=== PATIENT | female | born 1970 | race Caucasian/White ===

== ENCOUNTER 2023-04-04 17:57 | Emergency (ER) | payer OTHER, SELFPAY ==
[2023-04-04 18:54] VITALS: BMI 27.5
--- NOTE | 2023-04-04 21:57 | ED.GENMED ---
History of Present Illness
General
Chief Complaint: Head Injury
Source: patient and family
Exam Limitations: none
Time Seen by Provider: 04/04/23 18:54
Nursing documentation reviewed up to this point in time: agreed with
Travel History
Have you had any contact with someone who has COVID-19?: No
Do you have any symptoms of coronavirus? Fever > 100 degrees, chills, cough, shortness of breath, sore throat, loss of taste or smell, muscle aches, or headache?: No
History of Present Illness
History of Present Illness:
52-year-old female with past with history of asthma, lupus anxiety depression OCD presenting to the emergency department today with concerns of the latch of her car door hit her on the top of the head. Did not lose consciousness but has felt
lightheaded and nauseous since. Has had ongoing discomfort.
Past History
Past History
ED Past Medical History: Asthma, Psychiatric (Anxiety) and Other (Adrenal insufficiency, migraine )
ED Past Surgical History: , Gynecological and Tonsilectomy
Social History
Tobacco: Non-smoker
Alcohol: None
Drug: None
Personal:
Living: with family
Employment: Employed
Family History
Family History: Other
Review of Systems
Review of Systems
Allergies reviewed?: Yes
All Other Systems: ROS reviewed and negative except as documented in HPI and ROS
Phy Exam
Physical Exam
Physical Exam:
GENERAL: Alert , in no apparent distress
EYE: pupils equal and reactive
NECK: Supple, no significant adenopathy.
ENT: o/p clr, mmm.
CARDIAC: Regular rate and rhythm .
LUNGS: Clear breath sounds bilaterally, no acute respiratory distress, no wheezes/rales/rhonchi
ABDOMEN: Soft, without focal tenderness, no r/g, no cvat
NEUROLOGICAL: Alert and oriented, no focal neuro deficits 5 out of 5 upper and lower extremity strength with mild pain bilaterally normal finger-nose intervention no pronator drift
SKIN: Warm and dry, skin intact.
MUSCULOSKELETAL: No edema, well perfused.
PSYCH: Normal and appropriate interaction.
Course
Orders/Labs/Results
Orders:
Orders
04/04/23 18:55
CT Head W/o Iv Contrast Urgent
Comment:
Reason For Exam: hit head severe pain
Vital Signs
Initial and Last Documented VS:
Initial Vital Signs
Pulse Resp Pulse Ox
82 17 97
04/04/23 18:05 04/04/23 18:05 04/04/23 18:05
Last Documented Vital Signs
Pulse Resp Pulse Ox
82 17 97
04/04/23 18:05 04/04/23 18:05 04/04/23 18:05
MDM/Problems Addressed
MDM/Problems Addressed:
52-year-old female presenting to the emergency department after head trauma prior to arrival. No loss of consciousness does have ongoing headache and nausea as well as lightheadedness. CT scan obtained without emergent findings. Normal neurologic
evaluation. Symptoms consistent with concussion. Plan for symptomatic treatment. Return precautions given.
*Critical Care Note
Total Time (30-74mins, 75-104mins- exclusive of procedures): Not Applicable
ED Attending Note
-
Portions of this chart may have been created with voice recognition software.� Occasional wrong word or��sound alike� substitutions may have occurred due to the inherent limitations of voice recognition software.
Discharge Plan
Departure
Patient Disposition: Home (Routine Discharge)
Date of Disposition: 04/04/23
Time of Disposition: 21:57
Patient with high blood pressure during this ER visit?: No
Condition: Good
Covid-19: Not Applicable
Discharge Problem:
Concussion
Instructions: Concussion, Adult (DC)
Prescriptions:
No Action
diphenhydramine HCl [Banophen] 50 MG capsule
50 mg PO HS
gabapentin 400 MG capsule
900 mg PO TID
benzonatate 100 MG capsule
200 mg PO Q8HPRN PRN (Reason: cough)
montelukast 10 MG tablet
10 mg PO QPM
hydrocortisone 10 MG tablet
10 mg PO DAILY@1300
hydrocortisone 10 MG tablet
30 mg PO DAILY
cranberry 500 MG capsule
500 mg PO DAILY
Bifidobacterium infantis [Align] 4 MG capsule
4 mg PO DAILY
multivitamin with folic acid [Tab-A-Jack] 1 TABLET tablet
1 tab PO QPM
methocarbamol [Robaxin] 500 MG tablet
1,500 mg PO TID
riboflavin (vitamin B2) [Vitamin B-2] 100 MG tablet
400 mg PO DAILY
calcium carbonate [Antacid (calcium carbonate)] 1 TABLET tablet,chewable
2 tab PO Q4HPRN PRN (Reason: heartburn)
hydroxychloroquine 200 MG tablet
200 mg PO DAILY
fluticasone propion-salmeterol [Advair HFA] 1 PUFF HFA aerosol inhaler
2 puff inhalation R BID
Ergocalciferol (Vitamin D2) [Vitamin D2] 1,250 MCG Capsule
1.25 mg PO WEEKLY
albuterol sulfate 1 PUFF HFA aerosol inhaler
2 puff inhalation R Q4HPRN PRN (Reason: sob/wheezing)
gabapentin 300 MG capsule
900 mg PO TID 0RF
albuterol sulfate 1 PUFF HFA aerosol inhaler
2 puff inhalation R Q4HPRN PRN (Reason: sob) 0RF
Lactobac 2-Bifido 1-S. therm [High Potency Probiotic] 1 CAP capsule
1 cap PO DAILY 0RF
acetaminophen [Tylenol Extra Strength] 500 MG tablet
1,000 mg PO Q8HPRN PRN (Reason: tension headache) Qty: 0 0RF
lorazepam 2 MG tablet
2 mg PO Q6HPRN PRN (Reason: Anxiety) Qty: 0 0RF
ondansetron 4 MG tablet,disintegrating
4 mg PO Q6HPRN PRN (Reason: nausea) Qty: 0 0RF
ondansetron 4 mg tablet,disintegrating
4 mg PO TIDPRN PRN (Reason: nausea/vomiting) Qty: 20 0RF
amoxicillin 500 mg tablet
500 mg PO TID Qty: 20 0RF
Referrals:
Nadira Moreland MD [Family Provider] -
Vicki Rocha, [Active] - Follow up in 10 days
Activity Restrictions/Additional Instructions:
You came the emergency department today after a head injury. You had a normal CT scan. You likely have a concussion and you do have symptoms consistent with a concussion. The treatment does require initial rest with slow incremental increases of
physical activity. Please follow closely with your primary care doctor or neurology if symptoms are persisting. Return to the emergency department for any worsening, new or concerning symptoms.
Interventions
Interventions:
*Risk Screen - Suicide Last Done: 04/04/23 18:54
*General Assessment Last Done: 04/04/23 18:55
*Neglect/Abuse Screening Last Done: 04/04/23 18:54
ED- Fall Risk Assessment Last Done: 04/04/23 18:57
*ED COVID-19 Vaccine History Last Done: 04/04/23 18:54
*Nursing Disposition Last Done: 04/04/23 22:12
ED- Neurological Assessment Last Done: 04/04/23 18:57
ED-Skin Assessment Last Done: 04/04/23 18:57
Discharge Date and Time
Discharge Date/Time: 04/04/23 22:13
== END 2023-04-04 22:13 | disposition home or self-care (01) ==
LOC: EMR 17:57
PROVIDERS: EMERGENCY PHYSICIAN Emergency Medicine; FAMILY PHYSICIAN Family Medicine
DX: S06.0XAA Concussion with loss of consciousness status unknown, initial encounter (principal); W22.8XXA Striking against or struck by other objects, initial encounter; J45.909 Unspecified asthma, uncomplicated; M32.9 Systemic lupus erythematosus, unspecified; F41.9 Anxiety disorder, unspecified; F42.9 Obsessive-compulsive disorder, unspecified; E27.40 Unspecified adrenocortical insufficiency
CPT/HCPCS: 99284; 70450

== ENCOUNTER 2023-05-15 17:33 | Inpatient (IN) | payer OTHER, SELFPAY ==
[2023-05-15] VITALS (12 sets, daily range): BP systolic 127–169; BP diastolic 53–98; BMI 29.4; BMI 28.4
[2023-05-15] MEDS: TYLENOL 650 MG PO ×2 (14:29→20:23)
[2023-05-15 14:38] LABS: % Basophils 0.3 % (0-2); % Eosinophils 0.9 % (0-6); % Immature Granulocytes 1.5 % (0-0.5); % Lymphocytes 18.9 % (20.5-51.1); % Neutrophils 69.4 % (42.2-75.2); Absolute Eosinophils 0.1 10^3/uL (0-0.7); Absolute Immature Granulocytes 0.2 10^3/uL (0-0.05); Absolute Lymphocytes 2.4 10^3/uL (1.2-3.4); Absolute Monocytes 1.1 10^3/uL (0.1-0.6); Absolute Neutrophils 8.6 10^3/uL (1.4-6.5); Hemoglobin 9.4 g/dL (12.0-16.0); Mean Corp Hgb Conc. 31.3 g/dL (33.0-37.0); Mean Corpuscular Volume 82.9 fL (81.0-99.0); Mean Platelet Volume 8.7 fL (7.4-10.4); Nucleated Red Blood Cells % 0.2 %; Platelet Count 486 10^3/uL (130-400); Red Blood Cell Count 3.62 10^6/uL (4.20-5.40); Red Cell Dist. Width 15.6 % (11.5-14.5); White Blood Cell Count 12.5 10^3/uL (4.8-10.8)
[2023-05-15 14:54] LABS: Lactic Acid 1.3 mmol/L (0.7-2.0)
[2023-05-15 15:12] LABS: Blood Urea Nitrogen 20 mg/dl (7-17); Calcium 8.9 mg/dl (8.4-10.2); Carbon Dioxide 30 mmol/L (22-30); Chloride 98 mmol/L (98-107); Estimated Creatinine Clearance 87 ml/min; Glucose 100 mg/dl (70-99); Sodium 133 mmol/L (135-145); eGFR > 60.00
--- NOTE | 2023-05-15 15:32 | ED.GENMED ---
History of Present Illness
General
Chief Complaint: Fever
Source: patient
Exam Limitations: none
Time Seen by Provider: 05/15/23 14:42
Nursing documentation reviewed up to this point in time: agreed with
Travel History
Have you had any contact with someone who has COVID-19?: Unable to Answer
Do you have any symptoms of coronavirus? Fever > 100 degrees, chills, cough, shortness of breath, sore throat, loss of taste or smell, muscle aches, or headache?: Yes
Symptoms:: fever
History of Present Illness
History of Present Illness:
Patient presents to ED secondary to 1 week history of fever, sore throat, intermittent cough, along with nausea/vomiting/diarrhea, and decreased appetite. Upon arrival, patient found to be febrile with elevated heart rate. Patient reports
generalized fatigue and not feeling well. Denies headache. Denies chest pain. Denies shortness of breath. Denies abdominal pain. Denies back pain. Denies rash. Patient states that she tested positive for COVID-19 2 days ago. In addition,
multiple family members also has tested positive for COVID-19.
Past History
Past History
ED Past Medical History: Asthma, Psychiatric (Anxiety) and Other (Adrenal insufficiency, migraine )
ED Past Surgical History: , Gynecological and Tonsilectomy
Social History
Tobacco: Non-smoker
Alcohol: None
Drug: None
Personal:
Living: with family
Employment: Employed
Family History
Family History: Other
Review of Systems
Review of Systems
Allergies reviewed?: Yes
All Other Systems: ROS reviewed and negative except as documented in HPI and ROS
Constitutional: Reports fever
EENT: Reports sore throat
Respiratory: Reports cough; Denies trouble breathing
Cardiac: Reports no symptoms; Denies chest pain
ABD/GI: Reports nausea, vomiting and diarrhea; Denies abdominal pain
: Reports no symptoms
Musculoskeletal: Reports no symptoms
Skin: Reports no symptoms; Denies rash
Neurological: Reports weakness
Phy Exam
Physical Exam
Physical Exam:
Physical Exam
General: moderate distress, acutely ill. febrile. tachycardic.
Head: nc/at. eomi
Neck: supple. no meningeal signs.
Heart: tachycardic, no murmur. equal radial pulses.
Lungs: mild respiratory distress. diminished breath sounds bilaterally
Abdomen: normal bowel sounds. not tender.
Neuro: alert and oriented. no focal neurological deficits
Skin: no rash
Psychiatric: well kept. interactive and cooperative
Extremities: no edema. no calf tenderness.
Course
Orders/Labs/Results
Orders:
Orders
05/15/23 Breakfast
Regular
At Your Request: Full Participation
05/15/23 14:21
Acetaminophen [Tylenol] 650 mg .ROUTE .STK-MED ONE
05/15/23 14:28
Acetaminophen [Tylenol] 650 mg PO NOW STA
05/15/23 14:31
Basic Metabolic Panel Urgent
Complete Blood Count/With Diff Urgent
Lactate Level [Lactic Acid] Urgent
Blood Culture Q30M
CHELY Source: Blood/Venous
Specimen Description:
Date Specimen was Collected: 05/15/23
Time Specimen was Collected: 14:27
05/15/23 14:38
Blood Culture Q30M
CHELY Source: Blood/Venous
Specimen Description:
Date Specimen was Collected: 05/15/23
Time Specimen was Collected: 14:27
05/15/23 14:41
CR Chest Portable - 1 View Urgent
Comment:
Reason For Exam: fever/cough/sob, recent covid
Reason Study Needs to be Portable: Patient Unstable
05/15/23 14:43
Influenza A+B Rapid Molecular Urgent
CHELY Source: Nasal Swab
Specimen Description:
05/15/23 15:15
Electrocardiogram (*1) Urgent
Reason for Study: QTc Monitoring
EKG- Treatment ONCE
Ondansetron Injectable [Zofran] 4 mg IV NOW STA
05/15/23 15:26
Comprehensive Metabolic Panel Urgent
Procalcitonin Urgent
PCT Algorithmm Indication: Respiratory
05/15/23 15:32
0.9% Sodium Chloride 1000 ml [Nss] 1,000 ml IV BOLUS
05/15/23 15:44
0.9% Sodium Chloride 1000 ml [Nss] 1,000 ml IV BOLUS
05/15/23 16:13
COVID-19 Antigen Stat
Source: Nasal Swab
05/15/23 16:18
Acetaminophen [Tylenol] 1,000 mg PO NOW STA
05/15/23 16:31
Flores Catheter [Catheter- Indwelling] As Directed
Reason for insertion: Acute Retention
Discontinue Date/Time: 05/18/23 0600
05/15/23 17:05
Admit/Transfer Patient As Directed
Co-Sign Provider:
Level of Care: Inpatient admission
Assign to:: ICU
Physician / Group: Laura
Diagnosis: Sepsis, Hypoxia and COVID
Reason for Hospitalization: remdesivir, vancomycin, cefepime, oxygen, stress dose steroids
Expected length of stay greater than two midnights?: Yes
ELOS- Estimated Length of Stay in days: 3
I certify the patient meets the requirements for IP care: Yes
05/15/23 17:10
Code Status As Directed
Resuscitation Status: Full Code
05/15/23 18:00
Cefepime HCl [Maxipime] 2,000 mg IV Q8H
05/15/23 18:13
0.9% Sodium Chloride 1000 ml [Nss] 1,000 ml IV 75 mls/hr
Acetaminophen [Tylenol] 650 mg PO Q4HPRN PRN
Albuterol [ProAIR HFA INHALER] 2 puff INH R Q4HPRN PRN
Enoxaparin Sodium [Lovenox] 40 mg SC QPM
Lorazepam [Ativan] 2 mg PO QID
Remdesivir [Veklury] 200 mg 0.9% Sodium Chloride 250 ml [Nss] 210 ml IV ONCE
Patient has been symptomatic for </= 10 days?: Yes
Patient's SpO2 </= 94% on room air OR requiring oxygen?: Yes
05/15/23 18:13
INFECTIOUS DISEASE CONSULT Routine
Consulting Provider: Venu Pham
Was physician already notified: Yes
Activity As Directed
Activity Level: Bedrest
I&O [Intake/ Output] As Directed
Frequency: q12h
Vital Signs As Directed
Frequency: Per unit guidelines
Weight As Directed
Frequency: Daily
DX Deep Vein Thrombosis Video Routine
05/15/23 20:00
Ascorbic Acid [Vitamin C] 500 mg PO BID
Duloxetine Delayed Release [Cymbalta Delayed Release] 60 mg PO BID
Fluticasone/Salmeterol 115/21 [Advair Hfa 115/21 Mcg Inhaler] 2 puff INH R BID
Guaifenesin [Mucinex] 600 mg PO Q12
Montelukast Sodium [Singulair] 10 mg PO DAILY@1999
Quetiapine Fumarate [Seroquel] 200 mg PO DAILY@1999
05/15/23 20:12
0.9% Sodium Chloride [Nss] 30 ml IV ONCE
05/15/23 22:00
Gabapentin [Neurontin] 900 mg PO TID
05/16/23 00:00
Hydrocortisone Sod Succinate [Solu-Cortef] 60 mg IV Q8
methocarbamol 0 mg PO Q8
05/16/23 03:21
Basic Metabolic Panel IN AM
Complete Blood Count/No Diff IN AM
Magnesium IN AM
05/16/23 06:00
ECG [Electrocardiogram (*1)] IN AM
Reason for Study: QTc Monitoring
05/16/23 20:00
Cholecalciferol (Vitamin D3) [VITAMIN D3 (cholecalciferol)] 175 mcg PO DAILY@1999
Abnormal Lab Results
05/15/23 05/15/23 05/15/23
14:31 15:26 16:13
WBC 12.5 H 10^3/uL
(4.8-10.8)
RBC 3.62 L 10^6/uL
(4.20-5.40)
Hgb 9.4 L g/dL
(12.0-16.0)
Hct 30.0 L %
(37.0-47.0)
MCH 26.0 L pg
(27.0-31.0)
MCHC 31.3 L g/dL
(33.0-37.0)
RDW 15.6 H %
(11.5-14.5)
Plt Count 486 H 10^3/uL
(130-400)
Abs Immat Gran (auto) 0.2 H 10^3/uL
(0-0.05)
Absolute Neuts (auto) 8.6 H 10^3/uL
(1.4-6.5)
Absolute Monos (auto) 1.1 H 10^3/uL
(0.1-0.6)
Immature Gran % 1.5 H %
(0-0.5)
Lymphocytes % 18.9 L %
(20.5-51.1)
Sodium 133 L mmol/L 133 L mmol/L
(135-145) (135-145)
BUN 20 H mg/dl 19 H mg/dl
(7-17) (7-17)
Glucose 100 H mg/dl
(70-99)
Calcium 8.2 L mg/dl
(8.4-10.2)
AST 44 H U/L
(14-36)
ALT 58 H U/L
(0-35)
Total Protein 5.7 L g/dl
(6.3-8.2)
Procalcitonin 0.34 H ng/ml
(0.0-0.25)
SARS-CoV-2 Antigen Positive A
(Negative)
05/15/23 14:31
05/15/23 15:26
Vital Signs
Initial and Last Documented VS:
Initial Vital Signs
Temp Pulse Resp BP Pulse Ox
103.5 F H 152 16 159/72 88
05/15/23 14:22 05/15/23 14:22 05/15/23 14:22 05/15/23 14:22 05/15/23 14:22
Last Documented Vital Signs
Temp Pulse Resp BP Pulse Ox
99.0 F 115 20 127/80 92
05/16/23 07:53 05/16/23 11:30 05/16/23 11:30 05/16/23 11:00 05/16/23 11:30
MDM/Problems Addressed
MDM/Problems Addressed:
History and exam concerning for sepsis, with significant dehydration from ongoing COVID-19 infection. Potential left lower lobe pneumonia noted on x-ray. Procalcitonin pending.
Blood culture pending. Patient will be admitted for continual IV hydration and further evaluation.
*EKG
Interpreted by ED Provider?: Yes
Heart Rate: 148
Rate: tachycardiac
Rhythm: sinus
[place]: normal axis
Interval: normal interval
*Critical Care Note
Total Time (30-74mins, 75-104mins- exclusive of procedures): 30 min
ED Attending Note
-
Portions of this chart may have been created with voice recognition software.� Occasional wrong word or��sound alike� substitutions may have occurred due to the inherent limitations of voice recognition software.
Discharge Plan
Departure
Patient Disposition: Admit
Date of Disposition: 05/15/23
Time of Disposition: 15:42
Admit to: Telemetry
Presentation/result/management discussed w/ accepting MD/DO: Hospitalist
Covid-19: Confirmed COVID-19
Discharge Problem:
COVID-19, Dehydration
Interventions
Interventions:
*Risk Screen - Suicide Last Done: 05/15/23 14:24
*General Assessment Last Done: 05/15/23 14:24
*Neglect/Abuse Screening Last Done: 05/15/23 14:24
ED- Fall Risk Assessment Last Done: 05/15/23 18:14
*ED COVID-19 Vaccine History Last Done: 05/15/23 14:24
*Nursing Disposition Last Done: 05/15/23 18:14
ED- Neurological Assessment Last Done: 05/15/23 14:25
ED-Skin Assessment Last Done: 05/15/23 14:25
Discharge Date and Time
Discharge Date/Time: 05/15/23 18:15
[2023-05-15] MEDS: ZOFRAN 4 MG IV ×2 (15:33→19:51)
[2023-05-15] MEDS: NSS 1000 IV ×4 (15:34→22:57)
--- NOTE | 2023-05-15 15:45 | PHANOTE ---
med rec note- tried to talk to patient but was informed that patient medication list went home with the daughter, tried to speak to patient but she did not nswer any my question, called daughter and she asked if i could call her back in about 10
minutes she was driving at the time of call
[2023-05-15 15:56] LABS: ALT (SGPT) 58 U/L (0-35); AST (SGOT) 44 U/L (14-36); Albumin 3.6 g/dl (3.5-5.0); Alkaline Phosphatase 93 U/L (38-126); Blood Urea Nitrogen 19 mg/dl (7-17); Calcium 8.2 mg/dl (8.4-10.2); Carbon Dioxide 28 mmol/L (22-30); Chloride 102 mmol/L (98-107); Estimated Creatinine Clearance 87 ml/min; Glucose 87 mg/dl (70-99); Potassium 3.6 mmol/L (3.5-5.1); Sodium 133 mmol/L (135-145); Total Bilirubin 0.3 mg/dl (0.2-1.3); Total Protein 5.7 g/dl (6.3-8.2); eGFR > 60.00
[2023-05-15 16:07] LABS: Procalcitonin 0.34 ng/ml (0.0-0.25)
--- NOTE | 2023-05-15 16:30 | EDRN ---
Admitting MD at bedside, pt c/o needing to urinate but unable to, MD requested Flores cath, placed with 800cc of clear yellow urine drained. Pt pending ICU admission.
[2023-05-15 16:36] LABS: COVID-19 Antigen Positive (Negative)
--- NOTE | 2023-05-15 16:40 | W.PN.UPDATE ---
Update Note
Progress Note Update
I saw and examined the patient.
The LACE MENDER or PA's note was reviewed and I agree with the note.
Comment: 53 years old female presented with shortness of breath and fever. She was diagnosed with COVID infection on May 11. Patient was taking extra doses of hydrocortisone. She is on chronic hydrocortisone for adrenal insufficiency.
Physical Exam
General: In respiratory distress and uncomfortable from urine retention
HEENT:�Anicteric and Moist mucous membranes
Respiratory: Bilateral rhonchi
Cardiac:�S1/S2, tachycardic
GI:�Soft and Non Tender
Musculoskeletal:�No Clubbing, No Cyanosis and Edema, Right Lower Extremity
Skin:�Warm, Dry and Other (Moderate erythema LLE extending from ankle to just below the Musculoskeletal: Erythema extends outside previously drawn eng)
Neuro:�Awake, Alert, Oriented and Non-focal/grossly intact, followed commands.
Psych: Anxious
Assessment and plan
#Acute hypoxic respiratory failure with oxygen 88 to 87% room air with tachypnea, using accessory muscle, tachycardia
Patient reports history of asthma
Admit the patient to the hospital. Start the patient on oxygen supplementation. Treat fever, relieve urinary retention.
Treat acute respiratory illness with IV antibiotic, IV steroid
IV antibiotics treatment
Monitor oxygen saturation
Elevated procalcitonin and leukocytosis, empiric antibiotic
Blood cultures
Appreciate pulmonary input
# Acute COVID infection date of testing + May 11
Start the patient on respiratory isolation in immunocompromise patient
Cannot rule out secondary bacterial infection
IV Remdisivir
IV steroid
IV broad-spectrum antibiotics
Monitor response
Do blood culture.
Appreciate ID input
# Acute urinary retention,
History of retention in the past, will place Flores catheter
# Hyponatremia, monitor BMP
# History of adrenal insufficiency. Due to acute illness, we will do loading dose and monitor
#Major depressive disorder. No changes intended
#History of rheumatoid arthritis/SLE, will verify medical history.
Total time spent to see the patient, examine the patient on the floor, review data and lab results, discuss treatment plan with patient, nursing staff and ER doctor around 75 minutes
--- NOTE | 2023-05-15 16:40 | HPS.HSE ---
Addendum entered and electronically signed by Patricia Swanson PA-C 05/15/23 17:17:
Hold hydroxychloroquine due to interaction with Remdesivir.
Original Note:
Family Physician
-
Family Physician: Nadira Moreland
Chief Complaint
-
Fever, Cough and Shortness of Breath
History of Present Illness
Patient is a 53 y/o female past medical history of adrenal insufficiency, asthma, lupus, and rheumatoid arthritis who presents with fever, cough, and shortness of breath. She reports she tested positive for COVID on Thursday (5 days ago). She states
she increased her usual dose of steroids for her adrenal insufficiency. She reports persistent fevers, and cough. She describe cough as mostly dry but sometimes productive of thick yellow/green mucus. She reports pleuritic chest pain when she
cough hard to bring up mucus. She reports associated shortness of breath. She reports nausea and poor appetite, but denies vomiting or diarrhea.
Medical History
Past Medical History
Past Medical History: Reports Other
Additional Past Medical History:
Adrenal Insufficiency
Asthma
Lupus
Rheumatoid Arthritis
Fibromyalgia
Anxiety/Depression
Past Surgical History: Reports Other
Additional Past Surgical History:
Section
Tonsillectomy
Social History
Tobacco: Non-smoker
Alcohol: None
Family History
Family History: Not pertinent
Allergies / Home Medications
Allergies reflects when Allergies were last updated in [facility].
Home Medications with original date entered in [facility]
Allergy/Medication List:
Allergies
Allergy/AdvReac Type Severity Reaction Status Date / Time
red dye Allergy Mild Itching Verified 04/04/23 18:12
wheat Allergy Mild Vomiting Verified 04/04/23 18:12
ciprofloxacin [From Cipro] Allergy Unknown Rash Verified 04/04/23 18:12
haloperidol [From Haldol] Allergy Unknown Unknown Verified 04/04/23 18:12
prochlorperazine Allergy Unknown Unknown Verified 04/04/23 18:12
[From Compazine]
hydrocodone bitartrate Allergy Itching Verified 04/04/23 18:12
[From Lorcet 10/650]
metoclopramide [From Reglan] Allergy Swelling Verified 04/04/23 18:12
nitrofurantoin Allergy Vomitting Verified 04/04/23 18:12
[From Macrobid]
nitrofurantoin Allergy Vomitting Verified 04/04/23 18:12
macrocrystalline
[From Macrobid]
prednisone [Prednisone] Allergy Itching Verified 04/04/23 18:12
promethazine [From Phenergan] Allergy Unknown Verified 04/04/23 18:12
propoxyphene napsylate Allergy Itching Verified 04/04/23 18:12
[From Darvocet-N 100]
sulfamethoxazole Allergy Rash Verified 04/04/23 18:12
[From Bactrim]
sulfanilamide Allergy Rash Verified 04/04/23 18:12
trimethoprim [From Bactrim] Allergy Rash Verified 04/04/23 18:12
ssri Allergy Vomiting Uncoded 04/04/23 18:12
tri cyclic anti depressants Allergy Vomiting Uncoded 04/04/23 18:12
Home Medications
Bifidobacterium infantis 4 mg capsule (Align) 4 mg PO DAILY 09/28/17
benzonatate 100 mg capsule 200 mg PO Q8HPRN PRN cough 09/28/17
cranberry 500 mg capsule 930 mg PO DAILY Supplement 09/28/17
diphenhydramine HCl 50 mg capsule (Banophen) 50 mg PO HS sleep 09/28/17
hydrocortisone 10 mg tablet 10 mg PO DAILY@1300 09/28/17
hydrocortisone 10 mg tablet 30 mg PO DAILY 09/28/17
montelukast 10 mg tablet 10 mg PO QPM 09/28/17
multivitamin with folic acid 400 mcg tablet (Tab-A-Jack) 1 tab PO QPM 09/28/17
riboflavin (vitamin B2) 100 mg tablet (Vitamin B-2) 400 mg PO DAILY 11/30/17
albuterol sulfate 90 mcg/actuation aerosol inhaler 2 puff inhalation R Q4HPRN PRN sob/wheezing 04/24/21
calcium carbonate 200 mg calcium (500 mg) chewable tablet (Antacid (calcium carbonate)) 2 tab PO Q4HPRN PRN heartburn 04/24/21
fluticasone propionate 115 mcg-salmeterol 21 mcg/actuation HFA inhaler (Advair HFA) 2 puff inhalation R BID 04/24/21
hydroxychloroquine 200 mg tablet 400 mg PO NOON 04/24/21
acetaminophen 500 mg tablet (Tylenol Extra Strength) 1,000 mg PO Q8HPRN PRN tension headache ##0 04/26/21
gabapentin 300 mg capsule 900 mg PO TID 04/26/21
ondansetron 4 mg disintegrating tablet 4 mg PO TIDPRN PRN nausea/vomiting #20 tabs 04/05/22
ascorbic acid (vitamin C) 500 mg tablet (Vitamin C) 500 mg PO BID 05/15/23
calcium carbonate 500 mg calcium (1,250 mg) tablet 1,000 mg PO NOON 05/15/23
cholecalciferol (vitamin D3) 25 mcg (1,000 unit) tablet (Vitamin D3) 175 mcg PO QPM 05/15/23
duloxetine 60 mg capsule,delayed release (Cymbalta) 60 mg PO BID 05/15/23
ibuprofen 800 mg tablet 800 mg PO Q6HPRN PRN modeerate pain 05/15/23
loperamide 2 mg tablet 2 mg PO Q6H PRN diarrhea 05/15/23
lorazepam 2 mg tablet 2 mg PO QID 05/15/23
methocarbamol 500 mg tablet 1,500 mg PO Q8H 05/15/23
quetiapine 200 mg tablet (Seroquel) 200 mg PO HS 05/15/23
Review of Systems
-
A 12 point ROS was completed and negative except as noted: Yes
Constitutional: Reports Fever
Respiratory: Reports Cough and Trouble Breathing
Cardiac: Denies Chest Pain or Palpitations
Physical Exam
Vital Signs
Vital Signs
Temp Pulse Resp BP Pulse Ox
102.8 F H 149 27 138/69 94
05/15/23 15:49 05/15/23 16:15 05/15/23 16:15 05/15/23 16:00 05/15/23 16:15
Physical Exam
General: Well Developed, Well Nourished and Appears in Distress
HEENT: Oxygen (Nasal Cannula) and Other (Flushed)
Respiratory: Rales (Bilateral Bases) and Other (Appears short of breath with conversation)
Cardiac: S1/S2, Regular Rhythm and Tachycardia
GI: Soft and Non Tender
Genito-urinary: Other (Slightly distended bladder)
Musculoskeletal: No Clubbing, No Cyanosis and No Edema
Skin: Warm and Dry
Neuro: Awake, Alert, Oriented and Nonfocal/grossly intact
Psych: Calm
Laboratory Results
-
05/15/23 14:31
05/15/23 15:26
Laboratory Results
Lactic Acid 1.3 mmol/L (0.7-2.0) 05/15/23 14:31
Total Bilirubin 0.3 mg/dl (0.2-1.3) 05/15/23 15:26
AST 44 U/L (14-36) H 05/15/23 15:26
ALT 58 U/L (0-35) H 05/15/23 15:26
Alkaline Phosphatase 93 U/L (38-126) 05/15/23 15:26
Data Reviewed
-
Diagnostic Radiology: Report Reviewed by me
Lab Data: Labs Reviewed by me
Impression/Plan
-
Acute Hypoxic Respiratory Insufficiency and Sepsis to COVID-19
-Admit to ICU for close monitor as patient is high risk due to immunocompromised state on chronic steroids and underlying asthma
-Consult Pulmonary and Infectious Disease
-Start Remdesivir
-Start Vancomycin and Cefepime
-Continue supplemental oxygen
Chronic Adrenal Insufficiency
-Start stress dose steroids
Acute Urinary Retention
-Flores placed in ED
Asthma, no acute exacerbation
-Continue Advair and Singulair
-Continue albuterol prn
Lupus/Rheumatoid Arthritis/Fibromyalgia
-Continue Cymbalta, Gabapentin and Methocarbamol
-Continue Hydroxychloroquine
Anxiety/Depression/PTSD
-Patient reports history of panic attacks
-Monitor closely
-Continue Seroquel and Ativan
DVT proph: Lovenox
Code Status: Full Code
--- NOTE | 2023-05-15 18:10 | PTCARENOTE ---
adm to ICU [id number] via ed stretcher, settled in bed, complete bath, see admission assessment completed. skin pink, flushed, IV fluids infusing as ordered, noted some nausea, requested zofran order. cardona draining clear yellow. asked for water but
not thirsty/hungry. ordered dinner, unsure if she'll eat. phone, call avila, belongings near bed. maintained on bedrest. on 2l nc, IS at bedside, agreeable to use.
--- NOTE | 2023-05-15 18:48 | PHA.VAN.IN ---
Assessment
- Assessment
Renal Function: Appears similar to baseline
Maximum Temperature: 103.5 F oral 05/14 @ 1422
Concomitant Antimicrobials: cefepime, remdesivir
AUC Dosing Plan
- Dosing Variables
Dosing Weight (kg): 79.8
Dosing CrCl (ml/min): 87
Vd coefficient (L/kg): 0.7
- Empiric Dosing
Initial / Loading Dose: vanc 2000mg pending administration
Maintenance Regimen: vanc 1000mg Q12 starting 05/15 599
Estimated AUC (mcg*h/mL): 485
Estimated Peak (mcg*h/mL): 29.8
Estimated Trough (mcg/ml): 12.8
Estimated Half Life (H): 9
- Monitoring
No levels ordered at this time: consider levels in next few days
MRSA Screen: Ordered per protocol
Pharmacokinetics Vancomycin I
- -
Patient Age: 53
Patient Sex: Female
Vancomycin Day #: 1
Indication: Pulmonary/Respiratory
Requesting Provider: Patricia Swanson
Pertinent Antimicrobial Allergies:
ciprofloxacin - rash
trimethoprim/sulfamethoxazole - rash
nitrofurantoin - vomiting
Height / Weight:
Height 5 ft 6 in
Actual Weight 79.8 kg
Pertinent Past Medical History: lupus, rheumatoid arthritis, adrenal insufficiency on chronic steroids
- Vital Signs / Lab Results
Temp Pulse Resp BP Pulse Ox
102.8 F H 131 33 135/66 97
05/15/23 15:49 05/15/23 18:30 05/15/23 18:30 05/15/23 18:30 05/15/23 18:30
Lab Results - Hematology
05/15/23
14:31
WBC 12.5 H
Lab Results - Chemistry
05/15/23 05/15/23
14:31 15:26
BUN 20 H 19 H
Creatinine 0.8 0.8
Estimated Creat Clear 87 87
Albumin Cancelled 3.6
05/15/23
14:31
Lactic Acid 1.3
Microbiology Results
05/15/23 14:43 Influenza Types A & B ([facility]) - Final
Nasal Swab Negative for Influenza A & B, NAAT
Negative results must be combined with clinical observations
and patient history.
Nucleic Acid Amplification test (NAAT)performed on the
[employer] platform.
[2023-05-15] MEDS: VANCOCIN 540 MG IV (19:51)
[2023-05-15] MEDS: ADVAIR HFA 115/21 MCG INHALER 2 PUFF INH (19:55)
[2023-05-15] MEDS: CYMBALTA DELAYED RELEASE 60 MG PO (19:56)
[2023-05-15] MEDS: SINGULAIR 10 MG PO (19:56)
[2023-05-15] MEDS: LOVENOX 40 MG SC (19:56)
[2023-05-15] MEDS: SEROQUEL 200 MG PO (19:56)
[2023-05-15] MEDS: STERILE WATER FOR INJECTION 10 ML IV (19:56)
[2023-05-15] MEDS: ProAIR HFA INHALER 2 PUFF INH (19:56)
[2023-05-15] MEDS: MAXIPIME 2000 MG IV (19:56)
[2023-05-15] MEDS: MUCINEX 600 MG PO (19:56)
[2023-05-15] MEDS: VITAMIN C 500 MG PO (19:57)
[2023-05-15] MEDS: ATIVAN 2 MG PO ×2 (20:01→22:57)
--- NOTE | 2023-05-15 20:12 | W.PN.SEPSIS ---
Sepsis
Vital Signs
Temp Pulse Resp BP Pulse Ox
99.8 F 131 20 131/56 97
05/15/23 18:25 05/15/23 20:02 05/15/23 20:02 05/15/23 19:00 05/15/23 20:02
Physical Exam
Physical Exam:
A focused exam was performed after fluid resuscitation.
Capillary Refill
Bilateral Upper Extremity:
Jeromy Time: Less than 3 sec
Bilateral Lower Extremity:
Jeromy Time: Less than 3 sec
Pulse Evaluation
Bilateral Radial:
Pulse Evaluation: Present
Bilateral Dorsalis Pedis:
Pulse Evaluation: Present
[2023-05-15] MEDS: VEKLURY 250 MG IV (20:41)
[2023-05-15] MEDS: NSS 30 IV (20:41)
--- NOTE | 2023-05-15 21:30 | PTCARENOTE ---
Rec'd care of patient at 1930. Patient alert and oriented. Anxious. Denies pain. ST on tele monitor, rate in the 120-130's. Febrile. Oral temp of 101. 650mg PO Tylenol administered. Trace ankle edema. Palpable pulses. POX 96-97% on 2L nc. Dry cough
present. Non-productive. Crackles auscultated in left base. REYNA. Tachypneic. Appetite remains poor. Refused dinner. Zofran administered for nausea. PO intake encouraged. Indwelling cardona catheter in place. Draining yellow urine. IVFs infusing as
ordered through [facility]. Additional IV access placed in RAC. Call avila within reach. Safe environment maintained.
[2023-05-15] MEDS: NEURONTIN 900 MG PO (22:57)
--- NOTE | 2023-05-15 22:59 | PTCARENOTE ---
HR maintaining 120-130's. Afebrile. Resting comfortably. [employer] notified. 1L IVF bolus ordered.
[2023-05-15] MEDS: SOLU-CORTEF 60 MG IV (23:06)
[2023-05-16] VITALS (18 sets, daily range): BP systolic 127–163; BP diastolic 71–98; BMI 28.7
--- NOTE | 2023-05-16 | PTCARENOTE ---
0000- Minor changes in assessment. Fine scattered crackles auscultated in b/l bases. HR improving s/p IVF bolus. 110's, ST. No complaints.
[2023-05-16] MEDS: MAXIPIME 2000 MG IV ×3 (02:57→17:31)
[2023-05-16] MEDS: STERILE WATER FOR INJECTION 10 ML IV ×3 (02:57→17:30)
[2023-05-16 03:28] LABS: Hematocrit 23.8 % (37.0-47.0); Hemoglobin 7.7 g/dL (12.0-16.0); Mean Corp Hgb Conc. 32.4 g/dL (33.0-37.0); Mean Corpuscular Hgb 26.7 pg (27.0-31.0); Mean Corpuscular Volume 82.6 fL (81.0-99.0); Mean Platelet Volume 8.5 fL (7.4-10.4); Platelet Count 383 10^3/uL (130-400); Red Blood Cell Count 2.88 10^6/uL (4.20-5.40); Red Cell Dist. Width 15.5 % (11.5-14.5); White Blood Cell Count 12.6 10^3/uL (4.8-10.8)
--- NOTE | 2023-05-16 03:38 | PTCARENOTE ---
Systems reviewed. No changes. VSS. AM labs drawn.
[2023-05-16 03:39] LABS: INR 1.08; PT 13.8 Sec (11.4-14.6)
[2023-05-16 03:40] LABS: APTT 44.7 Sec (23.4-35.0)
[2023-05-16 03:43] LABS: Blood Urea Nitrogen 12 mg/dl (7-17); Calcium 7.4 mg/dl (8.4-10.2); Carbon Dioxide 26 mmol/L (22-30); Chloride 104 mmol/L (98-107); Estimated Creatinine Clearance 98 ml/min; Glucose 107 mg/dl (70-99); Magnesium 1.9 mg/dl (1.6-2.3); Potassium 3.8 mmol/L (3.5-5.1); Sodium 134 mmol/L (135-145); eGFR > 60.00
[2023-05-16] MEDS: VANCOCIN 200 IV (05:35)
--- NOTE | 2023-05-16 06:41 | W.PN.HOSP.TC ---
Addendum entered and electronically signed by Rashaad Sanchez MD 05/16/23 09:22:
Addendum
Anemia,
Anemia of chronic disease, hemoglobin today 7.7. She received IV fluid. Possible component of dilutional anemia
No rectal bleeding. No hematuria. Will monitor hemoglobin level
End
Original Note:
Today's Communication/Plan
-
.
Assessment / Plan
Assessment / Plan
Physical Exam
General: not in respiratory distress and more comfortable
HEENT:�Anicteric and Moist mucous membranes
Respiratory: Bilateral rhonchi
Cardiac:�S1/S2, tachycardic
GI:�Soft and Non Tender
: + Flores
Musculoskeletal:�No Clubbing, No Cyanosis and Edema, Right Lower Extremity
Skin:�Warm, Dry and Other (Moderate erythema LLE extending from ankle to just below the Musculoskeletal: Erythema extends outside previously drawn eng)
Neuro:�Awake, Alert, Oriented and Non-focal/grossly intact, followed commands.
Psych: Anxious
#Acute hypoxic respiratory failure with oxygen 88 to 87% room air with tachypnea, using accessory muscle, tachycardia
Patient reports history of asthma
She is not in distress, good clinical response
O2 down to 2 liters, no tachypnea, less tachycardia
Monitor oxygen saturation
Elevated procalcitonin and leukocytosis, empiric antibiotics given
f/w Blood cultures
Appreciate pulmonary input
# Acute COVID infection date of testing May 11
c/w respiratory isolation in immunocompromise patient
Cannot rule out secondary bacterial infection
IV Remdisivir day 2
IV steroid ( high dose due to underlying adrenal insufficiency)
IV broad-spectrum antibiotics
Monitor response
f/w blood culture.
Appreciate ID input
# Acute urinary retention,
History of retention in the past,
Voiding trial today
# Hyponatremia, monitor BMP
AM Na at 134
# History of adrenal insufficiency.� Due to acute illness, we will do loading dose and monitor
#Major depressive disorder.�
Anxiety/PTSD
-History of panic attacks
-Continue Seroquel and Ativan
No changes intended
#Lupus/Rheumatoid Arthritis/Fibromyalgia
-Continue Cymbalta, Gabapentin and Methocarbamol
-Continue Hydroxychloroquine if no interaction, will verify with pharmacist
Total time spent to see the patient, examine the patient on the floor, review data and lab results, discuss treatment plan with patient, nursing staff around 55 minutes
Anticipated Discharge: > 48 hours
Subjective/Interval History
-
Date of Service: May 16, 2023
No chest pain
No sob
No abd pain
Less sob, less cough
Night team, O2 at 2 liters, less tachycardia, slept well most of the night
Objective Data
-
Labs:
Laboratory Results
05/16/23
03:21
WBC 12.6 H
Hgb 7.7 L
Hct 23.8 L
Plt Count 383 D
PT 13.8
INR 1.08
APTT 44.7 H
Sodium 134 L
Potassium 3.8
Chloride 104
Carbon Dioxide 26
BUN 12
Creatinine 0.7
Glucose 107 H
Calcium 7.4 L
Vital Signs:
Vital Signs
Temp Pulse Resp BP Pulse Ox
98.4 F 109 23 146/76 96
05/16/23 03:03 05/16/23 06:00 05/16/23 06:00 05/16/23 06:00 05/16/23 06:00
I&O
05/14/23 05/15/23 05/16/23
06:59 06:59 06:59
Intake Total 2845 / 2845
Output Total 2650 / 2650
Balance 195 / 195
--- NOTE | 2023-05-16 07:17 | CON.INTV ---
Addendum entered and electronically signed by Preethi Farias DO 05/16/23 10:35:
stress dose steroids added
improving o2 requirements, vs are stable
can transition back to home PO dose
Original Note:
Consultation
Consultation Request
Date/Time Consultation Requested: 05/15/23
Date/Time Consultation Performed: 05/16/23
Medical History
-
History of Present Illness:
Patient is a 53 year old female past medical history of adrenal insufficiency, asthma, lupus, and rheumatoid arthritis who presents with fever, cough, and shortness of breath.� She reports she tested positive for COVID on Thursday (5 days ago).� She
states she increased her usual dose of steroids for her adrenal insufficiency.� She reports persistent fevers, and cough.
On arrival, O2 desire 87% placed on oxygen. Tmax 103.5F, HR 152, BP 159/72. She has been vaccinated with 1 booster but missed this season's booster. CXR not showing acute process. She has had COVID in past.
She is admitted to ICU for hypoxemia and tachycardia. Not on pressors.
Past Medical History
Past Medical History: Other (see list below)
Social History
Tobacco: Non-smoker
Alcohol: None
Drug: None
Allergies / Home Medications
Allergies
Allergy/AdvReac Type Severity Reaction Status Date / Time
ciprofloxacin [From Cipro] Allergy Rash Verified 05/15/23 17:05
haloperidol [From Haldol] Allergy Unknown Verified 05/15/23 17:05
hydrocodone bitartrate Allergy Itching Verified 04/04/23 18:12
[From Lorcet ]
metoclopramide [From Reglan] Allergy Swelling Verified 04/04/23 18:12
prednisone [Prednisone] Allergy Itching Verified 04/04/23 18:12
prochlorperazine Allergy Unknown Verified 05/15/23 17:05
[From Compazine]
propoxyphene napsylate Allergy Itching Verified 04/04/23 18:12
[From Darvocet-N 100]
red dye Allergy Itching Verified 05/15/23 17:05
sulfamethoxazole Allergy Rash Verified 04/04/23 18:12
[From Bactrim]
sulfanilamide Allergy Rash Verified 04/04/23 18:12
Tricyclic Antidepressants Allergy Vomiting Verified 05/15/23 17:05
and Tricy
trimethoprim [From Bactrim] Allergy Rash Verified 04/04/23 18:12
wheat Allergy Vomiting Verified 05/15/23 17:05
nitrofurantoin AdvReac Vomitting Verified 05/15/23 17:05
[From Macrobid]
promethazine [From Phenergan] AdvReac Dizziness Verified 05/15/23 17:05
ssri Allergy Vomiting Uncoded 04/04/23 18:12
Home Medications
Medication Instructions Recorded Confirmed Last Taken Type
Bifidobacterium infantis 4 mg 4 mg PO DAILY 09/28/17 05/15/23 11/30/17 History
capsule (Align)
benzonatate 100 mg capsule 200 mg PO Q8HPRN PRN cough 09/28/17 05/15/23 11/30/17 History
cranberry 500 mg capsule 930 mg PO DAILY Supplement 09/28/17 05/15/23 11/30/17 History
diphenhydramine HCl 50 mg capsule 50 mg PO HS sleep 09/28/17 05/15/23 11/29/17 History
(Banophen)
hydrocortisone 10 mg tablet 10 mg PO DAILY@1300 09/28/17 05/15/23 11/29/17 History
hydrocortisone 10 mg tablet 30 mg PO DAILY 09/28/17 05/15/23 11/30/17 History
montelukast 10 mg tablet 10 mg PO QPM 09/28/17 05/15/23 11/30/17 History
multivitamin with folic acid 400 1 tab PO QPM 09/28/17 05/15/23 11/29/17 History
mcg tablet (Tab-A-Jack)
riboflavin (vitamin B2) 100 mg 400 mg PO DAILY 11/30/17 05/15/23 11/30/17 History
tablet (Vitamin B-2)
albuterol sulfate 90 mcg/actuation 2 puff inhalation R Q4HPRN PRN 04/24/21 05/15/23 Unknown History
aerosol inhaler sob/wheezing
calcium carbonate 200 mg calcium 2 tab PO Q4HPRN PRN heartburn 04/24/21 05/15/23 Unknown History
(500 mg) chewable tablet (Antacid
(calcium carbonate))
fluticasone propionate 115 2 puff inhalation R BID 04/24/21 05/15/23 Unknown History
mcg-salmeterol 21 mcg/actuation
HFA inhaler (Advair HFA)
hydroxychloroquine 200 mg tablet 400 mg PO NOON 04/24/21 05/15/23 Unknown History
acetaminophen 500 mg tablet 1,000 mg PO Q8HPRN PRN tension 04/26/21 05/15/23 11/30/17 Rx
(Tylenol Extra Strength) headache ##0
gabapentin 300 mg capsule 900 mg PO TID 04/26/21 05/15/23 Unknown Rx
ondansetron 4 mg disintegrating 4 mg PO TIDPRN PRN nausea/vomiting 04/05/22 05/15/23 Unknown Rx
tablet #20 tabs
ascorbic acid (vitamin C) 500 mg 500 mg PO BID 05/15/23 05/15/23 Unknown History
tablet (Vitamin C)
calcium carbonate 500 mg calcium 1,000 mg PO NOON 05/15/23 05/15/23 Unknown History
(1,250 mg) tablet
cholecalciferol (vitamin D3) 25 175 mcg PO QPM 05/15/23 05/15/23 Unknown History
mcg (1,000 unit) tablet (Vitamin
D3)
duloxetine 60 mg capsule,delayed 60 mg PO BID 05/15/23 05/15/23 Unknown History
release (Cymbalta)
ibuprofen 800 mg tablet 800 mg PO Q6HPRN PRN modeerate pain 05/15/23 05/15/23 Unknown History
loperamide 2 mg tablet 2 mg PO Q6H PRN diarrhea 05/15/23 05/15/23 Unknown History
lorazepam 2 mg tablet 2 mg PO QID 05/15/23 05/15/23 Unknown History
methocarbamol 500 mg tablet 1,500 mg PO Q8H 05/15/23 05/15/23 Unknown History
quetiapine 200 mg tablet (Seroquel) 200 mg PO HS 05/15/23 05/15/23 Unknown History
Review of Systems
-
History Source: Patient
All other systems: Negative unless noted
Vitals / Labs / Diagnostic Testing
Vital Signs
Temp Pulse Resp BP Pulse Ox
98.4 F 109 23 146/76 96
05/16/23 03:03 05/16/23 06:00 05/16/23 06:00 05/16/23 06:00 05/16/23 06:00
Lab Data
05/16/23 03:21
05/16/23 03:21
Laboratory Results
05/16/23
03:21
PT 13.8
INR 1.08
APTT 44.7 H
Microbiology
05/15/23 14:43 Nasal Swab Influenza Types A & B ([facility]) - Final
Negative for Influenza A & B, NAAT
Negative results must be combined with clinical observations
and patient history.
Nucleic Acid Amplification test (NAAT)performed on the
[employer] platform.
Diagnostic Testing:
Physical Exam
-
HEENT: Normocephalic, Anicteric and Moist Mucous Membranes
Cardiovascular: S1/S2 and Regular Rhythm
Respiratory: Clear and Non-Labored Respirations
GI: Soft, Non Distended and Non Tender
Neurology: Awake, Alert, Oriented, AO x 3 and No Motor Deficits
Skin: Warm, Dry and Good Color
General: Comfortable and Other (NAD)
Assessment
-
Patient is a 53 year old female past medical history of adrenal insufficiency, asthma, lupus, and rheumatoid arthritis who presents with fever, cough, and shortness of breath.� She reports she tested positive for COVID on Thursday (5 days ago).� On
arrival, O2 desire 87% placed on oxygen. Tmax 103.5F, HR 152, BP 159/72. She has been vaccinated with 1 booster but missed this season's booster. CXR not showing acute process. She has had COVID in past. She is admitted to ICU for hypoxemia and
tachycardia.
Acute COVID illness
Acute hypoxic respiratory failure
Acute on chronic anemia
Fever
Sinus tachycardia
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
Prior suicide attempt for life insurance 05/01/23
Migraine history� �
History�of concussion� �
Asthma� �
arthritis� �
Anxiety� �
Adrenal insufficiency� �
thyroid disease� �
Fibromyalgia� �
H/o lupus� �
Surgical History , wisdom, T&A
Plan
MS appropriate, no encephalopathy noted
Minimize sedation/paralytics, pain medication PRN
RASS Goal: 0
Early mobilization to prevent polyneuropathy/deconditioning
Oxygen requirements: 2L NC
Continue supplemental O2 as needed, wean as tolerated
Can transition to NRB or HFNC if indicated
Encourage daily proning and OOB
SARS CoV2 PCR positive
Isolation per hospital protocol
Current treatments: RemD, IV steroids--unclear benefit to RemD use
Other treatment: no indication for IL therapy
Continue to monitor inflammatory markers as indicated
Follow fever curve
Continue supportive care
History of asthma, can resume home inhalers
Recent CT PE neg study, can check d-dimer for reassurance given COVID risk for VTE
No prior history of cardiac disease
No prior ECHO for review
Continue to monitor HR and rhythm on telemetry
Resume diet if able
Aspiration precautions
Follow LFTs while on therapy
GI ppx if indicated
Renal function at baseline, creat normal
Follow UO, daily weights
Avoid nephrotoxic agents
CBC stable
Can transfuse if Hb < 7, plts <10
Anticoagulation followed per COVID-19 protocols due to higher risk for thrombotic events
SCDs
Can transfer to floors and continue supportive care
Eventual home O2 eval prior to discharge
We will sign off upon transfer
Diagnostic Data
Chest X-Ray: 05/15/23- Minimal left basilar interstitial pneumonia
CT Scan: CHEST 07/26/22- 1. No CTA evidence for an acute pulmonary thromboembolism.
2. Enlarged multinodular thyroid gland.
Echo: n/a
PFT's:
Reports and relevant images were personally reviewed.
-----
Critical Care time 50 mins -- The patient is admitted for acute critical illness for the treatment of vital organ failure and/or prevention of further life-threatening conditions. Total care includes time spent in review of history, physical exam,
medications, hemodynamic/ventilator parameters, laboratory data, imaging and discussion with house staff, pharmacy, respiratory therapy, water taxi operator, and nursing.
--- NOTE | 2023-05-16 07:57 | CON.ID ---
Consultation
-
Date/Time Consultation Requested: 05/15/2023 1813
Date/Time Consultation Performed: 05/16/2023 07:30
Requesting Provider: Patricia Swanson
Performing Provider: Dr. Pham
Reason for Consultation: COVID-19, fever
Chief Complaint / Past History
History of Present Illness
Karuna Shetty is a 53-year-old female being evaluated at the request of Patricia Swanson regarding COVID-19 infection. History is obtained from chart review, along with patient interview.
The patient has a significant past medical history of rheumatoid arthritis, fibromyalgia, asthma, lupus and depression. She reports approximately 1 week of sore throat along with cough. She also admits to nausea, vomiting, diarrhea and decreased
appetite. She admits to significant fatigue, but denies any headache, chest pain or shortness of breath. She reports that others in the household have tested positive for COVID-19. Her mother tested positive early last week, and subsequently her
daughter tested positive. She was seen by her PCP approximate 2 days prior to admission and was tested and found also to be positive. Because of ongoing symptomatology she came to the emergency room for further care. Since admission she has had
urinary retention requiring placement of Flores catheter.
She reports that she has received her primary vaccinations for COVID and has been boosted, but following her booster she developed increasing shortness of breath.
Past History
Additional Past Medical History:
Rheumatoid arthritis
Fibromyalgia
Asthma
Lupus
Anxiety/depression
Adrenal insufficiency (unclear etiology)
Migraines
Additional Past Surgical History:
D&C
Tonsillectomy
Allergy History:
ciprofloxacin [From Cipro] Allergy (Verified 05/15/23 17:05)
Rash
haloperidol [From Haldol] Allergy (Verified 05/15/23 17:05)
Unknown
hydrocodone bitartrate [From Lorcet 10650] Allergy (Verified 04/04/23 18:12)
Itching
metoclopramide [From Reglan] Allergy (Verified 04/04/23 18:12)
Swelling
prednisone [Prednisone] Allergy (Verified 04/04/23 18:12)
Itching
prochlorperazine [From Compazine] Allergy (Verified 05/15/23 17:05)
Unknown
propoxyphene napsylate [From Darvocet-N 100] Allergy (Verified 04/04/23 18:12)
Itching
red dye Allergy (Verified 05/15/23 17:05)
Itching
sulfamethoxazole [From Bactrim] Allergy (Verified 04/04/23 18:12)
Rash
sulfanilamide Allergy (Verified 04/04/23 18:12)
Rash
Tricyclic Antidepressants and Tricy Allergy (Verified 05/15/23 17:05)
Vomiting
wheat Allergy (Verified 05/15/23 17:05)
Vomiting
nitrofurantoin [From Macrobid] Adverse Reaction (Verified 05/15/23 17:05)
Vomitting
promethazine [From Phenergan] Adverse Reaction (Verified 05/15/23 17:05)
Dizziness
ssri Allergy (Uncoded 04/04/23 18:12)
Vomiting
Medications Reviewed: Yes
Current Antibiotics:
Vanco
Cefepime
Social History
Tobacco: Non-Smoker
Alcohol: None
Drug: None
Personal:
Living: With Family
Employment: Disabled
Family History
Family History: Not Pertinent
Review of Systems
Vital Signs
Temp Pulse Resp BP Pulse Ox
99.0 F 109 23 146/76 96
05/16/23 07:53 05/16/23 06:00 05/16/23 06:00 05/16/23 06:00 05/16/23 06:00
Physical Exam
Physical Exam
Constitutional: No Acute Distress, Comfortable, Chronically Ill and Non-toxic
Head: Normocephalic
Eyes: Pupils Equal, Pupils Round, No Conjunctival Hemorrhage and Sclera Anicteric
Oral: No Thrush and No Ulcers
Cardiovascular: S1/S2; Negative S3/S4 or Murmur
Pulmonary: Non Labored; Negative Wheezes, Rales or Rhonchi
Gastrointestinal: Soft, Non Tender, Distended (Protuberant), No Rebound and No Guarding
Genito-Urinary: Negative Suprapubic Tenderness
Extremities: Negative Edema, Cyanosis, Erythema or Venous Insufficiency
Musculoskeletal: Negative Joint Swelling or Joint Effusion
Skin: Warm and Dry; Negative Rash or Jaundice
Wound: None
Neurological: Awake and Alert
Psychological: Calm
Lab / Diagnostic Study Results
05/16/23 03:21
05/16/23 03:21
Abs Immat Gran (auto) 0.2 10^3/uL (0-0.05) H 05/15/23 14:31
Absolute Neuts (auto) 8.6 10^3/uL (1.4-6.5) H 05/15/23 14:31
Absolute Lymphs (auto) 2.4 10^3/uL (1.2-3.4) 05/15/23 14:31
Absolute Monos (auto) 1.1 10^3/uL (0.1-0.6) H 05/15/23 14:31
Absolute Basos (auto) 0.0 10^3/uL (0-0.2) 05/15/23 14:31
Immature Gran % 1.5 % (0-0.5) H 05/15/23 14:31
Neutrophils % 69.4 % (42.2-75.2) 05/15/23 14:31
Lymphocytes % 18.9 % (20.5-51.1) L 05/15/23 14:
Monocytes % 9.0 % (1.7-9.3) 05/15/23 14:
Eosinophils % 0.9 % (0-6) 05/15/23 14:31
Basophils % 0.3 % (0-2) 05/15/23 14:31
PT 13.8 Sec (11.4-14.6) 05/16/23 03:21
INR 1.08 05/16/23 03:21
Lactic Acid 1.3 mmol/L (0.7-2.0) 05/15/23 14:31
Procalcitonin 0.34 ng/ml (0.0-0.25) H 05/15/23 15:26
Microbiology Results
Micro:
05/15/23 20:28 Nasal Screen MRSA (PCR) - Pending
Nose
05/15/23 14:43 Influenza Types A & B ([facility]) - Final
Nasal Swab Negative for Influenza A & B, NAAT
Negative results must be combined with clinical observations
and patient history.
Nucleic Acid Amplification test (NAAT)performed on the
[employer] platform.
05/15/23 14:38 Blood Culture - Pending
Blood/Venous
05/15/23 14:31 Blood Culture - Pending
Blood/Venous
05/15/23
16:13
SARS-CoV-2 Antigen Positive A
Imaging:
05/15/2023 CXR (portable): No acute mediastinal abnormalities. Minimal interstitial airspace disease in the left lung base. Please see full dictation for additional detail. Film personally viewed.
Assessment / Plan
Covid-19
- Pt vaccinated / boosted
- Minimal resp symptoms at present.
Fever
Leukocytosis
Mild transaminitis
Elevated procalcitonin
Multiple antibiotic allergies
Rheumatoid arthritis
Fibromyalgia
Asthma
Lupus
Anxiety/depression
Adrenal insufficiency (unclear etiology)
Migraines
Recommendations:
D/C further vanco
Given transaminitis, would avoid further remdesivir.
Begin molnupiravir 800 mg p.o. twice daily.
Continue cefepime for the present.
Monitor white count and temperature curve.
Trend LFTs.
Wean O2 (currently only on 2 L via NC)
Continue with supportive care.
Will continue to follow clinically.
Care Review
Plan reviewed with: Nurse and Physician (Hospitalist)
[2023-05-16] MEDS: MUCINEX 600 MG PO ×2 (08:24→21:05)
[2023-05-16] MEDS: NEURONTIN 900 MG PO ×3 (08:24→23:14)
[2023-05-16] MEDS: ATIVAN 2 MG PO ×4 (08:24→23:14)
[2023-05-16] MEDS: CYMBALTA DELAYED RELEASE 60 MG PO ×2 (08:25→21:04)
[2023-05-16] MEDS: SOLU-CORTEF 60 MG IV ×3 (08:25→23:15)
[2023-05-16] MEDS: VITAMIN C 500 MG PO ×2 (08:25→21:04)
[2023-05-16] MEDS: ProAIR HFA INHALER 2 PUFF INH ×2 (08:27→17:55)
[2023-05-16] MEDS: ADVAIR HFA 115/21 MCG INHALER 2 PUFF INH ×2 (08:27→17:55)
--- NOTE | 2023-05-16 08:45 | PTCARENOTE ---
Received pt sleeping.Awakens to voice.Oriented x 3.+SWIFT.Able to turn self in bed.Denies pain.ST with PVC's noted.IVF infusing.O2 2l NC.POX 97%Coarse breath sounds throughout.Occasional moist cough noted.Sometimes expectorating thick reyes
secretions.Slight REYNA noted.Appetite poor.po intake encouraged.Flores draining yellow urine.No BM noted.Skin intact.Plan of care discussed.
[2023-05-16] MEDS: NSS 1000 IV (10:06)
[2023-05-16] MEDS: MOLNUPIRAVIR (EUA) 800 MG PO ×2 (10:21→21:04)
--- NOTE | 2023-05-16 12:06 | PTCARENOTE ---
Pt assessed.No change in assessment noted.M/S order as per MD.
--- NOTE | 2023-05-16 15:55 | PTCARENOTE ---
Pt encouraged to get oob.Pt staes she will when transferred from ICU today.
--- NOTE | 2023-05-16 16:09 | PTCARENOTE ---
Report given to 2 Angelo RN.
[2023-05-16] MEDS: TYLENOL 650 MG PO (16:28)
[2023-05-16 16:49] LABS: D-Dimer 0.74 ug/mlFEU (0.00-0.50)
--- NOTE | 2023-05-16 16:59 | PTCARENOTE ---
Pt transported to 2128 via wheelchair.Pt assisted OOB to chair with minimal assist.Gait is steady.Pt c/o h/a.Medicated with Tylenol.
[2023-05-16] MEDS: LOVENOX 40 MG SC (17:30)
--- NOTE | 2023-05-16 17:40 | PTCARENOTE ---
recieved pt from ICU via wheelchair, with her belongins, able to walk to bed, oriented to her room, call avila within reach, 2 L of oxygen. Offers no complaints at this moment.
[2023-05-16] MEDS: SEROQUEL 200 MG PO (21:04)
[2023-05-16] MEDS: VITAMIN D3 (cholecalciferol) 175 MCG PO (21:04)
[2023-05-16] MEDS: SINGULAIR 10 MG PO (21:04)
[2023-05-16] MEDS: FLUSH (NSS) 1 FLUSH IV (23:15)
[2023-05-17 00:19] VITALS: BP 124/82
[2023-05-17] MEDS: MAXIPIME 2000 MG IV ×2 (01:16→10:57)
[2023-05-17] MEDS: FLUSH (NSS) 1 FLUSH IV (01:17)
[2023-05-17] MEDS: STERILE WATER FOR INJECTION 10 ML IV ×2 (01:17→10:57)
[2023-05-17 05:08] VITALS: BMI 28.6
[2023-05-17 07:10] VITALS: BP 159/92
[2023-05-17 07:59] LABS: ALT (SGPT) 42 U/L (0-35); AST (SGOT) 28 U/L (14-36); Albumin 3.3 g/dl (3.5-5.0); Alkaline Phosphatase 75 U/L (38-126); Total Bilirubin 0.2 mg/dl (0.2-1.3); Total Protein 5.6 g/dl (6.3-8.2)
[2023-05-17] MEDS: ADVAIR HFA 115/21 MCG INHALER INH (08:04)
[2023-05-17] MEDS: SOLU-CORTEF 60 MG IV ×2 (08:48→20:27)
[2023-05-17] MEDS: ATIVAN 2 MG PO ×4 (08:49→23:10)
[2023-05-17] MEDS: VITAMIN C 500 MG PO ×2 (08:49→20:26)
[2023-05-17] MEDS: MUCINEX 600 MG PO ×2 (08:49→20:26)
[2023-05-17] MEDS: MOLNUPIRAVIR (EUA) 800 MG PO ×2 (08:49→20:26)
[2023-05-17] MEDS: NEURONTIN 900 MG PO ×3 (08:49→23:10)
[2023-05-17] MEDS: CYMBALTA DELAYED RELEASE 60 MG PO ×2 (08:49→20:26)
[2023-05-17] MEDS: FLUSH (NSS) 2 FLUSH IV (10:57)
--- NOTE | 2023-05-17 11:05 | W.PN.HOSP.TC ---
Today's Communication/Plan
-
.
Assessment / Plan
Assessment / Plan
Physical Exam
General: not in respiratory distress and more comfortable
HEENT:�Anicteric and Moist mucous membranes
Respiratory: Much less bilateral rhonchi
Cardiac:�S1/S2, tachycardic
GI:�Soft and Non Tender
: + Flores
Musculoskeletal:�No Clubbing, No Cyanosis and Edema, Right Lower Extremity
Skin:�Warm, Dry and Other (Moderate erythema LLE extending from ankle to just below the Musculoskeletal: Erythema extends outside previously drawn eng)
Neuro:�Awake, Alert, Oriented and Non-focal/grossly intact, followed commands.
Psych: Anxious
#Acute hypoxic respiratory failure with oxygen 88 to 87% room air with tachypnea, using accessory muscle, tachycardia
Patient reports history of asthma
She is not in distress, good clinical response
Will wean off her O2 today and monitor
Elevated procalcitonin and leukocytosis, empiric antibiotics given
Negative Blood cultures
Negative influenza screen
Appreciate pulmonary & ID input
# Acute COVID infection date of testing + May 11
c/w respiratory isolation in immunocompromise patient
Cannot rule out secondary bacterial infection
Received Remdisivir on admission, changed to Paxlovid day 2
IV steroid ( given high dose due to underlying adrenal insufficiency)
IV broad-spectrum antibiotics
Good improvement
Negative blood culture.
Appreciate ID input
# Sinus tachycardia, improving. Reactive
# Mild elevation in liver enzymes secondary to viral infection. Liver function test is improving. No abdominal pain. Tolerating diet. No jaundice
# Acute urinary retention,
Remove Flores today
History of retention in the past,
Voiding trial today
# Hyponatremia, monitor BMP
AM Na at 134
# History of adrenal insufficiency.� Due to acute illness, she was given stress dose of hydrocortisone. Will place back on her usual cortisone dose
#Major depressive disorder.�
Anxiety/PTSD
-History of panic attacks
-Continue Seroquel and Ativan
No changes intended
#Lupus/Rheumatoid Arthritis/Fibromyalgia
-Continue Cymbalta, Gabapentin and Methocarbamol
-Continue Hydroxychloroquine if no interaction, will verify with pharmacist
Total time spent to see the patient, examine the patient on the floor, review data and lab results, discuss treatment plan with patient, nursing staff around 55 minutes
Anticipated Discharge: Within 24 hours
Subjective/Interval History
-
Date of Service: May 17, 2023
She is feeling better
No chest pain
Less cough
Less sob
Objective Data
-
Labs:
Laboratory Results
05/17/23
07:24
Total Bilirubin 0.2
AST 28
ALT 42 H
Alkaline Phosphatase 75
Vital Signs:
Vital Signs
Temp Pulse Resp BP Pulse Ox
97.7 F 101 18 159/92 94
05/17/23 07:10 05/17/23 07:10 05/17/23 07:10 05/17/23 07:10 05/17/23 09:00
I&O
05/16/23 05/17/23 05/18/23
05:59 06:59 06:59
Intake Total
Output Total
Balance
--- NOTE | 2023-05-17 11:29 | PTCARENOTE ---
pt weaned off of oxygen this morning, sitting at 95% RA for a few hours, this nurse went to spot check Oxygen around 11 AM and pt had a pox of 89% resting in bed with mild SOB, applied Oxygen at 1 L and pox went up to 93%, will continue to monitor
respiratory status. Flores removed this morning, pt able to urinate 100 ml within the first hour after removal. Will continue to monitor urine output.
--- NOTE | 2023-05-17 11:52 | W.PN.ID1 ---
Date of Service
Date of Service: May 17, 2023
Today's Communication
Continue molnupiravir. Discontinue further cefepime.
Trend O2 requirements; wean as possible.
Assessment / Plan
Covid-19
- Pt vaccinated / boosted
- Minimal resp symptoms at present.
Fever
- improved
Leukocytosis
Mild transaminitis
Elevated procalcitonin
Multiple antibiotic allergies
Rheumatoid arthritis
Fibromyalgia
Asthma
Lupus
Anxiety/depression
Adrenal insufficiency (unclear etiology)
Migraines
Recommendations:
Continue molnupiravir 800 mg p.o. twice daily.
D/C further cefepime
Monitor white count and temperature curve.
Trend LFTs.
Wean O2 (currently only on 2 L via NC)
Continue with supportive care.
Will continue to follow clinically.
����������������������������������������������������������
Subjective / Review of Systems
Patient seen and examined. Reports feeling slightly improved from yesterday. Still requiring a small amount of O2.
Review of Systems: No Fever, No Chills, Cough and No Sputum Production
Vital Signs / Physical Exam
Vital Signs
Vital Signs
Temp Pulse Resp BP Pulse Ox
97.7 F 101 18 159/92 94
05/17/23 07:10 05/17/23 07:10 05/17/23 07:10 05/17/23 07:10 05/17/23 09:00
Physical Exam
Constitutional: No Acute Distress, Comfortable and Non-toxic
Pulmonary: Non Labored; Negative Wheezes
Gastrointestinal: Non Distended
Neurological: Awake and Alert
Psychological: Calm
Objective Data
Lab Data
Lab Results
05/16/23 03:21
05/16/23 03:21
PT 13.8 Sec (11.4-14.6) 05/16/23 03:21
INR 1.08 05/16/23 03:21
APTT 44.7 Sec (23.4-35.0) H 05/16/23 03:21
Estimated Creat Clear 98 ml/min 05/16/23 03:21
Lactic Acid 1.3 mmol/L (0.7-2.0) 05/15/23 14:31
Total Bilirubin 0.2 mg/dl (0.2-1.3) 05/17/23 07:24
AST 28 U/L (14-36) 05/17/23 07:24
ALT 42 U/L (0-35) H 05/17/23 07:24
Alkaline Phosphatase 75 U/L (38-126) 05/17/23 07:24
Most recent labs reviewed.
Micro Results:
05/15/23 14:38 Blood Culture - Preliminary
Blood/Venous No Growth in 24 hours- Final report to follow
05/15/23 14:31 Blood Culture - Preliminary
Blood/Venous No Growth in 24 hours- Final report to follow
05/15/23 20:28 Nasal Screen MRSA (PCR) - Final
Nose MRSA not detected - performed by PCR methodology.
05/15/23 14:43 Influenza Types A & B ([facility]) - Final
Nasal Swab Negative for Influenza A & B, NAAT
Negative results must be combined with clinical observations
and patient history.
Nucleic Acid Amplification test (NAAT)performed on the
[employer] platform.
05/15/23
16:13
SARS-CoV-2 Antigen Positive A
Imaging:
05/15/2023 CXR (portable): No acute mediastinal abnormalities. Minimal interstitial airspace disease in the left lung base. Please see full dictation for additional detail. Film personally viewed.
--- NOTE | 2023-05-17 14:31 | CM ---
CM following re: discharge planning.
Reviewed pt's chart, met with pt.
Pt is a 53 year old female, admitted with primary dx of cute hypoxic respiratory failure with oxygen 88 to 87% room air with tachypnea, using accessory muscle, tachycardia, COVID+.
Pt reports she lives with mother and a daughter in [place], no steps. Pt reports she uses a walker and a cane outside of the house. No VN or SNF history.
PCP: Nadira Moreland
Pharmacy: [facility]
D/C plan: home with anticipated no needs. Family to transport at discharge.
CM will follow with discharge plan updates as hospitalization progresses
--- NOTE | 2023-05-17 14:41 | PTCARENOTE ---
pt able to void after cardona removed, 100 ml, bladder scanned pt after voiding and had 36 ml in her bladder.
[2023-05-17 15:15] VITALS: BP 153/88
[2023-05-17] MEDS: LOVENOX 40 MG SC (17:19)
[2023-05-17] MEDS: ADVAIR HFA 115/21 MCG INHALER 2 PUFF INH (20:16)
[2023-05-17] MEDS: ProAIR HFA INHALER 2 PUFF INH (20:22)
[2023-05-17] MEDS: VITAMIN D3 (cholecalciferol) 175 MCG PO (20:26)
[2023-05-17] MEDS: SINGULAIR 10 MG PO (20:27)
[2023-05-17] MEDS: SEROQUEL 200 MG PO (20:27)
[2023-05-17] MEDS: ROBITUSSIN 200 MG PO (23:10)
[2023-05-17 23:12] VITALS: BP 137/79
[2023-05-18 06:00] VITALS: BMI 27.6
[2023-05-18 07:08] VITALS: BP 166/90
[2023-05-18] MEDS: ADVAIR HFA 115/21 MCG INHALER 2 PUFF INH ×2 (07:39→19:54)
[2023-05-18] MEDS: ProAIR HFA INHALER 2 PUFF INH (07:45)
--- NOTE | 2023-05-18 08:10 | W.PN.HOSP.TC ---
Today's Communication/Plan
-
Continue current management. Pulse oximetry. Discharge planning
Assessment / Plan
Assessment / Plan
Physical exam:
General: Well Developed, Well Nourished and No Apparent Distress
HEENT: Normocephalic, Atraumatic and Moist Mucous Membranes
Respiratory: Clear to Auscultation; Negative Wheezes, Rales or Rhonchi
Cardiac: Regular Rhythm and S1/S2
GI: Soft, Nontender and Nondistended
Musculoskeletal: No Clubbing, No Cyanosis and No Edema
Neuro: Awake, Alert and Oriented
Psych: Calm
#Acute hypoxic respiratory failure:
-Continue oxygen supplementation and wean as able
-Pulmonary consult appreciated-they signed off upon transfer from ICU.
-Check pulse oximetry today to assess for home oxygen needs
-Possible discharge either later today or tomorrow--> will reassess later today.
# Acute COVID-19:
-Molnupiravir 800 mg twice a day
-Antibiotics discontinued
-ID on board
-Monitor WBC, temperature curve
Prior to today:
c/w respiratory isolation in immunocompromise patient
Cannot rule out secondary bacterial infection
Received Remdisivir on admission, changed to Paxlovid day 2
IV steroid ( given high dose due to underlying adrenal insufficiency)
IV broad-spectrum antibiotics
Good improvement
Negative blood culture.
Appreciate ID input
# Sinus tachycardia, improving. Reactive
# Mild elevation in liver enzymes secondary to viral infection. Liver function test is improving. No abdominal pain. Tolerating diet. No jaundice.
-Recheck LFTs today-->coming down nicely to almost normal
# Acute urinary retention,
Removed Flores yesterday
History of retention in the past,
Voiding trial-->successful
# Hyponatremia
-Recheck sodium today-->138
# History of adrenal insufficiency.� Due to acute illness, she was given stress dose of hydrocortisone.
-Currently on hydrocortisone 30 mg in the morning and 10 mg in the afternoon
#Major depressive disorder.�
Anxiety/PTSD
-History of panic attacks
-Continue Seroquel and Ativan
No changes intended
#Lupus/Rheumatoid Arthritis/Fibromyalgia
-Continue Cymbalta, Gabapentin and Methocarbamol
-Resume Hydroxychloroquine
Anticipated Discharge: Today
Subjective/Interval History
-
Date of Service: May 18, 2023
Patient feels better overall. Having some dry cough. Still on oxygen but just 1 L. Afebrile
Objective Data
-
Vital Signs:
Vital Signs
Temp Pulse Resp BP Pulse Ox
98.4 F 94 18 137/79 95
05/17/23 23:12 05/18/23 07:47 05/18/23 07:47 05/17/23 23:12 05/18/23 07:47
I&O
05/17/23 05/18/23 05/19/23
06:59 06:59 06:59
Intake Total 1959 / 1959
Output Total 550 / 550
Balance 1410 / 1410
Review of Systems
-
All other systems: Reviewed and negative
[2023-05-18] MEDS: NEURONTIN 900 MG PO ×3 (09:08→22:54)
[2023-05-18] MEDS: CYMBALTA DELAYED RELEASE 60 MG PO ×2 (09:09→20:50)
[2023-05-18] MEDS: ATIVAN 2 MG PO ×4 (09:09→22:54)
[2023-05-18] MEDS: VITAMIN C 500 MG PO ×2 (09:09→20:50)
[2023-05-18] MEDS: MUCINEX 600 MG PO ×2 (09:09→20:50)
[2023-05-18] MEDS: CORTEF 30 MG PO (09:09)
[2023-05-18] MEDS: MOLNUPIRAVIR (EUA) 800 MG PO ×2 (09:15→20:56)
[2023-05-18 09:34] LABS: % Basophils 0.3 % (0-2); % Eosinophils 0.3 % (0-6); % Monocytes 7.5 % (1.7-9.3); % Neutrophils 66.9 % (42.2-75.2); Absolute Immature Granulocytes 0.1 10^3/uL (0-0.05); Absolute Lymphocytes 2.6 10^3/uL (1.2-3.4); Absolute Monocytes 0.8 10^3/uL (0.1-0.6); Absolute Neutrophils 7.3 10^3/uL (1.4-6.5); Hematocrit 25.5 % (37.0-47.0); Mean Corp Hgb Conc. 31.4 g/dL (33.0-37.0); Mean Corpuscular Hgb 25.7 pg (27.0-31.0); Mean Platelet Volume 9.1 fL (7.4-10.4); Nucleated Red Blood Cells % 0 %; Platelet Count 440 10^3/uL (130-400); Red Blood Cell Count 3.11 10^6/uL (4.20-5.40); Red Cell Dist. Width 15.3 % (11.5-14.5); White Blood Cell Count 10.9 10^3/uL (4.8-10.8)
[2023-05-18 10:02] LABS: ALT (SGPT) 36 U/L (0-35); AST (SGOT) 30 U/L (14-36); Albumin 3.6 g/dl (3.5-5.0); Alkaline Phosphatase 76 U/L (38-126); Blood Urea Nitrogen 20 mg/dl (7-17); Calcium 9.2 mg/dl (8.4-10.2); Carbon Dioxide 29 mmol/L (22-30); Chloride 101 mmol/L (98-107); Estimated Creatinine Clearance 113 ml/min; Glucose 98 mg/dl (70-99); Potassium 3.5 mmol/L (3.5-5.1); Sodium 138 mmol/L (135-145); Total Bilirubin 0.3 mg/dl (0.2-1.3); Total Protein 5.9 g/dl (6.3-8.2); eGFR > 60.00
[2023-05-18] MEDS: CORTEF 10 MG PO (12:52)
[2023-05-18] MEDS: PLAQUENIL 400 MG PO (13:28)
[2023-05-18] MEDS: TESSALON PERLES 100 MG PO ×2 (13:28→21:17)
[2023-05-18 15:06] VITALS: BP 144/88
[2023-05-18] MEDS: IMODIUM 2 MG PO (16:22)
--- NOTE | 2023-05-18 16:27 | CM ---
COVID +. Discharge plan of care: Anticipate no needs. Will await PT evaluation and continue to follow.
--- NOTE | 2023-05-18 16:30 | W.PN.ID1 ---
Date of Service
Date of Service: May 18, 2023
Today's Communication
Continue molnupivir.
Assessment / Plan
Covid-19
- Pt vaccinated / boosted
- Minimal resp symptoms at present.
Fever
- improved
Leukocytosis
Mild transaminitis
Elevated procalcitonin
Multiple antibiotic allergies
Rheumatoid arthritis
Fibromyalgia
Asthma
Lupus
Anxiety/depression
Adrenal insufficiency (unclear etiology)
Migraines
Recommendations:
Continue molnupiravir 800 mg p.o. twice daily to complete a 5 day course.
Monitor white count and temperature curve.
Trend LFTs.
O2 has been weaned to off.
Continue with supportive care.
Will continue to follow clinically.
����������������������������������������������������������
Chief Complaint
-: Other (Covid-19)
Subjective / Review of Systems
Seen / examined. Still with cough. No SOB.
Vital Signs / Physical Exam
Vital Signs
Vital Signs
Temp Pulse Resp BP Pulse Ox
98.0 F 119 22 166/90 92
05/18/23 07:08 05/18/23 12:20 05/18/23 12:20 05/18/23 07:08 05/18/23 12:20
Physical Exam
Constitutional: No Acute Distress, Comfortable and Non-toxic
Eyes: Sclera Anicteric
Pulmonary: Non Labored; Negative Wheezes
Gastrointestinal: Non Distended
Extremities: Negative Cyanosis
Skin: Negative Rash or Jaundice
Neurological: Awake, Alert and Oriented
Psychological: Calm
Objective Data
Lab Data
Lab Results
05/18/23 09:22
05/18/23 09:22
PT 13.8 Sec (11.4-14.6) 05/16/23 03:21
INR 1.08 05/16/23 03:21
APTT 44.7 Sec (23.4-35.0) H 05/16/23 03:21
Estimated Creat Clear 113 ml/min 05/18/23 09:22
Lactic Acid 1.3 mmol/L (0.7-2.0) 05/15/23 14:31
Total Bilirubin 0.3 mg/dl (0.2-1.3) 05/18/23 09:22
AST 30 U/L (14-36) 05/18/23 09:22
ALT 36 U/L (0-35) H 05/18/23 09:22
Alkaline Phosphatase 76 U/L (38-126) 05/18/23 09:22
Most recent labs reviewed.
Micro Results:
05/15/23 14:38 Blood Culture - Preliminary
Blood/Venous No Growth in 72 hours- Final report to follow
05/15/23 14:31 Blood Culture - Preliminary
Blood/Venous No Growth in 72 hours- Final report to follow
05/15/23 20:28 Nasal Screen MRSA (PCR) - Final
Nose MRSA not detected - performed by PCR methodology.
05/15/23 14:43 Influenza Types A & B ([facility]) - Final
Nasal Swab Negative for Influenza A & B, NAAT
Negative results must be combined with clinical observations
and patient history.
Nucleic Acid Amplification test (NAAT)performed on the
[employer] platform.
05/15/23
16:13
SARS-CoV-2 Antigen Positive A
Imaging:
05/15/2023 CXR (portable): No acute mediastinal abnormalities. Minimal interstitial airspace disease in the left lung base. Please see full dictation for additional detail. Film personally viewed.
--- NOTE | 2023-05-18 16:35 | PN.CDI ---
CDI
- -
CDI:
Physician Documentation Request
Admit Date: 05/15/23 17:33
Dear Doctor Lora ,
Please review the following and provide your response in the progress notes.
Clinical Indicators:
Pt admitted with sepsis 2/2 COVID-19/Acute Hypoxic Respiratory Failure /Immunocompromised
Documented per ED, ' Potential left lower lobe pneumonia noted on x-ray. Procalcitonin pending.'
CXR on admit,' Minimal left basilar interstitial pneumonia..'
Procal 0.34 , was given IV Vancomycin/Maxipime( ordered for pulmonary respiratory) from 05/14 - 05/16 per MAY
Please update the Status of the Possible Pneumonia documented in The ED:
Pneumonia -Resolved
Pneumonia ruled out
Pneumonia Still being monitored/treated
Other
Use of terms such as suspected, likely, concern for, or probable (associated with a specific diagnosis that is being evaluated, monitored, or treated as if it exists) are acceptable and can be coded in the inpatient setting, when documented at the
time of discharge.
Thank you,
Nicole Mendes RN
CDI Specialist
[facility]
Please use your independent medical judgment in providing your response.
[2023-05-18] MEDS: LOVENOX 40 MG SC (17:45)
[2023-05-18] MEDS: SINGULAIR 10 MG PO (20:50)
[2023-05-18] MEDS: SEROQUEL 200 MG PO (20:50)
[2023-05-18] MEDS: VITAMIN D3 (cholecalciferol) 175 MCG PO (20:51)
[2023-05-18 23:15] VITALS: BP 111/65
[2023-05-19 05:54] VITALS: BMI 27.3
[2023-05-19 06:26] LABS: Blood Urea Nitrogen 16 mg/dl (7-17); Calcium 8.9 mg/dl (8.4-10.2); Carbon Dioxide 31 mmol/L (22-30); Chloride 103 mmol/L (98-107); Estimated Creatinine Clearance 100 ml/min; Glucose 83 mg/dl (70-99); Potassium 3.9 mmol/L (3.5-5.1); Sodium 138 mmol/L (135-145); eGFR > 60.00
[2023-05-19 07:06] VITALS: BP 159/95
--- NOTE | 2023-05-19 07:36 | W.PN.HOSP.TC ---
Addendum entered and electronically signed by Karsten Paulino MD 05/19/23 12:23:
Pneumonia ruled out
Original Note:
Today's Communication/Plan
-
Discharge planning today.
Assessment / Plan
Assessment / Plan
Physical exam:
General: Well Developed, Well Nourished and No Apparent Distress
HEENT: Normocephalic, Atraumatic and Moist Mucous Membranes
Respiratory: Clear to Auscultation; Negative Wheezes, Rales or Rhonchi
Cardiac: Regular Rhythm and S1/S2
GI: Soft, Nontender and Nondistended
Musculoskeletal: No Clubbing, No Cyanosis and No Edema
Neuro: Awake, Alert and Oriented
Psych: Calm
#Acute hypoxic respiratory failure:
-Continue oxygen supplementation and wean as able
-Pulmonary consult appreciated-they signed off upon transfer from ICU.
-Check pulse oximetry today to assess for home oxygen needs
-Possible discharge either later today or tomorrow--> will reassess later today.
# Acute COVID-19:
-Molnupiravir 800 mg twice a day
-Antibiotics discontinued
-ID on board
-Monitor WBC, temperature curve
Prior to today:
c/w respiratory isolation in immunocompromise patient
Cannot rule out secondary bacterial infection
Received Remdisivir on admission, changed to Paxlovid day 2
IV steroid ( given high dose due to underlying adrenal insufficiency)
IV broad-spectrum antibiotics
Good improvement
Negative blood culture.
Appreciate ID input
# Sinus tachycardia, improving. Reactive
# Mild elevation in liver enzymes secondary to viral infection. Liver function test is improving. No abdominal pain. Tolerating diet. No jaundice.
-Recheck LFTs today-->coming down nicely to almost normal
# Acute urinary retention,
Removed Flores yesterday
History of retention in the past,
Voiding trial-->successful
# Hyponatremia
-Recheck sodium today-->138
# History of adrenal insufficiency.� Due to acute illness, she was given stress dose of hydrocortisone.
-Currently on hydrocortisone 30 mg in the morning and 10 mg in the afternoon
#Major depressive disorder.�
Anxiety/PTSD
-History of panic attacks
-Continue Seroquel and Ativan
No changes intended
#Lupus/Rheumatoid Arthritis/Fibromyalgia
-Continue Cymbalta, Gabapentin and Methocarbamol
-Resume Hydroxychloroquine
Anticipated Discharge: Today
Subjective/Interval History
-
Date of Service: May 19, 2023
Patient doing well today. Less cough. Afebrile. Off oxygen
Objective Data
-
Labs:
Laboratory Results
05/19/23
05:10
Sodium 138
Potassium 3.9
Chloride 103
Carbon Dioxide 31 H
BUN 16
Creatinine 0.6
Glucose 83
Calcium 8.9
Vital Signs:
Vital Signs
Temp Pulse Resp BP Pulse Ox
98.5 F 110 16 111/65 93
05/18/23 23:15 05/18/23 23:15 05/18/23 23:15 05/18/23 23:15 05/19/23 02:15
I&O
05/18/23 05/19/23 05/20/23
06:59 06:59 06:59
Intake Total 1960 / 1959 1140 / 1140
Output Total 550 / 550 950 / 950
Balance 1410 / 1410 190 / 190
[2023-05-19] MEDS: ADVAIR HFA 115/21 MCG INHALER 2 PUFF INH (07:39)
[2023-05-19] MEDS: ProAIR HFA INHALER 2 PUFF INH (07:43)
[2023-05-19] MEDS: CYMBALTA DELAYED RELEASE 60 MG PO (08:43)
[2023-05-19] MEDS: TESSALON PERLES 100 MG PO (08:43)
[2023-05-19] MEDS: ATIVAN 2 MG PO (08:43)
[2023-05-19] MEDS: MOLNUPIRAVIR (EUA) 800 MG PO (08:43)
[2023-05-19] MEDS: MUCINEX 600 MG PO (08:43)
[2023-05-19] MEDS: VITAMIN C 500 MG PO (08:43)
[2023-05-19] MEDS: NEURONTIN 900 MG PO (08:43)
[2023-05-19] MEDS: CORTEF 30 MG PO (08:44)
--- NOTE | 2023-05-19 09:45 | W.DCSUMMARY ---
Discharge Summary
Discharge Data
Date of Admission: 05/15/23
Date of Discharge: 05/19/23
-
Pending Results: No
Hospital Course
Patient 53 years old with history of rheumatoid arthritis, asthma, lupus, presented to the hospital with cough shortness of breath sore throat and found to have COVID-19. Patient was noted to be hypoxic and febrile. Due to hypoxemia and
tachycardia she was initially admitted to ICU but transferred to floor upon improvement. She was empirically treated with IV antibiotic possible pneumonia but subsequently discontinued. In terms of her antiviral for COVID-19 she has been treated
with molnupiravir after consultation with ID. Initially started on remdesivir but subsequently discontinued. She was also given stress doses of IV steroids and then switched to her home doses of oral steroids. Patient has been able to come off
oxygen and she has been hemodynamically stable and afebrile. She will be discharged in relatively stable condition today.
Discharge duration: 35 minutes
Discharge Plan
-
Patient Disposition: Home (Routine Discharge)
Discharge Diagnosis/Procedures: Coronavirus-19 infection. Transaminitis. History of rheumatoid arthritis. History of lupus. History of adrenal insufficiency.
Diet: Low Cholesterol
Activity: As tolerated
Driving Restrictions: As prior to admission
Blood Work: Please PCP to order CBC, BMP within 1 week
Referrals:
Nadira Moreland MD [Family Provider] - in less than 1 week
Prescriptions:
New
Lagevrio (EUA) 200 mg Capsule
800 mg PO Q12 2 Days Qty: 16 0RF
benzonatate 100 mg Capsule
100 mg PO TIDPRN PRN (Reason: cough) 5 Days Qty: 14 0RF
guaifenesin 600 mg Tablet Extended Release 12hr
600 mg PO Q12 2 Days Qty: 4 0RF
Continued
diphenhydramine HCl [Banophen] 50 MG capsule
50 mg PO HS
benzonatate 100 MG capsule
200 mg PO Q8HPRN PRN (Reason: cough)
montelukast 10 MG tablet
10 mg PO QPM
hydrocortisone 10 MG tablet
10 mg PO DAILY@1300
hydrocortisone 10 MG tablet
30 mg PO DAILY
cranberry 500 MG capsule
930 mg PO DAILY
Align 4 MG capsule
4 mg PO DAILY
multivitamin with folic acid [Tab-A-Jack] 1 TABLET tablet
1 tab PO QPM
riboflavin (vitamin B2) [Vitamin B-2] 100 MG tablet
400 mg PO DAILY
calcium carbonate [Antacid (calcium carbonate)] 1 TABLET tablet,chewable
2 tab PO Q4HPRN PRN (Reason: heartburn)
hydroxychloroquine 200 MG tablet
400 mg PO NOON
fluticasone propion-salmeterol [Advair HFA] 1 PUFF HFA aerosol inhaler
2 puff inhalation R BID
albuterol sulfate 1 PUFF HFA aerosol inhaler
2 puff inhalation R Q4HPRN PRN (Reason: sob/wheezing)
gabapentin 300 MG capsule
900 mg PO TID 0RF
acetaminophen [Tylenol Extra Strength] 500 MG tablet
1,000 mg PO Q8HPRN PRN (Reason: tension headache) Qty: 0 0RF
ondansetron 4 mg tablet,disintegrating
4 mg PO TIDPRN PRN (Reason: nausea/vomiting) Qty: 20 0RF
calcium carbonate 500 mg calcium (1,250 mg) Tablet
1,000 mg PO NOON
lorazepam 2 MG tablet
2 mg PO QID
methocarbamol 500 mg Tablet
1,500 mg PO Q8H
ibuprofen 800 mg Tablet
800 mg PO Q6HPRN PRN (Reason: modeerate pain)
quetiapine [Seroquel] 200 mg Tablet
200 mg PO HS
loperamide 2 mg Tablet
2 mg PO Q6H PRN (Reason: diarrhea)
ascorbic acid (vitamin C) [Vitamin C] 500 mg Tablet
500 mg PO BID
duloxetine [Cymbalta] 60 mg Capsule,Delayed Release(Dr/Ec)
60 mg PO BID
cholecalciferol (vitamin D3) [Vitamin D3] 25 mcg (1,000 unit) Tablet
175 mcg PO QPM
Discharge Orders:
Discharge Patient (As Directed); Ordered 05/19/23
Ordered By: Karsten Paulino
Discharge Date and Time
Discharge Date/Time: 05/19/23 11:05
--- NOTE | 2023-05-19 11:23 | CM ---
Patient has been medically cleared for discharge to home with no additional skilled services. Patient's daughter transported home.
== END 2023-05-19 11:05 | disposition home or self-care (01) | DRG 871 ==
LOC: 2 NORTH 17:33
PROVIDERS: Nurse Practitioner Family; Physician Assistant Medical; ADMITTING PHYSICIAN Internal Medicine; ATTENDING PHYSICIAN Hospitalist; CONSULT PHYSICIAN Internal Medicine Infectious Disease; EMERGENCY PHYSICIAN Emergency Medicine; FAMILY PHYSICIAN Family Medicine; OTHER PHYSICIAN Internal Medicine
PROC: XW033E5 Introduction of Remdesivir Anti-infective into Peripheral Vein, Percutaneous Approach, New Technology Group 5 (ICD-10-PCS; 2023-05-15)
DX: A41.89 Other specified sepsis (principal); J96.01 Acute respiratory failure with hypoxia; U07.1 COVID-19; E27.40 Unspecified adrenocortical insufficiency; E87.1 Hypo-osmolality and hyponatremia; D84.821 Immunodeficiency due to drugs; G43.909 Migraine, unspecified, not intractable, without status migrainosus; J45.909 Unspecified asthma, uncomplicated; E86.0 Dehydration; R33.9 Retention of urine, unspecified; F32.9 Major depressive disorder, single episode, unspecified; M06.9 Rheumatoid arthritis, unspecified; M32.9 Systemic lupus erythematosus, unspecified; M79.7 Fibromyalgia; F43.10 Post-traumatic stress disorder, unspecified; F41.0 Panic disorder [episodic paroxysmal anxiety]; D64.9 Anemia, unspecified; M19.90 Unspecified osteoarthritis, unspecified site; R74.01 Elevation of levels of liver transaminase levels; Z79.52 Long term (current) use of systemic steroids; Z88.1 Allergy status to other antibiotic agents; Z88.3 Allergy status to other anti-infective agents; Z91.02 Food additives allergy status; Z88.2 Allergy status to sulfonamides; Z88.8 Allergy status to other drugs, medicaments and biological substances; Z91.018 Allergy to other foods; Z79.51 Long term (current) use of inhaled steroids; Z91.51 Personal history of suicidal behavior
CPT/HCPCS: 51702; 71045; 80048; 80053; 80076; 83605; 83735; 84145; 85025; 85027; 85379; 85610; 85730; 87040; 87502; 87641; 87811; 93005; 94640; 96361; 96374; 99291; J0248

== ENCOUNTER → 2023-05-27 09:01 | Outpatient (REF) | payer OTHER, SELFPAY ==
[2023-05-27 10:42] LABS: ALT (SGPT) 18 U/L (0-35); AST (SGOT) 18 U/L (14-36); Albumin 4.3 g/dl (3.5-5.0); Alkaline Phosphatase 67 U/L (38-126); Blood Urea Nitrogen 19 mg/dl (7-17); Calcium 9.6 mg/dl (8.4-10.2); Carbon Dioxide 23 mmol/L (22-30); Chloride 102 mmol/L (98-107); Glucose 85 mg/dl (70-99); Potassium 4.6 mmol/L (3.5-5.1); Sodium 135 mmol/L (135-145); Total Bilirubin 0.4 mg/dl (0.2-1.3); Total Protein 6.8 g/dl (6.3-8.2); eGFR > 60.00
[2023-05-27 10:44] LABS: % Basophils 0.9 % (0-2); % Eosinophils 4.2 % (0-6); % Immature Granulocytes 3.7 % (0-0.5); % Lymphocytes 34.9 % (20.5-51.1); % Monocytes 7.9 % (1.7-9.3); % Neutrophils 48.4 % (42.2-75.2); Absolute Basophils 0.1 10^3/uL (0-0.2); Absolute Eosinophils 0.5 10^3/uL (0-0.7); Absolute Immature Granulocytes 0.5 10^3/uL (0-0.05); Absolute Lymphocytes 4.2 10^3/uL (1.2-3.4); Absolute Neutrophils 5.9 10^3/uL (1.4-6.5); Hematocrit 30.1 % (37.0-47.0); Hemoglobin 9.3 g/dL (12.0-16.0); Mean Corp Hgb Conc. 30.9 g/dL (33.0-37.0); Mean Corpuscular Hgb 25.8 pg (27.0-31.0); Mean Corpuscular Volume 83.6 fL (81.0-99.0); Mean Platelet Volume 9.3 fL (7.4-10.4); Nucleated Red Blood Cells % 0 %; Platelet Count 651 10^3/uL (130-400); Red Cell Dist. Width 15.7 % (11.5-14.5); White Blood Cell Count 12.1 10^3/uL (4.8-10.8)
== END ==
LOC: REG 09:01
PROVIDERS: ATTENDING PHYSICIAN Internal Medicine Critical Care Medicine; FAMILY PHYSICIAN Nurse Practitioner Family
DX: R91.8 Other nonspecific abnormal finding of lung field (principal); Z09 Encounter for follow-up examination after completed treatment for conditions other than malignant neoplasm; U07.1 COVID-19; M06.09 Rheumatoid arthritis without rheumatoid factor, multiple sites; D80.3 Selective deficiency of immunoglobulin G [IgG] subclasses; K21.9 Gastro-esophageal reflux disease without esophagitis; F33.2 Major depressive disorder, recurrent severe without psychotic features; M79.7 Fibromyalgia; J45.20 Mild intermittent asthma, uncomplicated
CPT/HCPCS: 36415; 71046; 80053; 85025

== ENCOUNTER 2023-06-19 18:35 | Inpatient (IN) | payer OTHER, SELFPAY ==
[2023-06-19] VITALS (8 sets, daily range): BP systolic 135–159; BP diastolic 71–94; BMI 29.9; BMI 29.2
--- NOTE | 2023-06-19 12:41 | ED.GENMED ---
History of Present Illness
<Katerin Contreras PA-C - Last Filed: 06/19/23 18:16>
General
Chief Complaint: Breathing Problem
Source: patient and records
Exam Limitations: none
Time Seen by Provider: 06/19/23 12:37
Nursing documentation reviewed up to this point in time: agreed with
Travel History
Have you had any contact with someone who has COVID-19?: No
Do you have any symptoms of coronavirus? Fever > 100 degrees, chills, cough, shortness of breath, sore throat, loss of taste or smell, muscle aches, or headache?: Yes
Symptoms:: SOB
History of Present Illness
History of Present Illness:
53-year-old female with a past medical history of lupus, adrenal insufficiency, RA, asthma presenting emergency department today with worsening shortness of breath and a cough for the past 5 days. Patient states that she was hospitalized a month
ago for COVID-pneumonia. At this time, she is in ICU. Patient states that after discharge, she did feel like her symptoms improved. However this past week she started to become symptomatic again, and she states that this feels exactly like when
she had COVID-pneumonia. Patient does have a history of asthma but states that this feels much different than her usual exacerbations. Patient also has some chest discomfort she notices when she coughs. Patient denies any fevers or chills at
home, any abdominal pain, nausea, vomiting. Patient takes steroids daily for adrenal insufficiency. Patient denies any syncopal episodes. Patient was at home with daughter and her daughter noticed that she is in significant respiratory distress
and called 911.
Past History
<Katerin Contreras PA-C - Last Filed: 06/19/23 18:16>
Past History
ED Past Medical History: Asthma, Psychiatric (Anxiety) and Other (Adrenal insufficiency, migraine )
ED Past Surgical History: , Gynecological and Tonsilectomy
Social History
Tobacco: Non-smoker
Alcohol: None
Drug: None
Personal:
Living: with family
Employment: Employed
Family History
Family History: Other
Review of Systems
<Katerin Contreras PA-C - Last Filed: 06/19/23 18:16>
Review of Systems
All Other Systems: ROS reviewed and negative except as documented in HPI and ROS
Phy Exam
<Katerin Contreras PA-C - Last Filed: 06/19/23 18:16>
Physical Exam
Physical Exam:
Vitals: Patient tachycardic, tachypneic, and hypoxic upon presentation to the emergency department
General: Patient is chronically ill-appearing
Skin: Pallor noted
Cardiac: Patient is tachycardic, however no murmurs appreciated on exam
Peripheral vascular: 2+ dorsalis pedis's bilaterally, mild lower extremity swelling bilaterally, no erythema, negative Homans
Pulmonary: Patient has increased history rate, conversational dyspnea, diffuse crackles heard in all lung bases
Abdomen: No abdominal tenderness palpation.
Neuro: CN II-XII intact, no focal neurologic deficits.
Scores
<Katerin Contreras PA-C - Last Filed: 06/19/23 18:16>
Heart Failure Risk
Heart Failure Risk Score: Not Applicable
Course
<Katerin Contreras PA-C - Last Filed: 06/19/23 18:16>
Orders/Labs/Results
Orders:
Orders
06/19/23 12:02
ECG [Electrocardiogram (*1)] Urgent
Reason for Study: Shortness of Breath
EKG- Treatment ONCE
06/19/23 12:10
CXR2 [CR Chest - 2 Views ] Urgent
Comment:
Reason For Exam: SOB
06/19/23 12:22
COVID-19 Antigen Urgent
Source: Nasal Swab
Influenza A+B Rapid Molecular Urgent
CHELY Source: Nasal Swab
Specimen Description:
06/19/23 12:34
CMP [Comprehensive Metabolic Panel] Urgent
Complete Blood Count/With Diff Urgent
06/19/23 13:37
CT Chest Pe Study Urgent
Comment:
Reason For Exam: shortness of breath
06/19/23 14:53
Lorazepam [Ativan] 0.5 mg IV NOW STA
06/19/23 17:00
Ipratropium/Albuterol Sulfate [Duoneb] 3 ml INH R NOW ONE
Ipratropium/Albuterol Sulfate [Duoneb] 3 ml INH R NOW STA
06/19/23 17:11
CefTRIAXone [Rocephin] 2,000 mg IV NOW STA
06/19/23 17:25
Sterile Water [Sterile Water For Injection] 20 ml .ROUTE .STK-MED
06/19/23 17:29
Vancomycin [Vancocin] 2,000 mg 0.9% Sodium Chloride 500 ml [Nss] 500 ml IV NOW
06/19/23 18:00
VANCOMYCIN Pharmacy to Dose [VANCOCIN Pharmacy to Dose] 1 each Pharmacy To Prepare [Call Pharmacy To Prepare] 0 ml IV PER PROTOCOL
06/19/23 18:05
Admit/Transfer Patient As Directed
Co-Sign Provider:
Level of Care: Inpatient admission
Assign to:: Medical/Surgical
Physician / Group: bubba little
Diagnosis: post-covid syndrome
Reason for Hospitalization: SOB
Expected length of stay greater than two midnights?: Yes
ELOS- Estimated Length of Stay in days: 3
I certify the patient meets the requirements for IP care: Yes
06/19/23 18:10
Code Status As Directed
Resuscitation Status: Full Code
06/19/23 18:37
Procalcitonin Stat
PCT Algorithmm Indication: Respiratory
Abnormal Lab Results
06/19/23
12:34
WBC 13.2 H 10^3/uL
(4.8-10.8)
RBC 3.11 L 10^6/uL
(4.20-5.40)
Hgb 7.7 L g/dL
(12.0-16.0)
Hct 25.1 L %
(37.0-47.0)
MCV 80.7 L fL
(81.0-99.0)
MCH 24.8 L pg
(27.0-31.0)
MCHC 30.7 L g/dL
(33.0-37.0)
RDW 15.8 H %
(11.5-14.5)
Plt Count 429 H 10^3/uL
(130-400)
Abs Immat Gran (auto) 0.3 H 10^3/uL
(0-0.05)
Absolute Neuts (auto) 10.8 H 10^3/uL
(1.4-6.5)
Absolute Lymphs (auto) 0.9 L 10^3/uL
(1.2-3.4)
Absolute Monos (auto) 0.9 H 10^3/uL
(0.1-0.6)
Immature Gran % 2.3 H %
(0-0.5)
Neutrophils % 81.8 H %
(42.2-75.2)
Lymphocytes % 7.1 L %
(20.5-51.1)
Sodium 133 L mmol/L
(135-145)
Glucose 109 H mg/dl
(70-99)
AST 51 H U/L
(14-36)
ALT 82 H U/L
(0-35)
Total Protein 6.1 L g/dl
(6.3-8.2)
06/19/23 12:34
06/19/23 12:34
Vital Signs
Initial and Last Documented VS:
Initial Vital Signs
Temp Pulse Resp Pulse Ox
98.3 F 133 20 88
06/19/23 11:56 06/19/23 11:56 06/19/23 11:56 06/19/23 11:56
Last Documented Vital Signs
Temp Pulse Resp BP Pulse Ox
98.4 F 116 23 148/71 96
06/19/23 16:00 06/19/23 19:00 06/19/23 13:00 06/19/23 19:00 06/19/23 19:00
<Sascha Christina, DO - Last Filed: 06/19/23 19:30>
Orders/Labs/Results
Orders:
Orders
06/19/23 12:02
ECG [Electrocardiogram (*1)] Urgent
Reason for Study: Shortness of Breath
EKG- Treatment ONCE
06/19/23 12:10
CXR2 [CR Chest - 2 Views ] Urgent
Comment:
Reason For Exam: SOB
06/19/23 12:22
COVID-19 Antigen Urgent
Source: Nasal Swab
Influenza A+B Rapid Molecular Urgent
CHELY Source: Nasal Swab
Specimen Description:
06/19/23 12:34
CMP [Comprehensive Metabolic Panel] Urgent
Complete Blood Count/With Diff Urgent
06/19/23 13:37
CT Chest Pe Study Urgent
Comment:
Reason For Exam: shortness of breath
06/19/23 14:53
Lorazepam [Ativan] 0.5 mg IV NOW STA
06/19/23 17:00
Ipratropium/Albuterol Sulfate [Duoneb] 3 ml INH R NOW ONE
Ipratropium/Albuterol Sulfate [Duoneb] 3 ml INH R NOW STA
06/19/23 17:11
CefTRIAXone [Rocephin] 2,000 mg IV NOW STA
06/19/23 17:25
Sterile Water [Sterile Water For Injection] 20 ml .ROUTE .ST-MED
06/19/23 17:29
Vancomycin [Vancocin] 2,000 mg 0.9% Sodium Chloride 500 ml [Nss] 500 ml IV NOW
06/19/23 18:00
VANCOMYCIN Pharmacy to Dose [VANCOCIN Pharmacy to Dose] 1 each Pharmacy To Prepare [Call Pharmacy To Prepare] 0 ml IV PER PROTOCOL
06/19/23 18:05
Admit/Transfer Patient As Directed
Co-Sign Provider:
Level of Care: Inpatient admission
Assign to:: Medical/Surgical
Physician / Group: bubba little
Diagnosis: post-covid syndrome
Reason for Hospitalization: SOB
Expected length of stay greater than two midnights?: Yes
ELOS- Estimated Length of Stay in days: 3
I certify the patient meets the requirements for IP care: Yes
06/19/23 18:10
Code Status As Directed
Resuscitation Status: Full Code
06/19/23 18:37
Procalcitonin Stat
PCT Algorithmm Indication: Respiratory
Abnormal Lab Results
06/19/23
12:34
WBC 13.2 H 10^3/uL
(4.8-10.8)
RBC 3.11 L 10^6/uL
(4.20-5.40)
Hgb 7.7 L g/dL
(12.0-16.0)
Hct 25.1 L %
(37.0-47.0)
MCV 80.7 L fL
(81.0-99.0)
MCH 24.8 L pg
(27.0-31.0)
MCHC 30.7 L g/dL
(33.0-37.0)
RDW 15.8 H %
(11.5-14.5)
Plt Count 429 H 10^3/uL
(130-400)
Abs Immat Gran (auto) 0.3 H 10^3/uL
(0-0.05)
Absolute Neuts (auto) 10.8 H 10^3/uL
(1.4-6.5)
Absolute Lymphs (auto) 0.9 L 10^3/uL
(1.2-3.4)
Absolute Monos (auto) 0.9 H 10^3/uL
(0.1-0.6)
Immature Gran % 2.3 H %
(0-0.5)
Neutrophils % 81.8 H %
(42.2-75.2)
Lymphocytes % 7.1 L %
(20.5-51.1)
Sodium 133 L mmol/L
(135-145)
Glucose 109 H mg/dl
(70-99)
AST 51 H U/L
(14-36)
ALT 82 H U/L
(0-35)
Total Protein 6.1 L g/dl
(6.3-8.2)
06/19/23 12:34
06/19/23 12:34
Vital Signs
Initial and Last Documented VS:
Initial Vital Signs
Temp Pulse Resp Pulse Ox
98.3 F 133 20 88
06/19/23 11:56 06/19/23 11:56 06/19/23 11:56 06/19/23 11:56
Last Documented Vital Signs
Temp Pulse Resp BP Pulse Ox
98.4 F 116 23 148/71 96
06/19/23 16:00 06/19/23 19:00 06/19/23 13:00 06/19/23 19:00 06/19/23 19:00
Madilt;Katerin Contreras PA-C - Last Filed: 06/19/23 18:16>
MDM/Problems Addressed
Differential Diagnosis Includes:
Differentials include asthma exacerbation, hospital-acquired pneumonia, pulmonary embolism, adrenal insufficiency, symptomatic anemia
MDM/Problems Addressed:
Shortness of breath
cough
Anemia
Chronic conditions affecting care: HTN, Asthma and Other (Adrenal insufficiency, lupus)
Acute Exacerbation and/or Progression of Chronic Illness: HTN, Asthma and Other (Adrenal insufficiency, lupus)
<Katerin Contreras PA-C - Last Filed: 06/19/23 18:16>
*Critical Care Note
Total Time (30-74mins, 75-104mins- exclusive of procedures): Not Applicable
<Katerin Contreras PA-C - Last Filed: 06/19/23 18:16>
Patient Management
Escalation/DeEscalation of care consider admission/obs:
53-year-old female with a past medical history of lupus, adrenal insufficiency, RA, asthma presenting emergency department today with worsening shortness of breath and a cough for the past 5 days. Patient was recently discharged from the hospital
in May for COVID pneumonia. She was in the ICU at the time due to significant hypoxia. Today, patient appears chronically ill, she is hypoxic to 88% on room air, has conversational dyspnea, and crackles heard on exam. She is tachycardic as
well, but afebrile. Mild lower extremity swelling. History concerning for possible PE, CT PE study negative for PE however did demonstrate mild bibasilar atelectasis versus scarring which has progressed. This is concerning for pneumonia
considering her symptoms and her recent hospital stay. Patient symptoms likely compounded by anemia and concurrent asthma. Will admit to hospital for further workup and care, will start IV anx covering for hospital acquired pneumonia. Patient in
agreement with plan.
ED Attending Note
<LIBRADO Rogers Last Filed: 06/19/23 18:16>
-
Portions of this chart may have been created with voice recognition software.� Occasional wrong word or��sound alike� substitutions may have occurred due to the inherent limitations of voice recognition software.
<Sascha Christina DO - Last Filed: 06/19/23 19:30>
ED Attending Note
Patient seen and examined by attending physician: Yes
I performed the substantive portion of visit, reviewed & personally made and approve the management plan that is documented in note by myself or YARELY.: Yes
ED Attending Note:
53-year-old female with extensive history and recently hospitalized who presents with productive cough and shortness of breath. States she has just been feeling ill. Patient was recently here with COVID. She is on steroids at home. Exam:
Scattered rhonchi. Mildly tachypneic. Hypoxic. Heart regular but tachycardic. Assessment plan: Question whether findings on CT are pneumonia versus atelectasis. Given hypoxia, admit.
Discharge Plan
Departure
Patient Disposition: Admit
Date of Disposition: 06/19/23
Time of Disposition: 17:27
Admit to: Med/Surg
Presentation/result/management discussed w/ accepting MD/DO: Hospitalist
Patient with high blood pressure during this ER visit?: Yes
Condition: Fair
Discharge Problem:
Pneumonia, Pericardial effusion, Reactive airway disease
Interventions
Interventions:
*Risk Screen - Suicide Last Done: 06/19/23 12:05
*General Assessment Last Done: 06/19/23 12:05
*Neglect/Abuse Screening Last Done: 06/19/23 12:05
ED- Fall Risk Assessment Last Done: 06/19/23 12:07
*ED COVID-19 Vaccine History Last Done: 06/19/23 12:06
ED- Cardiac Assessment Last Done: 06/19/23 12:07
ED- Pulmonary Assessment Last Done: 06/19/23 12:07
[2023-06-19 12:44] LABS: % Basophils 0.6 % (0-2); % Eosinophils 1.3 % (0-6); % Immature Granulocytes 2.3 % (0-0.5); % Lymphocytes 7.1 % (20.5-51.1); % Monocytes 6.9 % (1.7-9.3); % Neutrophils 81.8 % (42.2-75.2); Absolute Basophils 0.1 10^3/uL (0-0.2); Absolute Eosinophils 0.2 10^3/uL (0-0.7); Absolute Immature Granulocytes 0.3 10^3/uL (0-0.05); Absolute Lymphocytes 0.9 10^3/uL (1.2-3.4); Absolute Monocytes 0.9 10^3/uL (0.1-0.6); Absolute Neutrophils 10.8 10^3/uL (1.4-6.5); Hematocrit 25.1 % (37.0-47.0); Hemoglobin 7.7 g/dL (12.0-16.0); Mean Corp Hgb Conc. 30.7 g/dL (33.0-37.0); Mean Corpuscular Hgb 24.8 pg (27.0-31.0); Mean Corpuscular Volume 80.7 fL (81.0-99.0); Mean Platelet Volume 8.6 fL (7.4-10.4); Nucleated Red Blood Cells % 0 %; Platelet Count 429 10^3/uL (130-400); Red Blood Cell Count 3.11 10^6/uL (4.20-5.40); Red Cell Dist. Width 15.8 % (11.5-14.5); White Blood Cell Count 13.2 10^3/uL (4.8-10.8)
[2023-06-19 12:57] LABS: ALT (SGPT) 82 U/L (0-35); AST (SGOT) 51 U/L (14-36); Alkaline Phosphatase 70 U/L (38-126); Blood Urea Nitrogen 17 mg/dl (7-17); Calcium 9.1 mg/dl (8.4-10.2); Carbon Dioxide 27 mmol/L (22-30); Chloride 106 mmol/L (98-107); Estimated Creatinine Clearance 100 ml/min; Glucose 109 mg/dl (70-99); Potassium 4.5 mmol/L (3.5-5.1); Sodium 133 mmol/L (135-145); Total Bilirubin 0.2 mg/dl (0.2-1.3); Total Protein 6.1 g/dl (6.3-8.2); eGFR > 60.00
[2023-06-19 13:00] LABS: COVID-19 Antigen Negative (Negative)
[2023-06-19] MEDS: ATIVAN 0.5 MG IV (15:08)
[2023-06-19] MEDS: DUONEB 3 ML INH ×2 (17:29→17:30)
[2023-06-19] MEDS: ROCEPHIN 2000 MG IV (17:30)
[2023-06-19] MEDS: VANCOCIN 540 MG IV (17:55)
--- NOTE | 2023-06-19 17:57 | HPS.HSE ---
Family Physician
-
Family Physician: Nadira Moreland
Chief Complaint
-
SOB
History of Present Illness
53-year-old female with a past medical history of of adrenal sufficiency on chronic hydrocortisone, lupus, rheumatoid arthritis, asthma, and obesity presents with a 4-day history of shortness of breath and worsening cough. Patient was recently
admitted in the ICU for COVID-pneumonia, and discharged on 05/19/2023. She states she was feeling better, her breathing had improved. However 4 days ago, she became more short of breath, and her cough became productive. She denies fever, denies
chills. No chest pain. No nausea, no vomiting. No abdominal pain. No dysuria, no black or bloody stools. She does have intermittent lightheadedness and dizziness with her coughing spells.
Medical History
Past Medical History
Past Medical History: Reports Other
Additional Past Medical History:
Recent COVID in May 2023
Hyponatremia
Obesity
Adrenal Insufficiency
Asthma
Lupus
Rheumatoid Arthritis
Fibromyalgia
Anxiety/Depression
Past Surgical History: Reports Other
Additional Past Surgical History:
Section
Tonsillectomy
Social History
Tobacco: Non-smoker
Alcohol: None
Drug: None
Living: With Family
Family History
Family History: Not pertinent
Allergies / Home Medications
Allergies reflects when Allergies were last updated in [email or web address].
Home Medications with original date entered in [email or web address]
Allergy/Medication List:
Home Medications Table - record
�Medication �Instructions �Recorded �Confirmed
Bifidobacterium infantis 4 mg 4 mg PO DAILY 09/28/17 06/19/23
capsule (Align)
benzonatate 100 mg capsule 200 mg PO Q8HPRN PRN cough 09/28/17 06/19/23
cranberry 500 mg capsule 930 mg PO DAILY Supplement 09/28/17 06/19/23
diphenhydramine HCl 50 mg capsule 50 mg PO HS sleep 09/28/17 06/19/23
(Banophen)
hydrocortisone 10 mg tablet 10 mg PO DAILY@1300 09/28/17 06/19/23
hydrocortisone 10 mg tablet 30 mg PO DAILY 09/28/17 06/19/23
montelukast 10 mg tablet 10 mg PO QPM 09/28/17 06/19/23
multivitamin with folic acid 400 1 tab PO QPM 09/28/17 06/19/23
mcg tablet (Tab-A-Jack)
riboflavin (vitamin B2) 100 mg 400 mg PO DAILY 11/30/17 06/19/23
tablet (Vitamin B-2)
albuterol sulfate 90 mcg/actuation 2 puff inhalation R Q4HPRN PRN 04/24/21 06/19/23
aerosol inhaler sob/wheezing
calcium carbonate (Antacid 2 tab PO Q4HPRN PRN heartburn 04/24/21 06/19/23
(calcium carbonate))
fluticasone propionate 115 2 puff inhalation R BID 04/24/21 06/19/23
mcg-salmeterol 21 mcg/actuation
HFA inhaler (Advair HFA)
hydroxychloroquine 200 mg tablet 400 mg PO NOON 04/24/21 06/19/23
acetaminophen 500 mg tablet 1,000 mg (2 x 500 mg) PO Q8HPRN 04/26/21 06/19/23
(Tylenol Extra Strength) PRN tension headache ##0
gabapentin 300 mg capsule 900 mg (3 x 300 mg) PO TID 04/26/21 06/19/23
ondansetron 4 mg disintegrating 4 mg PO TIDPRN PRN nausea/vomiting 04/05/22 06/19/23
tablet #20 tabs
ascorbic acid (vitamin C) 500 mg 500 mg PO BID 05/15/23 06/19/23
tablet (Vitamin C)
calcium carbonate 1,000 mg PO NOON 05/15/23 06/19/23
cholecalciferol (vitamin D3) 25 175 mcg PO QPM 05/15/23 06/19/23
mcg (1,000 unit) tablet (Vitamin
D3)
duloxetine 60 mg capsule,delayed 60 mg PO BID 05/15/23 06/19/23
release (Cymbalta)
ibuprofen 800 mg tablet 800 mg PO TID 05/15/23 06/19/23
loperamide 2 mg tablet 2 mg PO Q6H PRN diarrhea 05/15/23 06/19/23
lorazepam 2 mg tablet 2 mg PO QID 05/15/23 06/19/23
methocarbamol 500 mg tablet 1,500 mg PO Q8H 05/15/23 06/19/23
quetiapine 200 mg tablet (Seroquel) 200 mg PO HS 05/15/23 06/19/23
guaifenesin 600 mg tablet, 600 mg PO Q12 2 days #4 tabs 05/19/23 06/19/23
extended release 12 hr
Review of Systems
-
A 12 point ROS was completed and negative except as noted: Yes
Physical Exam
Vital Signs
Vital Signs
Temp Pulse Resp BP Pulse Ox
98.3 F 100 23 144/76 97
06/19/23 11:56 06/19/23 16:15 06/19/23 13:00 06/19/23 15:11 06/19/23 16:15
Physical Exam
General: No Apparent Distress and Other (Obese, appears to not feel well)
HEENT: NormoCephalic, Anicteric and Moist mucous membranes
Respiratory: Crackles (Left basilar crackles)
Cardiac: Tachycardia
GI: Soft, Non Tender, Non Distended and Normal Bowel Sounds
Musculoskeletal: No Clubbing, No Cyanosis and No Edema
Skin: Warm and Dry
Neuro: Awake, Alert and Oriented
Psych: Calm
Laboratory Results
-
06/19/23 12:34
06/19/23 12:34
Laboratory Results
Total Bilirubin 0.2 mg/dl (0.2-1.3) 06/19/23 12:34
AST 51 U/L (14-36) H 06/19/23 12:34
ALT 82 U/L (0-35) H 06/19/23 12:34
Alkaline Phosphatase 70 U/L (38-126) 06/19/23 12:34
Impression/Plan
-
53-year-old female with a past medical history of of adrenal sufficiency on chronic hydrocortisone, lupus, rheumatoid arthritis, asthma, and obesity presents with a 4-day history of shortness of breath and worsening cough. Patient was recently
admitted in the ICU for COVID-pneumonia, and discharged on 05/19/2023. She states she was feeling better, her breathing had improved. However 4 days ago, she became more short of breath, and her cough became productive. She denies fever, denies
chills. No chest pain. No nausea, no vomiting. No abdominal pain. No dysuria, no black or bloody stools. She does have intermittent lightheadedness and dizziness with her coughing spells.
#Shortness of breath
#Cough
Suspect secondary to long COVID syndrome
Chest CT negative for pneumonia, shows scarring, and atelectasis
Consult pulmonology, check procalcitonin, monitor off antibiotics
Treat with Mucinex, cough medicine, Acapella valve, bronchodilators
#Acute hypoxic respiratory insufficiency
Patient satting 87% on room air
Due to atelectasis, start incentive spirometry
#History of asthma
She is not wheezing on exam
Continue bronchodilators
#History of adrenal insufficiency
Continue home hydrocortisone 30 mg in the morning and 10 mg in the afternoon
#Lupus/Rheumatoid Arthritis/Fibromyalgia
Continue Cymbalta, Gabapentin, Methocarbamol, Hydroxychloroquine
#Anxiety/depression
Continue sertraline
Continue lorazepam 2 mg 4 times daily
#Obesity due to excess calories
Affects all aspects of care
DVT prophylaxis�subcu Lovenox
Full code
[2023-06-19] MEDS: ADVAIR HFA 115/21 MCG INHALER 2 PUFF INH (20:18)
[2023-06-19] MEDS: NEURONTIN 900 MG PO (21:31)
[2023-06-19] MEDS: HYCODAN SYRUP 5 ML PO (21:31)
[2023-06-19] MEDS: MUCINEX 600 MG PO (21:31)
[2023-06-19] MEDS: BENADRYL 50 MG PO (21:31)
[2023-06-19] MEDS: MOTRIN 800 MG PO (21:31)
[2023-06-19] MEDS: VITAMIN C 500 MG PO (21:32)
[2023-06-19] MEDS: SEROQUEL 200 MG PO (21:32)
[2023-06-19] MEDS: CYMBALTA DELAYED RELEASE 60 MG PO (21:32)
[2023-06-19] MEDS: ATIVAN 2 MG PO (22:24)
[2023-06-20 06:59] LABS: % Eosinophils 4.5 % (0-6); % Immature Granulocytes 2.1 % (0-0.5); % Lymphocytes 28.3 % (20.5-51.1); % Monocytes 11.2 % (1.7-9.3); % Neutrophils 52.9 % (42.2-75.2); Absolute Basophils 0.1 10^3/uL (0-0.2); Absolute Eosinophils 0.5 10^3/uL (0-0.7); Absolute Immature Granulocytes 0.2 10^3/uL (0-0.05); Absolute Lymphocytes 2.8 10^3/uL (1.2-3.4); Absolute Monocytes 1.1 10^3/uL (0.1-0.6); Absolute Neutrophils 5.3 10^3/uL (1.4-6.5); Hematocrit 26.5 % (37.0-47.0); Hemoglobin 8.1 g/dL (12.0-16.0); Mean Corp Hgb Conc. 30.6 g/dL (33.0-37.0); Mean Corpuscular Hgb 24.3 pg (27.0-31.0); Mean Corpuscular Volume 79.3 fL (81.0-99.0); Mean Platelet Volume 8.7 fL (7.4-10.4); Nucleated Red Blood Cells % 0 %; Platelet Count 441 10^3/uL (130-400); Red Blood Cell Count 3.34 10^6/uL (4.20-5.40); Red Cell Dist. Width 15.8 % (11.5-14.5)
[2023-06-20 07:20] LABS: ALT (SGPT) 68 U/L (0-35); AST (SGOT) 36 U/L (14-36); Albumin 3.8 g/dl (3.5-5.0); Alkaline Phosphatase 72 U/L (38-126); Blood Urea Nitrogen 19 mg/dl (7-17); Calcium 9.2 mg/dl (8.4-10.2); Carbon Dioxide 30 mmol/L (22-30); Chloride 103 mmol/L (98-107); Estimated Creatinine Clearance 99 ml/min; Glucose 80 mg/dl (70-99); Magnesium 2.2 mg/dl (1.6-2.3); Potassium 4.4 mmol/L (3.5-5.1); Sodium 136 mmol/L (135-145); Total Bilirubin 0.2 mg/dl (0.2-1.3); eGFR > 60.00
[2023-06-20] MEDS: ADVAIR HFA 115/21 MCG INHALER 2 PUFF INH (07:55)
--- NOTE | 2023-06-20 08:02 | W.PN.HOSP.TC ---
Today's Communication/Plan
-
Discharge today
Assessment / Plan
Assessment / Plan
53-year-old female with a past medical history of of adrenal sufficiency on chronic hydrocortisone, lupus, rheumatoid arthritis, asthma, and obesity presents with a 4-day history of shortness of breath and worsening cough. Patient was recently
admitted in the ICU for COVID-pneumonia, and discharged on 05/19/2023. She states she was feeling better, her breathing had improved. However 4 days ago, she became more short of breath, and her cough became productive. She denies fever, denies
chills. No chest pain. No nausea, no vomiting. No abdominal pain. No dysuria, no black or bloody stools. She does have intermittent lightheadedness and dizziness with her coughing spells
53-year-old female with a past medical history of of adrenal sufficiency on chronic hydrocortisone, lupus, rheumatoid arthritis, asthma, and obesity presents with a 4-day history of shortness of breath and worsening cough. Patient was recently
admitted in the ICU for COVID-pneumonia, and discharged on 05/19/2023. She states she was feeling better, her breathing had improved. However 4 days ago, she became more short of breath, and her cough became productive. She denies fever, denies
chills. No chest pain. No nausea, no vomiting. No abdominal pain. No dysuria, no black or bloody stools. She does have intermittent lightheadedness and dizziness with her coughing spells.
#Shortness of breath
#Cough
#Post COVID syndrome
Chest CT negative for pneumonia, shows scarring, and atelectasis
Status post antibiotics in the ER, procalcitonin negative, monitor off antibiotic
Seen by pulmonology, medically stable for discharge on mucinex, cough medicine, Acapella valve, bronchodilators
Follow-up with pulmonology in the office
#Acute hypoxic respiratory insufficiency
Patient satting 87% on room air
Due to atelectasis, resolved with incentive spirometry
#History of asthma
She is not wheezing on exam
Continue bronchodilators
#History of adrenal insufficiency
Continue home hydrocortisone 30 mg in the morning and 10 mg in the afternoon
#Lupus/Rheumatoid Arthritis/Fibromyalgia
Continue Cymbalta, Gabapentin, Methocarbamol, Hydroxychloroquine
#Anxiety/depression
Continue sertraline
Continue lorazepam 2 mg 4 times daily
#Obesity due to excess calories
Affects all aspects of care
DVT prophylaxis�subcu Lovenox
Full code
Physical Exam
General: No Apparent Distress and Other (Obese, appears to not feel well)
HEENT: NormoCephalic, Anicteric and Moist mucous membranes
Respiratory: Crackles (Left basilar crackles)
Cardiac: Tachycardia
GI: Soft, Non Tender, Non Distended and Normal Bowel Sounds
Musculoskeletal: No Clubbing, No Cyanosis and No Edema
Skin: Warm and Dry
Neuro: Awake, Alert and Oriented
Psych: Calm
Anticipated Discharge: Today
Subjective/Interval History
-
Date of Service: June 20, 2023
Patient reports feeling much better. Breathing improved. She is off oxygen. Continues to have intermittent coughing. No fever, no vomiting.
Objective Data
-
Labs:
Laboratory Results
06/20/23
06:22
WBC 10.0
Hgb 8.1 L
Hct 26.5 L
Plt Count 441 H
Sodium 136
Potassium 4.4
Chloride 103
Carbon Dioxide 30
BUN 19 H
Creatinine 0.7
Glucose 80
Calcium 9.2
Total Bilirubin 0.2
AST 36
ALT 68 H
Alkaline Phosphatase 72
Vital Signs:
Vital Signs
Temp Pulse Resp BP Pulse Ox
98.4 F 102 16 154/94 95
06/19/23 23:20 06/20/23 07:58 06/20/23 07:58 06/19/23 23:20 06/20/23 07:58
I&O
06/19/23 06/20/23 06/21/23
06:59 06:59 06:59
Intake Total 480 / 480
Balance 480 / 480
[2023-06-20 08:35] VITALS: BP 141/85
[2023-06-20] MEDS: CORTEF 30 MG PO (08:47)
[2023-06-20] MEDS: MOTRIN 800 MG PO (08:47)
[2023-06-20] MEDS: NEURONTIN 900 MG PO (08:47)
[2023-06-20] MEDS: ATIVAN 2 MG PO (08:47)
[2023-06-20] MEDS: MUCINEX 600 MG PO (08:48)
[2023-06-20] MEDS: VITAMIN C 500 MG PO (08:48)
[2023-06-20] MEDS: VISBIOME 1 CAP PO (08:48)
[2023-06-20] MEDS: CYMBALTA DELAYED RELEASE 60 MG PO (08:48)
--- NOTE | 2023-06-20 09:32 | CON.PUL ---
Consultation
Consultation Request
Date/Time Consultation Requested: 06/20/23
Date/Time Consultation Performed: 06/20/23
Reason for Consultation: Pulmonary
Medical History
-
History of Present Illness:
History obtained from the patient, chart and reviewing outpatient records. Patient is a 53-year-old female with longstanding history of asthma, lupus/RA followed by rheumatology, recurrent bronchitis, shortness of breath, adrenal insufficiency who
had Covid 1 month ago. Usually when she gets sick she doubles her adrenal insufficiency steroid therapy. She was hospitalized briefly at that time in ICU for hypoxia and tachycardia. Since then, she felt improved, discharged 05/19/2023.
Unfortunately now developed increased productive cough, chest congestion and brought her self back to the hospital.
Workup negative, CT imaging unremarkable. We are asked to comment on her pulmonary process
Presently she is feeling improved. She feels her cough is improved. She feels nebulizer does help.
.
PMH: Hx of Covid, asthma, lupus/RA, adrenal insufficiency, morbid obesity, fibromyalgia, anxiety/depression. History of , tonsillectomy
Past Medical History
Past Medical History: None (See above)
Past Surgical History: None (See above)
Social History
Tobacco: Non-smoker
Alcohol: None
Drug: None
Personal:
Living: With Family
Employment: Not Employed
Family History
Family History: Reviewed & Not Pertinent
Allergies / Home Medications
Allergies
Allergy/AdvReac Type Severity Reaction Status Date / Time
ciprofloxacin [From Cipro] Allergy Rash Verified 05/15/23 17:05
haloperidol [From Haldol] Allergy Unknown Verified 05/15/23 17:05
hydrocodone bitartrate Allergy Itching Verified 04/04/23 18:12
[From Lorcet 10]
metoclopramide [From Reglan] Allergy Swelling Verified 04/04/23 18:12
prednisone [Prednisone] Allergy Itching Verified 04/04/23 18:12
prochlorperazine Allergy Unknown Verified 05/15/23 17:05
[From Compazine]
propoxyphene napsylate Allergy Itching Verified 04/04/23 18:12
[From Darvocet-N 100]
red dye Allergy Itching Verified 05/15/23 17:05
Serotonin 5HT-3 Antagonists Allergy Vomiting Verified 06/19/23 20:22
sulfamethoxazole Allergy Rash Verified 04/04/23 18:12
[From Bactrim]
sulfanilamide Allergy Rash Verified 04/04/23 18:12
Tricyclic Antidepressants Allergy Vomiting Verified 05/15/23 17:05
and Tricy
trimethoprim [From Bactrim] Allergy Rash Verified 04/04/23 18:12
wheat Allergy Vomiting Verified 05/15/23 17:05
nitrofurantoin AdvReac Vomitting Verified 05/15/23 17:05
[From Macrobid]
promethazine [From Phenergan] AdvReac Dizziness Verified 05/15/23 17:05
Home Medications
�Medication �Instructions �Recorded �Confirmed �Last Taken �Type
Bifidobacterium infantis 4 mg 4 mg PO DAILY Probiotic supplement 09/28/17 06/19/23 06/19/23 History
capsule (Align)
benzonatate 100 mg capsule 200 mg PO Q8HPRN PRN cough 09/28/17 06/19/23 11/30/17 History
cranberry 500 mg capsule 930 mg PO DAILY Supplement 09/28/17 06/19/23 06/19/23 History
diphenhydramine HCl 50 mg capsule 50 mg PO HS sleep 09/28/17 06/19/23 06/18/23 History
(Banophen)
hydrocortisone 10 mg tablet 10 mg PO DAILY@1300 adrenal 09/28/17 06/19/23 06/18/23 History
insufficiency
hydrocortisone 10 mg tablet 30 mg PO DAILY adrenal 09/28/17 06/19/23 06/19/23 History
insufficiency 60 mg
montelukast 10 mg tablet 10 mg PO QPM Allergy 09/28/17 06/19/23 06/18/23 History
multivitamin with folic acid 400 1 tab PO QPM Supplement 09/28/17 06/19/23 06/18/23 History
mcg tablet (Tab-A-Jack)
riboflavin (vitamin B2) 100 mg 400 mg PO DAILY Supplement 11/30/17 06/19/23 06/19/23 History
tablet (Vitamin B-2)
albuterol sulfate 90 mcg/actuation 2 puff inhalation R Q4HPRN PRN 04/24/21 06/19/23 Unknown History
aerosol inhaler sob/wheezing
calcium carbonate (Antacid 2 tab PO Q4HPRN PRN heartburn 04/24/21 06/19/23 Unknown History
(calcium carbonate))
fluticasone propionate 115 2 puff inhalation R BID Asthma 04/24/21 06/19/23 06/19/23 History
mcg-salmeterol 21 mcg/actuation
HFA inhaler (Advair HFA)
hydroxychloroquine 200 mg tablet 400 mg PO NOON Lupus/rheumatoid 04/24/21 06/19/23 06/18/23 History
arthritis
acetaminophen 500 mg tablet 1,000 mg (2 x 500 mg) PO Q8HPRN 04/26/21 06/19/23 11/30/17 Rx
(Tylenol Extra Strength) PRN tension headache ##0
gabapentin 300 mg capsule 900 mg (3 x 300 mg) PO TID 04/26/21 06/19/23 06/19/23 Rx
ondansetron 4 mg disintegrating 4 mg PO TIDPRN PRN nausea/vomiting 04/05/22 06/19/23 Unknown Rx
tablet #20 tabs
ascorbic acid (vitamin C) 500 mg 500 mg PO BID Supplement 05/15/23 06/19/23 06/19/23 History
tablet (Vitamin C)
calcium carbonate 1,000 mg PO NOON Supplement 05/15/23 06/19/23 06/18/23 History
cholecalciferol (vitamin D3) 25 175 mcg PO QPM Supplement 05/15/23 06/19/23 06/18/23 History
mcg (1,000 unit) tablet (Vitamin
D3)
duloxetine 60 mg capsule,delayed 60 mg PO BID Fibromyalgia 05/15/23 06/19/23 06/19/23 History
release (Cymbalta)
ibuprofen 800 mg tablet 800 mg PO TID Pain 05/15/23 06/19/23 06/19/23 History
loperamide 2 mg tablet 2 mg PO Q6H PRN diarrhea 05/15/23 06/19/23 Unknown History
lorazepam 2 mg tablet 2 mg PO QID diarrhea 05/15/23 06/19/23 06/19/23 History
methocarbamol 500 mg tablet 1,500 mg PO Q8H 05/15/23 06/19/23 06/19/23 History
Lupus/RA/Fibromyalgia
quetiapine 200 mg tablet (Seroquel) 200 mg PO HS Mental Health/Anxiety 05/15/23 06/19/23 06/18/23 History
guaifenesin 600 mg tablet, 600 mg PO Q12 2 days #4 tabs 05/19/23 06/19/23 06/19/23 Rx
extended release 12 hr
Review of Systems
-
All other systems: Negative unless noted
Vitals / Labs / Diagnostic Testing
Vital Signs
Temp Pulse Resp BP Pulse Ox
97.9 F 107 18 141/85 95
06/20/23 08:35 06/20/23 08:35 06/20/23 08:35 06/20/23 08:35 06/20/23 08:35
Lab Data
06/20/23 06:22
06/20/23 06:22
Microbiology
06/19/23 12:22 Nasal Swab Influenza Types A & B ([facility]) - Final
Negative for Influenza A & B, NAAT
Negative results must be combined with clinical observations
and patient history.
Nucleic Acid Amplification test (NAAT)performed on the
[employer] platform.
Diagnostic Testing:
Physical Exam
-
HEENT: Normocephalic, Anicteric and Other (Narrow posterior pharynx)
Cardiovascular: S1/S2, Regular Rhythm, Murmur (n), Rub (n), Peripheral Edema (n) and Calf Tenderness (n)
Respiratory: Wheeze (n), Rales (Mild bibasilar), Rhonchi (n) and Non-Labored Respirations
GI: Soft, Non Distended and Non Tender
Neurology: Awake, Alert, Oriented and No Motor Deficits
Skin: Good Color and Other (No rash, no clubbing)
General: Comfortable (Conversant)
Assessment
-
Patient is a 53 year old female past medical history of adrenal insufficiency, asthma, lupus, and rheumatoid arthritis who presents with fever, cough, and shortness of breath, recent history of Covid May 2023, admitted to ICU, discharged
05/19/2023. Now returns with increased chest congestion, cough. CT chest unremarkable. We are asked to comment on pulmonary process
Acute bronchitis/chest congestion
HX COVID illness, May 2023
Acute hypoxic respiratory failure
ICU stay
Conditions present STEAM PAN SPONGER
Prior suicide attempt for life insurance 05/01/23
Migraine history� �
History�of concussion� �
Asthma� �
arthritis� �
Anxiety� �
Adrenal insufficiency� �
thyroid disease� �
Fibromyalgia� �
H/o lupus� �
Surgical History , wisdom, T&A
Plan
At this time, patient appears to be at her baseline from a pulmonary standpoint
Mild crackles on exam noted
CT chest 06/19/2023 with no acute findings, no acute PE, no parenchymal process. There is mild bibasilar atelectasis
There may be some mild patchy mosaic pattern per my review
History of RA/lupus noted
Moving forward
I suspect she is close to her baseline. This is likely post-COVID symptoms
Continue with outpatient regimen
Patient does have a nebulizer, recommended increase use of DuoNebs during acute flareups
No indication for oxygen at this time
Strong suspicion for sleep disordered breathing. Unfortunate insurance does not cover this. Continue with head of bed elevated
Continue GERD therapy
Okay for disposition. Patient will follow-up in our office in the next few weeks
Reviewed with patient, primary service
Disposition efforts
--- NOTE | 2023-06-20 10:36 | W.DCSUMMARY ---
Discharge Summary
Discharge Data
Date of Admission: 06/19/23
Date of Discharge: 06/20/23
-
Pending Results: No
Hospital Course
Discharge diagnosis:
Shortness of breath
Cough
Post COVID syndrome
Acute hypoxic respiratory insufficiency secondary to atelectasis
History of asthma
History of adrenal sufficiency
Lupus/rheumatoid arthritis/fibromyalgia
Anxiety/depression
Consults: Pulmonology
Chest CT:
No acute disease of the chest.
No evidence of pulmonary embolus.
Mild bibasilar atelectasis versus scarring. Progressed
Tiny pericardial effusion. Stable
Hypodense left thyroid lesion. Stable. Probable adjacent benign thyroid nodules considering the stability. However, these would better be evaluated by a dedicated thyroid ultrasound if not previously performed
Hospital course:
53-year-old female with a past medical history of of adrenal sufficiency on chronic hydrocortisone, lupus, rheumatoid arthritis, asthma, and obesity presented with a 4-day history of shortness of breath and worsening cough. Patient was recently
admitted in the ICU for COVID-pneumonia, and discharged on 05/19/2023. She states she was feeling better, her breathing had improved. However 4 days ago, she became more short of breath, and her cough became productive. She denies fever, denies
chills. No chest pain. No nausea, no vomiting. No abdominal pain. No dysuria, no black or bloody stools. She does have intermittent lightheadedness and dizziness with her coughing spells.
Patient received IV antibiotics in the ER for possible pneumonia. Chest CT ruled out pneumonia. Procalcitonin was negative. She was monitored off of antibiotics.
Patient was hypoxic secondary to atelectasis. Her hypoxia resolved with incentive spirometry.
Both pulmonology and I agree that patient has post-COVID symptoms. Reassurance was provided.
By the following day, she felt remarkably better. She is medically stable and cleared by pulmonology for discharge. She can continue her usual home medications. She knows to double her hydrocortisone dose for adrenal sufficiency if she is sick.
She can take [id number] cough and cold medications as needed for symptoms. She can follow-up with her primary care doctor 1 week, pulmonology in the office in 2-3 weeks.
Disposition: Home self-care
Discharge planning: Required 36
Discharge Plan
-
Patient Disposition: Home (Routine Discharge)
Discharge Diagnosis/Procedures: Hypoxia, atelectasis, post-COVID syndrome
Condition: Fair
Diet: Regular
Activity: As tolerated
Driving Restrictions: As prior to admission
Activity Restrictions/Additional Instructions:
Please rest, drink plenty of fluids.
Continue using the incentive spirometry to help expand your lungs.
You can take [id number] Zarbee's cough medicine as needed for your cough.
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
Referrals:
Biju Bagley MD [Active] - in two to three weeks (Appt with [facility])
Nadira Moreland MD [Family Provider] - in one week
Prescriptions:
Continued
diphenhydramine HCl [Banophen] 50 MG capsule
50 mg PO HS
benzonatate 100 MG capsule
200 mg PO Q8HPRN PRN (Reason: cough)
montelukast 10 MG tablet
10 mg PO QPM
hydrocortisone 10 MG tablet
10 mg PO DAILY@1300
Patient Comments:
06/19/2023: Pt states she takes the double the dose when she is sick
hydrocortisone 10 MG tablet
30 mg PO DAILY
Patient Comments:
06/19/2023: Pt states she takes the double the dose when she is sick
cranberry 500 MG capsule
930 mg PO DAILY
Align 4 MG capsule
4 mg PO DAILY
multivitamin with folic acid [Tab-A-Jack] 1 TABLET tablet
1 tab PO QPM
riboflavin (vitamin B2) [Vitamin B-2] 100 MG tablet
400 mg PO DAILY
calcium carbonate [Antacid (calcium carbonate)] 1 TABLET tablet,chewable
2 tab PO Q4HPRN PRN (Reason: heartburn)
hydroxychloroquine 200 MG tablet
400 mg PO NOON
fluticasone propion-salmeterol [Advair HFA] 1 PUFF HFA aerosol inhaler
2 puff inhalation R BID
albuterol sulfate 1 PUFF HFA aerosol inhaler
2 puff inhalation R Q4HPRN PRN (Reason: sob/wheezing)
gabapentin 300 MG capsule
900 mg PO TID 0RF
acetaminophen [Tylenol Extra Strength] 500 MG tablet
1,000 mg PO Q8HPRN PRN (Reason: tension headache) Qty: 0 0RF
ondansetron 4 mg tablet,disintegrating
4 mg PO TIDPRN PRN (Reason: nausea/vomiting) Qty: 20 0RF
calcium carbonate 500 mg calcium (1,250 mg) Tablet
1,000 mg PO NOON
lorazepam 2 MG tablet
2 mg PO QID
Patient Comments:
06/19/2023: last filled 06/10/23, 120 tabs for 30 days from [facility]
methocarbamol 500 mg Tablet
1,500 mg PO Q8H
ibuprofen 800 mg Tablet
800 mg PO TID
quetiapine [Seroquel] 200 mg Tablet
200 mg PO HS
loperamide 2 mg Tablet
2 mg PO Q6H PRN (Reason: diarrhea)
ascorbic acid (vitamin C) [Vitamin C] 500 mg Tablet
500 mg PO BID
duloxetine [Cymbalta] 60 mg Capsule,Delayed Release(Dr/Ec)
60 mg PO BID
cholecalciferol (vitamin D3) [Vitamin D3] 25 mcg (1,000 unit) Tablet
175 mcg PO QPM
guaifenesin 600 mg Tablet Extended Release 12hr
600 mg PO Q12 2 Days Qty: 4 0RF
Discharge Orders:
Discharge Patient (As Directed); Ordered 06/20/23
Ordered By: Chris Sharp
Discharge Date and Time
Discharge Date/Time: 06/20/23 12:00
Print Language: WOLOF
--- NOTE | 2023-06-20 11:50 | CM ---
manager employee benefits reviewed patient's chart and met with patient and patient lives with her mother and daughter in a one story home, with no steps to enter, patient is independent with adl's patient has a walker and cane in home, patient has a
prescription plan and uses [facility].
PCP: Dr. Moreland
Plan; Home when stable, no needs.
== END 2023-06-20 12:00 | disposition home or self-care (01) | DRG 951 ==
LOC: 4 WEST ACU 18:35
PROVIDERS: Emergency Medicine; ADMITTING PHYSICIAN Family Medicine; CONSULT PHYSICIAN Internal Medicine Critical Care Medicine; EMERGENCY PHYSICIAN Emergency Medicine; FAMILY PHYSICIAN Family Medicine
DX: U09.9 Post COVID-19 condition, unspecified (principal); J98.11 Atelectasis; E27.40 Unspecified adrenocortical insufficiency; R09.02 Hypoxemia; M06.9 Rheumatoid arthritis, unspecified; J45.909 Unspecified asthma, uncomplicated; F41.9 Anxiety disorder, unspecified; G43.909 Migraine, unspecified, not intractable, without status migrainosus; M32.9 Systemic lupus erythematosus, unspecified; E66.09 Other obesity due to excess calories; M79.7 Fibromyalgia; M19.90 Unspecified osteoarthritis, unspecified site; K21.9 Gastro-esophageal reflux disease without esophagitis; R06.89 Other abnormalities of breathing; R09.89 Other specified symptoms and signs involving the circulatory and respiratory systems; E04.2 Nontoxic multinodular goiter; F32.A Depression, unspecified; Z11.52 Encounter for screening for COVID-19; Z68.29 Body mass index [BMI] 29.0-29.9, adult; Z88.1 Allergy status to other antibiotic agents; Z91.02 Food additives allergy status; Z88.5 Allergy status to narcotic agent; Z88.2 Allergy status to sulfonamides; Z88.8 Allergy status to other drugs, medicaments and biological substances; Z91.018 Allergy to other foods; Z91.51 Personal history of suicidal behavior; Z87.820 Personal history of traumatic brain injury
CPT/HCPCS: 71046; 71275; 80053; 83735; 84145; 85025; 87502; 87811; 93005; 94640; 96374; 96375; 99285; Q9967

== ENCOUNTER 2023-06-25 22:15 | Emergency (ER) | payer OTHER, SELFPAY ==
[2023-06-25 22:20] VITALS: BP 144/90
--- NOTE | 2023-06-26 00:05 | ED.GENMED ---
History of Present Illness
General
Chief Complaint: Musculo-Skeletal Complaint
Source: patient
Exam Limitations: none
Time Seen by Provider: 06/25/23 23:52
Travel History
Have you had any contact with someone who has COVID-19?: No
Do you have any symptoms of coronavirus? Fever > 100 degrees, chills, cough, shortness of breath, sore throat, loss of taste or smell, muscle aches, or headache?: Yes
Symptoms:: cough
History of Present Illness
History of Present Illness:
This is a 53 year old female that comes in with c/o right sided rib pain. States that she was here last week and told that she has post COVId. States that this can hang on for a couple weeks or longer. States that she has had a cough and on Thursday
or Thursday she started with pain on the right rib area with coughing. States that she was afraid that she broke a rib. States that she has a little nausea earlier but this is gone. Denies any fever, chills, chest pain, abd pain, vomiting, diarrhea,
headache, dizziness, urinary burning.
Past History
Past History
ED Past Medical History: Asthma, Psychiatric (Anxiety, OCD, PTSD, Panic disorder, ) and Other (Adrenal insufficiency, migraine , Back and neck pains, Celiac disease, Cystitis, Lupus, )
ED Past Surgical History: , Gynecological (D&C with ablation, ) and Tonsilectomy
Social History
Tobacco: Non-smoker
Alcohol: None
Drug: None
Personal:
Living: with family
Employment: Employed
Family History
Family History: Other
Review of Systems
Review of Systems
All Other Systems: ROS reviewed and negative except as documented in HPI and ROS
Constitutional: Reports no symptoms; Denies fever or chills
EENT: Reports no symptoms
Respiratory: Reports cough and trouble breathing
Cardiac: Denies chest pain
ABD/GI: Reports nausea; Denies abdominal pain or diarrhea
: Reports no symptoms; Denies dysuria, frequency or urgency
Musculoskeletal: Reports other (Right sided posterior rib pain)
Skin: Reports no symptoms
Neurological: Reports no symptoms; Denies dizzy or headache
Psychiatric: Reports no symptoms
Phy Exam
General Physical Exam
General Presentation: well appearing and no apparent distress
General age: appears stated age
General Skin: warm and dry
General Habitus: normal
General Mental: alert
General Hydration: appears well hydrated
ENT Exam
ENT Exam: TM's normal, pharynx normal and neck supple
Eye Exam
Eye Exam: EOMI
Cardiovascular Exam
Cardiovascular Exam: regular rate/rhythm
Pulmonary Exam
Pulmonary Exam: no respiratory distress, no rales, chest non tender, no rhonchi, no wheezing and other (DRY COUGH NOTED, VERY FINE CRAKLES THROUGHT PATIENT IS AFRAID TO TAKE A DEEP BREATH)
Gastrointestinal Exam
Gastrointestinal Exam: normal bowel sounds, non tender, soft, no organomegaly, no pulsatile mass and non distended
Musculoskeletal Exam
Musculoskeletal Exam: full ROM and no edema
Skin Exam
Skin Exam: normal color, warm/dry, no rash and no petechia
Psychiatric Exam
Psychiatric Exam: normal mood/affect
Course
Orders/Labs/Results
Orders:
Orders
06/26/23 00:04
Ribs, Right 3 View W/PA Chest [CR Ribs-right 3 Vw W/pa Chest*] Urgent
Comment:
Reason For Exam: PAIN POSTERIOR RIBS FROM COUGHING
Vital Signs
Initial and Last Documented VS:
Initial Vital Signs
Temp Pulse Resp BP Pulse Ox
98.1 F 115 18 144/90 94
06/25/23 22:20 06/25/23 22:20 06/25/23 22:20 06/25/23 22:20 06/25/23 22:20
Last Documented Vital Signs
Temp Pulse Resp BP Pulse Ox
98.1 F 101 18 146/94 96
06/25/23 22:20 06/26/23 00:38 06/25/23 22:20 06/26/23 00:38 06/26/23 00:38
MDM/Problems Addressed
Differential Diagnosis Includes:
rib fracture, Musculoskeletal pain
MDM/Problems Addressed:
This is a 53 year old female that comes in with c/o right sided rib pain due to coughing. States that she is afraid that she cracked a rib due to all her coughing.
Will get X-ray.
Back to see patient. Explained that there looks to be a 5th rib fracture. Patient can use Tylenol 1000mg every 6 hours and alternate with ibuprofen 600mg every 6 hours with food. Patient is also given an Incentive Spherometer to help her take deep
breaths. Patient to follow up with the Family doctor. Return with any concerns.
Chronic conditions affecting care:
NA
Acute Exacerbation and/or Progression of Chronic Illness:
NA
*Pulse Oximetry
Patient hypoxic: no
*EKG
Interpreted by ED Provider?: NA
Rate: EKG- N/A
*Crop Quantitative Geneticist Interpretation
Rate: Crop Quantitative Geneticist- N/A
*Critical Care Note
Total Time (30-74mins, 75-104mins- exclusive of procedures): Not Applicable
ED Attending Note
-
Portions of this chart may have been created with voice recognition software.� Occasional wrong word or��sound alike� substitutions may have occurred due to the inherent limitations of voice recognition software.
Discharge Plan
Departure
Patient Disposition: Home (Routine Discharge)
Date of Disposition: 06/26/23
Time of Disposition: 00:53
Patient with high blood pressure during this ER visit?: Yes
Condition: Good
Covid-19: Not Applicable
Discharge Problem:
Right rib fracture
Instructions: Rib Fracture (DC), BLOOD PRESSURE
Prescriptions:
No Action
diphenhydramine HCl [Banophen] 50 MG capsule
50 mg PO HS
benzonatate 100 MG capsule
200 mg PO Q8HPRN PRN (Reason: cough)
montelukast 10 MG tablet
10 mg PO QPM
hydrocortisone 10 MG tablet
10 mg PO DAILY@1300
Patient Comments:
06/19/2023: Pt states she takes the double the dose when she is sick
hydrocortisone 10 MG tablet
30 mg PO DAILY
Patient Comments:
06/19/2023: Pt states she takes the double the dose when she is sick
cranberry 500 MG capsule
930 mg PO DAILY
Align 4 MG capsule
4 mg PO DAILY
multivitamin with folic acid [Tab-A-Jack] 1 TABLET tablet
1 tab PO QPM
riboflavin (vitamin B2) [Vitamin B-2] 100 MG tablet
400 mg PO DAILY
calcium carbonate [Antacid (calcium carbonate)] 1 TABLET tablet,chewable
2 tab PO Q4HPRN PRN (Reason: heartburn)
hydroxychloroquine 200 MG tablet
400 mg PO NOON
fluticasone propion-salmeterol [Advair HFA] 1 PUFF HFA aerosol inhaler
2 puff inhalation R BID
albuterol sulfate 1 PUFF HFA aerosol inhaler
2 puff inhalation R Q4HPRN PRN (Reason: sob/wheezing)
gabapentin 300 MG capsule
900 mg PO TID 0RF
acetaminophen [Tylenol Extra Strength] 500 MG tablet
1,000 mg PO Q8HPRN PRN (Reason: tension headache) Qty: 0 0RF
ondansetron 4 mg tablet,disintegrating
4 mg PO TIDPRN PRN (Reason: nausea/vomiting) Qty: 20 0RF
calcium carbonate 500 mg calcium (1,250 mg) Tablet
1,000 mg PO NOON
lorazepam 2 MG tablet
2 mg PO QID
Patient Comments:
06/19/2023: last filled 06/10/23, 120 tabs for 30 days from [facility]
methocarbamol 500 mg Tablet
1,500 mg PO Q8H
ibuprofen 800 mg Tablet
800 mg PO TID
quetiapine [Seroquel] 200 mg Tablet
200 mg PO HS
loperamide 2 mg Tablet
2 mg PO Q6H PRN (Reason: diarrhea)
ascorbic acid (vitamin C) [Vitamin C] 500 mg Tablet
500 mg PO BID
duloxetine [Cymbalta] 60 mg Capsule,Delayed Release(Dr/Ec)
60 mg PO BID
cholecalciferol (vitamin D3) [Vitamin D3] 25 mcg (1,000 unit) Tablet
175 mcg PO QPM
guaifenesin 600 mg Tablet Extended Release 12hr
600 mg PO Q12 2 Days Qty: 4 0RF
Referrals:
Nadira Moreland MD [Family Provider] - Call in 1-3 days for appt
Activity Restrictions/Additional Instructions:
As discussed, you have a 5th rib rib fracture on the right. Please use the Incentive Spherometer to help open up the lower lung feels. You should use this every hour for at least 4-5 breaths. Please use Tylenol 1000mg every 6 hour for pain and
alternate this will Ibuprofen 600mg every 6 hours with food. So every 3 hours you are taking something for pain. You may also use heat or ice to the area to help control pain. Follow up with the family doctor for recheck. IF YOU HAVE INCREASED
SHORTNESS OF BREATH, OR YOU HAVE ANY OTHER CONCERNS PLEASE RETURN TO THE EMERGENCY ROOM.
Interventions
Interventions:
*Risk Screen - Suicide Last Done: 06/25/23 22:20
*General Assessment Last Done: 06/25/23 22:20
*Neglect/Abuse Screening Last Done: 06/25/23 22:20
*ED COVID-19 Vaccine History Last Done: 06/25/23 22:20
ED-Musculoskeletal Assessment Last Done: 06/25/23 23:43
Discharge Date and Time
Print Language: TURKMEN
[2023-06-26 00:38] VITALS: BP 146/94
[2023-06-26 01:01] VITALS: BP 146/94
== END 2023-06-26 01:30 | disposition home or self-care (01) ==
LOC: EMR 22:15
PROVIDERS: EMERGENCY PHYSICIAN Student in an Organized Health Care Education/Training Program; FAMILY PHYSICIAN Family Medicine
DX: S22.41XA Multiple fractures of ribs, right side, initial encounter for closed fracture (principal); X58.XXXA Exposure to other specified factors, initial encounter; R03.0 Elevated blood-pressure reading, without diagnosis of hypertension
CPT/HCPCS: 99283; 71101

== ENCOUNTER → 2023-07-02 09:06 | Outpatient (REF) | payer OTHER, MEDICARE, SELFPAY ==
[2023-07-02 10:39] LABS: % Basophils 1.3 % (0-2); % Eosinophils 5.8 % (0-6); % Lymphocytes 46.7 % (20.5-51.1); % Monocytes 9.6 % (1.7-9.3); % Neutrophils 35.6 % (42.2-75.2); Absolute Basophils 0.1 10^3/uL (0-0.2); Absolute Eosinophils 0.5 10^3/uL (0-0.7); Absolute Immature Granulocytes 0.1 10^3/uL (0-0.05); Absolute Lymphocytes 3.9 10^3/uL (1.2-3.4); Absolute Monocytes 0.8 10^3/uL (0.1-0.6); Hematocrit 29.9 % (37.0-47.0); Hemoglobin 8.9 g/dL (12.0-16.0); Mean Corp Hgb Conc. 29.8 g/dL (33.0-37.0); Mean Corpuscular Hgb 23.9 pg (27.0-31.0); Mean Corpuscular Volume 80.4 fL (81.0-99.0); Mean Platelet Volume 8.8 fL (7.4-10.4); Nucleated Red Blood Cells % 0 %; Platelet Count 562 10^3/uL (130-400); Red Blood Cell Count 3.72 10^6/uL (4.20-5.40); Red Cell Dist. Width 16.2 % (11.5-14.5); White Blood Cell Count 8.3 10^3/uL (4.8-10.8)
[2023-07-02 11:06] LABS: ALT (SGPT) 18 U/L (0-35); AST (SGOT) 21 U/L (14-36); Albumin 4.7 g/dl (3.5-5.0); Alkaline Phosphatase 58 U/L (38-126); Blood Urea Nitrogen 21 mg/dl (7-17); Calcium 9.6 mg/dl (8.4-10.2); Carbon Dioxide 29 mmol/L (22-30); Chloride 104 mmol/L (98-107); Glucose 85 mg/dl (70-99); Iron 72 ug/dl (37-170); Potassium 4.3 mmol/L (3.5-5.1); Sodium 137 mmol/L (135-145); Total Bilirubin 0.2 mg/dl (0.2-1.3); eGFR > 60.00
[2023-07-02 11:15] LABS: Percent Saturation 18 % (20-50); Total Iron Binding Capacity 397 ug/dl (265-497)
[2023-07-02 15:50] LABS: Ferritin 55.9 ng/ml (11.1-264.0)
== END ==
LOC: REG 09:06
PROVIDERS: ATTENDING PHYSICIAN Nurse Practitioner Family
DX: R05.3 Chronic cough (principal); S22.31XA Fracture of one rib, right side, initial encounter for closed fracture; D64.9 Anemia, unspecified
CPT/HCPCS: 36415; 80053; 82728; 83540; 83550; 85025

== ENCOUNTER → 2023-08-18 08:50 | Outpatient (REF) | payer OTHER, SELFPAY ==
[2023-08-18 09:22] LABS: % Eosinophils 4.2 % (0-6); % Immature Granulocytes 1.3 % (0-0.5); % Monocytes 9.5 % (1.7-9.3); Absolute Basophils 0.1 10^3/uL (0-0.2); Absolute Eosinophils 0.4 10^3/uL (0-0.7); Absolute Immature Granulocytes 0.1 10^3/uL (0-0.05); Absolute Lymphocytes 3.9 10^3/uL (1.2-3.4); Absolute Neutrophils 4.7 10^3/uL (1.4-6.5); Hematocrit 30.8 % (37.0-47.0); Hemoglobin 9.3 g/dL (12.0-16.0); Mean Corp Hgb Conc. 30.2 g/dL (33.0-37.0); Mean Corpuscular Hgb 25.1 pg (27.0-31.0); Mean Platelet Volume 8.3 fL (7.4-10.4); Nucleated Red Blood Cells % 0 %; Platelet Count 479 10^3/uL (130-400); Red Blood Cell Count 3.71 10^6/uL (4.20-5.40); Red Cell Dist. Width 19.5 % (11.5-14.5); White Blood Cell Count 10.2 10^3/uL (4.8-10.8)
== END ==
LOC: REG 08:50
PROVIDERS: ATTENDING PHYSICIAN Internal Medicine Gastroenterology; FAMILY PHYSICIAN Nurse Practitioner Family
DX: D50.9 Iron deficiency anemia, unspecified (principal)
CPT/HCPCS: 36415; 85025

== ENCOUNTER → 2023-08-24 06:31 | Day surgery (SDC) | payer OTHER, SELFPAY | LOC: GI 06:31 | PROVIDERS: ATTENDING PHYSICIAN Internal Medicine Gastroenterology | DX: Z12.11 Encounter for screening for malignant neoplasm of colon (principal); R19.5 Other fecal abnormalities; D50.0 Iron deficiency anemia secondary to blood loss (chronic); K64.0 First degree hemorrhoids | CPT/HCPCS: G0121 ==

== ENCOUNTER → 2023-08-26 14:04 | Outpatient (REF) | payer OTHER, SELFPAY ==
[2023-08-26 14:57] LABS: ALT (SGPT) 26 U/L (0-35); AST (SGOT) 51 U/L (14-36); Albumin 4.6 g/dl (3.5-5.0); Alkaline Phosphatase 55 U/L (38-126); Blood Urea Nitrogen 15 mg/dl (7-17); Carbon Dioxide 29 mmol/L (22-30); Chloride 103 mmol/L (98-107); Glucose 106 mg/dl (70-99); Potassium 3.9 mmol/L (3.5-5.1); Sodium 141 mmol/L (135-145); Total Bilirubin 0.4 mg/dl (0.2-1.3); Total Protein 6.9 g/dl (6.3-8.2); eGFR > 60.00
== END ==
LOC: REG 14:04
PROVIDERS: ATTENDING PHYSICIAN Internal Medicine Endocrinology, Diabetes & Metabolism; FAMILY PHYSICIAN Family Medicine
DX: E27.40 Unspecified adrenocortical insufficiency (principal)
CPT/HCPCS: 36415; 80053; 84244

== ENCOUNTER → 2023-09-14 09:31 | Outpatient (REF) | payer OTHER, SELFPAY ==
[2023-09-14 10:17] LABS: % Basophils 1.1 % (0-2); % Eosinophils 4.6 % (0-6); % Immature Granulocytes 0.9 % (0-0.5); % Lymphocytes 33.9 % (20.5-51.1); % Monocytes 8.7 % (1.7-9.3); % Neutrophils 50.8 % (42.2-75.2); Absolute Basophils 0.1 10^3/uL (0-0.2); Absolute Eosinophils 0.5 10^3/uL (0-0.7); Absolute Immature Granulocytes 0.1 10^3/uL (0-0.05); Absolute Lymphocytes 3.3 10^3/uL (1.2-3.4); Absolute Monocytes 0.9 10^3/uL (0.1-0.6); Hematocrit 32.8 % (37.0-47.0); Hemoglobin 10.1 g/dL (12.0-16.0); Mean Corp Hgb Conc. 30.8 g/dL (33.0-37.0); Mean Corpuscular Hgb 26.6 pg (27.0-31.0); Mean Corpuscular Volume 86.5 fL (81.0-99.0); Mean Platelet Volume 8.7 fL (7.4-10.4); Nucleated Red Blood Cells % 0 %; Platelet Count 392 10^3/uL (130-400); Red Blood Cell Count 3.79 10^6/uL (4.20-5.40); Red Cell Dist. Width 20.6 % (11.5-14.5); White Blood Cell Count 9.8 10^3/uL (4.8-10.8)
[2023-09-14 11:01] LABS: ALT (SGPT) 15 U/L (0-35); AST (SGOT) 19 U/L (14-36); Albumin 4.4 g/dl (3.5-5.0); Alkaline Phosphatase 52 U/L (38-126); Blood Urea Nitrogen 20 mg/dl (7-17); Calcium 9.6 mg/dl (8.4-10.2); Carbon Dioxide 27 mmol/L (22-30); Chloride 103 mmol/L (98-107); Glucose 80 mg/dl (70-99); Potassium 4.5 mmol/L (3.5-5.1); Sodium 137 mmol/L (135-145); Total Bilirubin 0.4 mg/dl (0.2-1.3); Total Protein 6.3 g/dl (6.3-8.2); eGFR > 60.00
== END ==
LOC: REG 09:31
PROVIDERS: ATTENDING PHYSICIAN Internal Medicine Rheumatology; FAMILY PHYSICIAN Family Medicine
DX: M79.7 Fibromyalgia (principal); Z51.81 Encounter for therapeutic drug level monitoring
CPT/HCPCS: 36415; 80053; 85025

== ENCOUNTER 2023-09-27 16:09 | Emergency (ER) | payer OTHER, SELFPAY ==
[2023-09-27] VITALS (8 sets, daily range): BP systolic 140–159; BP diastolic 79–93; PULSE 99–106; BMI 30.3
[2023-09-27 16:35] LABS: % Basophils 0.5 % (0-2); % Eosinophils 0.3 % (0-6); % Immature Granulocytes 1.1 % (0-0.5); % Lymphocytes 5.4 % (20.5-51.1); % Monocytes 2.3 % (1.7-9.3); % Neutrophils 90.4 % (42.2-75.2); Absolute Basophils 0.1 10^3/uL (0-0.2); Absolute Immature Granulocytes 0.2 10^3/uL (0-0.05); Absolute Lymphocytes 0.8 10^3/uL (1.2-3.4); Absolute Monocytes 0.3 10^3/uL (0.1-0.6); Absolute Neutrophils 12.9 10^3/uL (1.4-6.5); Hematocrit 33.9 % (37.0-47.0); Mean Corp Hgb Conc. 32.4 g/dL (33.0-37.0); Mean Corpuscular Hgb 27.8 pg (27.0-31.0); Mean Corpuscular Volume 85.8 fL (81.0-99.0); Mean Platelet Volume 8.9 fL (7.4-10.4); Nucleated Red Blood Cells % 0 %; Platelet Count 420 10^3/uL (130-400); Red Blood Cell Count 3.95 10^6/uL (4.20-5.40); White Blood Cell Count 14.2 10^3/uL (4.8-10.8)
[2023-09-27 16:47] LABS: ALT (SGPT) 18 U/L (0-35); AST (SGOT) 23 U/L (14-36); Albumin 4.6 g/dl (3.5-5.0); Alkaline Phosphatase 61 U/L (38-126); Blood Urea Nitrogen 25 mg/dl (7-17); Calcium 9.4 mg/dl (8.4-10.2); Carbon Dioxide 23 mmol/L (22-30); Chloride 105 mmol/L (98-107); Glucose 143 mg/dl (70-99); Potassium 4.4 mmol/L (3.5-5.1); Sodium 138 mmol/L (135-145); Total Bilirubin 0.4 mg/dl (0.2-1.3); Total Protein 6.6 g/dl (6.3-8.2); eGFR > 60.00
[2023-09-27] MEDS: NSS 1000 IV (18:09)
[2023-09-27] MEDS: DUONEB 3 ML INH (18:10)
[2023-09-27] MEDS: TORADOL 30 MG IV (18:11)
[2023-09-27 18:24] LABS: Urine Albumin Negative (Neg - Trace); Urine Bilirubin Negative (Negative); Urine Character Clear (Clear); Urine Color Yellow; Urine Glucose Negative (Negative); Urine Ketone Negative (Negative); Urine Leukocyte Negative (Negative); Urine Nitrite Negative (Negative); Urine Occult Blood Negative (Negative); Urine Urobilinogen Negative (Neg - 1+)
[2023-09-27] MEDS: ATIVAN 0.5 MG PO (20:36)
--- NOTE | 2023-09-27 21:10 | ED.GENMED ---
History of Present Illness
General
Chief Complaint: Weakness
Source: patient
Exam Limitations: none
Time Seen by Provider: 09/27/23 17:50
Nursing documentation reviewed up to this point in time: agreed with
History of Present Illness
History of Present Illness:
Patient to ED with complaint of head pain dizziness, fatigue and weakness. Symptms started last PM. Denies fever/chillls. Brought to ED by family for eval.
Past History
Past History
ED Past Medical History: Asthma, Psychiatric (Anxiety, OCD, PTSD, Panic disorder, ) and Other (Adrenal insufficiency, migraine , Back and neck pains, Celiac disease, Cystitis, Lupus, )
ED Past Surgical History: , Gynecological (D&C with ablation, ) and Tonsilectomy
Social History
Tobacco: Non-smoker
Alcohol: None
Drug: None
Personal:
Living: with family
Employment: Employed
Family History
Family History: Other
Review of Systems
Review of Systems
Allergies reviewed?: Yes
All Other Systems: ROS reviewed and negative except as documented in HPI and ROS
Constitutional: Reports fatigue
EENT: Reports no symptoms
Respiratory: Reports no symptoms
Cardiac: Reports no symptoms
ABD/GI: Reports no symptoms
: Reports no symptoms
Musculoskeletal: Reports no symptoms
Skin: Reports no symptoms
Neurological: Reports dizzy, headache and weakness
Psychiatric: Reports no symptoms
Phy Exam
General Physical Exam
General Presentation: well appearing and mild distress
General age: appears stated age
General Skin: warm and dry
General Habitus: normal
Cardiovascular Exam
Cardiovascular Exam: regular rate/rhythm and no edema
Pulmonary Exam
Pulmonary Exam: lungs clear and no respiratory distress
Gastrointestinal Exam
Gastrointestinal Exam: normal bowel sounds and non tender
Neurological Exam
Neurological Exam: alert, oriented x3, CN II-XII intact, no motor deficits, no sensory deficits, speech normal and normal gait
Musculoskeletal Exam
Musculoskeletal Exam: full ROM and neuro vasc intact
Skin Exam
Skin Exam: normal color, warm/dry and no rash
Psychiatric Exam
Psychiatric Exam: normal mood/affect
Course
Orders/Labs/Results
Orders:
Orders
09/27/23 16:17
Electrocardiogram (*1) Urgent
Reason for Study: Tachycardia
EKG- Treatment ONCE
09/27/23 16:28
CBC/With Diff [Complete Blood Count/With Diff] Urgent
Comprehensive Metabolic Panel Urgent
09/27/23 18:03
0.9% Sodium Chloride 1000 ml [Nss] 1,000 ml IV BOLUS
Ipratropium/Albuterol Sulfate [Duoneb] 3 ml INH R NOW STA
Ketorolac [Toradol] 30 mg IV NOW STA
CR Chest - 2 Views Urgent
Comment:
Reason For Exam: SOB
09/27/23 18:18
Urinalysis Reflex To Culture Urgent
Date Specimen was Collected: 09/27/23
Time Specimen was Collected: 18:05
09/27/23 19:31
CT Head W/o Iv Contrast Urgent
Comment:
Reason For Exam: pain, dizziness
Orthostatic VS- Treatment ONCE
09/27/23 20:32
Lorazepam [Ativan] 0.5 mg PO NOW STA
Abnormal Lab Results
09/27/23
16:28
WBC 14.2 H 10^3/uL
(4.8-10.8)
RBC 3.95 L 10^6/uL
(4.20-5.40)
Hgb 11.0 L g/dL
(12.0-16.0)
Hct 33.9 L %
(37.0-47.0)
MCHC 32.4 L g/dL
(33.0-37.0)
RDW 20.0 H %
(11.5-14.5)
Plt Count 420 H 10^3/uL
(130-400)
Abs Immat Gran (auto) 0.2 H 10^3/uL
(0-0.05)
Absolute Neuts (auto) 12.9 H 10^3/uL
(1.4-6.5)
Absolute Lymphs (auto) 0.8 L 10^3/uL
(1.2-3.4)
Immature Gran % 1.1 H %
(0-0.5)
Neutrophils % 90.4 H %
(42.2-75.2)
Lymphocytes % 5.4 L %
(20.5-51.1)
BUN 25 H mg/dl
(7-17)
Glucose 143 H mg/dl
(70-99)
09/27/23 16:28
09/27/23 16:28
Vital Signs
Initial and Last Documented VS:
Initial Vital Signs
Temp Pulse Resp BP Pulse Ox
98.3 F 124 18 159/91 94
09/27/23 16:12 09/27/23 16:12 09/27/23 16:12 09/27/23 16:12 09/27/23 16:12
Last Documented Vital Signs
Temp Pulse Resp BP Pulse Ox
98.3 F 110 14 141/93 92
09/27/23 16:12 09/27/23 18:45 09/27/23 18:45 09/27/23 20:00 09/27/23 21:00
*Radiology
Radiology exam reviewed: radiology read reviewed
*Pulse Oximetry
Patient hypoxic: no
*Critical Care Note
Total Time (30-74mins, 75-104mins- exclusive of procedures): Not Applicable
Update Note
Update Note:
Lab, imaging reviewed. No concerning findings on exam. No findings to explain her symtpoms. Improved iwth IVF. WIll discharge home, recommend close follow up with PCP. Given instructions on s/s to return to ED and she is agreeable to pln.
ED Attending Note
-
Portions of this chart may have been created with voice recognition software.� Occasional wrong word or��sound alike� substitutions may have occurred due to the inherent limitations of voice recognition software.
Discharge Plan
Departure
Patient Disposition: Home (Routine Discharge)
Date of Disposition: 09/27/23
Time of Disposition: 21:10
Patient with high blood pressure during this ER visit?: No
Condition: Good
Covid-19: Not Applicable
Discharge Problem:
Weakness
Instructions: Generalized Weakness (DC)
Prescriptions:
No Action
diphenhydramine HCl [Banophen] 50 MG capsule
50 mg PO HS
benzonatate 100 MG capsule
200 mg PO Q8HPRN PRN (Reason: cough)
montelukast 10 MG tablet
10 mg PO QPM
hydrocortisone 10 MG tablet
10 mg PO DAILY@1300
Patient Comments:
06/19/2023: Pt states she takes the double the dose when she is sick
hydrocortisone 10 MG tablet
30 mg PO DAILY
Patient Comments:
06/19/2023: Pt states she takes the double the dose when she is sick
cranberry 500 MG capsule
930 mg PO DAILY
Align 4 MG capsule
4 mg PO DAILY
multivitamin with folic acid [Tab-A-Jack] 1 TABLET tablet
1 tab PO QPM
riboflavin (vitamin B2) [Vitamin B-2] 100 MG tablet
400 mg PO DAILY
calcium carbonate [Antacid (calcium carbonate)] 1 TABLET tablet,chewable
2 tab PO Q4HPRN PRN (Reason: heartburn)
hydroxychloroquine 200 MG tablet
400 mg PO NOON
fluticasone propion-salmeterol [Advair HFA] 1 PUFF HFA aerosol inhaler
2 puff inhalation R BID
albuterol sulfate 1 PUFF HFA aerosol inhaler
2 puff inhalation R Q4HPRN PRN (Reason: sob/wheezing)
gabapentin 300 MG capsule
900 mg PO TID 0RF
acetaminophen [Tylenol Extra Strength] 500 MG tablet
1,000 mg PO Q8HPRN PRN (Reason: tension headache) Qty: 0 0RF
ondansetron 4 mg tablet,disintegrating
4 mg PO TIDPRN PRN (Reason: nausea/vomiting) Qty: 20 0RF
calcium carbonate 500 mg calcium (1,250 mg) Tablet
1,000 mg PO NOON
lorazepam 2 MG tablet
2 mg PO QID
Patient Comments:
06/19/2023: last filled 06/10/23, 120 tabs for 30 days from [facility]
methocarbamol 500 mg Tablet
1,500 mg PO Q8H
ibuprofen 800 mg Tablet
800 mg PO TID
quetiapine [Seroquel] 200 mg Tablet
200 mg PO HS
loperamide 2 mg Tablet
2 mg PO Q6H PRN (Reason: diarrhea)
ascorbic acid (vitamin C) [Vitamin C] 500 mg Tablet
500 mg PO BID
duloxetine [Cymbalta] 60 mg Capsule,Delayed Release(Dr/Ec)
60 mg PO BID
cholecalciferol (vitamin D3) [Vitamin D3] 25 mcg (1,000 unit) Tablet
175 mcg PO QPM
guaifenesin 600 mg Tablet Extended Release 12hr
600 mg PO Q12 2 Days Qty: 4 0RF
Referrals:
Nadira Moreland MD [Family Provider] - Tomorrow
Interventions
Interventions:
*Risk Screen - Suicide Last Done: 09/27/23 16:12
*General Assessment Last Done: 09/27/23 16:12
*Neglect/Abuse Screening Last Done: 09/27/23 16:12
ED- Fall Risk Assessment Last Done: 09/27/23 17:32
*ED COVID-19 Vaccine History Last Done: 09/27/23 17:32
*Nursing Disposition Last Done: 09/27/23 21:20
ED- Cardiac Assessment Last Done: 09/27/23 17:32
ED- Neurological Assessment Last Done: 09/27/23 17:32
ED- Pulmonary Assessment Last Done: 09/27/23 17:32
Discharge Date and Time
Discharge Date/Time: 09/27/23 21:25
Print Language: PASHTO
== END 2023-09-27 21:25 | disposition home or self-care (01) ==
LOC: EMR 16:09
PROVIDERS: Nurse Practitioner; EMERGENCY PHYSICIAN Emergency Medicine; FAMILY PHYSICIAN Family Medicine
DX: R53.1 Weakness (principal); R51.9 Headache, unspecified; R42 Dizziness and giddiness; R53.83 Other fatigue; J45.909 Unspecified asthma, uncomplicated; F41.9 Anxiety disorder, unspecified; F42.9 Obsessive-compulsive disorder, unspecified
CPT/HCPCS: 99284; 94640; 96374; 96361; 70450; 71046; 80053; 81003; 85025; 93005

== ENCOUNTER → 2023-10-23 06:23 | Day surgery (SDC) | payer OTHER, SELFPAY | LOC: GI 06:23 | PROVIDERS: ATTENDING PHYSICIAN Internal Medicine Gastroenterology | DX: K21.00 Gastro-esophageal reflux disease with esophagitis, without bleeding (principal); K44.9 Diaphragmatic hernia without obstruction or gangrene; K31.89 Other diseases of stomach and duodenum; D50.0 Iron deficiency anemia secondary to blood loss (chronic); K22.10 Ulcer of esophagus without bleeding; K29.50 Unspecified chronic gastritis without bleeding | CPT/HCPCS: 43239; 88305; 88312; 88342 ==

== ENCOUNTER → 2023-12-25 09:45 | Outpatient (REF) | payer OTHER, SELFPAY ==
[2023-12-25 10:48] LABS: % Basophils 0.9 % (0-2); % Eosinophils 3.5 % (0-6); % Immature Granulocytes 0.9 % (0-0.5); % Lymphocytes 34.3 % (20.5-51.1); % Monocytes 9.4 % (1.7-9.3); Absolute Basophils 0.1 10^3/uL (0-0.2); Absolute Eosinophils 0.3 10^3/uL (0-0.7); Absolute Immature Granulocytes 0.1 10^3/uL (0-0.05); Absolute Lymphocytes 3.3 10^3/uL (1.2-3.4); Absolute Monocytes 0.9 10^3/uL (0.1-0.6); Absolute Neutrophils 4.9 10^3/uL (1.4-6.5); Hemoglobin 12.5 g/dL (12.0-16.0); Mean Corp Hgb Conc. 32.9 g/dL (33.0-37.0); Mean Corpuscular Hgb 33.2 pg (27.0-31.0); Mean Corpuscular Volume 101.1 fL (81.0-99.0); Mean Platelet Volume 9.1 fL (7.4-10.4); Nucleated Red Blood Cells % 0 %; Platelet Count 359 10^3/uL (130-400); Red Blood Cell Count 3.76 10^6/uL (4.20-5.40); Red Cell Dist. Width 16.2 % (11.5-14.5); White Blood Cell Count 9.7 10^3/uL (4.8-10.8)
[2023-12-25 11:19] LABS: ALT (SGPT) 23 U/L (0-35); AST (SGOT) 22 U/L (14-36); Albumin 4.5 g/dl (3.5-5.0); Alkaline Phosphatase 50 U/L (38-126); Blood Urea Nitrogen 21 mg/dl (7-17); Calcium 9.8 mg/dl (8.4-10.2); Carbon Dioxide 30 mmol/L (22-30); Chloride 100 mmol/L (98-107); Glucose 82 mg/dl (70-99); Iron 76 ug/dl (37-170); Potassium 3.9 mmol/L (3.5-5.1); Sodium 141 mmol/L (135-145); Total Bilirubin 0.4 mg/dl (0.2-1.3); Total Protein 6.6 g/dl (6.3-8.2); eGFR > 60.00
[2023-12-25 11:29] LABS: Percent Saturation 28 % (20-50); Total Iron Binding Capacity 267 ug/dl (265-497)
[2023-12-25 11:50] LABS: CEA 2.39 ng/ml; TSH 1.03 uIU/ml (0.47-4.68)
[2023-12-25 13:35] LABS: CA 125 11.1 U/mL (0-35)
[2023-12-25 13:48] LABS: Ferritin 25.5 ng/ml (11.1-264.0)
[2023-12-25 14:20] LABS: Folate 3.9 ng/ml (2.76-20); Vitamin B12 529 pg/ml (239-931)
== END ==
LOC: REG 09:45
PROVIDERS: ATTENDING PHYSICIAN Nurse Practitioner Family
DX: E27.1 Primary adrenocortical insufficiency (principal); Z09 Encounter for follow-up examination after completed treatment for conditions other than malignant neoplasm; D64.9 Anemia, unspecified
CPT/HCPCS: 36415; 80053; 82378; 82607; 82728; 82746; 83540; 83550; 84244; 84443; 85025; 86304

== ENCOUNTER → 2024-03-22 14:38 | Outpatient (REF) | payer OTHER, SELFPAY | LOC: HWRAD 14:38 | PROVIDERS: ATTENDING PHYSICIAN Internal Medicine Critical Care Medicine; FAMILY PHYSICIAN Nurse Practitioner Family | DX: R91.8 Other nonspecific abnormal finding of lung field (principal) | CPT/HCPCS: 71250 ==

== ENCOUNTER 2024-04-28 06:04 | Inpatient (IN) | payer OTHER, SELFPAY ==
[2024-04-27 23:27] VITALS: BP 137/80
[2024-04-28] VITALS (14 sets, daily range): BP systolic 141–175; BP diastolic 72–100; BMI 31.2; BMI 30.5
[2024-04-28 00:15] LABS: % Basophils 0.5 % (0-2); % Eosinophils 2.9 % (0-6); % Immature Granulocytes 1.3 % (0-0.5); % Lymphocytes 23.6 % (20.5-51.1); % Monocytes 7.5 % (1.7-9.3); % Neutrophils 64.2 % (42.2-75.2); Absolute Basophils 0.1 10^3/uL (0-0.2); Absolute Eosinophils 0.6 10^3/uL (0-0.7); Absolute Immature Granulocytes 0.3 10^3/uL (0-0.05); Absolute Lymphocytes 4.5 10^3/uL (1.2-3.4); Absolute Monocytes 1.4 10^3/uL (0.1-0.6); Absolute Neutrophils 12.1 10^3/uL (1.4-6.5); Hematocrit 41.4 % (37.0-47.0); Mean Corp Hgb Conc. 33.8 g/dL (33.0-37.0); Mean Corpuscular Hgb 34.7 pg (27.0-31.0); Mean Corpuscular Volume 102.5 fL (81.0-99.0); Mean Platelet Volume 8.9 fL (7.4-10.4); Nucleated Red Blood Cells % 0 %; Platelet Count 374 10^3/uL (130-400); Red Blood Cell Count 4.04 10^6/uL (4.20-5.40); White Blood Cell Count 18.9 10^3/uL (4.8-10.8)
[2024-04-28 00:31] LABS: Blood Urea Nitrogen 18 mg/dl (7-17); Calcium 10.5 mg/dl (8.4-10.2); Carbon Dioxide 26 mmol/L (22-30); Chloride 101 mmol/L (98-107); Glucose 94 mg/dl (70-99); Lipase 145 U/L (23-300); Sodium 136 mmol/L (135-145); eGFR > 60.00
[2024-04-28 00:39] LABS: Troponin I < 0.012 ng/ml
--- NOTE | 2024-04-28 01:29 | ED.GENMED ---
History of Present Illness
General
Chief Complaint: Abdominal Pain
Source: patient, family (Daughter and mother accompanying) and previous hospital records
Exam Limitations: none
Time Seen by Provider: 04/28/24 01:09
Nursing documentation reviewed up to this point in time: agreed with
History of Present Illness
History of Present Illness:
This is a 53-year-old woman who has history of adrenal insufficiency, migraine headaches, chronic neck and back pain, anxiety, lupus, fibromyalgia, interstitial cystitis. She presents with somewhat abrupt onset of moderate to severe generalized
upper abdominal pain that began around 5 PM accompanied with nausea, dry heaves. Upper abdominal pain radiates to her back as well as to her lower substernal chest region.
She notes 1 questionable similar episode of pain a number of years ago. No close contacts with similar symptoms. She denies fever. Denies diarrhea or constipation, no dysuria and urgency nor hematuria, denies flank pain. No cough no shortness of
breath.
She is chronically maintained on lorazepam 2 mg 4 times daily. She states most recently her dose was decreased to 3 times daily.
Upon review of PDMP however patient has been receiving 120 tablets of lorazepam 2 mg monthly with last prescription for 120 tablets filled March 20. Next prescription refill was due at the earliest April 18. However a prescription for
lorazepam 2 mg tablets, #42�a 2-week supply was written for April 15, filled April 17.
She denies running out of this prescription that was just filled on the .
She has a follow-up appointment with her primary care physician scheduled for tomorrow to discuss her medications.
Past History
Past History
ED Past Medical History: Asthma, Fibromyalgia, Psychiatric (Anxiety, OCD, PTSD, Panic disorder) and Other (Adrenal insufficiency, migraine , Back and neck pains, Celiac disease, Cystitis, Lupus)
ED Past Surgical History: , Gynecological (D&C with ablation, ) and Tonsilectomy
Social History
Tobacco: Non-smoker
Alcohol: None
Drug: None
Personal:
Living: with family
Employment: Disabled
Family History
Family History: Other (Noncontributory)
Phy Exam
Physical Exam
Physical Exam:
GENERAL: 53-year-old woman appears somewhat older than stated age, lying on her left side in the position, holding emesis basin at the ready. Moderately anxious. Daughter and mother are accompanying.
EYE: anicteric
NECK: Supple, nontender, no meningismus, no significant adenopathy.
ENT: oral mucosa is minimally dry. No rhinorrhea.
CARDIAC: Regular rate and rhythm. no murmur.
LUNGS: Clear breath sounds bilaterally, no acute respiratory distress, no wheezes/rales/rhonchi
ABDOMEN: Soft, nondistended, moderate generalized upper abdominal tenderness more so right upper quadrant than left upper quadrant, no palpable masses, no r/g, no cvat. Mildly hyperactive bowel sounds.
NEUROLOGICAL: Alert and oriented x3, no focal neuro deficits.
SKIN: Warm and dry, mildly pale in color, skin intact. No rash.
MUSCULOSKELETAL: No C/C/E. peripheral pulses are full and equal b/l. No palpable tenderness.
PSYCH: Moderately anxious. Cooperative.
Course
Orders/Labs/Results
Orders:
Orders
04/27/24 23:35
Electrocardiogram (*1) Urgent
Reason for Study: Chest Pain
Other Reason for Exam: abd chest and back pain
04/27/24 23:36
EKG- Treatment ONCE
04/27/24 23:53
Complete Blood Count/With Diff Urgent
Lipase Urgent
Troponin I Urgent
04/28/24 00:07
Basic Metabolic Panel Urgent
04/28/24 01:02
Urinalysis Reflex To Culture Urgent
Date Specimen was Collected: 04/28/24
Time Specimen was Collected: 01:01
Urine Microscopic Reflex Cult Urgent
04/28/24 01:25
Electrocardiogram (*1) Urgent
Reason for Study: Chest Pain
EKG- Treatment ONCE
0.9% Sodium Chloride 1000 ml [Nss] 1,000 ml IV BOLUS
HYDROmorphone [Dilaudid] 0.5 mg IV NOW STA
Hydrocortisone Sod Succinate [Solu-Cortef] 100 mg IV NOW STA
Lorazepam [Ativan] 0.5 mg IV NOW STA
Ondansetron Injectable [Zofran] 4 mg IV NOW STA
Pantoprazole [Protonix IV] 40 mg IV NOW STA
04/28/24 01:28
US Abdomen Complete/Upper Urgent
Comment:
Reason For Exam: acute generalized upper abd pain w N/V
04/28/24 03:12
Comprehensive Metabolic Panel Urgent
Comment: REDRAW
04/28/24 05:00
Piperacillin/Tazo 4.5 Gram [Zosyn] 4.5 gram in 100 ml IV NOW
Abnormal Lab Results
04/28/24 04/28/24 04/28/24
00:07 01:02 03:12
WBC 18.9 H 10^3/uL
(4.8-10.8)
RBC 4.04 L 10^6/uL
(4.20-5.40)
MCV 102.5 H fL
(81.0-99.0)
MCH 34.7 H pg
(27.0-31.0)
Abs Immat Gran (auto) 0.3 H 10^3/uL
(0-0.05)
Absolute Neuts (auto) 12.1 H 10^3/uL
(1.4-6.5)
Absolute Lymphs (auto) 4.5 H 10^3/uL
(1.2-3.4)
Absolute Monos (auto) 1.4 H 10^3/uL
(0.1-0.6)
Immature Gran % 1.3 H %
(0-0.5)
Carbon Dioxide 32 H mmol/L
(22-30)
BUN 18 H mg/dl 20 H mg/dl
(7-17) (7-17)
Calcium 10.5 H mg/dl 10.6 H mg/dl
(8.4-10.2) (8.4-10.2)
Total Bilirubin 2.0 H mg/dl
(0.2-1.3)
AST 387 H U/L
(14-36)
ALT 176 H U/L
(0-35)
Urine RBC 16-20 A /HPF
(0-2)
Urine Bacteria (Reflex) Few A
(Negative)
Urine Albumin (Reflex) 1+ A
(Neg - Trace)
04/28/24 00:07
04/28/24 03:12
Vital Signs
Initial and Last Documented VS:
Initial Vital Signs
Temp Pulse Resp BP Pulse Ox
98.0 F 107 42 137/80 98
04/27/24 23:27 04/27/24 23:27 04/27/24 23:27 04/27/24 23:27 04/27/24 23:27
Last Documented Vital Signs
Temp Pulse Resp BP Pulse Ox
98.0 F 107 42 160/85 89
04/27/24 23:27 04/27/24 23:27 04/27/24 23:27 04/28/24 04:00 04/28/24 04:15
MDM/Problems Addressed
Differential Diagnosis Includes:
Concern for acute biliary colic/cholecystitis, pancreatitis, gastroenteritis, small bowel obstruction, colitis. ACS, dissection are other considerations.
Patient is moderately anxious and this may be related to pain, other consideration is an element of benzodiazepine withdrawal.
History of adrenal insufficiency, concern for potential Adrenal crisis. Will give an IV dose of Solu-Cortef.
Will check labs.
Will medicate for pain, nausea and give a small IV dose of lorazepam as well as Solu-Cortef as above. Initiate IV fluids.
Will plan for abdominal ultrasound. Consider CT abdomen pelvis.
Chronic conditions affecting care: Asthma, Previous abdomnial surgery (Prior ), Immunosuppressed and Psychiatric illness
*Radiology
Radiology exam reviewed: radiology read reviewed
*Pulse Oximetry
Patient hypoxic: no
*EKG
Interpreted by ED Provider?: Yes
Interpretation: abnormal (EKG shows no acute ST-T wave abnormalities but appears to have limb lead reversal. Will repeat EKG.)
Rate: normal
Rhythm: sinus
[place]: normal axis
Interval: normal interval
QRS Pattern: normal QRS and poor R-wave progression
Ischemia: no ischemia
*Test Rider Interpretation
Rate: normal
Interpretation: normal
Rhythm: sinus
*Critical Care Note
Total Time (30-74mins, 75-104mins- exclusive of procedures): Not Applicable
Update Note
Update Note:
Patient is much more comfortable after IV pain medication, IV fluids.
She does continue with mild to moderate right upper quadrant tenderness to palpation.
Ultrasound shows gallstones without clear secondary findings to suggest cholecystitis.
White blood cell count elevated 18.9, elevated LFTs as well as elevated T. bili of 2.0.
Troponin is normal. Repeat EKG is unremarkable, normal axis, normal intervals.
With continued right upper quadrant pain, elevated white blood cell count and elevated LFTs, significant concern for cholecystitis.
Due to complex past medical history will admit to hospitalist service with consult to general surgery.
Will initiate IV Zosyn, continue IV fluids and pain medication as needed.
ED Attending Note
-
Portions of this chart may have been created with voice recognition software.� Occasional wrong word or��sound alike� substitutions may have occurred due to the inherent limitations of voice recognition software.
Discharge Plan
Departure
Patient Disposition: Admit
Date of Disposition: 04/28/24
Time of Disposition: 05:04
Admit to: Med/Surg
Admit to doctor: Jeff
Presentation/result/management discussed w/ accepting MD/DO: Hospitalist
Condition: Fair
Discharge Problem:
Acute calculous cholecystitis
Prescriptions:
No Action
diphenhydramine HCl [Banophen] 50 MG capsule
50 mg PO HS
benzonatate 100 MG capsule
200 mg PO Q8HPRN PRN (Reason: cough)
montelukast 10 MG tablet
10 mg PO QPM
hydrocortisone 10 MG tablet
10 mg PO DAILY@1300
Patient Comments:
06/19/2023: Pt states she takes the double the dose when she is sick
hydrocortisone 10 MG tablet
30 mg PO DAILY
Patient Comments:
06/19/2023: Pt states she takes the double the dose when she is sick
cranberry 500 MG capsule
930 mg PO DAILY
Align (B.infantis) 4 MG capsule
4 mg PO DAILY
multivitamin with folic acid [Tab-A-Jack] 1 TABLET tablet
1 tab PO QPM
riboflavin (vitamin B2) [Vitamin B-2] 100 MG tablet
400 mg PO DAILY
calcium carbonate [Antacid (calcium carbonate)] 1 TABLET tablet,chewable
2 tab PO Q4HPRN PRN (Reason: heartburn)
hydroxychloroquine 200 MG tablet
400 mg PO NOON
fluticasone propion-salmeterol [Advair HFA] 1 PUFF HFA aerosol inhaler
2 puff inhalation R BID
albuterol sulfate 1 PUFF HFA aerosol inhaler
2 puff inhalation R Q4HPRN PRN (Reason: sob/wheezing)
gabapentin 300 MG capsule
900 mg PO TID 0RF
acetaminophen [Tylenol Extra Strength] 500 MG tablet
1,000 mg PO Q8HPRN PRN (Reason: tension headache) Qty: 0 0RF
ondansetron 4 mg tablet,disintegrating
4 mg PO TIDPRN PRN (Reason: nausea/vomiting) Qty: 20 0RF
calcium carbonate 500 mg calcium (1,250 mg) Tablet
1,000 mg PO NOON
lorazepam 2 MG tablet
2 mg PO QID
Patient Comments:
06/19/2023: last filled 06/10/23, 120 tabs for 30 days from [place]
methocarbamol 500 mg Tablet
1,500 mg PO Q8H
ibuprofen 800 mg Tablet
800 mg PO TID
quetiapine [Seroquel] 200 mg Tablet
200 mg PO HS
loperamide 2 mg Tablet
2 mg PO Q6H PRN (Reason: diarrhea)
ascorbic acid (vitamin C) [Vitamin C] 500 mg Tablet
500 mg PO BID
duloxetine [Cymbalta] 60 mg Capsule,Delayed Release(Dr/Ec)
60 mg PO BID
cholecalciferol (vitamin D3) [Vitamin D3] 25 mcg (1,000 unit) Tablet
175 mcg PO QPM
guaifenesin 600 mg Tablet Extended Release 12hr
600 mg PO Q12 2 Days Qty: 4 0RF
Referrals:
Oksana Lazo CRNP [Family Provider] -
Interventions
Interventions:
*Risk Screen - Suicide Last Done: 04/27/24 23:27
*General Assessment Last Done: 04/28/24 00:52
*Neglect/Abuse Screening Last Done: 04/28/24 00:52
ED- Fall Risk Assessment Last Done: 04/28/24 00:52
*ED COVID-19 Vaccine History Last Done: 04/28/24 00:52
AV-Jvucbr-Yntutmwoym Assessment Last Done: 04/28/24 00:52
Discharge Date and Time
Print Language: ESTONIAN
[2024-04-28] MEDS: ATIVAN 0.5 MG IV ×3 (01:51→20:20)
[2024-04-28] MEDS: NSS 1000 IV (01:51)
[2024-04-28] MEDS: DILAUDID 0.5 MG IV ×2 (01:53→05:56)
[2024-04-28] MEDS: ZOFRAN 4 MG IV ×3 (01:54→20:21)
[2024-04-28 01:56] LABS: Urine Albumin 1+ (Neg - Trace); Urine Bilirubin Negative (Negative); Urine Character Clear (Clear); Urine Color Yellow; Urine Glucose Negative (Negative); Urine Ketone Negative (Negative); Urine Leukocyte Negative (Negative); Urine Nitrite Negative (Negative); Urine Occult Blood Negative (Negative); Urine Specific Gravity 1.015 (<1.030); Urine Urobilinogen Negative (Neg - 1+)
[2024-04-28] MEDS: SOLU-CORTEF 100 MG IV (01:56)
[2024-04-28] MEDS: PROTONIX IV 40 MG IV (01:58)
[2024-04-28 02:17] LABS: Urine Bacteria Few (Negative); Urine Hyaline Cast 0-2 /LPF (0-2); Urine Red Blood Cell 16-20 /HPF (0-2); Urine White Cell 0-2 /HPF (0-5)
[2024-04-28 03:47] LABS: ALT (SGPT) 176 U/L (0-35); AST (SGOT) 387 U/L (14-36); Albumin 4.8 g/dl (3.5-5.0); Alkaline Phosphatase 100 U/L (38-126); Blood Urea Nitrogen 20 mg/dl (7-17); Calcium 10.6 mg/dl (8.4-10.2); Carbon Dioxide 32 mmol/L (22-30); Chloride 98 mmol/L (98-107); Estimated Creatinine Clearance 80 ml/min; Glucose 98 mg/dl (70-99); Sodium 139 mmol/L (135-145); Total Protein 6.8 g/dl (6.3-8.2); eGFR > 60.00
[2024-04-28] MEDS: ZOSYN 100 IV (05:10)
--- NOTE | 2024-04-28 05:24 | HPS.HSE ---
Family Physician
-
Family Physician: DAVID Bhardwaj
Chief Complaint
-
Abdominal pain
History of Present Illness
Patient is a 53-year-old was past medical history significant for adrenal insufficiency, lupus, celiac disease, asthma, chronic pain, fibromyalgia, anxiety presenting to the emergency department with acute onset of severe generalized upper abdominal
pain.
Patient reports sitting down watching TV and being adjusted of health when she suddenly developed abdominal pain that she states is generally in the upper epigastric and bilateral upper quadrant region. Mostly located to the right upper quadrant.
There was associated nausea and dry heaves but no vomiting. She denies any diarrhea. She reports that the pain radiates to her upper back. She reports with possible similar episode several years ago. She denies having any diarrhea. She has no
constipation. She has not had any fevers or chills. She denies any urinary symptoms. There is been no cough or shortness of breath.
In the emergency department she was afebrile, blood pressure of 160/80 with a pulse of 107. ECG was normal sinus, rate was 95, troponin was negative. UA was negative. She had a white count of 19,000 with normal hemoglobin and platelets.
Electrolytes BUN/creatinine with mostly unremarkable. She had elevation in total bilirubin to 2.0, AST 387 and ALT to 170. Alk phos was normal. Lipase was normal.
Right upper quadrant ultrasound showed cholelithiasis without clear secondary findings to suggest cholecystitis, no bile duct dilation, visualized pancreas appeared normal, liver appears normal. No sonographic Blackburn sign though medicated.
Medical History
Past Medical History
Past Medical History: Reports Other
Additional Past Medical History:
Recent COVID in May 2023
Hyponatremia
Obesity
Adrenal Insufficiency
Asthma
Lupus
Rheumatoid Arthritis
Fibromyalgia
Anxiety/Depression
Past Surgical History: Reports Other
Additional Past Surgical History:
Section
Tonsillectomy
Social History
Tobacco: Non-smoker
Alcohol: None
Drug: None
Personal:
Living: With Family
Employment: Disabled
Family History
Family History: Not pertinent
Allergies / Home Medications
Allergies reflects when Allergies were last updated in [facility].
Home Medications with original date entered in [facility]
Allergy/Medication List:
Allergies
Allergy/AdvReac Type Severity Reaction Status Date / Time
ciprofloxacin [From Cipro] Allergy Rash Verified 04/27/24 23:26
haloperidol [From Haldol] Allergy Unknown Verified 04/27/24 23:26
hydrocodone bitartrate Allergy Itching Verified 04/27/24 23:26
[From Lorcet 10]
metoclopramide [From Reglan] Allergy Swelling Verified 04/27/24 23:26
prednisone [Prednisone] Allergy Itching Verified 04/27/24 23:26
prochlorperazine Allergy Unknown Verified 04/27/24 23:26
[From Compazine]
propoxyphene napsylate Allergy Itching Verified 04/27/24 23:26
[From Darvocet-N 100]
red dye Allergy Itching Verified 04/27/24 23:26
Serotonin 5HT-3 Antagonists Allergy Vomiting Verified 04/27/24 23:26
sulfamethoxazole Allergy Rash Verified 04/27/24 23:26
[From Bactrim]
sulfanilamide Allergy Rash Verified 04/27/24 23:26
Tricyclic Antidepressants Allergy Vomiting Verified 04/27/24 23:26
and Tricy
trimethoprim [From Bactrim] Allergy Rash Verified 04/27/24 23:26
wheat Allergy Vomiting Verified 04/27/24 23:26
nitrofurantoin AdvReac Vomitting Verified 04/27/24 23:26
[From Macrobid]
promethazine [From Phenergan] AdvReac Dizziness Verified 04/27/24 23:26
Home Medications
Bifidobacterium infantis 4 mg capsule (Align (B.infantis)) 4 mg PO DAILY Probiotic supplement 09/28/17
benzonatate 100 mg capsule 200 mg PO Q8HPRN PRN cough 09/28/17
cranberry 500 mg capsule 930 mg PO DAILY Supplement 09/28/17
diphenhydramine HCl 50 mg capsule (Banophen) 50 mg PO HS sleep 09/28/17
hydrocortisone 10 mg tablet 10 mg PO DAILY@1300 adrenal insufficiency 09/28/17
hydrocortisone 10 mg tablet 30 mg PO DAILY adrenal insufficiency 09/28/17
montelukast 10 mg tablet 10 mg PO QPM Allergy 09/28/17
multivitamin with folic acid 400 mcg tablet (Tab-A-Jack) 1 tab PO QPM Supplement 09/28/17
riboflavin (vitamin B2) 100 mg tablet (Vitamin B-2) 400 mg PO DAILY Supplement 11/30/17
albuterol sulfate 90 mcg/actuation aerosol inhaler 2 puff inhalation R Q4HPRN PRN sob/wheezing 04/24/21
calcium carbonate (Antacid (calcium carbonate)) 2 tab PO Q4HPRN PRN heartburn 04/24/21
fluticasone propionate 115 mcg-salmeterol 21 mcg/actuation HFA inhaler (Advair HFA) 2 puff inhalation R BID Asthma 04/24/21
hydroxychloroquine 200 mg tablet 400 mg PO NOON Lupus/rheumatoid arthritis 04/24/21
acetaminophen 500 mg tablet (Tylenol Extra Strength) 1,000 mg (2 x 500 mg) PO Q8HPRN PRN tension headache ##0 04/26/21
gabapentin 300 mg capsule 900 mg (3 x 300 mg) PO TID 04/26/21
ondansetron 4 mg disintegrating tablet 4 mg PO TIDPRN PRN nausea/vomiting #20 tabs 04/05/22
ascorbic acid (vitamin C) 500 mg tablet (Vitamin C) 500 mg PO BID Supplement 05/15/23
calcium carbonate 1,000 mg PO NOON Supplement 05/15/23
cholecalciferol (vitamin D3) 25 mcg (1,000 unit) tablet (Vitamin D3) 175 mcg PO QPM Supplement 05/15/23
duloxetine 60 mg capsule,delayed release (Cymbalta) 60 mg PO BID Fibromyalgia 05/15/23
ibuprofen 800 mg tablet 800 mg PO TID Pain 05/15/23
loperamide 2 mg tablet 2 mg PO Q6H PRN diarrhea 05/15/23
lorazepam 2 mg tablet 2 mg PO QID diarrhea 05/15/23
methocarbamol 500 mg tablet 1,500 mg PO Q8H Lupus/RA/Fibromyalgia 05/15/23
quetiapine 200 mg tablet (Seroquel) 200 mg PO HS Mental Health/Anxiety 05/15/23
guaifenesin 600 mg tablet, extended release 12 hr 600 mg PO Q12 2 days #4 tabs 05/19/23
Review of Systems
-
Constitutional: Reports No Symptoms
EENT: Reports No Symptoms
Respiratory: Reports No Symptoms
Cardiac: Reports No Symptoms
Abdomen/GI: Reports Abdominal Pain and Nausea
: Reports No Symptoms
Musculoskeletal: Reports No Symptoms
Skin: Reports No Symptoms
Neurological: Reports No Symptoms
Endocrine: Reports No Symptoms
Hematologic/Lymphatic: Reports No Symptoms
Psych: Reports No Symptoms
Physical Exam
Vital Signs
Vital Signs
Temp Pulse Resp BP Pulse Ox
98.0 F 107 42 160/85 89
04/27/24 23:27 04/27/24 23:27 04/27/24 23:27 04/28/24 04:00 04/28/24 04:15
Physical Exam
General: Well Developed, Well Nourished and Pain
HEENT: NormoCephalic, Anicteric, Moist mucous membranes and Atraumatic
Respiratory: Clear
Cardiac: S1/S2 and Regular Rhythm
Breast: Deferred by me
GI: Soft, Non Distended, Normal Bowel Sounds and Tender (mostly in RUQ. No guarding. No rebound)
Rectal: Deferred by Provider
Genito-urinary: Deferred by me
Musculoskeletal: No Clubbing, No Cyanosis and No Edema
Skin: Warm
Neuro: AO x 3 and No Motor Deficits
Hematologic/Lymphatic: No Lymphadenopathy
Psych: Calm
Laboratory Results
-
04/28/24 00:07
04/28/24 03:12
Laboratory Results
Total Bilirubin 2.0 mg/dl (0.2-1.3) H 04/28/24 03:12
AST 387 U/L (14-36) H 04/28/24 03:12
ALT 176 U/L (0-35) H 04/28/24 03:12
Alkaline Phosphatase 100 U/L (38-126) 04/28/24 03:12
Troponin I < 0.012 ng/ml 04/28/24 00:07
Lipase 145 U/L (23-300) 04/28/24 00:07
Data Reviewed
-
Ultrasound: Image Personally Visualized and interpreted
Lab Data: Labs Reviewed by me
Old Records: Reviewed
Impression/Plan
-
IMPRESSION:
53-year-old with history of lupus, renal insufficiency, asthma presenting to the emergency department with abdominal/right upper quadrant pain that started around 5 PM, had elevations in total bilirubin to 2.0 mild elevations in AST 3 7 and ALT 170
with normal alk phos. Lipase was negative. She does have a leukocytosis to 18,000. Ultrasound shows cholelithiasis without clear evidence of cholecystitis and no sonographic Blackburn sign (status post medication). Lipase appeared normal on
ultrasound. She has been afebrile. The picture is consistent with biliary colic but cannot rule out choledocholithiasis given elevations in liver enzymes.
PLAN:
Biliary colic vs acute cholecystitis
- admit to med/surg
- npo for now
- pain control and iv fluids
- antiemetics
- trend lfts for now
- if LFTs rising, will get mrcp in am
- given leukocytosis, continue zosyn
- stress dose steroids
- GI consult
- Surgery consult
Adrenal insufficiency - on hydrocortison 30am 10 noon. HD stable. Normal Na and K.
- hydrocortisone 50 q 6
- IV fluids
Asthma - No acute exacerbation
- tiotropirum, advair
- duonebs prn
- montelukast
Lupus
- will continue her plaquenil for now
DVT PPX - lovenox sq
Code status - Full Code
[2024-04-28] MEDS: LR 1000 IV (06:44)
[2024-04-28 07:44] LABS: Blood Urea Nitrogen 16 mg/dl (7-17); Calcium 9.9 mg/dl (8.4-10.2); Carbon Dioxide 28 mmol/L (22-30); Chloride 100 mmol/L (98-107); Estimated Creatinine Clearance 89 ml/min; Glucose 119 mg/dl (70-99); Lipase 147 U/L (23-300); Magnesium 1.8 mg/dl (1.6-2.3); Potassium 4.4 mmol/L (3.5-5.1); Sodium 139 mmol/L (135-145); eGFR > 60.00
[2024-04-28] MEDS: TYLENOL 650 MG PO (08:15)
[2024-04-28] MEDS: CYMBALTA DELAYED RELEASE 60 MG PO ×2 (08:17→20:19)
[2024-04-28] MEDS: NEURONTIN 900 MG PO ×3 (08:17→23:32)
[2024-04-28] MEDS: SOLU-CORTEF 50 MG IV ×4 (08:17→23:26)
[2024-04-28] MEDS: ADVAIR HFA 115/21 MCG INHALER 2 PUFF INH (08:25)
--- NOTE | 2024-04-28 09:55 | CON.GS ---
Medical History
-
Chief Complaint: Epigastric and right upper quadrant abdominal pain
History of Present Illness:
Patient is a 53-year-old female with multiple medical comorbidities presenting to the emergency department secondary to the acute onset of abdominal pain yesterday evening.
She was in her usual baseline state of health and yesterday evening while watching TV after dinner she developed the acute onset of abdominal pain in the epigastric area bandlike but greatest in the right upper quadrant as well. He had nausea and
dry heaves but no vomiting. Last bowel movement was yesterday and normal. She thinks she has had a similar episode in the past but it has been a long time and she never required further workup.
Pain persist this a.m. with ongoing nausea.
Past Medical History
Past Medical History: Other (Adrenal insufficiency, lupus, celiac, asthma, chronic pain, fibromyalgia, anxiety)
Past Surgical History: Gynecological
Social History
Tobacco: Non-Smoker
Alcohol: None
Living: With Family
Allergies / Home Medications
Allergy/AdvReac Type Severity Reaction Status Date / Time
ciprofloxacin [From Cipro] Allergy Rash Verified 04/27/24 23:26
haloperidol [From Haldol] Allergy Unknown Verified 04/27/24 23:26
hydrocodone bitartrate Allergy Itching Verified 04/27/24 23:26
[From Lorcet 10/650]
metoclopramide [From Reglan] Allergy Swelling Verified 04/27/24 23:26
prednisone [Prednisone] Allergy Itching Verified 04/27/24 23:26
prochlorperazine Allergy Unknown Verified 04/27/24 23:26
[From Compazine]
propoxyphene napsylate Allergy Itching Verified 04/27/24 23:26
[From Darvocet-N 100]
red dye Allergy Itching Verified 04/27/24 23:26
Serotonin 5HT-3 Antagonists Allergy Vomiting Verified 04/27/24 23:26
sulfamethoxazole Allergy Rash Verified 04/27/24 23:26
[From Bactrim]
sulfanilamide Allergy Rash Verified 04/27/24 23:26
Tricyclic Antidepressants Allergy Vomiting Verified 04/27/24 23:26
and Tricy
trimethoprim [From Bactrim] Allergy Rash Verified 04/27/24 23:26
wheat Allergy Vomiting Verified 04/27/24 23:26
nitrofurantoin AdvReac Vomitting Verified 04/27/24 23:26
[From Macrobid]
promethazine [From Phenergan] AdvReac Dizziness Verified 04/27/24 23:26
�Medication �Instructions �Recorded �Confirmed �Type
Bifidobacterium infantis 4 mg 4 mg PO DAILY Probiotic supplement 09/28/17 06/19/23 History
capsule (Align (B.infantis))
benzonatate 100 mg capsule 200 mg PO Q8HPRN PRN cough 09/28/17 06/19/23 History
cranberry 500 mg capsule 930 mg PO DAILY Supplement 09/28/17 06/19/23 History
diphenhydramine HCl 50 mg capsule 50 mg PO HS sleep 09/28/17 06/19/23 History
(Banophen)
hydrocortisone 10 mg tablet 10 mg PO DAILY@1300 adrenal 09/28/17 06/19/23 History
insufficiency
hydrocortisone 10 mg tablet 30 mg PO DAILY adrenal 09/28/17 06/19/23 History
insufficiency
montelukast 10 mg tablet 10 mg PO QPM Allergy 09/28/17 06/19/23 History
multivitamin with folic acid 400 1 tab PO QPM Supplement 09/28/17 06/19/23 History
mcg tablet (Tab-A-Jack)
riboflavin (vitamin B2) 100 mg 400 mg PO DAILY Supplement 11/30/17 06/19/23 History
tablet (Vitamin B-2)
albuterol sulfate 90 mcg/actuation 2 puff inhalation R Q4HPRN PRN 04/24/21 06/19/23 History
aerosol inhaler sob/wheezing
calcium carbonate (Antacid 2 tab PO Q4HPRN PRN heartburn 04/24/21 06/19/23 History
(calcium carbonate))
fluticasone propionate 115 2 puff inhalation R BID Asthma 04/24/21 06/19/23 History
mcg-salmeterol 21 mcg/actuation
HFA inhaler (Advair HFA)
hydroxychloroquine 200 mg tablet 400 mg PO NOON Lupus/rheumatoid 04/24/21 06/19/23 History
arthritis
acetaminophen 500 mg tablet 1,000 mg (2 x 500 mg) PO Q8HPRN 04/26/21 06/19/23 Rx
(Tylenol Extra Strength) PRN tension headache ##0
gabapentin 300 mg capsule 900 mg (3 x 300 mg) PO TID 04/26/21 06/19/23 Rx
ondansetron 4 mg disintegrating 4 mg PO TIDPRN PRN nausea/vomiting 04/05/22 06/19/23 Rx
tablet #20 tabs
ascorbic acid (vitamin C) 500 mg 500 mg PO BID Supplement 05/15/23 06/19/23 History
tablet (Vitamin C)
calcium carbonate 1,000 mg PO NOON Supplement 05/15/23 06/19/23 History
cholecalciferol (vitamin D3) 25 175 mcg PO QPM Supplement 05/15/23 06/19/23 History
mcg (1,000 unit) tablet (Vitamin
D3)
duloxetine 60 mg capsule,delayed 60 mg PO BID Fibromyalgia 05/15/23 06/19/23 History
release (Cymbalta)
ibuprofen 800 mg tablet 800 mg PO TID Pain 05/15/23 06/19/23 History
loperamide 2 mg tablet 2 mg PO Q6H PRN diarrhea 05/15/23 06/19/23 History
lorazepam 2 mg tablet 2 mg PO QID diarrhea 05/15/23 06/19/23 History
methocarbamol 500 mg tablet 1,500 mg PO Q8H 05/15/23 06/19/23 History
Lupus/RA/Fibromyalgia
quetiapine 200 mg tablet (Seroquel) 200 mg PO HS Mental Health/Anxiety 05/15/23 06/19/23 History
guaifenesin 600 mg tablet, 600 mg PO Q12 2 days #4 tabs 05/19/23 06/19/23 Rx
extended release 12 hr
Review of Systems
-
A 10 point review of systems was completed, and was negative except as per HPI.
Physical Exam
Vital Signs
Temp Pulse Resp BP Pulse Ox
98.0 F 95 15 155/95 92
04/28/24 07:28 04/28/24 08:27 04/28/24 08:27 04/28/24 07:28 04/28/24 08:27
04/27/24 04/28/24 04/29/24
06:59 06:59 06:59
Actual Weight 85.814 kg
Body Mass Index (BMI) 30.5
Lab Results
04/28/24 00:07
04/28/24 06:47
WBC 18.9 10^3/uL (4.8-10.8) H 04/28/24 00:07
Hgb 14.0 g/dL (12.0-16.0) 04/28/24 00:07
Hct 41.4 % (37.0-47.0) 04/28/24 00:07
Plt Count 374 10^3/uL (130-400) 04/28/24 00:07
Abs Immat Gran (auto) 0.3 10^3/uL (0-0.05) H 04/28/24 00:07
Neutrophils % 64.2 % (42.2-75.2) 04/28/24 00:07
Physical Exam
General: Well Developed, Well Nourished, No Apparent Distress and Other (But uncomfortable appearing)
HEENT: Normocephalic, Anicteric and Moist Mucous Membranes
Respiratory: Non Labored Respirations
GI: Soft, Non Distended and Tender (Tenderness palpation epigastrium and right upper quadrant with voluntary guarding on deep palpation.)
Skin: Warm
Neuro: AO x 3
Psych: Calm
Data Reviewed
-
Ultrasound: Image Personally Visualized and interpreted
Labs: Labs Reviewed by me and Discussed with Patient
Assessment / Plan
-
Assessment: 53-year-old female presenting with acute calculus cholecystitis, secondary to intractable abdominal pain, leukocytosis and mildly elevated bilirubin, AST and ALT.
Ultrasound imaging personally reviewed as well as radiologist report. Gallbladder distention, multiple small stones. No gallbladder wall thickening. No biliary ductal dilation. Common bile duct 6 mm.
Reviewed with patient indications for consideration of cholecystectomy. We discussed attempted nonoperative management options as after discussions patient in agreement to proceed with cholecystectomy.
. Laparoscopic cholecystectomy with intraoperative cholangiograms reviewed in detail with the patient including anticipated operative approach/technique, potential operative findings and their management (including positive IOC requiring
postoperative ERCP) alternative treatment options, benefits and potential risks of surgery such as but not limited to bleeding, infectious and wound related complications, iatrogenic injury to surrounding viscera, bile duct injury, bile leak and
postcholecystectomy fatty food intolerances. Any of the patient's concerns or questions were confirmed to be fully addressed.
Plan: Patient has been added onto the OR schedule today for lap santos with IOC
Continue current supportive care awaiting OR availability.
[2024-04-28] MEDS: DILAUDID 1 MG IV ×2 (10:12→20:34)
--- NOTE | 2024-04-28 10:29 | W.PN.UPDATE ---
Update Note
Progress Note Update
Patient seen and examined at bedside. 53-year-old female with past medical history of adrenal insufficiency, lupus, asthma, fibromyalgia, anxiety came to the hospital with abdominal pain. Elevated LFTs and bilirubin. Concerning for acute calculus
cholecystitis. No significant biliary ductal dilation. Plan for OR today by surgery and if positive then GI will see for ERCP. Continue antibiotics. NPO.
Nonbillable note
General: Well Developed, Well Nourished and Pain
HEENT: NormoCephalic, Anicteric, Moist mucous membranes and Atraumatic
Respiratory: Clear
Cardiac: S1/S2 and Regular Rhythm
GI: Soft, Non Distended, Normal Bowel Sounds and Tender (mostly in RUQ. No guarding. No rebound)
Musculoskeletal: No Clubbing, No Cyanosis and No Edema
Neuro: AO x 3 and No Motor Deficits
Psych: Calm
[2024-04-28] MEDS: PLAQUENIL 400 MG PO (12:23)
[2024-04-28] MEDS: ZOSYN 50 IV ×3 (12:25→23:22)
--- NOTE | 2024-04-28 12:31 | CM ---
CM met with patient at bedside to complete IA. Admitted with abdominal pain and planned for cholecystectomy today.
Karuna lives with her mother and daughter in a one story home, with no entry steps. She reports being (I) amb with a walker or cane. has a walker and cane in home.
Pharmacy: [facility]
PCP: Dr. Moreland
Plan: CM to follow for all discharge planning needs.
--- NOTE | 2024-04-28 14:14 | W.SUR.PREOP ---
Pre-Operative Surgical Note
-
I have examined this patient prior to the performance of the scheduled procedure.
The patient's condition is unchanged from the time of the current History and
Physical and the patient is able to undergo the scheduled procedure.
--- NOTE | 2024-04-28 16:19 | W.IMMPOSTOP ---
Surgical Immed Post Op Note
-
Primary Surgeon: Sonja
Assisting Surgeon: RAQUEL Zavala
Pre-op Diagnosis: Symptomatic cholelithiasis
Post-op Diagnosis: Symptomatic cholelithiasis
Procedure Performed: Laparoscopic cholecystectomy
Anesthesia Type: General
Specimen / Cultures:
1. Gallbladder
Estimated Blood Loss: 11 cc
Complications: None
Operative Findings:
1. Distended GB, mild wall thickening
2. Critical view of safety
3. Stones milked from cystic, unable to thread catheter despite multiple attempts and different catheters
4. Artery clipped, duct taken with stapler
--- NOTE | 2024-04-28 17:56 | PTCARENOTE ---
pt received from PACU to room 2116 via bed at 1730. pt drowsy but easily arousable. 4 lap sites and 1 puncture site RYAN w/surgical adhesive intact. denies pain or nausea. IVF infusing. care ongoing.
[2024-04-28] MEDS: LR IV (18:19)
[2024-04-28] MEDS: NORMOSOL-R/PLASMALYTE-A 1000 IV (18:28)
[2024-04-28] MEDS: SINGULAIR 10 MG PO (18:31)
[2024-04-28] MEDS: LOVENOX 40 MG SC (18:38)
[2024-04-28] MEDS: ADVAIR HFA 115/21 MCG INHALER INH (20:03)
[2024-04-28] MEDS: NSS (PRESERVATIVE FREE) 0.25 ML IV (20:20)
[2024-04-28] MEDS: SEROQUEL 200 MG PO (23:22)
[2024-04-29 03:15] VITALS: BP 149/99
[2024-04-29] MEDS: LR IV ×2 (05:17→13:10)
[2024-04-29] MEDS: SOLU-CORTEF 50 MG IV ×2 (05:24→21:08)
[2024-04-29] MEDS: ZOSYN 50 IV ×4 (05:24→23:00)
[2024-04-29] MEDS: DILAUDID 1 MG IV (05:30)
[2024-04-29] MEDS: ZOFRAN 4 MG IV ×2 (05:31→15:18)
[2024-04-29 06:20] LABS: % Basophils 0.2 % (0-2); % Immature Granulocytes 1.1 % (0-0.5); % Lymphocytes 7.6 % (20.5-51.1); % Monocytes 7.3 % (1.7-9.3); % Neutrophils 83.8 % (42.2-75.2); Absolute Immature Granulocytes 0.2 10^3/uL (0-0.05); Absolute Lymphocytes 1.4 10^3/uL (1.2-3.4); Absolute Monocytes 1.4 10^3/uL (0.1-0.6); Absolute Neutrophils 15.8 10^3/uL (1.4-6.5); Hematocrit 38.3 % (37.0-47.0); Hemoglobin 12.8 g/dL (12.0-16.0); Mean Corp Hgb Conc. 33.4 g/dL (33.0-37.0); Mean Corpuscular Hgb 34.7 pg (27.0-31.0); Mean Corpuscular Volume 103.8 fL (81.0-99.0); Mean Platelet Volume 9.4 fL (7.4-10.4); Nucleated Red Blood Cells % 0 %; Platelet Count 361 10^3/uL (130-400); Red Blood Cell Count 3.69 10^6/uL (4.20-5.40); Red Cell Dist. Width 12.9 % (11.5-14.5); White Blood Cell Count 18.9 10^3/uL (4.8-10.8)
[2024-04-29 07:03] LABS: ALT (SGPT) 332 U/L (0-35); AST (SGOT) 166 U/L (14-36); Albumin 4.1 g/dl (3.5-5.0); Alkaline Phosphatase 114 U/L (38-126); Blood Urea Nitrogen 20 mg/dl (7-17); Calcium 8.9 mg/dl (8.4-10.2); Carbon Dioxide 32 mmol/L (22-30); Chloride 97 mmol/L (98-107); Estimated Creatinine Clearance 89 ml/min; Glucose 103 mg/dl (70-99); Potassium 3.9 mmol/L (3.5-5.1); Sodium 135 mmol/L (135-145); Total Bilirubin 0.9 mg/dl (0.2-1.3); Total Protein 6.2 g/dl (6.3-8.2); eGFR > 60.00
[2024-04-29 08:15] VITALS: BP 138/97
[2024-04-29] MEDS: ADVAIR HFA 115/21 MCG INHALER 2 PUFF INH ×2 (08:18→17:51)
[2024-04-29] MEDS: NEURONTIN 900 MG PO ×3 (08:44→21:07)
[2024-04-29] MEDS: CYMBALTA DELAYED RELEASE 60 MG PO ×2 (08:44→21:07)
[2024-04-29] MEDS: ATIVAN 0.5 MG IV ×2 (08:53→15:19)
--- NOTE | 2024-04-29 09:53 | W.PN.HOSP.TC ---
Today's Communication/Plan
-
Monitor vital signs see plan
Discussed with surgery, started clears
Decrease steroids to 50 every 12, if remains stable then transition to p.o. steroids tomorrow
Monitor leukocytosis
Assessment / Plan
Assessment / Plan
General: Well Developed, Well Nourished and Pain
HEENT: NormoCephalic, Anicteric, Moist mucous membranes and Atraumatic
Respiratory: Clear
Cardiac: S1/S2 and Regular Rhythm
GI: Soft, Non Distended, Normal Bowel Sounds and Tender,mild
Musculoskeletal: No Clubbing, No Cyanosis and No Edema
Neuro: AO x 3 and No Motor Deficits
Psych: Calm
Symptomatic cholelithiasis with possible cholecystitis
General surgery following, status post laparoscopic cholecystectomy 04/29.
Pain control, continue fluids
Now diet advanced to clears
- given leukocytosis, continue zosyn
- stress dose steroids;Decreased to 50 every 12. is stable by tomorrow then convert back to normal steroid dose
- Surgery Following
Monitor LFTs
Adrenal insufficiency - on hydrocortisone 30am 10 noon. HD stable. Normal Na and K.
- hydrocortisone;Decreased to 50 every 12. If remains stable can switch to p.o. home dose tomorrow
Asthma - No acute exacerbation
- tiotropirum, advair
- duonebs prn
- montelukast
Fibromyalgia
History of anxiety
Monitor
Lupus
- will continue her plaquenil for now
DVT PPX - lovenox sq
Code status - Full Code
Anticipated Discharge: 24 - 48 hours
Subjective/Interval History
-
Date of Service: April 29, 2024
Still has some pain
Objective Data
-
Labs:
Laboratory Results
04/29/24
05:45
WBC 18.9 H
Hgb 12.8
Hct 38.3
Plt Count 361
Sodium 135
Potassium 3.9
Chloride 97 L
Carbon Dioxide 32 H
BUN 20 H
Creatinine 0.8
Glucose 103 H
Calcium 8.9
Total Bilirubin 0.9 D
AST 166 H
ALT 332 H
Alkaline Phosphatase 114
Vital Signs:
Vital Signs
Temp Pulse Resp BP Pulse Ox
97.4 F 123 16 138/97 96
04/29/24 08:15 04/29/24 08:15 04/29/24 08:22 04/29/24 08:15 04/29/24 08:22
I&O
04/28/24 04/29/24 04/30/24
06:59 06:59 06:59
Intake Total 1075 / 1075
Output Total 700 / 700
Balance 375 / 375
--- NOTE | 2024-04-29 10:06 | CM ---
Addendum entered by La Street RN 04/29/24 15:52:
IMM reviewed.
Original Note:
Reviewed the chart notes and spoke with the patient at the bedside. Patient's mother or daughter will provide transportation home when discharged. CM continues to be available to patient/family and is monitoring medical plan for needs at discharge.
Plan: Discharge to home with no needs.
[2024-04-29 11:25] VITALS: BP 161/85
--- NOTE | 2024-04-29 11:27 | W.PN.GS2 ---
Today's Communication / Plan
-
CLD, ADAT to LFD
Trend WBC
Assessment / Plan
-
53F POD1 s/p lap santos for biliary colic
AFVSS, pain improved, no n/v
WBC 18.9, unchanged
Tbili normalized
Imaging without ductal dilation
No clnical signs of ongoing biliary obstruction
Plan:
Adv to cld, ADAT to LFD if tolerates
Cont IV abx, DC after 24 hrs if WBC trending down
Trend WBC
Ambulate
DVT ppx
PRN pain meds
Subjective Data
-
Date of Service: April 29, 2024
AFVSS, pain improved, denies n/v
Objective Data
-
Intake and Output
04/28/24 04/29/24 04/30/24
06:59 06:59 06:59
Intake Total 1075 / 1075
Output Total 700 / 700
Balance 375 / 375
Intake:
Oral fluids 100 / 100
IV fluids (Total) 875 / 875
normosol 50 / 50
IV piggybacks 100 / 100
Output:
Urine, Voided 700 / 700
Vital Signs
Temp Pulse Resp BP Pulse Ox
97.4 F 123 16 138/97 96
04/29/24 08:15 04/29/24 08:15 04/29/24 08:22 04/29/24 08:15 04/29/24 08:22
Lab Results
04/29/24 05:45
04/29/24 05:45
Calcium 8.9 mg/dl (8.4-10.2) 04/29/24 05:45
Magnesium 1.8 mg/dl (1.6-2.3) 04/28/24 06:47
Total Bilirubin 0.9 mg/dl (0.2-1.3) D 04/29/24 05:45
AST 166 U/L (14-36) H 04/29/24 05:45
ALT 332 U/L (0-35) H 04/29/24 05:45
Alkaline Phosphatase 114 U/L (38-126) 04/29/24 05:45
Total Protein 6.2 g/dl (6.3-8.2) L 04/29/24 05:45
Albumin 4.1 g/dl (3.5-5.0) 04/29/24 05:45
Physical Exam
-
Gen: NAD
Abd: soft, approp ttp, incisions cdi
Patient has a cardona catheter: No
Patient has a central line: No
[2024-04-29] MEDS: SOLU-CORTEF IV (12:00)
[2024-04-29] MEDS: TORADOL 10 MG IV ×2 (13:13→21:11)
[2024-04-29] MEDS: NORMOSOL-R/PLASMALYTE-A 1000 IV (13:16)
[2024-04-29] MEDS: PLAQUENIL 400 MG PO (13:17)
[2024-04-29] MEDS: ROXICODONE 5 MG PO (14:13)
[2024-04-29 15:15] VITALS: BP 162/99
[2024-04-29] MEDS: LOVENOX 40 MG SC (17:48)
[2024-04-29] MEDS: SINGULAIR 10 MG PO (17:49)
[2024-04-29] MEDS: DILAUDID 0.5 MG IV (17:51)
--- NOTE | 2024-04-29 21:00 | PTCARENOTE ---
pt walked the halls with supervision.
[2024-04-29] MEDS: SEROQUEL 200 MG PO (21:09)
[2024-04-29 22:52] VITALS: BP 124/76
[2024-04-29] MEDS: NORMOSOL-R/PLASMALYTE-A IV (22:56)
[2024-04-30] MEDS: ZOSYN 50 IV (05:09)
[2024-04-30] MEDS: TYLENOL 650 MG PO (05:13)
[2024-04-30] MEDS: NSS (PRESERVATIVE FREE) 0.25 ML IV (05:15)
[2024-04-30] MEDS: ATIVAN 0.5 MG IV ×3 (05:16→20:05)
[2024-04-30 07:00] VITALS: BP 147/94
--- NOTE | 2024-04-30 07:10 | W.PN.HOSP.TC ---
Today's Communication/Plan
-
see a/p
Assessment / Plan
Assessment / Plan
Physical
General: no acute distress, appears comfortable, jaundice
HEENT: NormoCephalic, Moist mucous membranes and Atraumatic
Respiratory: Clear
Cardiac: S1/S2 and Regular Rhythm
GI: Soft, Non Distended, Normal Bowel Sounds, mild tenderness/ecchymosis at incision sites
Musculoskeletal: No Clubbing, No Cyanosis and No Edema
Neuro: AO x 3
Psych: Calm
53F Adrenal Insufficiency Lupus Asthma Chronic Pain Fibromyalgia anxiety here for acute cholecystitis s/p laparoscopy cholecystectomy
Symptomatic cholelithiasis with possible cholecystitis
General surgery eval appreciated, status post laparoscopic cholecystectomy 04/29.
Acute Liver Injury
IVF completed
Diet advanced to Low Fat, tolerating
- leukocytosis resolving, zosyn completed
- stress dose steroids;Decreased to 50 every 12, eventual transition back to home dose
- LFTs trending up, Tylenol placed on hold, possible Dili / zosyn completed as above
- cont monitoring LFTs, possible GI eval if cont to worsen
Adrenal insufficiency - on hydrocortisone 30am 10 noon. HD stable. Normal Na and K.
- hydrocortisone;Decreased to 50 every 12. eventual transition back to home dose
Asthma - No acute exacerbation
- tiotropirum, advair
- duonebs prn
- montelukast
Fibromyalgia
History of anxiety
Monitor
Lupus
- continue Plaquenil
DVT PPX - Lovenox sq
Code status - Full Code
I spent a total of 45 minutes with the patient or on the floor. More than 50% of this time involved counseling and coordination of care.
Anticipated Discharge: 24 - 48 hours
Subjective/Interval History
-
Date of Service: April 30, 2024
No acute distress resting comfortably in bed. Reports ambulating without issues. Pain improved.
Objective Data
-
Labs:
Laboratory Results
04/30/24
06:33
WBC Pending
Hgb Pending
Hct Pending
Plt Count Pending
Sodium Pending
Potassium Pending
Chloride Pending
Carbon Dioxide Pending
BUN Pending
Creatinine Pending
Glucose Pending
Calcium Pending
Total Bilirubin Pending
AST Pending
ALT Pending
Alkaline Phosphatase Pending
Vital Signs:
Vital Signs
Temp Pulse Resp BP Pulse Ox
97.8 F 95 16 124/76 92
04/29/24 22:52 04/29/24 22:52 04/29/24 22:52 04/29/24 22:52 04/29/24 22:52
I&O
04/29/24 04/30/24 05/01/24
06:59 06:59 06:59
Intake Total 1075 / 1075 2650 / 2650
Output Total 700 / 700
Balance 375 / 375 2650 / 2650
[2024-04-30 07:16] LABS: % Basophils 0.3 % (0-2); % Eosinophils 0.2 % (0-6); % Immature Granulocytes 1.5 % (0-0.5); % Monocytes 11.7 % (1.7-9.3); % Neutrophils 71.3 % (42.2-75.2); Absolute Immature Granulocytes 0.2 10^3/uL (0-0.05); Absolute Lymphocytes 1.8 10^3/uL (1.2-3.4); Absolute Monocytes 1.4 10^3/uL (0.1-0.6); Absolute Neutrophils 8.4 10^3/uL (1.4-6.5); Hematocrit 36.2 % (37.0-47.0); Hemoglobin 12.1 g/dL (12.0-16.0); Mean Corp Hgb Conc. 33.4 g/dL (33.0-37.0); Mean Corpuscular Hgb 35.2 pg (27.0-31.0); Mean Corpuscular Volume 105.2 fL (81.0-99.0); Mean Platelet Volume 9.7 fL (7.4-10.4); Nucleated Red Blood Cells % 0 %; Platelet Count 304 10^3/uL (130-400); Red Blood Cell Count 3.44 10^6/uL (4.20-5.40); Red Cell Dist. Width 13.2 % (11.5-14.5); White Blood Cell Count 11.8 10^3/uL (4.8-10.8)
[2024-04-30 07:57] LABS: Albumin 3.8 g/dl (3.5-5.0); Alkaline Phosphatase 272 U/L (38-126); Blood Urea Nitrogen 18 mg/dl (7-17); Calcium 8.6 mg/dl (8.4-10.2); Carbon Dioxide 36 mmol/L (22-30); Chloride 100 mmol/L (98-107); Estimated Creatinine Clearance 89 ml/min; Glucose 129 mg/dl (70-99); Potassium 3.5 mmol/L (3.5-5.1); Sodium 139 mmol/L (135-145); Total Bilirubin 3.5 mg/dl (0.2-1.3); eGFR > 60.00
[2024-04-30 08:05] LABS: ALT (SGPT) 869 U/L (0-35); AST (SGOT) 1146 U/L (14-36)
[2024-04-30] MEDS: NEURONTIN 900 MG PO ×3 (08:25→22:36)
[2024-04-30] MEDS: CYMBALTA DELAYED RELEASE 60 MG PO ×2 (08:25→19:55)
[2024-04-30] MEDS: SOLU-CORTEF 50 MG IV ×2 (08:26→19:54)
[2024-04-30] MEDS: ADVAIR HFA 115/21 MCG INHALER 2 PUFF INH ×2 (08:41→19:36)
[2024-04-30] MEDS: PLAQUENIL 400 MG PO (12:01)
--- NOTE | 2024-04-30 12:54 | W.PN.GS2 ---
Today's Communication / Plan
-
trend ast/alt
Assessment / Plan
-
53F POD2 s/p lap santos for biliary colic
AFVSS, pain improved, no n/v
WBC 11.8 from 18.9
AST: 1146 (166), ALT 869 (332)
Plan:
-Continue low fat diet
-IV Zosyn discontinued
-Trend WBC
-Ambulate
-DVT ppx: Lovenox
-Trend AST/ALT. If still elevated tomorrow, will consult GI.
-PRN pain meds
Subjective Data
-
Date of Service: April 30, 2024
Patient states she has no nausea or vomiting. She had stomach pain with an oral narcotic she took yesterday which has resolved. Her pain is now controlled and she overall feels better.She is tolerating a diet.
Objective Data
-
Intake and Output
04/29/24 04/30/24 05/01/24
06:59 06:59 06:59
Intake Total 1075 / 1075 2650 / 2650
Output Total 700 / 700
Balance 375 / 375 2650 / 2650
Intake:
Oral fluids 100 / 100 1800 / 1800
IV fluids (Total) 875 / 875 750 / 750
normosol 50 / 50
IV piggybacks 100 / 100 100 / 100
Output:
Urine, Voided 700 / 700
Other:
Number of approximated MODERATE 1
amounts of urine
Vital Signs
Temp Pulse Resp BP Pulse Ox
97.9 F 106 16 147/94 96
04/30/24 07:00 04/30/24 08:44 04/30/24 08:44 04/30/24 07:00 04/30/24 11:11
Lab Results
04/30/24 06:33
04/30/24 06:33
Calcium 8.6 mg/dl (8.4-10.2) 04/30/24 06:33
Magnesium 1.8 mg/dl (1.6-2.3) 04/28/24 06:47
Total Bilirubin 3.5 mg/dl (0.2-1.3) H D 04/30/24 06:33
AST 1146 U/L (14-36) H* 04/30/24 06:33
ALT 869 U/L (0-35) H* 04/30/24 06:33
Alkaline Phosphatase 272 U/L (38-126) H 04/30/24 06:33
Total Protein 6.0 g/dl (6.3-8.2) L 04/30/24 06:33
Albumin 3.8 g/dl (3.5-5.0) 04/30/24 06:33
Physical Exam
-
Gen: NAD
Abd: soft, approp ttp, incisions cdi
Patient has a cardona catheter: No
Patient has a central line: No
[2024-04-30 16:00] VITALS: BP 162/98
[2024-04-30 17:00] VITALS: BP 156/99
[2024-04-30] MEDS: SINGULAIR 10 MG PO (17:36)
[2024-04-30] MEDS: LOVENOX 40 MG SC (17:36)
[2024-04-30] MEDS: SEROQUEL 200 MG PO (22:36)
[2024-04-30 23:10] VITALS: BP 143/87
[2024-05-01 06:54] LABS: Hematocrit 36.4 % (37.0-47.0); Hemoglobin 12.4 g/dL (12.0-16.0); Mean Corp Hgb Conc. 34.1 g/dL (33.0-37.0); Mean Corpuscular Hgb 35.2 pg (27.0-31.0); Mean Corpuscular Volume 103.4 fL (81.0-99.0); Mean Platelet Volume 9.9 fL (7.4-10.4); Platelet Count 302 10^3/uL (130-400); Red Blood Cell Count 3.52 10^6/uL (4.20-5.40); White Blood Cell Count 11.6 10^3/uL (4.8-10.8)
[2024-05-01 07:00] VITALS: BP 166/98
--- NOTE | 2024-05-01 07:19 | W.PN.HOSP.TC ---
Today's Communication/Plan
-
discharge
Assessment / Plan
Assessment / Plan
Physical
General: no acute distress, appears comfortable, jaundice
HEENT: NormoCephalic, Moist mucous membranes and Atraumatic
Respiratory: Clear
Cardiac: S1/S2 and Regular Rhythm
GI: Soft, Non Distended, Normal Bowel Sounds, mild tenderness/ecchymosis at incision sites
Musculoskeletal: No Clubbing, No Cyanosis and No Edema
Neuro: AO x 3
Psych: Calm
53F Adrenal Insufficiency Lupus Asthma Chronic Pain Fibromyalgia anxiety here for acute cholecystitis s/p laparoscopy cholecystectomy
Symptomatic cholelithiasis
Acute Cholecystitis
General surgery eval appreciated, status post laparoscopic cholecystectomy 04/29.
Acute Liver Injury resolving
IVF completed
Diet advanced to Low Fat, tolerating
- leukocytosis resolving, zosyn completed
- stress dose steroids;Decreased to 50 every 12, eventual transition back to home dose
- LFTs trending up, Tylenol placed on hold, possible Dili 2/ zosyn completed as above vs side effect recent surgical intervention (more likely)
-LFTs since trended down, prn Tylenol ok to resume, cleared for discharge as per surgery
Adrenal insufficiency - on hydrocortisone 30am 10 noon. HD stable. Normal Na and K.
- hydrocortisone;Decreased to 50 every 12. To transition back to home dose on discharge
Asthma - No acute exacerbation
- tiotropirum, advair
- duonebs prn
- montelukast
Fibromyalgia
History of anxiety
Monitor
Lupus
- continue Plaquenil
DVT PPX - Lovenox sq
Code status - Full Code
Medically stable for discharge home with outpatient follow up recommendations.
Total Time Preparing Discharge ___40____ minutes including examination of the patient, summary of the hospital stay, instructions for continuing care to all relevant caregivers; and preparation of discharge records, prescriptions, and referral
forms if necessary.
Anticipated Discharge: Today
Subjective/Interval History
-
Date of Service: May 01, 2024
Seen and examined at bedside in no acute distress sitting up comfortably in bed. Overall reports feeling well. Tolerating diet. Eager to go home. Denies new acute issues.
Objective Data
-
Labs:
Laboratory Results
05/01/24
05:56
WBC 11.6 H
Hgb 12.4
Hct 36.4 L
Plt Count 302
Sodium Pending
Potassium Pending
Chloride Pending
Carbon Dioxide Pending
BUN Pending
Creatinine Pending
Glucose Pending
Calcium Pending
Total Bilirubin Pending
AST Pending
ALT Pending
Alkaline Phosphatase Pending
Vital Signs:
Vital Signs
Temp Pulse Resp BP Pulse Ox
98.7 F 94 18 143/87 94
04/30/24 23:10 04/30/24 23:10 04/30/24 23:10 04/30/24 23:10 04/30/24 23:10
I&O
04/30/24 05/01/24 05/02/24
06:59 06:59 06:59
Intake Total 2650 / 2650 960 / 960
Balance 2650 / 2650 960 / 960
[2024-05-01 07:22] LABS: AST (SGOT) 460 U/L (14-36); Alkaline Phosphatase 281 U/L (38-126); Blood Urea Nitrogen 16 mg/dl (7-17); Calcium 8.9 mg/dl (8.4-10.2); Carbon Dioxide 33 mmol/L (22-30); Chloride 102 mmol/L (98-107); Estimated Creatinine Clearance 118 ml/min; Glucose 96 mg/dl (70-99); Lipase 242 U/L (23-300); Magnesium 2.5 mg/dl (1.6-2.3); Phosphorus 3.1 mg/dl (2.5-4.5); Potassium 3.4 mmol/L (3.5-5.1); Sodium 141 mmol/L (135-145); Total Bilirubin 1.2 mg/dl (0.2-1.3); Total Protein 6.1 g/dl (6.3-8.2); eGFR > 60.00
[2024-05-01 07:24] LABS: ALT (SGPT) 864 U/L (0-35)
[2024-05-01] MEDS: NEURONTIN 900 MG PO ×2 (07:41→15:34)
[2024-05-01] MEDS: SOLU-CORTEF 50 MG IV (07:41)
[2024-05-01] MEDS: CYMBALTA DELAYED RELEASE 60 MG PO (07:41)
[2024-05-01] MEDS: KCL 40 MEQ PO (07:42)
[2024-05-01] MEDS: ATIVAN 0.5 MG PO ×2 (07:42→13:44)
[2024-05-01] MEDS: FLUSH (NSS) 1 FLUSH IV (07:43)
[2024-05-01] MEDS: ADVAIR HFA 115/21 MCG INHALER 2 PUFF INH (09:31)
[2024-05-01] MEDS: PROTONIX 40 MG PO (11:57)
[2024-05-01] MEDS: PLAQUENIL 400 MG PO (11:57)
[2024-05-01] MEDS: DILAUDID 2 MG PO (11:57)
--- NOTE | 2024-05-01 14:11 | W.PN.GS2 ---
Today's Communication / Plan
-
ok for d/c
Assessment / Plan
-
53F POD3 s/p lap santos for biliary colic
AFVSS, pain improved, no n/v
WBC 11.6 from 11.8
AST: 460 (1146), ALT 864 (869)
Plan:
-Continue low fat diet
-IV Zosyn discontinued
-Trend WBC
-Ambulate
-DVT ppx: Lovenox
-PRN pain meds
-Discussed labs with gabby Cruz for discharge with general surgery follow up. Hospitalist notified.
Subjective Data
-
Date of Service: May 01, 2024
Patient states she has no complaints. She is non-tender. She denies nausea or vomiting. She is tolerating a diet.
Objective Data
-
Intake and Output
04/30/24 05/01/24 05/02/24
06:59 06:59 06:59
Intake Total 2650 / 2650 960 / 960
Balance 2650 / 2650 960 / 960
Intake:
Oral fluids 1800 / 1800 960 / 960
IV fluids (Total) 750 / 750
IV piggybacks 100 / 100
Other:
Number of approximated MODERATE 1 3
amounts of urine
Vital Signs
Temp Pulse Resp BP Pulse Ox
98.1 F 105 16 166/98 92
05/01/24 07:00 05/01/24 09:35 05/01/24 09:35 05/01/24 07:00 05/01/24 09:35
Lab Results
05/01/24 05:56
05/01/24 05:56
Calcium 8.9 mg/dl (8.4-10.2) 05/01/24 05:56
Phosphorus 3.1 mg/dl (2.5-4.5) 05/01/24 05:56
Magnesium 2.5 mg/dl (1.6-2.3) H 05/01/24 05:56
Total Bilirubin 1.2 mg/dl (0.2-1.3) D 05/01/24 05:56
AST 460 U/L (14-36) H 05/01/24 05:56
ALT 864 U/L (0-35) H* 05/01/24 05:56
Alkaline Phosphatase 281 U/L (38-126) H 05/01/24 05:56
Total Protein 6.1 g/dl (6.3-8.2) L 05/01/24 05:56
Albumin 4.0 g/dl (3.5-5.0) 05/01/24 05:56
Physical Exam
-
Gen: NAD
Abd: soft, approp ttp, incisions cdi
[2024-05-01 15:00] VITALS: BP 161/94
[2024-05-01] MEDS: METHOCARBAMOL 1500 MG PO (15:33)
[2024-05-01] MEDS: MOTRIN 800 MG PO (15:33)
--- NOTE | 2024-05-01 16:13 | W.DCSUMMARY ---
Discharge Summary
Discharge Data
Date of Admission: 04/28/24
Date of Discharge: 05/01/24
-
Pending Results: No
Discharge Plan
-
Patient Disposition: Home (Routine Discharge)
Discharge Diagnosis/Procedures: Symptomatic Cholelithiasis, Acute Cholecystitis
Status Post Laparoscopic cholecystectomy
Acute Liver Injury resolving
Adrenal Insufficiency
Fibromyalgia
Lupus
Condition: Good
Diet: Regular and Low Fat
Additional Diets: If issues with bloating or diarrhea, follow low-fat diet
Activity: No strenuous activity
Additional Activity: No heavy lifting (>20 lbs) or strenuous activities for 2 weeks postoperatively
Driving Restrictions: No driving if too sore or taking narcotics
Bathing Restrictions: OK to Shower
Blood Work: Please repeat CBC and CMP with primary care provider in 1 week of discharge.
Wound Care: Keep incisions clean and dry. Glue will flake off in 2 to 3 weeks. Stitches will dissolve.
Activity Restrictions/Additional Instructions:
Call for fevers (>100.5), nausea vomiting, worsening abdominal pain, yellowing of the eyes or skin
Please follow up with primary care provider in 1 week of discharge and surgeon in 2-4 weeks of discharge.
Tramadol prescribed as needed for severe breakthrough pain.
Please take medications as prescribed/recommended and follow up with primary care provider and/or other healthcare provider involved in your care for refills and/or further adjustment to your medication regimen as necessary.
Referrals:
Oksana Lazo CRNP [Family Provider] - in one week
Ronald Casillas MD [Active] - in two to four weeks
Prescriptions:
New
tramadol 50 mg tablet
50 mg PO Q6HPRN PRN (Reason: severe pain/breakthrough pain) Qty: 10 0RF
Continued
diphenhydramine HCl [Banophen] 50 MG capsule
50 mg PO HS
benzonatate 100 MG capsule
200 mg PO Q8HPRN PRN (Reason: cough)
montelukast 10 MG tablet
10 mg PO QPM
hydrocortisone 10 MG tablet
10 mg PO DAILY@1300
Patient Comments:
06/19/2023: Pt states she takes the double the dose when she is sick
hydrocortisone 10 MG tablet
30 mg PO DAILY
Patient Comments:
06/19/2023: Pt states she takes the double the dose when she is sick
cranberry 500 MG capsule
930 mg PO DAILY
Align (B.infantis) 4 MG capsule
4 mg PO DAILY
multivitamin with folic acid [Tab-A-Jack] 1 TABLET tablet
1 tab PO QPM
riboflavin (vitamin B2) [Vitamin B-2] 100 MG tablet
400 mg PO DAILY
calcium carbonate [Antacid (calcium carbonate)] 1 TABLET tablet,chewable
2 tab PO Q4HPRN PRN (Reason: heartburn)
hydroxychloroquine 200 MG tablet
400 mg PO NOON
fluticasone propion-salmeterol [Advair HFA] 1 PUFF HFA aerosol inhaler
2 puff inhalation R BID
albuterol sulfate 1 PUFF HFA aerosol inhaler
2 puff inhalation R Q4HPRN PRN (Reason: sob/wheezing)
gabapentin 300 MG capsule
900 mg PO TID 0RF
acetaminophen [Tylenol Extra Strength] 500 MG tablet
1,000 mg PO Q8HPRN PRN (Reason: tension headache) Qty: 0 0RF
ondansetron 4 mg tablet,disintegrating
4 mg PO TIDPRN PRN (Reason: nausea/vomiting) Qty: 20 0RF
lorazepam 2 MG tablet
2 mg PO TID PRN (Reason: Anxiety)
Patient Comments:
06/19/2023: last filled 06/10/23, 120 tabs for 30 days from [facility]
methocarbamol 500 mg Tablet
1,500 mg PO Q8H
ibuprofen 800 mg Tablet
800 mg PO TID
quetiapine [Seroquel] 200 mg Tablet
200 mg PO HS
loperamide 2 mg Tablet
2 mg PO Q6H PRN (Reason: diarrhea)
ascorbic acid (vitamin C) [Vitamin C] 500 mg Tablet
500 mg PO BID
duloxetine [Cymbalta] 60 mg Capsule,Delayed Release(Dr/Ec)
60 mg PO BID
cholecalciferol (vitamin D3) [Vitamin D3] 25 mcg (1,000 unit) Tablet
175 mcg PO QPM
guaifenesin 600 mg Tablet Extended Release 12hr
600 mg PO Q12 2 Days Qty: 4 0RF
Discharge Orders:
Discharge Patient (As Directed); Ordered 05/01/24
Ordered By: Donovan Morales
Discharge Date and Time
Print Language: BELARUSIAN
[2024-05-01 16:36] VITALS: BP 146/85
[2024-05-01] MEDS: CORTEF 20 MG PO (17:07)
[2024-05-01] MEDS: LOVENOX 40 MG SC (17:07)
[2024-05-01] MEDS: SINGULAIR 10 MG PO (17:07)
== END 2024-05-01 18:00 | disposition home or self-care (01) | DRG 418 ==
LOC: 2 SOUTH 06:04
PROVIDERS: Internal Medicine; Surgery; ADMITTING PHYSICIAN Internal Medicine; ATTENDING PHYSICIAN Internal Medicine; CONSULT PHYSICIAN Obstetrics & Gynecology; EMERGENCY PHYSICIAN Emergency Medicine; FAMILY PHYSICIAN Nurse Practitioner Family
PROC: 0FT44ZZ Resection of Gallbladder, Percutaneous Endoscopic Approach (ICD-10-PCS; 2024-04-28)
DX: K80.00 Calculus of gallbladder with acute cholecystitis without obstruction (principal); E27.40 Unspecified adrenocortical insufficiency; E87.1 Hypo-osmolality and hyponatremia; S36.119A Unspecified injury of liver, initial encounter; M79.7 Fibromyalgia; Z79.51 Long term (current) use of inhaled steroids; Z79.899 Other long term (current) drug therapy; J45.909 Unspecified asthma, uncomplicated; G89.29 Other chronic pain; K90.0 Celiac disease; F41.0 Panic disorder [episodic paroxysmal anxiety]; F32.A Depression, unspecified; F42.9 Obsessive-compulsive disorder, unspecified; F43.10 Post-traumatic stress disorder, unspecified; Z86.16 Personal history of COVID-19; E66.9 Obesity, unspecified; M06.9 Rheumatoid arthritis, unspecified; Z88.1 Allergy status to other antibiotic agents; Z88.8 Allergy status to other drugs, medicaments and biological substances; Z88.2 Allergy status to sulfonamides; G43.909 Migraine, unspecified, not intractable, without status migrainosus; Z68.30 Body mass index [BMI] 30.0-30.9, adult; Z88.5 Allergy status to narcotic agent; N30.10 Interstitial cystitis (chronic) without hematuria
CPT/HCPCS: 88304; 76000; 76700; 80048; 80053; 81003; 81015; 83690; 83735; 84100; 84484; 85025; 85027; 93005; 94640; 96361; 96365; 96375; 99285; A4300; C1758

== ENCOUNTER → 2024-05-09 09:18 | Outpatient (REF) | payer OTHER, SELFPAY ==
[2024-05-09 10:13] LABS: % Basophils 0.6 % (0-2); % Immature Granulocytes 1.9 % (0-0.5); % Lymphocytes 32.8 % (20.5-51.1); % Monocytes 10.2 % (1.7-9.3); % Neutrophils 51.5 % (42.2-75.2); Absolute Basophils 0.1 10^3/uL (0-0.2); Absolute Eosinophils 0.3 10^3/uL (0-0.7); Absolute Immature Granulocytes 0.2 10^3/uL (0-0.05); Absolute Lymphocytes 3.6 10^3/uL (1.2-3.4); Absolute Monocytes 1.1 10^3/uL (0.1-0.6); Absolute Neutrophils 5.6 10^3/uL (1.4-6.5); Hematocrit 38.6 % (37.0-47.0); Hemoglobin 12.5 g/dL (12.0-16.0); Mean Corp Hgb Conc. 32.4 g/dL (33.0-37.0); Mean Corpuscular Hgb 34.8 pg (27.0-31.0); Mean Corpuscular Volume 107.5 fL (81.0-99.0); Mean Platelet Volume 9.6 fL (7.4-10.4); Nucleated Red Blood Cells % 0 %; Platelet Count 428 10^3/uL (130-400); Red Blood Cell Count 3.59 10^6/uL (4.20-5.40); Red Cell Dist. Width 13.3 % (11.5-14.5); White Blood Cell Count 10.9 10^3/uL (4.8-10.8)
[2024-05-09 11:06] LABS: ALT (SGPT) 85 U/L (0-35); AST (SGOT) 21 U/L (14-36); Albumin 4.5 g/dl (3.5-5.0); Alkaline Phosphatase 118 U/L (38-126); Blood Urea Nitrogen 14 mg/dl (7-17); Calcium 10.1 mg/dl (8.4-10.2); Carbon Dioxide 27 mmol/L (22-30); Chloride 101 mmol/L (98-107); Glucose 91 mg/dl (70-99); Potassium 3.7 mmol/L (3.5-5.1); Sodium 138 mmol/L (135-145); Total Bilirubin 0.8 mg/dl (0.2-1.3); eGFR > 60.00
== END ==
LOC: REG 09:18
PROVIDERS: ATTENDING PHYSICIAN Nurse Practitioner Family; FAMILY PHYSICIAN Internal Medicine Rheumatology; REFERRING PHYSICIAN Surgery
DX: K44.9 Diaphragmatic hernia without obstruction or gangrene (principal); M32.9 Systemic lupus erythematosus, unspecified; D50.0 Iron deficiency anemia secondary to blood loss (chronic); R74.8 Abnormal levels of other serum enzymes; R79.9 Abnormal finding of blood chemistry, unspecified
CPT/HCPCS: 36415; 80053; 85025

== ENCOUNTER → 2024-05-20 14:52 | Outpatient (REF) | payer OTHER, SELFPAY ==
[2024-05-20 15:22] LABS: % Basophils 0.5 % (0-2); % Eosinophils 1.4 % (0-6); % Immature Granulocytes 1.2 % (0-0.5); % Lymphocytes 7.9 % (20.5-51.1); % Monocytes 6.4 % (1.7-9.3); % Neutrophils 82.6 % (42.2-75.2); Absolute Basophils 0.1 10^3/uL (0-0.2); Absolute Eosinophils 0.2 10^3/uL (0-0.7); Absolute Immature Granulocytes 0.2 10^3/uL (0-0.05); Absolute Monocytes 0.8 10^3/uL (0.1-0.6); Absolute Neutrophils 10.9 10^3/uL (1.4-6.5); Hematocrit 38.6 % (37.0-47.0); Hemoglobin 12.6 g/dL (12.0-16.0); Mean Corp Hgb Conc. 32.6 g/dL (33.0-37.0); Mean Corpuscular Hgb 34.6 pg (27.0-31.0); Mean Platelet Volume 9.3 fL (7.4-10.4); Nucleated Red Blood Cells % 0 %; Platelet Count 342 10^3/uL (130-400); Red Blood Cell Count 3.64 10^6/uL (4.20-5.40); Red Cell Dist. Width 12.3 % (11.5-14.5); White Blood Cell Count 13.1 10^3/uL (4.8-10.8)
[2024-05-20 15:40] LABS: Erythrocyte Sed Rate 5 mm/hour (0-20)
[2024-05-20 15:51] LABS: ALT (SGPT) 20 U/L (0-35); AST (SGOT) 20 U/L (14-36); Albumin 4.9 g/dl (3.5-5.0); Alkaline Phosphatase 86 U/L (38-126); Blood Urea Nitrogen 24 mg/dl (7-17); Carbon Dioxide 27 mmol/L (22-30); Chloride 99 mmol/L (98-107); Glucose 113 mg/dl (70-99); Potassium 4.7 mmol/L (3.5-5.1); Sodium 138 mmol/L (135-145); Total Bilirubin 0.7 mg/dl (0.2-1.3); eGFR 37.85
[2024-05-20 16:26] LABS: Lipase 117 U/L (23-300)
== END ==
LOC: REG 14:52
PROVIDERS: ATTENDING PHYSICIAN Surgery; FAMILY PHYSICIAN Nurse Practitioner Family
DX: Z48.89 Encounter for other specified surgical aftercare (principal)
CPT/HCPCS: 36415; 80053; 83690; 85025; 85652

== ENCOUNTER → 2024-05-25 09:40 | Outpatient (REF) | payer OTHER, SELFPAY ==
[2024-05-25 10:29] LABS: % Basophils 1.2 % (0-2); % Eosinophils 4.5 % (0-6); % Immature Granulocytes 1.1 % (0-0.5); % Lymphocytes 37.3 % (20.5-51.1); % Monocytes 11.3 % (1.7-9.3); % Neutrophils 44.6 % (42.2-75.2); Absolute Basophils 0.1 10^3/uL (0-0.2); Absolute Eosinophils 0.4 10^3/uL (0-0.7); Absolute Immature Granulocytes 0.1 10^3/uL (0-0.05); Absolute Monocytes 0.9 10^3/uL (0.1-0.6); Absolute Neutrophils 3.6 10^3/uL (1.4-6.5); Hemoglobin 12.7 g/dL (12.0-16.0); Mean Corp Hgb Conc. 33.4 g/dL (33.0-37.0); Mean Corpuscular Hgb 35.1 pg (27.0-31.0); Mean Platelet Volume 9.5 fL (7.4-10.4); Nucleated Red Blood Cells % 0 %; Platelet Count 298 10^3/uL (130-400); Red Blood Cell Count 3.62 10^6/uL (4.20-5.40); Red Cell Dist. Width 11.9 % (11.5-14.5); White Blood Cell Count 8.1 10^3/uL (4.8-10.8)
[2024-05-25 13:08] LABS: ALT (SGPT) 22 U/L (0-35); AST (SGOT) 21 U/L (14-36); Alkaline Phosphatase 83 U/L (38-126); Blood Urea Nitrogen 23 mg/dl (7-17); Carbon Dioxide 28 mmol/L (22-30); Chloride 99 mmol/L (98-107); Glucose 92 mg/dl (70-99); Potassium 4.2 mmol/L (3.5-5.1); Sodium 137 mmol/L (135-145); Total Bilirubin 0.6 mg/dl (0.2-1.3); eGFR > 60.00
== END ==
LOC: REG 09:40
PROVIDERS: ATTENDING PHYSICIAN Nurse Practitioner Family; REFERRING PHYSICIAN Surgery
DX: N18.32 Chronic kidney disease, stage 3b (principal)
CPT/HCPCS: 36415; 80053; 85025

== ENCOUNTER → 2024-08-02 10:31 | Outpatient (REF) | payer OTHER, MEDICARE, SELFPAY ==
[2024-08-02 12:46] LABS: ALT (SGPT) 17 U/L (0-35); AST (SGOT) 20 U/L (14-36); Albumin 4.4 g/dl (3.5-5.0); Alkaline Phosphatase 47 U/L (38-126); Blood Urea Nitrogen 23 mg/dl (7-17); Calcium 9.5 mg/dl (8.4-10.2); Carbon Dioxide 32 mmol/L (22-30); Chloride 103 mmol/L (98-107); Glucose 93 mg/dl (70-99); Potassium 3.9 mmol/L (3.5-5.1); Sodium 141 mmol/L (135-145); Total Bilirubin 0.4 mg/dl (0.2-1.3); Total Protein 6.6 g/dl (6.3-8.2); eGFR > 60.00
[2024-08-02 13:00] LABS: TSH 1.17 uIU/ml (0.47-4.68)
[2024-08-04 14:02] LABS: Renin Activity Results 0.6 ng/mL/hr
== END ==
LOC: REG 10:31
PROVIDERS: ATTENDING PHYSICIAN Internal Medicine Endocrinology, Diabetes & Metabolism; FAMILY PHYSICIAN Nurse Practitioner Family
DX: E27.40 Unspecified adrenocortical insufficiency (principal)
CPT/HCPCS: 36415; 80053; 84244; 84443

== ENCOUNTER 2024-08-13 20:12 | Emergency (ER) | payer OTHER, MEDICARE, SELFPAY ==
[2024-08-13 20:14] VITALS: BP 138/97
[2024-08-13 20:29] VITALS: BP 146/89
[2024-08-13 20:48] LABS: % Basophils 0.8 % (0-2); % Eosinophils 1.1 % (0-6); % Immature Granulocytes 1.4 % (0-0.5); % Monocytes 7.7 % (1.7-9.3); Absolute Basophils 0.1 10^3/uL (0-0.2); Absolute Eosinophils 0.1 10^3/uL (0-0.7); Absolute Immature Granulocytes 0.2 10^3/uL (0-0.05); Absolute Lymphocytes 1.9 10^3/uL (1.2-3.4); Absolute Monocytes 0.9 10^3/uL (0.1-0.6); Absolute Neutrophils 8.6 10^3/uL (1.4-6.5); Hematocrit 38.2 % (37.0-47.0); Hemoglobin 13.2 g/dL (12.0-16.0); Mean Corp Hgb Conc. 34.6 g/dL (33.0-37.0); Mean Corpuscular Hgb 34.6 pg (27.0-31.0); Mean Platelet Volume 9.2 fL (7.4-10.4); Nucleated Red Blood Cells % 0 %; Platelet Count 371 10^3/uL (130-400); Red Blood Cell Count 3.82 10^6/uL (4.20-5.40); Red Cell Dist. Width 13.2 % (11.5-14.5); White Blood Cell Count 11.8 10^3/uL (4.8-10.8)
[2024-08-13 21:00] VITALS: BP 147/86
[2024-08-13 21:06] LABS: ALT (SGPT) 21 U/L (0-35); AST (SGOT) 22 U/L (14-36); Albumin 4.8 g/dl (3.5-5.0); Alkaline Phosphatase 61 U/L (38-126); Blood Urea Nitrogen 16 mg/dl (7-17); Calcium 10.2 mg/dl (8.4-10.2); Carbon Dioxide 27 mmol/L (22-30); Chloride 105 mmol/L (98-107); Glucose 96 mg/dl (70-99); Potassium 4.5 mmol/L (3.5-5.1); Sodium 141 mmol/L (135-145); Total Bilirubin 0.6 mg/dl (0.2-1.3); Total Protein 7.4 g/dl (6.3-8.2); eGFR > 60.00
[2024-08-13 21:13] LABS: Troponin I < 0.012 ng/ml
[2024-08-13 22:00] VITALS: BP 133/79
[2024-08-13] MEDS: NSS 1000 IV (22:18)
[2024-08-13] MEDS: ATIVAN 2 MG PO (22:20)
[2024-08-13] MEDS: TYLENOL 1000 MG PO (22:20)
[2024-08-13 22:51] VITALS: BP 127/89
[2024-08-13 23:00] VITALS: BP 155/88
--- NOTE | 2024-08-13 23:42 | ED.GENMED ---
History of Present Illness
General
Chief Complaint: Breathing Problem
Source: patient
Exam Limitations: none
Time Seen by Provider: 08/13/24 20:51
Nursing documentation reviewed up to this point in time: agreed with
History of Present Illness
History of Present Illness:
54-year-old female past medical history of lupus fibromyalgia presenting to the emergency department today with concerns of shortness of breath for 5 days. She thought she may have a pneumonia. Denies any fevers chest pain has had some mild cough.
Past History
Past History
ED Past Medical History: Asthma, Fibromyalgia, Psychiatric (Anxiety, OCD, PTSD, Panic disorder) and Other (Adrenal insufficiency, migraine , Back and neck pains, Celiac disease, Cystitis, Lupus)
ED Past Surgical History: , Gynecological (D&C with ablation, ) and Tonsilectomy
Social History
Tobacco: Non-smoker
Alcohol: None
Drug: None
Personal:
Living: with family
Employment: Disabled
Family History
Family History: Other (Noncontributory)
Review of Systems
Review of Systems
Allergies reviewed?: Yes
All Other Systems: ROS reviewed and negative except as documented in HPI and ROS
Phy Exam
Physical Exam
Physical Exam:
GENERAL: Alert , in no apparent distress
EYE: pupils equal and reactive
NECK: Supple, no significant adenopathy.
ENT: o/p clr, mmm.
CARDIAC: Regular rate and rhythm .
LUNGS: Mild rhonchi to the right lower lobe clear breath sounds bilaterally, no acute respiratory distress, no wheezes/rales/rhonchi
ABDOMEN: Soft, without focal tenderness, no r/g, no cvat
NEUROLOGICAL: Alert and oriented, no focal neuro deficits
SKIN: Warm and dry, skin intact.
MUSCULOSKELETAL: No edema, well perfused.
PSYCH: Normal and appropriate interaction.
Scores
Heart Failure Risk
Heart Failure Risk Score: Not Applicable
Course
Orders/Labs/Results
Orders:
Orders
08/13/24 20:18
EKG [Electrocardiogram (*1)] Urgent
Reason for Study: Shortness of Breath
EKG- Treatment ONCE
08/13/24 20:42
Electrocardiogram (*1) Urgent
Reason for Study: Chest Pain
Cardiac Monitoring- Treatment ONCE
EKG- Treatment ONCE
IV Insert/Care/Rem.- Treatment PRN
O2 Therapy [RESP] Urgent
Titrate/Wean O2 to maintain O2 sat greater than (%): 90
Special Instructions: Maintain sats >/=90%
Pulse Ox/spot Check [RESP] Urgent
Quantity: 1
Special Instructions: ON ROOM AIR
08/13/24 20:43
Complete Blood Count/With Diff Urgent
Comprehensive Metabolic Panel Urgent
Troponin I Urgent
08/13/24 22:11
Chest [CR Chest - 2 Views ] Urgent
Comment:
Reason For Exam: sob
08/13/24 22:17
0.9% Sodium Chloride 1000 ml [Nss] 1,000 ml IV BOLUS
Acetaminophen [Tylenol] 1,000 mg PO NOW STA
Lorazepam [Ativan] 2 mg PO NOW STA
08/13/24 23:46
D-Dimer Urgent
08/14/24 00:51
Azithromycin [Zithromax] 500 mg PO NOW STA
Cefdinir [Omnicef] 300 mg PO NOW STA
Abnormal Lab Results
08/13/24
20:43
WBC 11.8 H 10^3/uL
(4.8-10.8)
RBC 3.82 L 10^6/uL
(4.20-5.40)
MCV 100.0 H fL
(81.0-99.0)
MCH 34.6 H pg
(27.0-31.0)
Abs Immat Gran (auto) 0.2 H 10^3/uL
(0-0.05)
Absolute Neuts (auto) 8.6 H 10^3/uL
(1.4-6.5)
Absolute Monos (auto) 0.9 H 10^3/uL
(0.1-0.6)
Immature Gran % 1.4 H %
(0-0.5)
Lymphocytes % 16.0 L %
(20.5-51.1)
08/13/24 20:43
08/13/24 20:43
Vital Signs
Initial and Last Documented VS:
Initial Vital Signs
Temp Pulse Resp BP Pulse Ox
98.8 F 128 30 138/97 93
08/13/24 20:14 08/13/24 20:14 08/13/24 20:14 08/13/24 20:14 08/13/24 20:14
Last Documented Vital Signs
Temp Pulse Resp BP Pulse Ox
98.8 F 106 14 151/89 91
08/13/24 20:14 08/14/24 00:00 08/14/24 00:00 08/14/24 00:00 08/14/24 00:00
MDM/Problems Addressed
MDM/Problems Addressed:
54-year-old female presenting to the emergency department today with concerns of shortness of breath over the past 5 also tachycardic on arrival otherwise vital signs are normal. Slight white count of 11.8. Other labs unremarkable troponin
negative EKG without acute findings chest x-ray without obvious pneumonia. On examination patient has slight rhonchi at left lower lung. this is not obvious on x-ray. There was consideration of possible early pneumonia. This was discussed with
the patient who opted to start an antibiotic just in ca otherwise D-dimer is negative, PE very unlikely. Troponin negative no symptoms or findings concerning for ACS at this time. Heart rate improving after receiving patient's at home dose of
Ativan. Patient was walked here with pulse ox remaining 93% and above. Otherwise stable for discharge. Return precautions given.
*Critical Care Note
Total Time (30-74mins, 75-104mins- exclusive of procedures): Not Applicable
ED Attending Note
-
Portions of this chart may have been created with voice recognition software.� Occasional wrong word or��sound alike� substitutions may have occurred due to the inherent limitations of voice recognition software.
Discharge Plan
Departure
Patient Disposition: Home (Routine Discharge)
Date of Disposition: 08/14/24
Time of Disposition: 01:02
Patient with high blood pressure during this ER visit?: No
Condition: Good
Covid-19: Not Applicable
Discharge Problem:
Pneumonia
Instructions: Pneumonia in adults
Prescriptions:
New
cefpodoxime 200 mg tablet
200 mg PO BID 7 Days Qty: 14 0RF
azithromycin 500 mg tablet
500 mg PO DAILY 2 Days Qty: 2 0RF
No Action
diphenhydramine HCl [Banophen] 50 MG capsule
50 mg PO HS
benzonatate 100 MG capsule
200 mg PO Q8HPRN PRN (Reason: cough)
montelukast 10 MG tablet
10 mg PO QPM
hydrocortisone 10 MG tablet
10 mg PO DAILY@1300
Patient Comments:
06/19/2023: Pt states she takes the double the dose when she is sick
hydrocortisone 10 MG tablet
30 mg PO DAILY
Patient Comments:
06/19/2023: Pt states she takes the double the dose when she is sick
cranberry 500 MG capsule
930 mg PO DAILY
Align (B.infantis) 4 MG capsule
4 mg PO DAILY
multivitamin with folic acid [Tab-A-Jack] 1 TABLET tablet
1 tab PO QPM
riboflavin (vitamin B2) [Vitamin B-2] 100 MG tablet
400 mg PO DAILY
calcium carbonate [Antacid (calcium carbonate)] 1 TABLET tablet,chewable
2 tab PO Q4HPRN PRN (Reason: heartburn)
hydroxychloroquine 200 MG tablet
400 mg PO NOON
fluticasone propion-salmeterol [Advair HFA] 1 PUFF HFA aerosol inhaler
2 puff inhalation R BID
albuterol sulfate 1 PUFF HFA aerosol inhaler
2 puff inhalation R Q4HPRN PRN (Reason: sob/wheezing)
gabapentin 300 MG capsule
900 mg PO TID 0RF
acetaminophen [Tylenol Extra Strength] 500 MG tablet
1,000 mg PO Q8HPRN PRN (Reason: tension headache) Qty: 0 0RF
ondansetron 4 mg tablet,disintegrating
4 mg PO TIDPRN PRN (Reason: nausea/vomiting) Qty: 20 0RF
lorazepam 2 MG tablet
2 mg PO TID PRN (Reason: Anxiety)
Patient Comments:
06/19/2023: last filled 06/10/23, 120 tabs for 30 days from [facility]
methocarbamol 500 mg Tablet
1,500 mg PO Q8H
ibuprofen 800 mg Tablet
800 mg PO TID
quetiapine [Seroquel] 200 mg Tablet
200 mg PO HS
loperamide 2 mg Tablet
2 mg PO Q6H PRN (Reason: diarrhea)
ascorbic acid (vitamin C) [Vitamin C] 500 mg Tablet
500 mg PO BID
duloxetine [Cymbalta] 60 mg Capsule,Delayed Release(Dr/Ec)
60 mg PO BID
cholecalciferol (vitamin D3) [Vitamin D3] 25 mcg (1,000 unit) Tablet
175 mcg PO QPM
guaifenesin 600 mg Tablet Extended Release 12hr
600 mg PO Q12 2 Days Qty: 4 0RF
hydromorphone 2 mg Tablet
2 mg PO Q6HPRN PRN (Reason: severe breakthrough pain) Qty: 20 0RF
hydromorphone [Dilaudid] 2 mg tablet
2 mg PO Q6H PRN (Reason: Pain) Qty: 5 0RF
hydromorphone [Dilaudid] 2 mg tablet
2 mg PO Q6H PRN (Reason: severe pain) Qty: 5 0RF
cephalexin 500 mg capsule
500 mg PO BID 5 Days Qty: 10 0RF
Referrals:
UNKNOWN - PT DOES,NOT KNOW [Family Provider]
Activity Restrictions/Additional Instructions:
You came to the emergency department today with concerns of respiratory symptoms. You could have an early pneumonia. Please take the prescribed antibiotic and follow-up closely with your primary care doctor within the next week. Return
immediately for any worsening, new or concerning symptoms.
Interventions
Interventions:
*Risk Screen - Suicide Last Done: 08/13/24 20:14
*General Assessment Last Done: 08/13/24 20:14
*Neglect/Abuse Screening Last Done: 08/13/24 20:42
*ED- Fall Risk Assessment Last Done: 08/13/24 20:14
*ED COVID-19 Vaccine History Last Done: 08/13/24 20:14
ED- Cardiac Assessment Last Done: 08/13/24 20:39
ED- Pulmonary Assessment Last Done: 08/13/24 20:39
Discharge Date and Time
Print Language: IRANIAN
[2024-08-14] VITALS: BP 151/89
[2024-08-14 00:04] LABS: D-Dimer 0.45 ug/mlFEU (0.00-0.50)
[2024-08-14] MEDS: ZITHROMAX 500 MG PO (01:01)
[2024-08-14] MEDS: OMNICEF 300 MG PO (01:01)
== END 2024-08-14 01:12 | disposition home or self-care (01) ==
LOC: EMR 20:12
PROVIDERS: Physician Assistant; EMERGENCY PHYSICIAN Emergency Medicine
DX: J18.9 Pneumonia, unspecified organism (principal); M32.9 Systemic lupus erythematosus, unspecified; M79.7 Fibromyalgia; F41.9 Anxiety disorder, unspecified; J45.909 Unspecified asthma, uncomplicated; F42.9 Obsessive-compulsive disorder, unspecified; F43.10 Post-traumatic stress disorder, unspecified; F41.0 Panic disorder [episodic paroxysmal anxiety]; E27.40 Unspecified adrenocortical insufficiency; G43.909 Migraine, unspecified, not intractable, without status migrainosus; K90.0 Celiac disease; Z86.16 Personal history of COVID-19; Z91.51 Personal history of suicidal behavior; Z88.1 Allergy status to other antibiotic agents; Z88.5 Allergy status to narcotic agent; Z88.2 Allergy status to sulfonamides; Z88.8 Allergy status to other drugs, medicaments and biological substances; Z91.018 Allergy to other foods
CPT/HCPCS: 99284; 96360; 71046; 80053; 84484; 85025; 85379; 93005

== ENCOUNTER → 2024-09-19 15:33 | Outpatient (REF) | payer OTHER, SELFPAY | LOC: WDC 15:33 | PROVIDERS: ATTENDING PHYSICIAN Nurse Practitioner Family | DX: Z12.31 Encounter for screening mammogram for malignant neoplasm of breast (principal) | CPT/HCPCS: 77063; 77067 ==

== ENCOUNTER → 2024-09-30 09:28 | Outpatient (REF) | payer OTHER, SELFPAY ==
[2024-09-30 10:13] LABS: Hematocrit 36.8 % (37.0-47.0); Hemoglobin 12.4 g/dL (12.0-16.0); Mean Corp Hgb Conc. 33.7 g/dL (33.0-37.0); Mean Corpuscular Volume 101.4 fL (81.0-99.0); Nucleated Red Blood Cells % 0 %; Platelet Count 312 10^3/uL (130-400); Red Cell Dist. Width 13.2 % (11.5-14.5)
[2024-09-30 10:45] LABS: ALT (SGPT) 18 U/L (0-35); AST (SGOT) 22 U/L (14-36); Albumin 4.6 g/dl (3.5-5.0); Alkaline Phosphatase 53 U/L (38-126); Blood Urea Nitrogen 19 mg/dl (7-17); Calcium 9.5 mg/dl (8.4-10.2); Carbon Dioxide 27 mmol/L (22-30); Chloride 103 mmol/L (98-107); Glucose 93 mg/dl (70-99); Potassium 4.1 mmol/L (3.5-5.1); Sodium 139 mmol/L (135-145); Total Protein 6.8 g/dl (6.3-8.2); eGFR > 60.00
== END ==
LOC: REG 09:28
PROVIDERS: ATTENDING PHYSICIAN Nurse Practitioner Family
DX: G43.009 Migraine without aura, not intractable, without status migrainosus (principal); M06.09 Rheumatoid arthritis without rheumatoid factor, multiple sites; M32.9 Systemic lupus erythematosus, unspecified
CPT/HCPCS: 36415; 80053; 85025

== ENCOUNTER → 2024-09-30 10:37 | Outpatient (REF) | payer OTHER, SELFPAY | LOC: HWRAD 10:37 | PROVIDERS: ATTENDING PHYSICIAN Internal Medicine Critical Care Medicine; FAMILY PHYSICIAN Nurse Practitioner Family | DX: R91.8 Other nonspecific abnormal finding of lung field (principal) | CPT/HCPCS: 71250 ==

== ENCOUNTER 2024-10-25 17:43 | Inpatient (IN) | payer OTHER, SELFPAY ==
[2024-10-25] VITALS (7 sets, daily range): BP systolic 130–159; BP diastolic 82–102; BMI 32.9; BMI 34.3
[2024-10-25 14:48] LABS: Hematocrit 36.7 % (37.0-47.0); Hemoglobin 12.3 g/dL (12.0-16.0); Mean Corp Hgb Conc. 33.5 g/dL (33.0-37.0); Mean Corpuscular Volume 100.3 fL (81.0-99.0); Nucleated Red Blood Cells % 0 %; Platelet Count 367 10^3/uL (130-400); Red Cell Dist. Width 13.8 % (11.5-14.5)
[2024-10-25 14:58] LABS: ALT (SGPT) 33 U/L (0-35); AST (SGOT) 25 U/L (14-36); Albumin 4.3 g/dl (3.5-5.0); Alkaline Phosphatase 75 U/L (38-126); Blood Urea Nitrogen 22 mg/dl (7-17); Calcium 10.1 mg/dl (8.4-10.2); Carbon Dioxide 29 mmol/L (22-30); Chloride 102 mmol/L (98-107); Glucose 171 mg/dl (70-99); Potassium 3.2 mmol/L (3.5-5.1); Sodium 140 mmol/L (135-145); Total Protein 6.7 g/dl (6.3-8.2); eGFR > 60.00
[2024-10-25 15:04] LABS: INR 0.90; PT 12.5 Sec (11.4-14.6)
[2024-10-25 15:09] LABS: Troponin I < 0.012 ng/ml
--- NOTE | 2024-10-25 16:47 | ED.GENMED ---
History of Present Illness
General
Chief Complaint: Breathing Problem
Source: patient
Exam Limitations: none
Time Seen by Provider: 10/25/24 16:08
Nursing documentation reviewed up to this point in time: agreed with
History of Present Illness
History of Present Illness:
Patient to ED with complaint of increasing SOB. Symptoms started thursday. Denies fever/chills. reports fatigue. To ED via EMS for eval. Reports pulse ox at home in mid . Placed on 2L NC, now 95%
Past History
Past History
ED Past Medical History: Asthma, Fibromyalgia, Psychiatric (Anxiety, OCD, PTSD, Panic disorder) and Other (Adrenal insufficiency, migraine , Back and neck pains, Celiac disease, Cystitis, Lupus)
ED Past Surgical History: , Gynecological (D&C with ablation, ) and Tonsilectomy
Social History
Tobacco: Non-smoker
Alcohol: None
Drug: None
Personal:
Living: with family
Employment: Disabled
Family History
Family History: Other (Noncontributory)
Review of Systems
Review of Systems
Allergies reviewed?: Yes
All Other Systems: ROS reviewed and negative except as documented in HPI and ROS
Constitutional: Reports fatigue
EENT: Reports no symptoms
Respiratory: Reports trouble breathing
Cardiac: Reports no symptoms
ABD/GI: Reports no symptoms
: Reports no symptoms
Musculoskeletal: Reports no symptoms
Skin: Reports no symptoms
Neurological: Reports weakness
Psychiatric: Reports no symptoms
Phy Exam
General Physical Exam
General Presentation: mild distress
General age: appears stated age
General Skin: warm and dry
General Habitus: normal
General Mental: alert
Cardiovascular Exam
Cardiovascular Exam: regular rate/rhythm
Pulmonary Exam
Pulmonary Exam: chest non tender and no cough
Oxygen Status: oxygen 2 liters via NC
Breath Sounds: Crackles: left lower
Gastrointestinal Exam
Gastrointestinal Exam: normal bowel sounds, non tender and soft
Neurological Exam
Neurological Exam: alert and oriented x3
Musculoskeletal Exam
Musculoskeletal Exam: full ROM, edema (+1 BLE) and neuro vasc intact
Skin Exam
Skin Exam: normal color, warm/dry and no rash
Psychiatric Exam
Psychiatric Exam: normal mood/affect
Scores
Heart Failure Risk
Heart Failure Risk Score: Not Applicable
Course
Orders/Labs/Results
Orders:
Orders
10/25/24 Breakfast
Regular
At Your Request: Full Participation
10/25/24 14:30
EKG [Electrocardiogram (*1)] Urgent
Reason for Study: Shortness of Breath
EKG- Treatment ONCE
CR Chest - 2 Views Urgent
Comment:
Reason For Exam: SOB
10/25/24 14:36
Complete Blood Count/With Diff Urgent
Comprehensive Metabolic Panel Urgent
Prothrombin Time Urgent
Troponin I Urgent
10/25/24 16:43
Cefepime HCl [Maxipime] 2,000 mg IV NOW STA
10/25/24 16:47
Lorazepam [Ativan] 2 mg PO NOW STA
10/25/24 17:12
COVID-19 Antigen Stat
Source: Nasal Swab
Influenza A+B Rapid Molecular Stat
CHELY Source: Nasal Swab
Specimen Description:
10/25/24 17:27
Admit/Transfer Patient As Directed
Co-Sign Provider:
Level of Care: Inpatient admission
Assign to:: Telemetry
Physician / Group: marissa keller
Diagnosis: acutehypoxic respiratory failure/pneumonia
Reason for Telemetry: Arrhythmia
Date to Stop Telemetry: 10/28/24
Time to Stop Telemetry: 11:00
Reason for Hospitalization: acute hypoxia
pneumonia
Expected length of stay greater than two midnights?: Yes
ELOS- Estimated Length of Stay in days: 3
I certify the patient meets the requirements for IP care: Yes
PRN Pain Medication Management As Directed
May give lesser potent ordered pain med per pt: Yes
preference::
Protocol:: Medication orders for pain may be administered in a
manner that supports deferring to patient preference
when the pt is:
- Requesting an ordered lesser potent pain medication.
Least to most potent pain medications are defined
as: acetaminophen < NSAID < tramadol < opioids
(morphine, oxycodone, hydromorphone).
- Requesting a lesser dose of the same medication IF
ORDERED.
- Requesting a less intrusive route of administration
if both routes are prescribed by the provider (PO <
IV).
10/25/24 17:29
Code Status As Directed
Resuscitation Status: Full Code
10/25/24 17:31
Potassium Chloride 10% Elixir [KCl Elixir] 40 meq PO NOW STA
10/25/24 20:27
Acetaminophen [Tylenol] 650 mg PO Q4HPRN PRN
Ipratropium/Albuterol Sulfate [Duoneb] 3 ml INH R Q4HPRN PRN
Montelukast Sodium [Singulair] 10 mg PO QPM
10/25/24 20:27
Legionella Urinary Antigen Routine
CHELY Source: Urine
Specimen Description:
Respiratory Culture/Gram Stain Urgent
CHELY Source: Sputum
Specimen Description:
Strep pneumoniae Antigen Routine
CHELY Source: Urine
Specimen Description:
Activity As Directed
Activity Level: Out of Bed-Early Mobility
Intake/ Output As Directed
Frequency: Per unit guidelines
Vital Signs As Directed
Frequency: Per unit guidelines
Weight As Directed
Frequency: Once
Comment: on admission
O2 Therapy [RESP] Routine
Titrate/Wean O2 to maintain O2 sat greater than (%): 95
Special Instructions: Wean as tolerated
Pt Eval And Treat Routine
Activity Level: As Tolerated
DX Deep Vein Thrombosis Video Routine
10/25/24 21:15
Duloxetine Delayed Release [Cymbalta Delayed Release] 60 mg PO BID@0800,1300
Enoxaparin Sodium [Lovenox] 40 mg SC QPM
Guaifenesin [Mucinex] 600 mg PO Q12
10/25/24 22:00
Lorazepam [Ativan] 2 mg PO QID
Quetiapine Fumarate [Seroquel] 400 mg PO HS
10/26/24 00:00
Cefepime HCl [Maxipime] 1,000 mg IV Q6H
Methocarbamol 1,500 mg PO Q8
10/26/24 06:00
Basic Metabolic Panel IN AM
Complete Blood Count/No Diff IN AM
10/26/24 08:00
Hydrocortisone [Cortef] 30 mg PO DAILY
riboflavin (vitamin B2) [Vitamin B-2] 400 mg PO DAILY
10/26/24 12:00
Hydroxychloroquine [Plaquenil] 400 mg PO NOON
10/26/24 13:00
Hydrocortisone [Cortef] 10 mg PO DAILY@1300
10/27/24 06:00
Basic Metabolic Panel IN AM
Complete Blood Count/No Diff IN AM
10/28/24 06:00
Basic Metabolic Panel IN AM
Complete Blood Count/No Diff IN AM
10/28/24 11:00
DC Protocol for Telemetry ONCE
10/29/24 06:00
Basic Metabolic Panel IN AM
Complete Blood Count/No Diff IN AM
Abnormal Lab Results
10/25/24
14:36
WBC 18.3 H 10^3/uL
(4.8-10.8)
RBC 3.66 L 10^6/uL
(4.20-5.40)
Hct 36.7 L %
(37.0-47.0)
MCV 100.3 H fL
(81.0-99.0)
MCH 33.6 H pg
(27.0-31.0)
Abs Immat Gran (auto) 0.5 H 10^3/uL
(0-0.05)
Absolute Neuts (auto) 15.8 H 10^3/uL
(1.4-6.5)
Absolute Lymphs (auto) 0.9 L 10^3/uL
(1.2-3.4)
Absolute Monos (auto) 0.8 H 10^3/uL
(0.1-0.6)
Immature Gran % 2.6 H %
(0-0.5)
Neutrophils % 86.2 H %
(42.2-75.2)
Lymphocytes % 4.9 L %
(20.5-51.1)
Potassium 3.2 L mmol/L
(3.5-5.1)
BUN 22 H mg/dl
(7-17)
Glucose 171 H mg/dl
(70-99)
10/25/24 14:36
10/25/24 14:36
Vital Signs
Initial and Last Documented VS:
Initial Vital Signs
Temp Pulse Resp BP Pulse Ox
97.8 F 113 17 134/83 90
10/25/24 14:27 10/25/24 14:27 10/25/24 14:27 10/25/24 14:27 10/25/24 14:27
Last Documented Vital Signs
Temp Pulse Resp BP Pulse Ox
97.7 F 103 20 159/102 97
10/25/24 20:48 10/25/24 20:48 10/25/24 20:48 10/25/24 20:48 10/25/24 20:48
*Radiology
Radiology exam reviewed: radiology read reviewed
*Pulse Oximetry
SaO2: 95
Nasal Cannula flow liters per minute: 2
Oxygen Mode of Delivery: Room air
Patient hypoxic: yes (Mid 80's on RA. Placed on 2LNC, now 95%)
*Critical Care Note
Total Time (30-74mins, 75-104mins- exclusive of procedures): Not Applicable
Update Note
Update Note:
Patient to ED with complaint of increasing SOB since thursday. No fever/chills. Reports pulse ox in mid 80's on RA. Placed on 2LNC by ems and she is now maintaining at 96%. WBC 18.3, CXR with opacities/pneumonialeft airspace. Placed on cefepime in
ED. WIll admit to hospitalist service.
ED Attending Note
-
Portions of this chart may have been created with voice recognition software.� Occasional wrong word or��sound alike� substitutions may have occurred due to the inherent limitations of voice recognition software.
Discharge Plan
Departure
Patient Disposition: Admit
Date of Disposition: 10/25/24
Time of Disposition: 16:57
Presentation/result/management discussed w/ accepting MD/DO: Hospitalist
Patient with high blood pressure during this ER visit?: No
Condition: Fair
Covid-19: Not Applicable
Discharge Problem:
Pneumonia
Interventions
Interventions:
*Risk Screen - Suicide Last Done: 10/25/24 14:29
*General Assessment Last Done: 10/25/24 14:29
*Neglect/Abuse Screening Last Done: 10/25/24 14:29
*ED- Fall Risk Assessment Last Done: 10/25/24 16:27
*ED COVID-19 Vaccine History Last Done: 10/25/24 14:29
*Nursing Disposition Last Done: 10/25/24 20:26
ED- Cardiac Assessment Last Done: 10/25/24 16:26
ED- Pulmonary Assessment Last Done: 10/25/24 16:26
Discharge Date and Time
Discharge Date/Time: 10/25/24 20:25
[2024-10-25] MEDS: ATIVAN 2 MG PO ×2 (16:55→21:39)
[2024-10-25] MEDS: MAXIPIME 2000 MG IV (16:55)
--- NOTE | 2024-10-25 17:00 | HPS.HSE ---
Family Physician
-
Family Physician: DAVID Bhardwaj
Chief Complaint
-
sob
History of Present Illness
54-year-old with past medical history for [place]'s disease, adrenal insufficiency, anxiety with panic attacks, asthma, depression, fibromyalgia, migraines presented as with worsening shortness of breath since Thursday night. Patient stated short of
breath worse with exertion .her oxygen level was 88 at home. Patient complained of dry cough .she felt congested .she complained of fatigue and weak. She complained of being dizzy. Denied fever chills .patient denied any syncope .patient denied
any chest pain .patient denied any abdominal pain, nausea, vomiting or diarrhea. Patient denied dysuria hematuria.
Upon arrival patient is requiring 2 L of oxygen. Chest x-ray with pneumonia. Patient received a dose of cefepime, Ativan in the ER. Admitting for further manage
Medical History
Past Medical History
Past Medical History: Reports Other
Additional Past Medical History:
Anxiety
Rheumatoid arthritis
Asthma
Depression
Systemic lupus
Pulmonary nodules
Fibromyalgia
Osteoporosis
IBS
Adrenal insufficiency
IgG deficiency
GERD
Posttraumatic stress disorder
lars disease
Past Surgical History: Reports Other
Additional Past Surgical History:
Tonsillectomy and adenoidectomy
[place] teeth extraction
Social History
Tobacco: Non-smoker
Alcohol: None
Drug: None
Living: With Family
Family History
Family History: Not pertinent
Allergies / Home Medications
Allergies reflects when Allergies were last updated in [facility].
Home Medications with original date entered in [facility]
Allergy/Medication List:
Allergies
Allergy/AdvReac Type Severity Reaction Status Date / Time
ciprofloxacin (From Cipro) Allergy Rash Verified 10/25/24 14:31
haloperidol (From Haldol) Allergy Unknown Verified 10/25/24 14:31
hydrocodone bitartrate (From Allergy Itching Verified 10/25/24 14:31
Lorcet 10/650)
metoclopramide (From Reglan) Allergy Swelling Verified 10/25/24 14:31
prednisone (Prednisone) Allergy Itching Verified 10/25/24 14:31
prochlorperazine (From Allergy Unknown Verified 10/25/24 14:31
Compazine)
propoxyphene napsylate (From Allergy Itching Verified 10/25/24 14:31
Darvocet-N 100)
red dye Allergy Itching Verified 10/25/24 14:31
Serotonin 5HT-3 Antagonists Allergy Vomiting Verified 10/25/24 14:31
sulfamethoxazole (From Allergy Rash Verified 10/25/24 14:31
Bactrim)
sulfanilamide Allergy Rash Verified 10/25/24 14:31
Tricyclic Antidepressants Allergy Vomiting Verified 10/25/24 14:31
and Tricy
trimethoprim (From Bactrim) Allergy Rash Verified 10/25/24 14:31
wheat Allergy Vomiting Verified 10/25/24 14:31
nitrofurantoin (From AdvReac Vomitting Verified 10/25/24 14:31
Macrobid)
promethazine (From Phenergan) AdvReac Dizziness Verified 10/25/24 14:31
Home Medications
Bifidobacterium infantis 4 mg capsule (Align (B.infantis)) 4 mg PO DAILY Probiotic supplement 09/28/17
benzonatate 100 mg capsule 200 mg PO Q8HPRN PRN cough 09/28/17
cranberry 500 mg capsule 930 mg PO DAILY Supplement 09/28/17
hydrocortisone 10 mg tablet 10 mg PO DAILY@1300 adrenal insufficiency 09/28/17
hydrocortisone 10 mg tablet 30 mg PO DAILY adrenal insufficiency 09/28/17
montelukast 10 mg tablet 10 mg PO QPM Allergy 09/28/17
riboflavin (vitamin B2) 100 mg tablet (Vitamin B-2) 400 mg PO DAILY Supplement 11/30/17
calcium carbonate (Antacid (calcium carbonate)) 2 tab PO Q4HPRN PRN heartburn 04/24/21
hydroxychloroquine 200 mg tablet 400 mg PO NOON Lupus/rheumatoid arthritis 04/24/21
acetaminophen 500 mg tablet (Tylenol Extra Strength) 1,000 mg (2 x 500 mg) PO Q8HPRN PRN tension headache ##0 04/26/21
ondansetron 4 mg disintegrating tablet 4 mg PO TIDPRN PRN nausea/vomiting #20 tabs 04/05/22
ascorbic acid (vitamin C) 500 mg tablet (Vitamin C) 500 mg PO BID Supplement 05/15/23
cholecalciferol (vitamin D3) 25 mcg (1,000 unit) tablet (Vitamin D3) 175 mcg PO QPM Supplement 05/15/23
duloxetine 60 mg capsule,delayed release (Cymbalta) 60 mg PO BID Fibromyalgia 05/15/23
ibuprofen 800 mg tablet 800 mg PO TID Pain 05/15/23
loperamide 2 mg tablet 2 mg PO Q6H PRN diarrhea 05/15/23
lorazepam 2 mg tablet 2 mg PO QID 05/15/23
methocarbamol 500 mg tablet 1,500 mg PO Q8H Lupus/RA/Fibromyalgia 05/15/23
quetiapine 200 mg tablet (Seroquel) 400 mg PO HS Mental Health/Anxiety 05/15/23
albuterol sulfate 90 mcg/actuation aerosol inhaler (Ventolin HFA) 2 puff inhalation Q4H PRN sob/wheezing 10/25/24
fluticasone propionate 115 mcg-salmeterol 21 mcg/actuation HFA inhaler (Advair HFA) 2 puff inhalation BID 10/25/24
tiotropium bromide 1.25 mcg/actuation mist for inhalation (Spiriva Respimat) 2 puff inhalation DAILY 10/25/24
Review of Systems
-
Constitutional: Reports No Symptoms and Fatigue
EENT: Reports Runny Nose
Respiratory: Reports Cough and Trouble Breathing
Cardiac: Reports No Symptoms
Abdomen/GI: Reports No Symptoms
: Reports No Symptoms
Musculoskeletal: Reports No Symptoms
Skin: Reports No Symptoms
Neurological: Reports No Symptoms
Endocrine: Reports No Symptoms
Hematologic/Lymphatic: Reports No Symptoms
Psych: Reports No Symptoms
Physical Exam
Vital Signs
Vital Signs
Temp Pulse Resp BP Pulse Ox
97.8 F 110 27 156/86 95
10/25/24 14:27 10/25/24 16:22 10/25/24 16:22 10/25/24 16:22 10/25/24 16:51
Physical Exam
General: Well Developed, Well Nourished and No Apparent Distress
HEENT: NormoCephalic, Moist mucous membranes and Atraumatic
Respiratory: Clear
Cardiac: S1/S2 and Regular Rhythm; No Murmur or Rub
GI: Soft, Non Tender, Non Distended and Normal Bowel Sounds; No Organomegaly
Rectal: Deferred by Provider
Musculoskeletal: No Clubbing, No Cyanosis and No Edema
Skin: No Rash
Neuro: AO x 3 and Nonfocal/grossly intact
Psych: Calm
Laboratory Results
-
10/25/24 14:36
10/25/24 14:36
Laboratory Results
PT 12.5 Sec (11.4-14.6) 10/25/24 14:36
INR 0.90 10/25/24 14:36
Total Bilirubin 0.6 mg/dl (0.2-1.3) 10/25/24 14:36
AST 25 U/L (14-36) 10/25/24 14:36
ALT 33 U/L (0-35) 10/25/24 14:36
Alkaline Phosphatase 75 U/L (38-126) 10/25/24 14:36
Troponin I < 0.012 ng/ml 10/25/24 14:36
Data Reviewed
-
Diagnostic Radiology: Report Reviewed by me
Lab Data: Labs Reviewed by me
Impression/Plan
-
# Sepsis secondary to pneumonia
#Acute hypoxic respiratory failure secondary to pneumonia
- WBC 18.3, tachycardia
- Chest x-ray with impression of the left lung as base as edema suspicious for pneumonia
- Patient is requiring 2 L of oxygen, continue supplemental oxygen to keep sats at the 95, wean as tolerated
- Nebs as needed for short of breath and wheezing
- IV cefepime continue
- Mucinex for cough
-urine legionella, strep pneumoniae
-covid flu pending.
# Hypokalemia likely from poor appetite
- K3.0
- Oral KCl in the ER
-BMP in the morning
#Adrenal insufficiency/Lars's disease
- Hydrocortisone from home continued
#Asthma - No acute exacerbation
- Nebs continue
- duonebs prn
- montelukast
#Fibromyalgia/lupus/rheumatoid arthritis
- Hydroxychloroquine, methocarbamol continued
#History of anxiety/PTSD
-Seroquel continued
DVT PPX - Lovenox sq
Code status - Full Code
--- NOTE | 2024-10-25 17:02 | W.PN.UPDATE ---
Update Note
Progress Note Update
This note serves as an addendum to the H&P by layout designer GARYheba ZAIDA�
HPI
54F Adrenal Insufficiency, Lupus, Asthma, Chronic narcotic depedent Pain, Fibromyalgia, anxiety seen at ER:
- bib EMS
- increasing SOB.
- Symptoms started Thursday.
- Reports pulse ox at home in mid 's. Placed on 2L NC, now 95%
ROS:
Denies fever/chills.
reports fatigue.
Relevant VS
Temp Pulse Resp BP Pulse Ox
97.8 F 110 27 156/86 95
10/25/24 14:27 10/25/24 16:22 10/25/24 16:22 10/25/24 16:22 10/25/24 16:51
PE
Gen: Not toxic , Obese
HEENT: anicterics , wearing sun glasses in the dark room
Neck: supple
Lungs: CTA. no wheeze
Cor: RRR S1 S2
Abdomen:�benign exam
DIRECTOR CLINICAL DATA: AAO3 NFND
Skin: pale complexion
MS:no edema
Psych: appropriate
Relevant Data
10/25/24
14:36
WBC 18.3 H
MCV 100.3 H
Immature Gran % 2.6 H
Neutrophils % 86.2 H
Potassium 3.2 L
BUN 22 H
Creatinine 1.0
eGFR > 60.00
Glucose 171 H
CXR
Left lung airspace opacity, most suspicious for pneumonia.
Last hospitalist admission: Date of Admission: 04/28/24 - Date of Discharge: 05/01/24
DC Dx
Symptomatic Cholelithiasis, Acute Cholecystitis - Status Post Laparoscopic cholecystectomy
Acute Liver Injury resolving
ASSESSMENT & PLAN
Sepsis ( HR > 90, RR> 20 WCC >10) due to PNA
L sided PNA presumed CAP
Associated with acute hypoxic RF requires 2 L NC O2
Chronic steroid dependent adrenal insufficiency
So far hemodynamically stable
- Pending Covid and influenza
- Agree with IV CFP
- If hemodynamically become unstable, would initiate give stress dose IV hydrocortisone
HX Adrenal insufficiency
Hypokalemia
- on [employer] hydrocortisone 30am 10 noon
- KCL PO 40 x1
HX Asthma
- No acute flare
- on [employer] tiotropium, Advair
- Duo nebs prn
- on [employer] montelukast
Fibromyalgia
HX anxiety on Lorazepam qid
Lupus HX
- on [employer] Plaquenil
DVT Px: LMWH
Full code
IP TLM
[2024-10-25 17:35] LABS: COVID-19 Antigen Negative (Negative)
[2024-10-25] MEDS: KCL ELIXIR 40 MEQ PO (17:36)
--- NOTE | 2024-10-25 18:19 | CM ---
CM reviewed chart and met with pt bedside in ED. Lives with her mother and daughter in 1 story home, no CARLOS. Independent in ADLs, personal care and ambulation at baseline. Does not use assistive device in home, uses cane or RW when outside home.
Confirms prescription coverage.
No hx VN or SNF.
PCP: Oksana Lazo
Pharmacy: [address]
CM will continue to follow for all discharge planning needs.
[2024-10-25] MEDS: LOVENOX 40 MG SC (21:38)
[2024-10-25] MEDS: SEROQUEL 400 MG PO (21:39)
[2024-10-25] MEDS: SINGULAIR 10 MG PO (21:40)
[2024-10-25] MEDS: MUCINEX 600 MG PO (21:40)
[2024-10-25] MEDS: CYMBALTA DELAYED RELEASE 60 MG PO (21:40)
--- NOTE | 2024-10-25 23:03 | TRANSFER ---
Pt transferred to 3W from ED via stretcher. Pt ambulated to hospital bed without ambulatory aid. Pt on 2L O2. AAOx3, Pt oriented to room, call avila within reach, plan of care ongoing.
[2024-10-26] VITALS (7 sets, daily range): BP systolic 140–178; BP diastolic 89–110; PULSE 97; O2SAT 96
[2024-10-26] MEDS: METHOCARBAMOL 1500 MG PO ×4 (00:10→23:09)
[2024-10-26] MEDS: STERILE WATER FOR INJECTION 10 ML IV ×3 (00:10→12:51)
[2024-10-26] MEDS: MAXIPIME 1000 MG IV ×2 (00:11→06:36)
--- NOTE | 2024-10-26 04:52 | DOWNTIME ---
There was a [employer] Downtime on 10/26/2024 from 0100 to 10/26/2024 at 0235. Downtime documentation of patient's care, including medication administrations, has been reconciled in the electronic record per guidelines. Refer to the
patient's paper chart under the miscellaneous tab to see printed paper medication records and downtime forms.
--- NOTE | 2024-10-26 07:11 | W.PN.HOSP.TC ---
Today's Communication/Plan
-
Continue IV abx. change cefepime to cftrx, add doxy
wean supplemental o2 as tolerated
check BC
Assessment / Plan
Assessment / Plan
54-year-old with past medical history for [place]'s disease, adrenal insufficiency, anxiety with panic attacks, asthma, depression, fibromyalgia, migraines presented as with worsening shortness of breath
# Sepsis secondary to pneumonia
#Acute hypoxic respiratory failure secondary to pneumonia
- WBC 18.3---13.4
- Some improvement in tachycardia
- Initial chest x-ray with impression of the left lung as base as edema suspicious for pneumonia
- Patient continues to require 2 L of oxygen, continue supplemental oxygen to keep sats at the 95, wean as tolerated
- Nebs as needed for short of breath and wheezing
- Continue IV abx: change cefepime to cftrx, add doxy
- Mucinex for cough
- urine legionella, strep pneumoniae pending
- covid flu negative
- check BC
If hemodynamically become unstable, would initiate give stress dose IV hydrocortisone
# Hypokalemia likely from poor appetite
- Initial K3.0;; repeat 3.7
- Oral KCl in the ER
#Adrenal insufficiency/[place]'s disease
- Hydrocortisone from home continued
#Asthma - No acute exacerbation
- Nebs continue
- duonebs prn
- montelukast
#Fibromyalgia/lupus/rheumatoid arthritis
- Hydroxychloroquine, methocarbamol continued
#History of anxiety/PTSD
-Seroquel continued
DVT PPX - Lovenox sq
Code status - Full Code
Anticipated Discharge: Within 24 hours
Subjective/Interval History
-
Date of Service: October 26, 2024
Seen and examined at bedside. Afebrile. tachycardic. O2 sat of 95% on 2 L. Continues to have cough as well as some exertional dyspnea.
Objective Data
-
Labs:
Laboratory Results
10/26/24
06:00
WBC Pending
Hgb Pending
Hct Pending
Plt Count Pending
Sodium Pending
Potassium Pending
Chloride Pending
Carbon Dioxide Pending
BUN Pending
Creatinine Pending
Glucose Pending
Calcium Pending
Vital Signs:
Vital Signs
Temp Pulse Resp BP Pulse Ox
97.6 F 98 16 145/90 95
10/26/24 03:35 10/26/24 03:35 10/26/24 03:35 10/26/24 03:35 10/26/24 03:35
I&O
10/25/24 10/26/24 10/27/24
06:59 06:59 06:59
Intake Total 480 / 480
Balance 480 / 480
Review of Systems
-
All other systems: Reviewed and negative (Except documented)
Respiratory: Reports Cough and Trouble Breathing
Physical Exam
-
General: Well Developed, No Apparent Distress and Comfortable
HEENT: Normocephalic
Respiratory: Crackles (Left lower lobe)
Cardiac: Regular Rhythm and S1/S2
GI: Soft and Nontender
Skin: Warm and Dry
Neuro: Awake, Alert and Oriented
Psych: Calm
Data Reviewed
-
Diagnostic Radiology: Report Reviewed by me
Labs: Labs Reviewed by me, Discussed with Physician and Discussed with Patient
[2024-10-26 07:52] LABS: Hematocrit 33.9 % (37.0-47.0); Hemoglobin 11.3 g/dL (12.0-16.0); Mean Corp Hgb Conc. 33.3 g/dL (33.0-37.0); Mean Corpuscular Volume 101.8 fL (81.0-99.0); Platelet Count 361 10^3/uL (130-400); Red Cell Dist. Width 13.7 % (11.5-14.5)
[2024-10-26] MEDS: CORTEF 30 MG PO (08:18)
[2024-10-26] MEDS: MUCINEX 600 MG PO (08:19)
[2024-10-26] MEDS: CYMBALTA DELAYED RELEASE 60 MG PO ×2 (08:19→12:50)
[2024-10-26] MEDS: ATIVAN 2 MG PO ×4 (08:19→23:10)
[2024-10-26 08:23] LABS: Blood Urea Nitrogen 19 mg/dl (7-17); Calcium 9.2 mg/dl (8.4-10.2); Carbon Dioxide 31 mmol/L (22-30); Chloride 104 mmol/L (98-107); Estimated Creatinine Clearance 99 ml/min; Glucose 83 mg/dl (70-99); Potassium 3.7 mmol/L (3.5-5.1); Sodium 141 mmol/L (135-145); eGFR > 60.00
[2024-10-26] MEDS: VIBRAMYCIN 100 MG PO ×2 (12:50→20:05)
[2024-10-26] MEDS: ROCEPHIN 1000 MG IV (12:51)
[2024-10-26] MEDS: CORTEF 10 MG PO (12:54)
[2024-10-26] MEDS: PLAQUENIL 400 MG PO (12:54)
[2024-10-26] MEDS: NEURONTIN 900 MG PO ×2 (15:48→23:10)
[2024-10-26] MEDS: LOVENOX 40 MG SC (17:25)
[2024-10-26] MEDS: SINGULAIR 10 MG PO (17:25)
[2024-10-26] MEDS: MUCINEX 1200 MG PO (20:05)
[2024-10-26] MEDS: TYLENOL 650 MG PO (20:53)
[2024-10-26] MEDS: SEROQUEL 400 MG PO (23:10)
[2024-10-27 03:15] VITALS: BP 116/71
[2024-10-27 07:00] VITALS: BP 143/88
--- NOTE | 2024-10-27 07:27 | W.PN.HOSP.TC ---
Today's Communication/Plan
-
Continue antibiotics to complete total course of 7 days. Will transition to Augmentin p.o. and continue Doxy upon discharge
Wean supplemental O2 as tolerated to keep oxygen saturation > 90%
Assessment / Plan
Assessment / Plan
54-year-old with past medical history for [place]'s disease, adrenal insufficiency, anxiety with panic attacks, asthma, depression, fibromyalgia, migraines presented as with worsening shortness of breath
# Sepsis secondary to community-acquired pneumonia
#Acute hypoxic respiratory insufficiency secondary to pneumonia
- Leukocytosis resolved
- Intermittent tachycardia
- Initial chest x-ray with impression of the left lung as base as edema suspicious for pneumonia
- Patient currently on 1 L supplemental O2 via nasal cannula, wean as tolerated
- Nebs as needed for short of breath and wheezing
- Continue IV abx: Ceftriaxone (day 2; overall day 3), add doxy (day 2); transition to Augmentin and continue Doxy upon discharge to complete total of 7 days.
- Mucinex for cough
- urine legionella, strep pneumoniae negative
- covid flu negative
- Blood culture pending
If hemodynamically become unstable, would initiate give stress dose IV hydrocortisone
# Hypokalemia likely from poor appetite
- Initial K3.0;; repeat 3.7
- Oral KCl in the ER
#Adrenal insufficiency/[place]'s disease
- Hydrocortisone from home continued
#Asthma - No acute exacerbation
- Nebs continue
- duonebs prn
- montelukast
#Fibromyalgia/lupus/rheumatoid arthritis
- Hydroxychloroquine, methocarbamol continued
#History of anxiety/PTSD
-Seroquel continued
DVT PPX - Lovenox sq
Code status - Full Code
Anticipated Discharge: Today
Subjective/Interval History
-
Date of Service: October 27, 2024
Seen and examined at bedside. Patient feeling significant improvement since yesterday. Offers no new complaints. AFVSS.
Objective Data
-
Labs:
Laboratory Results
10/27/24
06:00
WBC Pending
Hgb Pending
Hct Pending
Plt Count Pending
Sodium Pending
Potassium Pending
Chloride Pending
Carbon Dioxide Pending
BUN Pending
Creatinine Pending
Glucose Pending
Calcium Pending
Vital Signs:
Vital Signs
Temp Pulse Resp BP Pulse Ox
97.8 F 90 14 116/71 93
10/27/24 03:15 10/27/24 03:15 10/27/24 03:15 10/27/24 03:15 10/27/24 03:15
I&O
10/26/24 10/27/24 10/28/24
06:59 06:59 06:59
Intake Total 480 / 480 980 / 980
Balance 480 / 480 980 / 980
Review of Systems
-
All other systems: Reviewed and negative (Except documented)
Respiratory: Reports Cough
Physical Exam
-
General: Well Developed, No Apparent Distress and Comfortable
HEENT: Normocephalic
Respiratory: Crackles
Cardiac: Regular Rhythm and S1/S2
GI: Soft and Nontender
Skin: Warm and Dry
Neuro: Awake, Alert and Oriented
Psych: Calm
Data Reviewed
-
Labs: Labs Reviewed by me, Discussed with Physician and Discussed with Patient
[2024-10-27 07:46] LABS: Hematocrit 35.2 % (37.0-47.0); Hemoglobin 11.9 g/dL (12.0-16.0); Mean Corp Hgb Conc. 33.8 g/dL (33.0-37.0); Mean Corpuscular Volume 100.6 fL (81.0-99.0); Platelet Count 369 10^3/uL (130-400); Red Cell Dist. Width 13.4 % (11.5-14.5)
[2024-10-27] MEDS: CORTEF 30 MG PO (09:03)
[2024-10-27] MEDS: VIBRAMYCIN 100 MG PO (09:03)
[2024-10-27] MEDS: NEURONTIN 900 MG PO ×2 (09:03→15:49)
[2024-10-27] MEDS: METHOCARBAMOL 1500 MG PO ×2 (09:04→15:49)
[2024-10-27] MEDS: CYMBALTA DELAYED RELEASE 60 MG PO ×2 (09:04→12:28)
[2024-10-27] MEDS: MUCINEX 1200 MG PO (09:04)
[2024-10-27] MEDS: ATIVAN 2 MG PO ×2 (09:05→12:28)
[2024-10-27] MEDS: TYLENOL 650 MG PO (09:07)
--- NOTE | 2024-10-27 10:02 | CM ---
Addendum entered by Nicho Wiseman 10/27/24 15:20:
Poss d/c today if patient is feeling better and off O2
IMM verbally reviewed, copy provided, copy on chart
Original Note:
Chart reviewed. Care ongoing.
IV abx. Cont to wean O2.
Therapy rec home PT. Discussed w/ patient who declined at this time.
Plan: Home, no needs when stable
--- NOTE | 2024-10-27 10:39 | PTCARENOTE ---
Pt complained of MELENDEZ- prn tylenol administered. Pt sating 96% on 1L O2. MD ordered to trial off O2. sat 90% on RA. pt remains on 1L O2 at this time. Will continue to monitor.
[2024-10-27 11:00] VITALS: BP 145/83
[2024-10-27 11:56] LABS: Blood Urea Nitrogen 17 mg/dl (7-17); Calcium 9.3 mg/dl (8.4-10.2); Carbon Dioxide 35 mmol/L (22-30); Chloride 101 mmol/L (98-107); Estimated Creatinine Clearance 99 ml/min; Glucose 110 mg/dl (70-99); Potassium 3.4 mmol/L (3.5-5.1); Sodium 140 mmol/L (135-145); eGFR > 60.00
[2024-10-27] MEDS: PLAQUENIL 400 MG PO (12:28)
[2024-10-27] MEDS: CORTEF 10 MG PO (12:28)
[2024-10-27] MEDS: STERILE WATER FOR INJECTION 10 ML IV (12:29)
[2024-10-27] MEDS: ROCEPHIN 1000 MG IV (12:29)
[2024-10-27] MEDS: LR 500 IV (12:31)
[2024-10-27] MEDS: FLUSH (NSS) 1 FLUSH IV ×2 (12:32)
[2024-10-27 13:39] VITALS: BP 160/93; PULSE 88; O2SAT 92
[2024-10-27 15:04] VITALS: BP 164/99
--- NOTE | 2024-10-27 18:12 | W.DCSUMMARY ---
Documented by User: Cristobal Perez MD, Resident 10/27/24 18:23
Discharge Summary
Discharge Data
Date of Admission: 10/25/24
Date of Discharge: 10/27/24
-
Pending Results: No
Hospital Course
Discharging Physician : Cristobal Perez MD ; Ede Cuadra DO
Disposition : Home
Primary care physician : Oksana Lazo
Principal Discharge diagnosis : Sepsis secondary to community-acquired pneumonia, acute hypoxic respiratory insufficiency secondary to pneumonia
Chronic Discharge diagnosis : Adrenal insufficiency/Rutland's disease, asthma, fibromyalgia/lupus/rheumatoid arthritis, history of anxiety/PTSD
Hospital Course : 54-year-old with past medical history for Rutland's disease, adrenal insufficiency, anxiety with panic attacks, asthma, depression, fibromyalgia, migraines presented as with worsening shortness of breath.
1- Sepsis secondary to community-acquired pneumonia; Acute hypoxic respiratory insufficiency secondary to pneumonia
Initial evaluation showed that patient met SIRS criteria including leukocytosis, tachycardia and tachypnea. Chest x-ray was positive for pneumonia as shown below. She was also requiring supplemental O2 which was later weaned off. Received
nebulizer treatment. Initially she was started on IV cefepime which she had for 1 day and then she was switched to IV ceftriaxone and doxycycline was added leukocytosis resolved. Antibiotics were transitioned to oral antibiotics including
Augmentin continuation of doxycycline. Prescription was sent to the pharmacy. Additional testing including COVID, flu, urine Legionella, strep pneumonia were negative. She received Mucinex for cough. Blood cultures were also obtained however
they remain negative during her stay at the hospital.
2-Hypokalemia likely from poor appetite
It was repleted and periodic repeat testing showed normal potassium levels.
3-Adrenal insufficiency/Lars's disease
Continued on home dose of hydrocortisone
Her other chronic medication for asthma, fibromyalgia and anxiety were also continued during the hospital stay.
Patient felt significant girlfriend after starting on the IV antibiotics. Her breathing also improved resulted in weaning off from supplemental oxygen. Her vitals remained stable. And she was discharged with instructions to take p.o. antibiotics.
Return precautions were reviewed with the patient and she voices understanding.
Important imaging findings : CXR 10/25/24: Left lung airspace opacity, most suspicious for pneumonia
Discharge Plan
-
Patient Disposition: Home (Routine Discharge)
Discharge Diagnosis/Procedures: Sepsis secondary to pneumonia, acute hypoxic respiratory failure secondary to pneumonia
Condition: Fair
Diet: Regular
Activity: No restrictions
Driving Restrictions: As prior to admission
Bathing Restrictions: None
Instructions: Pneumonia in adults (DC)
Referrals:
Oksana Lazo CRNP [Family Provider, Family Practice] - in less than 1 week
Additional Discharge Medication Instructions: Take amoxicillin 875/125 1 tablet by mouth twice daily to complete total course of 7 days
take doxycycline 100mg 1 tab by mouth twice daily for next 6 days
take mucinex 1 tablet by mouth twice daily for 5 days
Prescriptions:
New
doxycycline hyclate 100 mg Capsule
100 mg PO Q12 Qty: 11 0RF
amoxicillin-pot clavulanate 875-125 mg tablet
1 tab PO BID Qty: 12 0RF
guaifenesin 600 mg Tablet Extended Release 12hr
1,200 mg PO Q12 Qty: 10 0RF
Continued
benzonatate 100 MG capsule
200 mg PO Q8HPRN PRN (Reason: cough)
montelukast 10 MG tablet
10 mg PO QPM
hydrocortisone 10 MG tablet
10 mg PO DAILY@1300
Patient Comments:
06/19/2023: Pt states she takes the double the dose when she is sick
hydrocortisone 10 MG tablet
30 mg PO DAILY
Patient Comments:
06/19/2023: Pt states she takes the double the dose when she is sick
cranberry 500 MG capsule
930 mg PO DAILY
Align (B.infantis) 4 MG capsule
4 mg PO DAILY
riboflavin (vitamin B2) [Vitamin B-2] 100 MG tablet
400 mg PO DAILY
calcium carbonate [Antacid (calcium carbonate)] 1 TABLET tablet,chewable
2 tab PO Q4HPRN PRN (Reason: heartburn)
hydroxychloroquine 200 MG tablet
400 mg PO NOON
acetaminophen [Tylenol Extra Strength] 500 MG tablet
1,000 mg PO Q8HPRN PRN (Reason: tension headache) Qty: 0 0RF
ondansetron 4 mg tablet,disintegrating
4 mg PO TIDPRN PRN (Reason: nausea/vomiting) Qty: 20 0RF
lorazepam 2 MG tablet
2 mg PO QID
Patient Comments:
06/19/2023: last filled 06/10/23, 120 tabs for 30 days from [place]
methocarbamol 500 mg Tablet
1,500 mg PO Q8H
ibuprofen 800 mg Tablet
800 mg PO TID
quetiapine [Seroquel] 200 mg Tablet
400 mg PO HS
loperamide 2 mg Tablet
2 mg PO Q6H PRN (Reason: diarrhea)
ascorbic acid (vitamin C) [Vitamin C] 500 mg Tablet
500 mg PO BID
duloxetine [Cymbalta] 60 mg Capsule,Delayed Release(Dr/Ec)
60 mg PO BID
Rx Instructions:
BID with breakfast and lunch
cholecalciferol (vitamin D3) [Vitamin D3] 25 mcg (1,000 unit) Tablet
175 mcg PO QPM
albuterol sulfate [Ventolin HFA] 90 mcg/actuation Hfa Aerosol Inhaler
2 puff INHALATION Q4H PRN (Reason: sob/wheezing)
fluticasone propion-salmeterol [Advair HFA] 115-21 mcg/actuation HFA aerosol inhaler
2 puff INHALATION BID
Spiriva Respimat 1.25 mcg/actuation mist
2 puff INHALATION DAILY
gabapentin 900 mg Tablet Extended Release 24 Hr
PO 3XD
Discharge Orders:
Discharge Patient (As Directed); Ordered 10/27/24
Ordered By: Cristobal Perez
Discharge Date and Time
Discharge Date/Time: 10/27/24 17:29
Print Language: GERMAN

Documented by User: Ede Cuadra DO 10/27/24 18:27
Discharge Summary
Discharge Data
Date of Admission: 10/25/24
Date of Discharge: 10/27/24
Total time spent discharging patient (in min): 35
Discharge Plan
-
Patient Disposition: Home (Routine Discharge)
Discharge Diagnosis/Procedures: Sepsis secondary to pneumonia, acute hypoxic respiratory failure secondary to pneumonia
Condition: Fair
Diet: Regular
Activity: No restrictions
Driving Restrictions: As prior to admission
Bathing Restrictions: None
Instructions: Pneumonia in adults (DC)
Referrals:
Oksana Lazo CRNP [Family Provider, Family Practice] - in less than 1 week
Additional Discharge Medication Instructions: Take amoxicillin 875/125 1 tablet by mouth twice daily to complete total course of 7 days
take doxycycline 100mg 1 tab by mouth twice daily for next 6 days
take mucinex 1 tablet by mouth twice daily for 5 days
Prescriptions:
New
doxycycline hyclate 100 mg Capsule
100 mg PO Q12 Qty: 11 0RF
amoxicillin-pot clavulanate 875-125 mg tablet
1 tab PO BID Qty: 12 0RF
guaifenesin 600 mg Tablet Extended Release 12hr
1,200 mg PO Q12 Qty: 10 0RF
Continued
benzonatate 100 MG capsule
200 mg PO Q8HPRN PRN (Reason: cough)
montelukast 10 MG tablet
10 mg PO QPM
hydrocortisone 10 MG tablet
10 mg PO DAILY@1300
Patient Comments:
06/19/2023: Pt states she takes the double the dose when she is sick
hydrocortisone 10 MG tablet
30 mg PO DAILY
Patient Comments:
06/19/2023: Pt states she takes the double the dose when she is sick
cranberry 500 MG capsule
930 mg PO DAILY
Align (B.infantis) 4 MG capsule
4 mg PO DAILY
riboflavin (vitamin B2) [Vitamin B-2] 100 MG tablet
400 mg PO DAILY
calcium carbonate [Antacid (calcium carbonate)] 1 TABLET tablet,chewable
2 tab PO Q4HPRN PRN (Reason: heartburn)
hydroxychloroquine 200 MG tablet
400 mg PO NOON
acetaminophen [Tylenol Extra Strength] 500 MG tablet
1,000 mg PO Q8HPRN PRN (Reason: tension headache) Qty: 0 0RF
ondansetron 4 mg tablet,disintegrating
4 mg PO TIDPRN PRN (Reason: nausea/vomiting) Qty: 20 0RF
lorazepam 2 MG tablet
2 mg PO QID
Patient Comments:
06/19/2023: last filled 06/10/23, 120 tabs for 30 days from [place]
methocarbamol 500 mg Tablet
1,500 mg PO Q8H
ibuprofen 800 mg Tablet
800 mg PO TID
quetiapine [Seroquel] 200 mg Tablet
400 mg PO HS
loperamide 2 mg Tablet
2 mg PO Q6H PRN (Reason: diarrhea)
ascorbic acid (vitamin C) [Vitamin C] 500 mg Tablet
500 mg PO BID
duloxetine [Cymbalta] 60 mg Capsule,Delayed Release(Dr/Ec)
60 mg PO BID
Rx Instructions:
BID with breakfast and lunch
cholecalciferol (vitamin D3) [Vitamin D3] 25 mcg (1,000 unit) Tablet
175 mcg PO QPM
albuterol sulfate [Ventolin HFA] 90 mcg/actuation Hfa Aerosol Inhaler
2 puff INHALATION Q4H PRN (Reason: sob/wheezing)
fluticasone propion-salmeterol [Advair HFA] 115-21 mcg/actuation HFA aerosol inhaler
2 puff INHALATION BID
Spiriva Respimat 1.25 mcg/actuation mist
2 puff INHALATION DAILY
gabapentin 900 mg Tablet Extended Release 24 Hr
PO 3XD
Discharge Orders:
Discharge Patient (As Directed); Ordered 10/27/24
Ordered By: Cristobal Perez
Discharge Date and Time
Discharge Date/Time: 10/27/24 17:29
Print Language: GERMAN
== END 2024-10-27 17:29 | disposition home or self-care (01) | DRG 871 ==
LOC: 3 WEST ACU 17:43
PROVIDERS: Registered Nurse; ADMITTING PHYSICIAN Internal Medicine; ATTENDING PHYSICIAN Internal Medicine; EMERGENCY PHYSICIAN Emergency Medicine; FAMILY PHYSICIAN Nurse Practitioner Family
DX: A41.89 Other specified sepsis (principal); J18.9 Pneumonia, unspecified organism; J96.01 Acute respiratory failure with hypoxia; E27.1 Primary adrenocortical insufficiency; F11.20 Opioid dependence, uncomplicated; D80.3 Selective deficiency of immunoglobulin G [IgG] subclasses; D84.821 Immunodeficiency due to drugs; F41.0 Panic disorder [episodic paroxysmal anxiety]; G43.909 Migraine, unspecified, not intractable, without status migrainosus; K90.0 Celiac disease; J45.909 Unspecified asthma, uncomplicated; M79.7 Fibromyalgia; F43.10 Post-traumatic stress disorder, unspecified; F42.9 Obsessive-compulsive disorder, unspecified; M54.2 Cervicalgia; M54.9 Dorsalgia, unspecified; M32.9 Systemic lupus erythematosus, unspecified; E87.6 Hypokalemia; F32.A Depression, unspecified; M06.9 Rheumatoid arthritis, unspecified; M81.0 Age-related osteoporosis without current pathological fracture; E66.9 Obesity, unspecified; K58.9 Irritable bowel syndrome, unspecified; K21.9 Gastro-esophageal reflux disease without esophagitis; Z88.1 Allergy status to other antibiotic agents; Z88.3 Allergy status to other anti-infective agents; Z91.02 Food additives allergy status; Z88.5 Allergy status to narcotic agent; Z79.52 Long term (current) use of systemic steroids; Z88.2 Allergy status to sulfonamides; Z88.8 Allergy status to other drugs, medicaments and biological substances; Z91.018 Allergy to other foods; Z79.51 Long term (current) use of inhaled steroids; Z68.34 Body mass index [BMI] 34.0-34.9, adult; Z11.52 Encounter for screening for COVID-19
CPT/HCPCS: 71046; 80048; 80053; 84484; 85025; 85027; 85610; 87040; 87449; 87502; 87811; 87899; 93005; 96374; 97116; 97162; 99285

== ENCOUNTER → 2024-11-17 11:15 | Outpatient (REF) | payer OTHER, SELFPAY | LOC: HWRAD 11:15 | PROVIDERS: ATTENDING PHYSICIAN Nurse Practitioner Family | DX: T81.89XA Other complications of procedures, not elsewhere classified, initial encounter (principal) | CPT/HCPCS: 76705 ==

== ENCOUNTER 2024-11-17 14:59 | Emergency (ER) | payer OTHER, SELFPAY ==
[2024-11-17 15:07] VITALS: BP 156/87
[2024-11-17 15:33] LABS: Hematocrit 36.6 % (37.0-47.0); Hemoglobin 12.0 g/dL (12.0-16.0); Mean Corp Hgb Conc. 32.8 g/dL (33.0-37.0); Mean Corpuscular Volume 100.5 fL (81.0-99.0); Nucleated Red Blood Cells % 0 %; Platelet Count 360 10^3/uL (130-400); Red Cell Dist. Width 14.0 % (11.5-14.5)
--- NOTE | 2024-11-17 15:47 | ED.GENMED ---
History of Present Illness
General
Chief Complaint: Breathing Problem
Time Seen by Provider: 11/17/24 15:31
History of Present Illness
History of Present Illness:
54-year-old female history of lupus, fibromyalgia, adrenal insufficiency on chronic hydrocortisone presenting with cough and right sided chest pain. Patient states that she was admitted for pneumonia about 3 weeks ago. Patient states she completed
Augmentin and doxycycline with improvement in symptoms but continues to have a persistent dry cough. Patient states that her cough seem to worsen 3 days ago with change in seasons. Patient states that Thursday after coughing she heard a crack and
felt more pain on her right side. Patient reports taking Tylenol, Advil with no relief. Patient states that since Tuesday 11/14 she has doubled her dose of hydrocortisone because she was not feeling well. Patient denies fever or chills.
Past History
Past History
ED Past Medical History: Asthma, Fibromyalgia, Psychiatric (Anxiety, OCD, PTSD, Panic disorder) and Other (Adrenal insufficiency, migraine , Back and neck pains, Celiac disease, Cystitis, Lupus)
ED Past Surgical History: , Gynecological (D&C with ablation, ) and Tonsilectomy
Social History
Tobacco: Non-smoker
Alcohol: None
Drug: None
Personal:
Living: with family
Employment: Disabled
Family History
Family History: Other (Noncontributory)
Phy Exam
Physical Exam
Physical Exam:
General: Alert, no acute distress
Head: NCAT
Eyes: clear conjunctiva
Neck: supple
Cardiac: tachycardic, regular rhythm, no murmur
Lungs: Faint rales left base, decreased breath sounds on right side. Speaking full unlabored sentences. No respiratory distress.
Chest wall: Reproducible chest wall tenderness to right side, no overlying rash
Abdomen: soft, nondistended nontender. No rebound or guarding.
MSK: no lower extremity edema bilaterally. No deformity
Skin: warm, dry
Neuro: Alert and oriented x3. no focal deficits
Scores
Heart Failure Risk
Heart Failure Risk Score: Not Applicable
Course
Orders/Labs/Results
Orders:
Orders
11/17/24 15:22
Electrocardiogram (*1) Urgent
Reason for Study: Other
Other Reason for Exam: Respiratory Distress
EKG- Treatment ONCE
IV Insert/Care/Rem.- Treatment PRN
11/17/24 15:23
Basic Metabolic Panel Urgent
Complete Blood Count/With Diff Urgent
11/17/24 15:45
Ketorolac [Toradol] 15 mg IV NOW STA
Lorazepam [Ativan] 2 mg PO NOW STA
CXR2 [CR Chest - 2 Views ] Urgent
Comment:
Reason For Exam: cough, right sided rib pain
11/17/24 17:47
CT Chest PE Study Urgent
Comment:
Reason For Exam: sob, tachycardia, r sided pain, ?r basilar opacity
Morphine Sulfate 4 mg IV NOW STA
Abnormal Lab Results
11/17/24
15:23
WBC 14.0 H 10^3/uL
(4.8-10.8)
RBC 3.64 L 10^6/uL
(4.20-5.40)
Hct 36.6 L %
(37.0-47.0)
MCV 100.5 H fL
(81.0-99.0)
MCH 33.0 H pg
(27.0-31.0)
MCHC 32.8 L g/dL
(33.0-37.0)
Abs Immat Gran (auto) 0.3 H 10^3/uL
(0-0.05)
Absolute Neuts (auto) 11.6 H 10^3/uL
(1.4-6.5)
Immature Gran % 2.4 H %
(0-0.5)
Neutrophils % 82.6 H %
(42.2-75.2)
Lymphocytes % 9.4 L %
(20.5-51.1)
Glucose 142 H mg/dl
(70-99)
11/17/24 15:23
11/17/24 15:23
Vital Signs
Initial and Last Documented VS:
Initial Vital Signs
Temp Pulse Resp BP Pulse Ox
99.0 F 117 23 156/87 93
11/17/24 15:07 11/17/24 15:07 11/17/24 15:07 11/17/24 15:07 11/17/24 15:07
Last Documented Vital Signs
Temp Pulse Resp BP Pulse Ox
99.0 F 108 22 166/95 94
11/17/24 15:07 11/17/24 19:30 11/17/24 19:30 11/17/24 19:00 11/17/24 19:30
MDM/Problems Addressed
Differential Diagnosis Includes:
Pneumonia, costochondritis, viral syndrome, pneumothorax
MDM/Problems Addressed:
Results reviewed. WBC 14, no bandemia - ?reactive from recent increase in hydrocortisone. Chest x-ray shows significant improved left lung pneumonia with questionable new minimal right basilar opacity such as pneumonitis, no pneumothorax. Given
right sided chest pain, tachycardia ordered CTA rule out PE, pneumonia. CTA shows no PE, no pneumonia. Shows atelectasis/scarring. Small pericardial effusion with no significant change compared to previous.
On reevaluation, patient reports significant improvement. Vitals improved. Lungs clear to auscultation, speaking full labor sentences, afebrile. Suspect costocondritis given cough, reproducible chest wall tenderness. Advised to take naproxen.
Stable for discharge home with PCP follow up
*Pulse Oximetry
SaO2: 93
Oxygen Mode of Delivery: Room air
Patient hypoxic: no
*EKG
Interpreted by ED Provider?: Yes (EKG shows sinus tachycardia 114 bpm with MN 130 QTc 432 no acute ischemic changes)
*Critical Care Note
Total Time (30-74mins, 75-104mins- exclusive of procedures): Not Applicable
ED Attending Note
-
Portions of this chart may have been created with voice recognition software.� Occasional wrong word or��sound alike� substitutions may have occurred due to the inherent limitations of voice recognition software.
Discharge Plan
Departure
Patient Disposition: Home (Routine Discharge)
Date of Disposition: 11/17/24
Time of Disposition: :25
Patient with high blood pressure during this ER visit?: Yes
Discharge Problem:
Costochondritis
Instructions: Costochondritis, BLOOD PRESSURE
Prescriptions:
New
naproxen 500 mg tablet
500 mg PO BID PRN (Reason: Pain) Qty: 20 0RF
No Action
benzonatate 100 MG capsule
200 mg PO Q8HPRN PRN (Reason: cough)
montelukast 10 MG tablet
10 mg PO QPM
hydrocortisone 10 MG tablet
10 mg PO DAILY@1300
Patient Comments:
06/19/2023: Pt states she takes the double the dose when she is sick
hydrocortisone 10 MG tablet
30 mg PO DAILY
Patient Comments:
06/19/2023: Pt states she takes the double the dose when she is sick
cranberry 500 MG capsule
930 mg PO DAILY
Align (B.infantis) 4 MG capsule
4 mg PO DAILY
riboflavin (vitamin B2) [Vitamin B-2] 100 MG tablet
400 mg PO DAILY
calcium carbonate [Antacid (calcium carbonate)] 1 TABLET tablet,chewable
2 tab PO Q4HPRN PRN (Reason: heartburn)
hydroxychloroquine 200 MG tablet
400 mg PO NOON
acetaminophen [Tylenol Extra Strength] 500 MG tablet
1,000 mg PO Q8HPRN PRN (Reason: tension headache) Qty: 0 0RF
ondansetron 4 mg tablet,disintegrating
4 mg PO TIDPRN PRN (Reason: nausea/vomiting) Qty: 20 0RF
lorazepam 2 MG tablet
2 mg PO QID
Patient Comments:
06/19/2023: last filled 06/10/23, 120 tabs for 30 days from [place]
methocarbamol 500 mg Tablet
1,500 mg PO Q8H
ibuprofen 800 mg Tablet
800 mg PO TID
quetiapine [Seroquel] 200 mg Tablet
400 mg PO HS
loperamide 2 mg Tablet
2 mg PO Q6H PRN (Reason: diarrhea)
ascorbic acid (vitamin C) [Vitamin C] 500 mg Tablet
500 mg PO BID
duloxetine [Cymbalta] 60 mg Capsule,Delayed Release(Dr/Ec)
60 mg PO BID
Rx Instructions:
BID with breakfast and lunch
cholecalciferol (vitamin D3) [Vitamin D3] 25 mcg (1,000 unit) Tablet
175 mcg PO QPM
albuterol sulfate [Ventolin HFA] 90 mcg/actuation Hfa Aerosol Inhaler
2 puff INHALATION Q4H PRN (Reason: sob/wheezing)
fluticasone propion-salmeterol [Advair HFA] 115-21 mcg/actuation HFA aerosol inhaler
2 puff INHALATION BID
Spiriva Respimat 1.25 mcg/actuation mist
2 puff INHALATION DAILY
gabapentin 900 mg Tablet Extended Release 24 Hr
PO 3XD
doxycycline hyclate 100 mg Capsule
100 mg PO Q12 Qty: 11 0RF
amoxicillin-pot clavulanate 875-125 mg tablet
1 tab PO BID Qty: 12 0RF
guaifenesin 600 mg Tablet Extended Release 12hr
1,200 mg PO Q12 Qty: 10 0RF
Referrals:
Oksana Lazo CRNP [Family Provider, Family Practice]
Activity Restrictions/Additional Instructions:
Follow-up with primary care doctor in 1 to 2 days
Take naproxen twice daily as needed for pain
Return to the Emergency Department for fever or any new/worsening symptoms
Interventions
Interventions:
*Risk Screen - Suicide Last Done: 11/17/24 15:10
*General Assessment Last Done: 11/17/24 15:10
*Neglect/Abuse Screening Last Done: 11/17/24 15:10
*ED- Fall Risk Assessment Last Done: 11/17/24 19:41
*ED COVID-19 Vaccine History Last Done: 11/17/24 19:41
*Nursing Disposition Last Done: 11/17/24 19:42
ED- Cardiac Assessment Last Done: 11/17/24 19:41
ED-Musculoskeletal Assessment Last Done: 11/17/24 19:41
ED- Pulmonary Assessment Last Done: 11/17/24 19:41
Discharge Date and Time
Discharge Date/Time: 11/17/24 19:42
Print Language: KOREAN
[2024-11-17] MEDS: ATIVAN 2 MG PO (15:51)
[2024-11-17] MEDS: TORADOL 15 MG IV (15:51)
[2024-11-17 15:53] LABS: Blood Urea Nitrogen 16 mg/dl (7-17); Calcium 9.1 mg/dl (8.4-10.2); Carbon Dioxide 30 mmol/L (22-30); Chloride 103 mmol/L (98-107); Estimated Creatinine Clearance 91 ml/min; Glucose 142 mg/dl (70-99); Sodium 138 mmol/L (135-145); eGFR > 60.00
[2024-11-17 16:00] VITALS: BP 138/76
[2024-11-17 17:00] VITALS: BP 144/84
[2024-11-17] MEDS: MORPHINE SULFATE 4 MG IV (18:08)
[2024-11-17 18:41] VITALS: BP 174/91
[2024-11-17 19:00] VITALS: BP 166/95
== END 2024-11-17 19:42 | disposition home or self-care (01) ==
LOC: EMR 14:59
PROVIDERS: Physician Assistant; EMERGENCY PHYSICIAN Emergency Medicine; FAMILY PHYSICIAN Nurse Practitioner Family
DX: M94.0 Chondrocostal junction syndrome [Tietze] (principal); J45.909 Unspecified asthma, uncomplicated; E27.40 Unspecified adrenocortical insufficiency
CPT/HCPCS: 99285; 96374; 96375; 71046; 71275; 80048; 85025; 93005; Q9967

== ENCOUNTER 2024-11-24 01:35 | Observation (INO) | payer OTHER, SELFPAY ==
[2024-11-23 21:41] VITALS: BP 98/63
[2024-11-23 21:44] VITALS: BP 98/63
[2024-11-23 21:55] VITALS: BMI 33.2
[2024-11-23 22:00] VITALS: BP 102/71
[2024-11-23 22:15] LABS: Hematocrit 29.2 % (37.0-47.0); Hemoglobin 9.7 g/dL (12.0-16.0); Mean Corp Hgb Conc. 33.2 g/dL (33.0-37.0); Mean Corpuscular Volume 102.1 fL (81.0-99.0); Nucleated Red Blood Cells % 0 %; Platelet Count 260 10^3/uL (130-400); Red Cell Dist. Width 14.4 % (11.5-14.5)
[2024-11-23 22:36] LABS: ALT (SGPT) 14 U/L (0-35); AST (SGOT) 15 U/L (14-36); Albumin 2.9 g/dl (3.5-5.0); Alkaline Phosphatase 39 U/L (38-126); Blood Urea Nitrogen 16 mg/dl (7-17); Calcium 7.4 mg/dl (8.4-10.2); Carbon Dioxide 22 mmol/L (22-30); Chloride 112 mmol/L (98-107); Estimated Creatinine Clearance 104 ml/min; Glucose 85 mg/dl (70-99); Potassium 3.2 mmol/L (3.5-5.1); Sodium 138 mmol/L (135-145); Total Protein 4.8 g/dl (6.3-8.2); eGFR > 60.00
[2024-11-23 22:48] LABS: Troponin I < 0.012 ng/ml
[2024-11-23 23:00] VITALS: BP 97/69
[2024-11-23 23:22] VITALS: BP 125/84
--- NOTE | 2024-11-23 23:37 | ED.GENMED ---
History of Present Illness
<Sascha Rodriguez DO - Last Filed: 11/24/24 00:29>
General
Chief Complaint: Breathing Problem
Time Seen by Provider: 11/23/24 23:02
<Daphne Brandt PA-C - Last Filed: 11/24/24 02:03>
General
Source: patient
Exam Limitations: none
Nursing documentation reviewed up to this point in time: agreed with
History of Present Illness
History of Present Illness:
see MDM
Past History
<DO Vijaya Muller Last Filed: 11/24/24 00:29>
Past History
ED Past Medical History: Asthma, Fibromyalgia, Psychiatric (Anxiety, OCD, PTSD, Panic disorder) and Other (Adrenal insufficiency, migraine , Back and neck pains, Celiac disease, Cystitis, Lupus)
ED Past Surgical History: , Gynecological (D&C with ablation, ) and Tonsilectomy
Social History
Tobacco: Non-smoker
Alcohol: None
Drug: None
Personal:
Living: with family
Employment: Disabled
Family History
Family History: Other (Noncontributory)
Review of Systems
<Daphne Brandt PA-C - Last Filed: 11/24/24 02:03>
Review of Systems
Allergies reviewed?: Yes
All Other Systems: Not applicable
Phy Exam
<Daphne Brandt PA-C - Last Filed: 11/24/24 02:03>
Physical Exam
Physical Exam:
GENERAL: Alert , chronically ill appearing, faitgued; seems wiped out
chavis faces
EYE: pupils equal and reactive
NECK: Supple
ENT: o/p clr, mmm.
CARDIAC: Regular rate and rhythm .no obvious murmur
mild nonpitting symmetric edema in B/L pretibial region
LUNGS: mildly diminished, no cough, no tachypnpea, no acute respiratory distress, no wheezes/rales/rhonchi
ABDOMEN: Soft, obese, central obesity without focal tenderness, no r/g, no cvat, normal bowel sounds
NEUROLOGICAL: Alert and oriented, no focal neuro deficits
SKIN: Warm and dry, skin intact.
MUSCULOSKELETAL: minimal edema, well perfused. neg vivian's sign
PSYCH: Normal and appropriate interaction.
Scores
<Daphne Brandt PA-C - Last Filed: 11/24/24 02:03>
Heart Failure Risk
Heart Failure Risk Score: Not Applicable
Course
<Sascha Rodriguez DO - Last Filed: 11/24/24 00:29>
Orders/Labs/Results
Orders:
Orders
11/23/24 21:50
Electrocardiogram (*1) Urgent
Reason for Study: Hypertension, Benign
EKG- Treatment ONCE
11/23/24 22:05
Complete Blood Count/With Diff Urgent
Comprehensive Metabolic Panel Urgent
NT-proBNP Urgent
Comment: ADD ON
Troponin I Urgent
11/23/24 23:12
Hydrocortisone Sod Succinate [Solu-Cortef] 100 mg IV NOW STA
11/23/24 23:15
EKG- Treatment ONCE
11/23/24 23:17
Add On- LAB Urgent
Tests Added?: bnp
11/23/24 23:20
CR Chest Portable - 1 View Urgent
Comment:
Reason For Exam: sob, hypoxic
Reason Study Needs to be Portable: Unable to Transport
11/23/24 23:59
0.9% Sodium Chloride 1000 ml [Nss] 1,000 ml IV BOLUS
11/24/24 00:07
COVID-19 Antigen Urgent
Source: Nasal Swab
Influenza A+B Rapid Molecular Urgent
CHELY Source: Nasal Swab
Specimen Description:
11/24/24 01:25
Admit/Transfer Patient As Directed
Co-Sign Provider:
Level of Care: Observation services
Assign to:: Telemetry
Physician / Group: Jeff
Diagnosis: chest pain
Reason for Telemetry: Chest Pain syndromes
Date to Stop Telemetry: 11/26/24
Time to Stop Telemetry: 11:00
PRN Pain Medication Management As Directed
May give lesser potent ordered pain med per pt: Yes
preference::
Protocol:: Medication orders for pain may be administered in a
manner that supports deferring to patient preference
when the pt is:
- Requesting an ordered lesser potent pain medication.
Least to most potent pain medications are defined
as: acetaminophen < NSAID < tramadol < opioids
(morphine, oxycodone, hydromorphone).
- Requesting a lesser dose of the same medication IF
ORDERED.
- Requesting a less intrusive route of administration
if both routes are prescribed by the provider (PO <
IV).
11/24/24 01:28
Code Status As Directed
Resuscitation Status: Full Code
11/24/24 02:00
Electrocardiogram (*1) Urgent
Reason for Study: Chest Pain
Troponin I Urgent
11/26/24 11:00
DC Protocol for Telemetry ONCE
Abnormal Lab Results
11/23/24
22:05
RBC 2.86 L 10^6/uL
(4.20-5.40)
Hgb 9.7 L g/dL
(12.0-16.0)
Hct 29.2 L %
(37.0-47.0)
MCV 102.1 H fL
(81.0-99.0)
MCH 33.9 H pg
(27.0-31.0)
Abs Immat Gran (auto) 0.2 H 10^3/uL
(0-0.05)
Absolute Neuts (auto) 7.7 H 10^3/uL
(1.4-6.5)
Absolute Monos (auto) 1.0 H 10^3/uL
(0.1-0.6)
Immature Gran % 1.7 H %
(0-0.5)
Lymphocytes % 14.7 L %
(20.5-51.1)
Monocytes % 9.5 H %
(1.7-9.3)
Potassium 3.2 L mmol/L
(3.5-5.1)
Chloride 112 H mmol/L
(98-107)
Calcium 7.4 L mg/dl
(8.4-10.2)
Total Protein 4.8 L g/dl
(6.3-8.2)
Albumin 2.9 L g/dl
(3.5-5.0)
11/23/24 22:05
11/23/24 22:05
Vital Signs
Initial and Last Documented VS:
Initial Vital Signs
Temp Pulse Resp BP Pulse Ox
36.5 C 110 18 98/63 94
11/23/24 21:41 11/23/24 21:41 11/23/24 21:41 11/23/24 21:41 11/23/24 21:41
Last Documented Vital Signs
Temp Pulse Resp BP Pulse Ox
36.5 C 99 13 122/70 97
11/23/24 21:41 11/24/24 01:15 11/24/24 01:15 11/24/24 01:15 11/24/24 01:15
<Daphne Brandt PA-C - Last Filed: 11/24/24 02:03>
Orders/Labs/Results
Orders:
Orders
11/23/24 21:50
Electrocardiogram (*1) Urgent
Reason for Study: Hypertension, Benign
EKG- Treatment ONCE
11/23/24 22:05
Complete Blood Count/With Diff Urgent
Comprehensive Metabolic Panel Urgent
NT-proBNP Urgent
Comment: ADD ON
Troponin I Urgent
11/23/24 23:12
Hydrocortisone Sod Succinate [Solu-Cortef] 100 mg IV NOW STA
11/23/24 23:15
EKG- Treatment ONCE
11/23/24 23:17
Add On- LAB Urgent
Tests Added?: bnp
11/23/24 23:20
CR Chest Portable - 1 View Urgent
Comment:
Reason For Exam: sob, hypoxic
Reason Study Needs to be Portable: Unable to Transport
11/23/24 23:59
0.9% Sodium Chloride 1000 ml [Nss] 1,000 ml IV BOLUS
11/24/24 00:07
COVID-19 Antigen Urgent
Source: Nasal Swab
Influenza A+B Rapid Molecular Urgent
CHELY Source: Nasal Swab
Specimen Description:
11/24/24 01:25
Admit/Transfer Patient As Directed
Co-Sign Provider:
Level of Care: Observation services
Assign to:: Telemetry
Physician / Group: Jeff
Diagnosis: chest pain
Reason for Telemetry: Chest Pain syndromes
Date to Stop Telemetry: 11/26/24
Time to Stop Telemetry: 11:00
PRN Pain Medication Management As Directed
May give lesser potent ordered pain med per pt: Yes
preference::
Protocol:: Medication orders for pain may be administered in a
manner that supports deferring to patient preference
when the pt is:
- Requesting an ordered lesser potent pain medication.
Least to most potent pain medications are defined
as: acetaminophen < NSAID < tramadol < opioids
(morphine, oxycodone, hydromorphone).
- Requesting a lesser dose of the same medication IF
ORDERED.
- Requesting a less intrusive route of administration
if both routes are prescribed by the provider (PO <
IV).
11/24/24 01:28
Code Status As Directed
Resuscitation Status: Full Code
11/24/24 02:00
Electrocardiogram (*1) Urgent
Reason for Study: Chest Pain
Troponin I Urgent
11/26/24 11:00
DC Protocol for Telemetry ONCE
Abnormal Lab Results
11/23/24
22:05
RBC 2.86 L 10^6/uL
(4.20-5.40)
Hgb 9.7 L g/dL
(12.0-16.0)
Hct 29.2 L %
(37.0-47.0)
MCV 102.1 H fL
(81.0-99.0)
MCH 33.9 H pg
(27.0-31.0)
Abs Immat Gran (auto) 0.2 H 10^3/uL
(0-0.05)
Absolute Neuts (auto) 7.7 H 10^3/uL
(1.4-6.5)
Absolute Monos (auto) 1.0 H 10^3/uL
(0.1-0.6)
Immature Gran % 1.7 H %
(0-0.5)
Lymphocytes % 14.7 L %
(20.5-51.1)
Monocytes % 9.5 H %
(1.7-9.3)
Potassium 3.2 L mmol/L
(3.5-5.1)
Chloride 112 H mmol/L
(98-107)
Calcium 7.4 L mg/dl
(8.4-10.2)
Total Protein 4.8 L g/dl
(6.3-8.2)
Albumin 2.9 L g/dl
(3.5-5.0)
11/23/24 22:05
11/23/24 22:05
Vital Signs
Initial and Last Documented VS:
Initial Vital Signs
Temp Pulse Resp BP Pulse Ox
36.5 C 110 18 98/63 94
11/23/24 21:41 11/23/24 21:41 11/23/24 21:41 11/23/24 21:41 11/23/24 21:41
Last Documented Vital Signs
Temp Pulse Resp BP Pulse Ox
36.5 C 99 13 122/70 97
11/23/24 21:41 11/24/24 01:15 11/24/24 01:15 11/24/24 01:15 11/24/24 01:15
<Daphne Brandt PA-C - Last Filed: 11/24/24 02:03>
MDM/Problems Addressed
Differential Diagnosis Includes:
see MDM
MDM/Problems Addressed:
Note:
CHIEF COMPLAINT(S)
Shortness of breath and chest pain.
HISTORY OF PRESENT ILLNESS
The patient is a female with a past medical history significant for Addisons disease, currently treated with hydrocortisone, who presents with sudden onset shortness of breath and chest pain starting at 8 pm tonight. The symptoms began while the
patient was seated and have persisted despite home interventions. The patient reports feeling very dizzy and experienced difficulty breathing, home pulse ox was lower than 90% on RA. pt does not usually wear O2. pt 's daughter prompting a call to
emergency services around 8:30 PM after she noticed her oxygen saturation dropped to 90%. There is no recent history of respiratory infections or congestion.
Previous medical workups revealed negative results for pulmonary embolism via a computed tomography scan. The patient also underwent a gallbladder surgery earlier in May, and complications with suture healing were noted. Despite shortness of
breath and chest pain, the patients cardiac markers, specifically troponin, returned normal, though repeat testing was recommended to rule out a myocardial infarction. Physical examination in the emergency department suggested the presence of
basilar crackles, indicative of fluid accumulation, though the patient denied previous lung diseases such as asthma or COPD.
PAST MEDICAL AND SURGICAL HISTORY
- Deerfield�s disease.
- Gallbladder surgery (Cholecystectomy) in May of this year.
CHRONIC MEDICAL CONDITIONS SIGNIFICANTLY AFFECTING CARE
- Lars�s disease, currently managed with hydrocortisone.
SOCIAL DETERMINANTS AFFECTING HEALTH
No specific social determinants affecting health were discussed.
MEDICATIONS
- Hydrocortisone, recent use of Plavix suspected but not confirmed in detail.
REVIEW OF SYSTEMS
- Respiratory: Shortness of breath and need for supplemental oxygen as noted with low oxygen saturation.
- Cardiovascular: Chest pain, dizziness, low blood pressure.
PHYSICAL EXAM
see ABOVE
Nursing notes reviewed and vital signs reviewed.
PROBLEM LIST
- Acute: Shortness of breath, chest pain, dizziness, suspected fluid accumulation in lungs, need for high-flow oxygen, hypotension.
- Chronic: Deerfield�s disease.
PLAN
- Initiate stress dose of steroids due to exacerbation correlated to Deerfield�s disease and low blood pressure.
- Consider repeat imaging to diagnose underlying causes such as pneumonic processes, or potential recurrence of blood clot despite previous negative scan.
- Repeat cardiac marker tests to rule out myocardial infarction.
DIFFERENTIAL DIAGNOSIS
The Differential Diagnosis includes, in no particular order and is not limited to:
1. Pneumonia
2. Pulmonary embolism
3. Myocardial infarction
4. Congestive heart failure
5. Pleural effusion
6. Asthma exacerbation
7. Chronic obstructive pulmonary disease
8. Addisonian crisis
9. Pneumothorax
10. Pericarditis
54 y/o F
chronically ill
addisons
immunocompromised
here last week with R pleuritic cp
had PE tsudy which was neg
dx costocondritis
became acutely SOB with tachy and ches tpain andhypoxia today around 8 pm
pulse ox at home 89% and hr 140s
ems found pt hypotensive 80s
she improved with IVF
no longer hypoxic or tachy
pain resolved
she has not had any black stool
no h/o DVT/PE
on exam pt is chorincally ill apearing, fatigued/wiped out/drowsy
mildly hypotensive initially 90s
thoguth maybe adrenal crisis
given stress dose steroids though her BP did improve with fluids, hr as well
she remains not hypoxic
and cxr and lungs are clear
considered repeat CT PE study but evlauated by dr. rodriguez who thought that since similar presentation last weekw ith neg study that we could hold off since she is no longer hypoxic. would re-consider if she had decline
pt will be admitted, trop trending
appreciated anemia, drop from 1 week ago
did not have muc hstool in vault
seemed light brown heme neg
<Sascha Rodriguez DO - Last Filed: 11/24/24 00:29>
*Pulse Oximetry
SaO2: 91
Nasal Cannula flow liters per minute: 2
Oxygen Mode of Delivery: Room air
<Daphne Brandt PA-C - Last Filed: 11/24/24 02:03>
*Pulse Oximetry
Patient hypoxic: no (on arrival; no longer 94%)
*Critical Care Note
Total Time (30-74mins, 75-104mins- exclusive of procedures): Not Applicable
ED Attending Note
<Sascha Rodriguez DO - Last Filed: 11/24/24 00:29>
ED Attending Note
Patient seen and examined by attending physician: Yes
I performed the substantive portion of visit, reviewed & personally made and approve the management plan that is documented in note by myself or YARELY.: Yes
ED Attending Note:
54-year-old female with a history of adrenal insufficiency, lupus who presents shortness of breath and chest heaviness. Was found to be hypotensive and tachycardic by EMS but on my exam patient now has stabilized her blood pressure is 132/73 and
pulse ox normal at 90% on room air hemoglobin is a little lower than typical baseline. Hemoglobin today 9.7 baseline closer to 12. Chest x-ray looks grossly unremarkable. Patient admits that she did have a pulse ox at home and it measured her
heart rate at around 147. Question whether she could have had NSVT. Recently had a CT PE study that showed no pulmonary embolism. Given the fact that her symptoms have resolved I do not suspect strongly pulmonary embolism. Will continue to
monitor closely. Will treat with stress dose steroids
-
Portions of this chart may have been created with voice recognition software.� Occasional wrong word or��sound alike� substitutions may have occurred due to the inherent limitations of voice recognition software.
Discharge Plan
Departure
Patient Disposition: Admit
Date of Disposition: 11/24/24
Time of Disposition: 00:55
Admit to: Telemetry
Presentation/result/management discussed w/ accepting MD/DO: Hospitalist
Condition: Fair
Covid-19: Negative COVID-19
Discharge Problem:
Acute adrenal crisis, Chest pain
Interventions
Interventions:
*Risk Screen - Suicide Last Done: 11/23/24 21:46
*General Assessment Last Done: 11/23/24 21:46
*Neglect/Abuse Screening Last Done: 11/23/24 21:46
*ED- Fall Risk Assessment Last Done: 11/23/24 21:52
*ED COVID-19 Vaccine History Last Done: 11/23/24 21:52
ED- Cardiac Assessment Last Done: 11/23/24 21:53
ED- Pulmonary Assessment Last Done: 11/23/24 22:00
[2024-11-23 23:46] VITALS: BP 125/79
[2024-11-23] MEDS: SOLU-CORTEF 100 MG IV (23:57)
[2024-11-24] VITALS (17 sets, daily range): BP systolic 118–172; BP diastolic 69–100; PULSE 20–111; BMI 32.2
[2024-11-24] MEDS: NSS 1000 IV (00:01)
[2024-11-24 00:41] LABS: COVID-19 Antigen Negative (Negative)
--- NOTE | 2024-11-24 01:07 | HPS.HSE ---
Family Physician
-
Family Physician: DAVID Bhardwaj
Chief Complaint
-
Shortness of breath
History of Present Illness
This is a 54-year-old female with past medical history significant for systemic lupus, rheumatoid arthritis, adrenal insufficiency, asthma, anxiety, depression, GERD, IgG deficiency who presents to the emergency department with complaints of chest
heaviness and shortness of breath. When she arrived at triage the patient was hypoxic and hypotensive and tachycardic.
Patient had a similar presentation about 1 week ago when she came in with chest pain and shortness of breath. She was tachycardic at that time. She had a PE study that was negative and was diagnosed with costochondritis. She returns to the
emergency department tonight with fatigue and chest pain at around 8 PM. She had what she describes as a substernal chest pain as well as back pain that lasted 10 minutes then resolved. She had a second episode a few hours later which caused her
to come to the emergency department. None of these were associated with nausea diaphoresis or shortness of breath. However when she arrived in the emergency department she felt short of breath and she was found to be hypoxic. She reports history
of chronic sinus congestion and postnasal drip with chronic cough. She says she been coughing more frequently although she has no fevers or chills. She reports the chest pain across her chest with the cough. She denies any chest pain with deep
inspiration. She denies any lower extremity swelling. She denies orthopnea or PND. She reported that she took her hydrocortisone 30 mg in the morning and 10 mg at night.
She was admitted to the hospital 1 month ago with pneumonia and adrenal insufficiency. She was treated for acute bacterial pneumonia. Cultures were negative. Viral studies, sputum, urinary antigens were all negative. She did have a left lower
lobe pneumonia at that time which appeared to have cleared on more recent x-rays.
On evaluation today blood pressure was 132/70 with a pulse of 93 she was satting 97% on room air currently. She was afebrile. ECG showed sinus tachycardia at rate of [address] or T wave changes. Troponin was negative at 0.012. She
had a CT PE study 1 week ago which was negative for PE. Showed some trace pericardial effusion and bibasilar atelectasis. No evidence of PE at that time.
White count is 10.8 today, and will be 9.7 and platelet count of 260 which is baseline. Potassium is 3.2 rest of her electrolytes BUN/creatinine were normal.
Patient was given IV fluids hydrocortisone in the ED. She is no longer hypotensive remains hemodynamically stable. She is not hypoxic.
Medical History
Past Medical History
Past Medical History: Reports Other
Additional Past Medical History:
Anxiety
Rheumatoid arthritis
Asthma
Depression
Systemic lupus
Pulmonary nodules
Fibromyalgia
Osteoporosis
IBS
Adrenal insufficiency
IgG deficiency
GERD
Posttraumatic stress disorder
chantell disease
Past Surgical History: Reports Other
Additional Past Surgical History:
Tonsillectomy and adenoidectomy
Joseph teeth extraction
Social History
Tobacco: Non-smoker
Alcohol: None
Drug: None
Living: With Family
Family History
Family History: Not pertinent
Allergies / Home Medications
Allergies reflects when Allergies were last updated in [facility].
Home Medications with original date entered in [facility]
Allergy/Medication List:
Allergies
Allergy/AdvReac Type Severity Reaction Status Date / Time
ciprofloxacin (From Cipro) Allergy Rash Verified 10/25/24 14:31
haloperidol (From Haldol) Allergy Unknown Verified 10/25/24 14:31
hydrocodone bitartrate (From Allergy Itching Verified 10/25/24 14:31
Lorcet 10650)
metoclopramide (From Reglan) Allergy Swelling Verified 10/25/24 14:31
prednisone (Prednisone) Allergy Itching Verified 10/25/24 14:31
prochlorperazine (From Allergy Unknown Verified 10/25/24 14:31
Compazine)
propoxyphene napsylate (From Allergy Itching Verified 10/25/24 14:31
Darvocet-N 100)
red dye Allergy Itching Verified 10/25/24 14:31
Serotonin 5HT-3 Antagonists Allergy Vomiting Verified 10/25/24 14:31
sulfamethoxazole (From Allergy Rash Verified 10/25/24 14:31
Bactrim)
sulfanilamide Allergy Rash Verified 10/25/24 14:31
Tricyclic Antidepressants Allergy Vomiting Verified 10/25/24 14:31
and Tricy
trimethoprim (From Bactrim) Allergy Rash Verified 10/25/24 14:31
wheat Allergy Vomiting Verified 10/25/24 14:31
nitrofurantoin (From AdvReac Vomitting Verified 10/25/24 14:31
Macrobid)
promethazine (From Phenergan) AdvReac Dizziness Verified 10/25/24 14:31
Home Medications
Bifidobacterium infantis 4 mg capsule (Align (B.infantis)) 4 mg PO DAILY Probiotic supplement 09/28/17
benzonatate 100 mg capsule 200 mg PO Q8HPRN PRN cough 09/28/17
cranberry 500 mg capsule 930 mg PO DAILY Supplement 09/28/17
hydrocortisone 10 mg tablet 10 mg PO DAILY@1300 adrenal insufficiency 09/28/17
hydrocortisone 10 mg tablet 30 mg PO DAILY adrenal insufficiency 09/28/17
montelukast 10 mg tablet 10 mg PO QPM Allergy 09/28/17
riboflavin (vitamin B2) 100 mg tablet (Vitamin B-2) 400 mg PO DAILY Supplement 11/30/17
calcium carbonate (Antacid (calcium carbonate)) 2 tab PO Q4HPRN PRN heartburn 04/24/21
hydroxychloroquine 200 mg tablet 400 mg PO NOON Lupus/rheumatoid arthritis 04/24/21
acetaminophen 500 mg tablet (Tylenol Extra Strength) 1,000 mg (2 x 500 mg) PO Q8HPRN PRN tension headache ##0 04/26/21
ondansetron 4 mg disintegrating tablet 4 mg PO TIDPRN PRN nausea/vomiting #20 tabs 04/05/22
ascorbic acid (vitamin C) 500 mg tablet (Vitamin C) 500 mg PO BID Supplement 05/15/23
cholecalciferol (vitamin D3) 25 mcg (1,000 unit) tablet (Vitamin D3) 175 mcg PO QPM Supplement 05/15/23
duloxetine 60 mg capsule,delayed release (Cymbalta) 60 mg PO BID Fibromyalgia 05/15/23
ibuprofen 800 mg tablet 800 mg PO TID Pain 05/15/23
loperamide 2 mg tablet 2 mg PO Q6H PRN diarrhea 05/15/23
lorazepam 2 mg tablet 2 mg PO QID 05/15/23
methocarbamol 500 mg tablet 1,500 mg PO Q8H Lupus/RA/Fibromyalgia 05/15/23
quetiapine 200 mg tablet (Seroquel) 400 mg PO HS Mental Health/Anxiety 05/15/23
albuterol sulfate 90 mcg/actuation aerosol inhaler (Ventolin HFA) 2 puff inhalation Q4H PRN sob/wheezing 10/25/24
fluticasone propionate 115 mcg-salmeterol 21 mcg/actuation HFA inhaler (Advair HFA) 2 puff inhalation BID 10/25/24
tiotropium bromide 1.25 mcg/actuation mist for inhalation (Spiriva Respimat) 2 puff inhalation DAILY 10/25/24
Review of Systems
-
Constitutional: Reports No Symptoms and Fatigue
EENT: Reports No Symptoms
Respiratory: Reports No Symptoms
Cardiac: Reports Chest Pain
Abdomen/GI: Reports No Symptoms
: Reports No Symptoms
Musculoskeletal: Reports No Symptoms
Skin: Reports No Symptoms
Neurological: Reports No Symptoms
Endocrine: Reports No Symptoms
Hematologic/Lymphatic: Reports No Symptoms
Psych: Reports No Symptoms
Physical Exam
Vital Signs
Vital Signs
Temp Pulse Resp BP Pulse Ox
97.7 F 93 16 132/73 98
11/23/24 21:41 11/24/24 00:15 11/24/24 00:15 11/24/24 00:15 11/24/24 00:15
Physical Exam
General: Well Developed, Well Nourished and No Apparent Distress
HEENT: NormoCephalic, Moist mucous membranes and Atraumatic
Respiratory: Clear
Cardiac: S1/S2 and Regular Rhythm; No Murmur or Rub
GI: Soft, Non Tender, Non Distended and Normal Bowel Sounds; No Organomegaly
Rectal: Deferred by Provider
Musculoskeletal: No Clubbing, No Cyanosis and No Edema
Skin: No Rash
Neuro: AO x 3 and Nonfocal/grossly intact
Psych: Calm
Laboratory Results
-
11/23/24 22:05
11/23/24 22:05
Laboratory Results
Total Bilirubin 0.4 mg/dl (0.2-1.3) 11/23/24 22:05
AST 15 U/L (14-36) 11/23/24 22:05
ALT 14 U/L (0-35) 11/23/24 22:05
Alkaline Phosphatase 39 U/L (38-126) 11/23/24 22:05
Troponin I < 0.012 ng/ml 11/23/24 22:05
Data Reviewed
-
Diagnostic Radiology: Image Personally Visualized and interpreted and Report Reviewed by me
CT Scan: Report Reviewed by me
Medical Tests (Nuc Med, Echo, EKG etc): Image Personally Visualized and interpreted
Lab Data: Labs Reviewed by me
Old Records: Reviewed
Impression/Plan
-
IMPRESSION:
54-year-old with multiple medical comorbidities including systemic lupus, rheumatoid arthritis, adrenal insufficiency, asthma/chronic allergic sinusitis with sinus congestion presenting to the emergency department with episode of chest pain x 2.
Chest pain appears atypical to me she does have substernal and chest pain in the back without any radiation. She was initially hypoxic and hypotensive in the ED but this resolved. ECG was nonischemic and the initial troponin was negative. She had
a similar workup 1 week ago that was negative. She did have CT PE at that time which was negative for PE and showed no evidence of pneumonia or any other changes except for trace pericardial effusion, unchanged from prior. Suspect her chest pain
is likely musculoskeletal versus pericarditis than ischemic. Do not believe she is in adrenal crisis at this time.
PLAN:
Chest pain -atypical chest pain, rule out MA
-Admit to telemetry obs
-Cycle cardiac enzymes
-Check ESR to evaluate for possible pericarditis though the CT/PE shows trace pericardial effusion unchanged
-NSAIDs as needed for pain at this time
-Given atypical nature and if troponin negative patient can likely be ruled out without further ischemic testing.
Hypoxia -patient snoring when I arrived in the room with oxygen saturation of around 95%. She denies history of obstructive sleep apnea. She reports her snoring is from mild sinus congestions. CT PE -1-week ago. X-ray clear today. No wheezing
or crackles on exam. COVID negative.
-Ambulating sats in the morning,
-Wean oxygen as tolerated
-Continue inhalers
-As needed nebs
Adrenal insufficiency -patient appears stable she is status post 100 mg hydrocortisone
-due to acute hospitalization, doubled her usual dose at 60 mg hydrocortisone in a.m. and 20 mg every afternoon, no clear evidence of acute adrenal insufficiency
-Check orthostatic
-Monitor labs and vital signs
Necrotic tissue disease
-Continue hydroxychloroquine
DVT prophy�Lovenox subcu
CODE STATUS�full code
[2024-11-24 02:48] LABS: Troponin I < 0.012 ng/ml
[2024-11-24] MEDS: TYLENOL 650 MG PO ×5 (03:36→19:38)
[2024-11-24] MEDS: ATIVAN 2 MG PO ×5 (03:36→21:29)
[2024-11-24] MEDS: SPIRIVA RESPIMAT 2.5 MCG 2 PUFF INH (08:00)
[2024-11-24] MEDS: ADVAIR HFA 115/21 MCG INHALER 2 PUFF INH ×2 (08:00→19:56)
[2024-11-24] MEDS: HYDROCORTONE/CORTEF 60 MG PO (08:39)
[2024-11-24] MEDS: NEURONTIN 900 MG PO ×3 (08:39→21:29)
[2024-11-24] MEDS: CYMBALTA DELAYED RELEASE 60 MG PO ×2 (08:40→19:38)
[2024-11-24] MEDS: MUCINEX 1200 MG PO ×2 (08:41→19:38)
[2024-11-24 08:57] LABS: Hematocrit 35.3 % (37.0-47.0); Hemoglobin 11.3 g/dL (12.0-16.0); Mean Corp Hgb Conc. 32.0 g/dL (33.0-37.0); Mean Corpuscular Volume 102.6 fL (81.0-99.0); Nucleated Red Blood Cells % 0 %; Platelet Count 310 10^3/uL (130-400); Red Cell Dist. Width 14.4 % (11.5-14.5)
[2024-11-24 09:22] LABS: Blood Urea Nitrogen 15 mg/dl (7-17); Calcium 8.7 mg/dl (8.4-10.2); Carbon Dioxide 29 mmol/L (22-30); Chloride 106 mmol/L (98-107); Estimated Creatinine Clearance 103 ml/min; Glucose 97 mg/dl (70-99); Potassium 4.6 mmol/L (3.5-5.1); Sodium 140 mmol/L (135-145); eGFR > 60.00
[2024-11-24 10:48] LABS: C-Reactive Protein 14.90 mg/L (0.0-10.00)
--- NOTE | 2024-11-24 10:55 | CON.CAR ---
Addendum entered and electronically signed by Maxwell Correa MD 11/24/24 12:07:
I saw and examined the patient.
The RN CLINICAL RESOURCE's note was reviewed and I agree with the note.
C
54-year-old woman with a history of lupus, RA, adrenal insufficiency, asthma, IgE deficiency, anxiety/depression and cholecystectomy 04/2024. Consult for chest discomfort. Patient had treatment for pneumonia approximately 1 month ago and more
recently was complaining of some right sided rib pain that she had evaluated in the ER. CT scan at that time was negative for PE. She presented to the ER after having her chest discomfort. She reports that she was not doing any physical activity
and had some discomfort that extended from the epigastrium up the center of her chest and then went outward to both sides. She also had some associated back and neck discomfort. She had concern because initially her pulse oximetry appeared to be
87% at home there was some suggestion heart rate was elevated as well symptoms were about 2 hours in duration and she reports she was having ongoing symptoms in the ER. Symptoms spontaneously resolved and she is currently pain-free. ECG without
ischemic changes and troponins are negative. At this point etiology of symptoms is unclear. No clear evidence that symptoms are related to angina/CAD. Besides considering cardiac causes would also consider noncardiac causes.
- Lexiscan nuclear perfusion stress test in AM. Patient has issues with joint pains which limit ability to do treadmill.
- Echocardiogram
- Would consider PPI. Patient reports that she tolerated Zantac in the past but does not tolerate famotidine and is unsure if she tolerated omeprazole. Multiple drug intolerances listed but no PPIs are currently listed.
- Check amylase and lipase.
- Treatment of patient's other medical issues including lupus, RA, adrenal insufficiency, asthma and anxiety/depression as directed by primary team.
Original Note:
Consultation
Consultation Request
Date/Time Consultation Requested: 11/24/24 7737
Date/Time Consultation Performed: 11/24/24 1030
Requesting Provider: Dr. Zacarias
Performing Provider: Nini HERNANDEZ for Dr. Correa
Reason for Consultation: chest discomfort, tachycardia
Medical History
-
Chief Complaint: chest discomfort
History of Present Illness:
54 y/o female with asthma, IgG deficiency, SLE, RA, adrenal insufficiency, severe anxiety/depression/PTSD. She was here about a month ago and treated for PNA. She came to the ER about a week ago since she thought she may have broken ribs from
coughing due to a pain on her right side that felt like previous rib fracture pain. CT scan done and showed no PE or dissection, small pericardial effusion, likely atelectasis. She is here for evaluation since last night around 9 PM, while she was
working on some jewelry, she developed chest pressure from her mid chest down to abdomen, which radiated to neck and back as well. There was associated light-headedness and SOB. This lasted hours. O2 sat documented as low as 90%, but currently
normal. We are consulted for chest pressure and tachycardia. Of note, she saw Dr. Orr in 03/2023- echo was ordered, but not done. She was tachycardic at that visit at 106 BPM. Trop and EKG unremarkable. She is in no distress at the time of my
assessment and is CP free.
Past Medical History
Past Medical History: Asthma, Psychiatric (as noted) and Other (as above)
Social History
Tobacco: Non-Smoker
Family History
Family History: Hypertension
Allergies / Home Medications
Allergy/AdvReac Type Severity Reaction Status Date / Time
ciprofloxacin (From Cipro) Allergy Rash Verified 11/23/24 21:55
haloperidol (From Haldol) Allergy Unknown Verified 11/23/24 21:55
hydrocodone bitartrate (From Allergy Itching Verified 11/23/24 21:55
Lorcet )
metoclopramide (From Reglan) Allergy Swelling Verified 11/23/24 21:55
nitrofurantoin (From Allergy Vomitting Verified 11/23/24 21:55
Macrobid)
prednisone (Prednisone) Allergy Itching Verified 11/23/24 21:55
prochlorperazine (From Allergy Unknown Verified 11/23/24 21:55
Compazine)
promethazine (From Phenergan) Allergy Dizziness Verified 11/23/24 21:55
propoxyphene napsylate (From Allergy Itching Verified 11/23/24 21:55
Darvocet-N 100)
red dye Allergy Itching Verified 11/23/24 21:55
Serotonin 5HT-3 Antagonists Allergy Vomiting Verified 11/23/24 21:55
sulfamethoxazole (From Allergy Rash Verified 11/23/24 21:55
Bactrim)
sulfanilamide Allergy Rash Verified 11/23/24 21:55
Tricyclic Antidepressants Allergy Vomiting Verified 11/23/24 21:55
and Tricy
trimethoprim (From Bactrim) Allergy Rash Verified 11/23/24 21:55
wheat Allergy Vomiting Verified 11/23/24 21:55
�Medication �Instructions �Recorded �Confirmed �Type
Bifidobacterium infantis 4 mg 4 mg PO DAILY Probiotic supplement 09/28/17 11/23/24 History
capsule (Align (B.infantis))
benzonatate 100 mg capsule 200 mg PO Q8HPRN PRN cough 09/28/17 11/23/24 History
cranberry 500 mg capsule 930 mg PO DAILY Supplement 09/28/17 11/23/24 History
hydrocortisone 10 mg tablet 10 mg PO DAILY@1300 adrenal 09/28/17 11/23/24 History
insufficiency
hydrocortisone 10 mg tablet 30 mg PO DAILY adrenal 09/28/17 11/23/24 History
insufficiency
montelukast 10 mg tablet 10 mg PO QPM Allergy 09/28/17 11/23/24 History
riboflavin (vitamin B2) 100 mg 400 mg PO DAILY Supplement 11/30/17 11/23/24 History
tablet (Vitamin B-2)
calcium carbonate (Antacid 2 tab PO Q4HPRN PRN heartburn 04/24/21 11/23/24 History
(calcium carbonate))
hydroxychloroquine 200 mg tablet 400 mg PO NOON Lupus/rheumatoid 04/24/21 11/23/24 History
arthritis
acetaminophen 500 mg tablet 1,000 mg (2 x 500 mg) PO Q8HPRN 04/26/21 11/23/24 Rx
(Tylenol Extra Strength) PRN tension headache ##0
ondansetron 4 mg disintegrating 4 mg PO TIDPRN PRN nausea/vomiting 04/05/22 11/23/24 Rx
tablet #20 tabs
ascorbic acid (vitamin C) 500 mg 500 mg PO BID Supplement 05/15/23 11/23/24 History
tablet (Vitamin C)
cholecalciferol (vitamin D3) 25 175 mcg PO QPM Supplement 05/15/23 11/23/24 History
mcg (1,000 unit) tablet (Vitamin
D3)
duloxetine 60 mg capsule,delayed 60 mg PO BID Fibromyalgia 05/15/23 11/23/24 History
release (Cymbalta)
ibuprofen 800 mg tablet 800 mg PO TID Pain 05/15/23 11/23/24 History
loperamide 2 mg tablet 2 mg PO Q6H PRN diarrhea 05/15/23 11/23/24 History
lorazepam 2 mg tablet 2 mg PO QID Mental Health/Anxiety 05/15/23 11/23/24 History
methocarbamol 500 mg tablet 1,500 mg PO Q8H 05/15/23 11/23/24 History
Lupus/RA/Fibromyalgia
quetiapine 200 mg tablet (Seroquel) 400 mg PO HS Mental Health/Anxiety 05/15/23 11/23/24 History
albuterol sulfate 90 mcg/actuation 2 puff inhalation Q4H PRN 10/25/24 11/23/24 History
aerosol inhaler (Ventolin HFA) sob/wheezing
fluticasone propionate 115 2 puff inhalation BID 10/25/24 11/23/24 History
mcg-salmeterol 21 mcg/actuation Lung/Breathing Issues
HFA inhaler (Advair HFA)
tiotropium bromide 1.25 2 puff inhalation DAILY 10/25/24 11/23/24 History
mcg/actuation mist for inhalation Lung/Breathing Issues
(Spiriva Respimat)
gabapentin 900 mg tablet,extended 900 mg PO 3XD 10/26/24 11/23/24 History
release 24 hr
guaifenesin 600 mg tablet, 1,200 mg (2 x 600 mg) PO Q12 #10 10/27/24 11/23/24 Rx
extended release 12 hr tabs
naproxen 500 mg tablet 500 mg PO BID PRN Pain #20 tabs 11/17/24 11/23/24 Rx
Review of Systems
-
History Source: Patient
All other systems: Negative unless noted
Respiratory: Trouble Breathing
Cardiac: Chest Pain
Musculoskeletal: Other (back pain)
Physical Exam
Vital Signs
Temp Pulse Resp BP Pulse Ox
98.3 F 105 16 138/87 97
11/24/24 08:00 11/24/24 08:00 11/24/24 08:00 11/24/24 08:00 11/24/24 08:00
Lab Results
11/24/24 07:47
11/24/24 07:47
Troponin I < 0.012 ng/ml 11/24/24 02:04
Qzv-M-Wglvuocmcjo Pept 33.2 pg/ml 11/23/24 22:05
Physical Exam
General: Well Developed, Well Nourished and No Apparent Distress
HEENT: Normocephalic and Anicteric
Respiratory: Clear, Non Labored Respirations and Other (coarse lung sounds to bases)
Cardiac: Regular Rhythm
Musculoskeletal: No Edema
Skin: Warm and Dry
Neuro: AO x 3
Psych: Calm
Impression / Plan
-
Chest discomfort/SOB:
-resolved
-etiology unclear- not exertional, pleuritic, positional, or worse to palpation
-trops and EKG's unremarkable
-checking echo
-stress test in AM (lexiscan due to mobility issues- joint pain)
-recent CT scan no PE or dissection
Tachycardia: sinus
-100's at rest
-mild sinus tachycardia- appears to be her baseline on my review of previous EKG/records
-follow telemetry
-checking echo
-TSH abnormal add on free T4
Anxiety:
-continue usual medical therapy
-management per primary team
RA
Adrenal insufficiency
Data Reviewed
-
EKG: Tracing Personally Visualized and interpreted (ST 108 BPM)
Radiology: Report Reviewed by me (CXR: No acute cardiopulmonary abnormality.)
Medical Tests (Nuc Med, Echo etc): Other (echo is ordered)
Labs: Labs Reviewed by me
[2024-11-24 11:21] LABS: TSH 0.08 uIU/ml (0.47-4.68)
--- NOTE | 2024-11-24 12:04 | W.PN.HOSP.TC ---
Today's Communication/Plan
-
Echocardiogram
Stress test
Assessment / Plan
Assessment / Plan
Gen-AAOx3, NAD
HEENT-NC, AT, anicteric, clear oral mm
Neck-supple
CV-reg, no M, +S1/S2
Lungs-clear B/L
Abd-soft, NT, ND
Ext-no edema
Musculoskeletal-no cyanosis, clubbing
Skin-warm and dry
Neuro-grossly non-focal
Psych-calm, cooperative
Atypical chest pain -unclear etiology. Associated sinus tachycardia. Doubt ACS. Troponins negative. Admission EKG shows sinus tachycardia without significant changes. Chest x-ray on admission normal. Recent CT chest 11/17 negative for pulmonary
embolism. Did show small pericardial effusion without change compared to prior.
Differential diagnosis of pericarditis versus SVT versus ischemia less likely.
Echocardiogram pending.
Cardiology input noted.
For nuclear stress test in the morning. She denies any cardiac history, has never had a stress test.
TSH of 0.08 noted, free T4 pending. Suspect sick euthyroid syndrome. Doubt hyperthyroidism.
Hypokalemia -POA, resolved.
Chronic anemia -macrocytic. Unclear etiology, can check labs.
History of RA
SLE
Chronic adrenal insufficiency -received stress dose steroids, can discontinue. Resume home doses of hydrocortisone. Mild leukocytosis today noted, suspect due to high-dose steroids administered on admission.
Asthma without exacerbation
Anxiety disorder/PTSD
GERD
Obesity due to excess calories
Full code
Anticipated Discharge: 24 - 48 hours
Subjective/Interval History
-
Date of Service: November 24, 2024
Patient seen and examined, substernal chest pain resolved but now having mildly pleuritic right lateral wall chest pain.
Objective Data
-
Labs:
Laboratory Results
11/24/24
07:47
WBC 13.3 H
Hgb 11.3 L
Hct 35.3 L
Plt Count 310
Sodium 140
Potassium 4.6 D
Chloride 106
Carbon Dioxide 29
BUN 15
Creatinine 0.7
Glucose 97
Calcium 8.7
Vital Signs:
Vital Signs
Temp Pulse Resp BP Pulse Ox
98.2 F 111 20 154/93 94
11/24/24 11:58 11/24/24 11:58 11/24/24 11:58 11/24/24 11:58 11/24/24 11:58
I&O
11/23/24 11/24/24 11/25/24
06:59 06:59 06:59
Intake Total 480 / 480
Balance 480 / 480
Review of Systems
-
History Source: Patient
All other systems: Reviewed and negative
[2024-11-24] MEDS: PLAQUENIL 400 MG PO (13:33)
[2024-11-24] MEDS: CORTEF 10 MG PO (13:35)
[2024-11-24 14:42] LABS: Reticulocyte Count 2.5 % (0.4-2.8)
[2024-11-24 15:12] LABS: Iron 198 ug/dl (37-170); Total Iron Binding Capacity 261 ug/dl (265-497)
[2024-11-24 15:28] LABS: Ferritin 31.6 ng/ml (11.1-264.0)
[2024-11-24 15:56] LABS: Folate 4.0 ng/ml (2.76-20); Vitamin B12 627 pg/ml (239-931)
--- NOTE | 2024-11-24 16:32 | CM ---
manager equity reviewed patient's chart and met with patient and patient lives with mother and daughter in a 1 story home with no steps to enter, lisa is independent with adl's and ambulation, patient has a cane a walker that she uses sometimes, home
when stable, no needs.
PCP: Oksana Lazo
Pharmacy: [facility] in [place]
[2024-11-24] MEDS: SINGULAIR 10 MG PO (17:41)
[2024-11-24] MEDS: LOVENOX 40 MG SC (17:42)
[2024-11-24] MEDS: SEROQUEL 400 MG PO (21:29)
[2024-11-25] MEDS: TYLENOL PO ×2 (00:17→04:38)
[2024-11-25 03:12] VITALS: BP 118/74
[2024-11-25 07:15] VITALS: BP 157/92
[2024-11-25] MEDS: SPIRIVA RESPIMAT 2.5 MCG 2 PUFF INH (07:18)
[2024-11-25] MEDS: ADVAIR HFA 115/21 MCG INHALER 2 PUFF INH (07:18)
[2024-11-25] MEDS: NEURONTIN 900 MG PO ×2 (07:26→16:20)
[2024-11-25] MEDS: ATIVAN 2 MG PO ×2 (07:29→12:16)
[2024-11-25] MEDS: TYLENOL 650 MG PO ×3 (07:29→16:21)
[2024-11-25] MEDS: CYMBALTA DELAYED RELEASE 60 MG PO (07:29)
[2024-11-25] MEDS: CORTEF 30 MG PO (07:30)
[2024-11-25] MEDS: MUCINEX PO (08:30)
[2024-11-25] MEDS: FLUSH (NSS) 1 FLUSH IV (10:10)
[2024-11-25] MEDS: LEXISCAN 0.4 MG IV (10:10)
--- NOTE | 2024-11-25 10:22 | W.PN.CD ---
Addendum entered and electronically signed by Maxwell Correa MD 11/25/24 14:10:
I saw and examined the patient.
The HIGH PRESSURE BOILER OPERATOR's note was reviewed and I agree with the note.
Troponins . negative.
No clear evidence of ischemia on nuclear stress
Patient feels well and is without symptoms. May consider additional treatment for GERD . Would defer to primary team.
Add on lipase pending.
OK for discharge from a cardiac standpoint.
Can follow up with PCP . If issues with recurrent CP she can also follow up inour office.
Original Note:
Today's Communication / Plan
-
echo and Lexiscan nuclear stress test today.
Impression / Plan
-
Chest discomfort/SOB:
-resolved, no recurrence.
-trops and EKG's unremarkable
-checking echo and stress test today (Lexiscan due to mobility issues- joint pain)
-recent CT scan no PE or dissection
Tachycardia: sinus
-100's at rest
-mild sinus tachycardia is her baseline upon review of previous EKG/records
-follow telemetry
-checking echo and stress test today
-TSH 0.08, free T4 0.58.
Anxiety:
-continue chronic medical therapy
-management per primary team
RA
Adrenal insufficiency
Physical Exam
Vital Signs/Labs
Vital Signs
Temp Pulse Resp BP Pulse Ox
98.2 F 92 15 157/92 97
11/25/24 07:15 11/25/24 07:23 11/25/24 07:23 11/25/24 07:15 11/25/24 07:23
11/24/24 11/25/24 11/26/24
06:59 06:59 06:59
Actual Weight 199 lb 7 oz
11/24/24 07:47
11/24/24 07:47
TSH 0.08 uIU/ml (0.47-4.68) L 11/24/24 07:47
Free T4 0.58 ng/dl (0.78-2.19) L 11/24/24 07:47
11/23/24
22:05
Ixo-A-Acerfjauyfz Pept 33.2
LAB Results
11/23/24 11/24/24
22:05 02:04
Troponin I < 0.012 < 0.012
Physical Exam
Constitutional: No acute distress
EENT: Anicteric and Moist mucous membranes
Cardiovascular: Rhythm & rate is regular
Respiratory: Respiratory effort normal and Lungs clear to auscul.
GI: Soft
Neuro/Psych: AO x 3
Other: Skin (warm, dry)
Data Reviewed
-
Date of Service: November 25, 2024
Medical Decision Making: Reviewed Test Results
EKG: Tracing Personally Visualized and interpreted
Labs: Labs Reviewed by me
[2024-11-25] MEDS: PLAQUENIL 400 MG PO (12:13)
[2024-11-25] MEDS: CORTEF 10 MG PO (12:15)
--- NOTE | 2024-11-25 12:22 | CM ---
Reina letter given on admission plan is to home when stable.
Plan; Home with mother and daughter when stable.
[2024-11-25] MEDS: IMODIUM 2 MG PO (12:35)
--- NOTE | 2024-11-25 12:41 | W.PN.HOSP.TC ---
Addendum entered and electronically signed by Garth Zacarias DO 11/25/24 13:43:
Stress test negative for ischemia, discussed with cardiology.
Trial of Protonix for possible GERD as cause of chest pain.
Outpatient follow-up with PCP.
Stable for discharge home today.
Updated nursing.
Original Note:
Today's Communication/Plan
-
Follow-up stress test results
Imodium as needed
Assessment / Plan
Assessment / Plan
Gen-AAOx3, NAD
HEENT-NC, AT, anicteric, clear oral mm
Neck-supple
CV-reg, no M, +S1/S2
Lungs-clear B/L
Abd-soft, NT, ND
Ext-no edema
Musculoskeletal-no cyanosis, clubbing
Skin-warm and dry
Neuro-grossly non-focal
Psych-calm, cooperative
Atypical chest pain -unclear etiology. Associated sinus tachycardia. Doubt ACS. Troponins negative. Admission EKG shows sinus tachycardia without significant changes. Chest x-ray on admission normal. Recent CT chest 11/17 negative for pulmonary
embolism. Did show small pericardial effusion without change compared to prior.
Differential diagnosis of pericarditis versus SVT versus ischemia less likely.
Echocardiogram shows normal biventricular size and function without regional wall motion abnormalities, LVEF 55 to 60%, normal diastolic function. No significant valvular disease.
Cardiology input noted.
For nuclear stress test in the morning. She denies any cardiac history, has never had a stress test.
TSH of 0.08 noted, free T4 0.58, free T3 pending.
I spoke with Dr. Vaughn, endocrinology. She recommended rechecking thyroid labs in 2 weeks. Send thyroid antibody levels. Patient actually sees her in the office and we will recommend outpatient follow-up.
Acute diarrhea -doubt infectious. Imodium as needed ordered.
Hypokalemia -POA, resolved.
Chronic anemia -macrocytic. No evidence of iron deficiency, B12 and folic acid normal.
History of RA
SLE
Chronic adrenal insufficiency -continue home doses of steroids.
Asthma without exacerbation
Anxiety disorder/PTSD
GERD
Obesity due to excess calories
Full code
Dispo -discharge home today if stress test negative.
Anticipated Discharge: Today
Subjective/Interval History
-
Date of Service: November 25, 2024
Patient seen and examined. Denies further chest pain. Complaining of diarrhea since stress test today. Had 3 loose stools. Denies abdominal discomfort.
Objective Data
-
Vital Signs:
Vital Signs
Temp Pulse Resp BP Pulse Ox
98.2 F 92 15 157/92 97
11/25/24 07:15 11/25/24 07:23 11/25/24 07:23 11/25/24 07:15 11/25/24 07:23
I&O
11/24/24 11/25/24 11/26/24
06:59 06:59 06:59
Intake Total 480 / 480 1240 / 1240
Balance 480 / 480 1240 / 1240
Review of Systems
-
History Source: Patient
All other systems: Reviewed and negative
[2024-11-25 13:20] VITALS: BP 167/96
--- NOTE | 2024-11-25 13:48 | W.DS.TRANS ---
DC Summary - [facility]
-
Discharge Instructions:
Discharge Diagnosis/Procedures Chest pain
Diet Low Cholesterol,Low Fat
Activity As tolerated
Driving Restrictions As prior to admission
Bathing Restrictions None
Instructions:
Stand-Alone Forms:
Changes to Home Medications: Yes
Discharge Medications:
DC Medications w/original date entered in [employer]
Bifidobacterium infantis 4 mg capsule (Align (B.infantis)) 4 mg PO DAILY Probiotic supplement 09/28/17
benzonatate 100 mg capsule 200 mg PO Q8HPRN PRN cough 09/28/17
cranberry 500 mg capsule 930 mg PO DAILY Supplement 09/28/17
hydrocortisone 10 mg tablet 10 mg PO DAILY@1300 adrenal insufficiency 09/28/17
hydrocortisone 10 mg tablet 30 mg PO DAILY adrenal insufficiency 09/28/17
montelukast 10 mg tablet 10 mg PO QPM Allergy 09/28/17
riboflavin (vitamin B2) 100 mg tablet (Vitamin B-2) 400 mg PO DAILY Supplement 11/30/17
calcium carbonate (Antacid (calcium carbonate)) 2 tab PO Q4HPRN PRN heartburn 04/24/21
hydroxychloroquine 200 mg tablet 400 mg PO NOON Lupus/rheumatoid arthritis 04/24/21
acetaminophen 500 mg tablet (Tylenol Extra Strength) 1,000 mg (2 x 500 mg) PO Q8HPRN PRN tension headache ##0 04/26/21
ondansetron 4 mg disintegrating tablet 4 mg PO TIDPRN PRN nausea/vomiting #20 tabs 04/05/22
ascorbic acid (vitamin C) 500 mg tablet (Vitamin C) 500 mg PO BID Supplement 05/15/23
cholecalciferol (vitamin D3) 25 mcg (1,000 unit) tablet (Vitamin D3) 175 mcg PO QPM Supplement 05/15/23
duloxetine 60 mg capsule,delayed release (Cymbalta) 60 mg PO BID Fibromyalgia 05/15/23
loperamide 2 mg tablet 2 mg PO Q6H PRN diarrhea 05/15/23
lorazepam 2 mg tablet 2 mg PO QID Mental Health/Anxiety 05/15/23
methocarbamol 500 mg tablet 1,500 mg PO Q8H Lupus/RA/Fibromyalgia 05/15/23
quetiapine 200 mg tablet (Seroquel) 400 mg PO HS Mental Health/Anxiety 05/15/23
albuterol sulfate 90 mcg/actuation aerosol inhaler (Ventolin HFA) 2 puff inhalation Q4H PRN sob/wheezing 10/25/24
fluticasone propionate 115 mcg-salmeterol 21 mcg/actuation HFA inhaler (Advair HFA) 2 puff inhalation BID Lung/Breathing Issues 10/25/24
tiotropium bromide 1.25 mcg/actuation mist for inhalation (Spiriva Respimat) 2 puff inhalation DAILY Lung/Breathing Issues 10/25/24
gabapentin 900 mg tablet,extended release 24 hr 900 mg PO 3XD Neurological Condition 10/26/24
guaifenesin 600 mg tablet, extended release 12 hr 1,200 mg (2 x 600 mg) PO Q12 #10 tabs 10/27/24
pantoprazole 40 mg tablet,delayed release (Protonix) 40 mg PO DAILY #30 tabs 11/25/24
Home Medication Changes
Stop ibuprofen
Stop naproxen
Pending Results: No
[2024-11-25 14:09] LABS: Lipase 51 U/L (23-300)
[2024-11-25 15:37] VITALS: BP 151/97
[2024-11-25 15:51] LABS: Free T3 3.34 pg/ml (2.77-5.27)
[2024-11-28 02:23] LABS: Thyroid Stim. Immunoglobulin <0.10 IU/L (<=0.54)
== END 2024-11-25 16:48 | disposition home or self-care (01) ==
LOC: 4 WEST ACU 01:35
PROVIDERS: Physician Assistant; ADMITTING PHYSICIAN Internal Medicine; ATTENDING PHYSICIAN Hospitalist; CONSULT PHYSICIAN Internal Medicine Cardiovascular Disease; EMERGENCY PHYSICIAN Emergency Medicine; FAMILY PHYSICIAN Nurse Practitioner Family
DX: R07.89 Other chest pain (principal); R19.7 Diarrhea, unspecified; E87.6 Hypokalemia; D64.9 Anemia, unspecified; E27.1 Primary adrenocortical insufficiency; R06.02 Shortness of breath; J45.909 Unspecified asthma, uncomplicated; F42.9 Obsessive-compulsive disorder, unspecified; M79.7 Fibromyalgia; F41.9 Anxiety disorder, unspecified; F32.A Depression, unspecified; F43.10 Post-traumatic stress disorder, unspecified; M32.9 Systemic lupus erythematosus, unspecified; M54.9 Dorsalgia, unspecified; M54.2 Cervicalgia; E66.09 Other obesity due to excess calories; R94.6 Abnormal results of thyroid function studies; R94.31 Abnormal electrocardiogram [ECG] [EKG]; I25.10 Atherosclerotic heart disease of native coronary artery without angina pectoris; I10 Essential (primary) hypertension; R09.02 Hypoxemia; R09.89 Other specified symptoms and signs involving the circulatory and respiratory systems; D84.9 Immunodeficiency, unspecified; D80.3 Selective deficiency of immunoglobulin G [IgG] subclasses; K21.9 Gastro-esophageal reflux disease without esophagitis; R06.83 Snoring; R00.0 Tachycardia, unspecified; M06.9 Rheumatoid arthritis, unspecified; M81.0 Age-related osteoporosis without current pathological fracture; K58.9 Irritable bowel syndrome, unspecified; R91.8 Other nonspecific abnormal finding of lung field; Z68.32 Body mass index [BMI] 32.0-32.9, adult; Z11.52 Encounter for screening for COVID-19; Z87.01 Personal history of pneumonia (recurrent); Z90.49 Acquired absence of other specified parts of digestive tract; Z88.1 Allergy status to other antibiotic agents; Z88.5 Allergy status to narcotic agent; Z88.2 Allergy status to sulfonamides; Z88.8 Allergy status to other drugs, medicaments and biological substances; Z91.018 Allergy to other foods; Z79.51 Long term (current) use of inhaled steroids; Z82.49 Family history of ischemic heart disease and other diseases of the circulatory system; Z79.899 Other long term (current) drug therapy; Z79.1 Long term (current) use of non-steroidal anti-inflammatories (NSAID)
CPT/HCPCS: 71045; 78452; 80048; 80053; 82607; 82728; 82746; 83540; 83550; 83690; 83880; 84439; 84443; 84445; 84481; 84484; 85025; 85045; 85652; 86140; 86376; 87502; 87811; 93005; 93017; 93306; 94640; 96360; 99285; A9500; G0378; J2785

== ENCOUNTER → 2024-11-29 09:36 | Outpatient (REF) | payer OTHER, SELFPAY ==
[2024-11-29 10:57] LABS: Hematocrit 36.9 % (37.0-47.0); Hemoglobin 11.8 g/dL (12.0-16.0); Mean Corp Hgb Conc. 32.0 g/dL (33.0-37.0); Mean Corpuscular Volume 102.2 fL (81.0-99.0); Nucleated Red Blood Cells % 0 %; Platelet Count 350 10^3/uL (130-400); Red Cell Dist. Width 14.5 % (11.5-14.5)
[2024-11-29 11:28] LABS: ALT (SGPT) 113 U/L (0-35); AST (SGOT) 45 U/L (14-36); Albumin 4.4 g/dl (3.5-5.0); Alkaline Phosphatase 96 U/L (38-126); Blood Urea Nitrogen 12 mg/dl (7-17); Calcium 9.7 mg/dl (8.4-10.2); Carbon Dioxide 30 mmol/L (22-30); Chloride 104 mmol/L (98-107); Glucose 91 mg/dl (70-99); Potassium 3.8 mmol/L (3.5-5.1); Sodium 141 mmol/L (135-145); Total Protein 6.6 g/dl (6.3-8.2); eGFR > 60.00
[2024-11-29 11:42] LABS: Vitamin D, 25-OH*** 44.5 ng/mL (30-80)
== END ==
LOC: REG 09:36
PROVIDERS: ATTENDING PHYSICIAN Physician Assistant; FAMILY PHYSICIAN Nurse Practitioner Family
DX: E55.9 Vitamin D deficiency, unspecified (principal); M79.7 Fibromyalgia; Z51.81 Encounter for therapeutic drug level monitoring; Z79.899 Other long term (current) drug therapy; E87.6 Hypokalemia; D64.9 Anemia, unspecified
CPT/HCPCS: 36415; 80053; 82306; 85025

== ENCOUNTER 2024-12-07 05:36 | Observation (INO) | payer OTHER, SELFPAY ==
[2024-12-06 19:52] VITALS: BP 177/102
[2024-12-06 20:10] LABS: Hematocrit 41.7 % (37.0-47.0); Hemoglobin 14.1 g/dL (12.0-16.0); Mean Corp Hgb Conc. 33.8 g/dL (33.0-37.0); Mean Corpuscular Volume 97.9 fL (81.0-99.0); Nucleated Red Blood Cells % 0 %; Platelet Count 442 10^3/uL (130-400); Red Cell Dist. Width 14.2 % (11.5-14.5)
[2024-12-06 20:36] LABS: ALT (SGPT) 93 U/L (0-35); AST (SGOT) 151 U/L (14-36); Albumin 5.1 g/dl (3.5-5.0); Alkaline Phosphatase 149 U/L (38-126); Blood Urea Nitrogen 10 mg/dl (7-17); Calcium 11.0 mg/dl (8.4-10.2); Carbon Dioxide 26 mmol/L (22-30); Chloride 107 mmol/L (98-107); Glucose 99 mg/dl (70-99); Lipase 112 U/L (23-300); Potassium 4.7 mmol/L (3.5-5.1); Sodium 142 mmol/L (135-145); Total Protein 7.7 g/dl (6.3-8.2); eGFR > 60.00
[2024-12-06 21:27] VITALS: BP 159/91
[2024-12-06 21:38] VITALS: BMI 31.5
[2024-12-06 21:55] VITALS: BP 159/101
[2024-12-06 22:18] LABS: Urine Character Clear (Clear)
[2024-12-06] MEDS: ZOFRAN 4 MG IV (22:30)
[2024-12-06 22:31] LABS: Urine White Cell 0-2 /HPF (0-5)
[2024-12-06] MEDS: NSS 1000 IV (22:31)
--- NOTE | 2024-12-06 23:20 | ED.GENMED ---
History of Present Illness
<Katerin Contreras PA-C - Last Filed: 12/07/24 05:53>
General
Chief Complaint: Abdominal Symptoms
Source: patient
Exam Limitations: none
Time Seen by Provider: 12/06/24 21:23
Nursing documentation reviewed up to this point in time: agreed with
History of Present Illness
History of Present Illness:
54-year-old female with a past medical history of [place]'s disease, migraines, diaphragmatic hernia, hypothyroidism, lupus, fibromyalgia, anxiety, depression, who presents emergency department today with concerns of persistent nausea and vomiting
since 5 AM this morning. She reports that she consume dairy which she thinks may have triggered her symptoms. Initially she had multiple bouts of diarrhea but then subsequently had multiple episodes of vomiting which has continued despite Zofran.
She reports that with her vomiting, she has not been able to take her typical medications. She reports that she takes Ativan daily for anxiety and reports that she is having extreme anxiety and feels that she is having anxiety attack because she is
not been able to take her Ativan. With the diarrhea, she started to take Imodium which did help. She later was evening, she started to develop diffuse abdominal pain. She is not able to take Compazine and Reglan as this causes her itching and
worse upon ministration. With her history of Ativan, she is also requesting her stress dose of steroids. She denies any sick contacts. She has a past history of having her gallbladder out but denies any other intra-abdominal surgeries.
Past History
<Katerin Contreras PA-C - Last Filed: 12/07/24 05:53>
Past History
ED Past Medical History: Asthma, Fibromyalgia, Psychiatric (Anxiety, OCD, PTSD, Panic disorder) and Other (Adrenal insufficiency, migraine , Back and neck pains, Celiac disease, Cystitis, Lupus)
ED Past Surgical History: , Gynecological (D&C with ablation, ) and Tonsilectomy
Social History
Tobacco: Non-smoker
Alcohol: None
Drug: None
Personal:
Living: with family
Employment: Disabled
Family History
Family History: Other (Noncontributory)
Review of Systems
<Katerin Contreras PA-C - Last Filed: 12/07/24 05:53>
Review of Systems
All Other Systems: ROS reviewed and negative except as documented in HPI and ROS
Phy Exam
<Katerin Contreras PA-C - Last Filed: 12/07/24 05:53>
Physical Exam
Physical Exam:
General: Patient is nontoxic appearing, very anxious
Skin: Warm and dry, no rashes or lesions
Head: Normocephalic, atraumatic
Eyes: Sclera non-icteric. EOMs intact.
Cardiac: Regular rate and rhythm, no murmurs
Peripheral Vascular: No lower extremity swelling or edema
Pulm: Normal respiratory effort, no wheezes, rales, rhonchi
Abdomen: Diffuse abdominal tenderness palpation, abdominal distention, right greater than left
Neuro: CN II-XII intact, no focal neurologic deficits.
Psychiatric: Patient is anxious appearing, tearful
Course
<Katerin Contreras PA-C - Last Filed: 12/07/24 05:53>
Orders/Labs/Results
Orders:
Orders
12/06/24 20:03
Complete Blood Count/With Diff Urgent
Comprehensive Metabolic Panel Urgent
Lipase Urgent
12/06/24 22:11
Urinalysis Reflex To Culture Urgent
Date Specimen was Collected: 12/06/24
Time Specimen was Collected: 19:56
Urine Microscopic Reflex Cult Urgent
12/06/24 22:26
Ondansetron Injectable [Zofran] 4 mg .ROUTE .[facility]
12/06/24 22:29
Ondansetron Injectable [Zofran] 4 mg IV NOW STA
12/06/24 22:30
0.9% Sodium Chloride 1000 ml [Nss] 1,000 ml IV BOLUS
12/06/24 23:09
Electrocardiogram (*1) Urgent
Reason for Study: Other
Other Reason for Exam: Possible Sepsis
EKG- Treatment ONCE
12/06/24 23:19
Diphenhydramine [Benadryl] 12.5 mg IV NOW STA
Hydrocortisone Sod Succinate [Solu-Cortef] 100 mg IV NOW STA
Trimethobenzamide [Tigan] 200 mg IM NOW STA
diazePAM [Valium Injection] 2 mg IV NOW STA
12/06/24 23:20
CT Abd/pelvis W Iv Cont Urgent
Comment:
Reason For Exam: diffuse abdominal pain
Troponin I Urgent
12/06/24 23:21
Cardiac Monitoring- Treatment ONCE
12/06/24 23:35
Midazolam HCl [Versed] 2 mg IV NOW STA
12/07/24 00:39
Ondansetron Injectable [Zofran] 4 mg IV NOW STA
12/07/24 01:16
Midazolam HCl [Versed] 2 mg IV NOW STA
12/07/24 01:21
Lorazepam [Ativan] 2 mg IM NOW STA
12/07/24 01:45
Midazolam HCl [Versed] 2 mg IV NOW STA
12/07/24 04:48
Midazolam HCl [Versed] 2 mg IV NOW STA
12/07/24 05:22
Admit/Transfer Patient As Directed
Co-Sign Provider:
Level of Care: Observation services
Assign to:: Medical/Surgical
Physician / Group: Jeff
Diagnosis: gastroenteritis
Reason for Hospitalization: Intractable Nausea/Vomiting
PRN Pain Medication Management As Directed
May give lesser potent ordered pain med per pt: Yes
preference::
Protocol:: Medication orders for pain may be administered in a
manner that supports deferring to patient preference
when the pt is:
- Requesting an ordered lesser potent pain medication.
Least to most potent pain medications are defined
as: acetaminophen < NSAID < tramadol < opioids
(morphine, oxycodone, hydromorphone).
- Requesting a lesser dose of the same medication IF
ORDERED.
- Requesting a less intrusive route of administration
if both routes are prescribed by the provider (PO <
IV).
12/07/24 05:24
Code Status As Directed
Resuscitation Status: Full Code
Abnormal Lab Results
12/06/24 12/06/24
20:03 22:11
WBC 12.3 H 10^3/uL
(4.8-10.8)
MCH 33.1 H pg
(27.0-31.0)
Plt Count 442 H 10^3/uL
(130-400)
Abs Immat Gran (auto) 0.1 H 10^3/uL
(0-0.05)
Absolute Neuts (auto) 7.7 H 10^3/uL
(1.4-6.5)
Absolute Monos (auto) 1.3 H 10^3/uL
(0.1-0.6)
Immature Gran % 0.8 H %
(0-0.5)
Monocytes % 10.4 H %
(1.7-9.3)
Calcium 11.0 H mg/dl
(8.4-10.2)
AST 151 H U/L
(14-36)
ALT 93 H U/L
(0-35)
Alkaline Phosphatase 149 H U/L
(38-126)
Albumin 5.1 H g/dl
(3.5-5.0)
Ur Occult Blood Reflex 2+ A
(Negative)
Urine RBC 7-10 A /HPF
(0-2)
Urine Bacteria (Reflex) Few A
(Negative)
12/06/24 20:03
12/06/24 20:03
Vital Signs
Initial and Last Documented VS:
Initial Vital Signs
Temp Pulse Resp BP Pulse Ox
98.1 F 117 14 177/102 97
12/06/24 19:52 12/06/24 19:52 12/06/24 19:52 12/06/24 19:52 12/06/24 19:52
Last Documented Vital Signs
Temp Pulse Resp BP Pulse Ox
98.2 F 101 18 158/100 97
12/06/24 21:55 12/07/24 05:15 12/07/24 05:15 12/07/24 05:10 12/07/24 05:15
<Venu Martinez, - Last Filed: 12/07/24 04:21>
Orders/Labs/Results
Orders:
Orders
12/06/24 20:03
Complete Blood Count/With Diff Urgent
Comprehensive Metabolic Panel Urgent
Lipase Urgent
12/06/24 22:11
Urinalysis Reflex To Culture Urgent
Date Specimen was Collected: 12/06/24
Time Specimen was Collected: 19:56
Urine Microscopic Reflex Cult Urgent
12/06/24 22:26
Ondansetron Injectable [Zofran] 4 mg .ROUTE .[facility]
12/06/24 22:29
Ondansetron Injectable [Zofran] 4 mg IV NOW STA
12/06/24 22:30
0.9% Sodium Chloride 1000 ml [Nss] 1,000 ml IV BOLUS
12/06/24 23:09
Electrocardiogram (*1) Urgent
Reason for Study: Other
Other Reason for Exam: Possible Sepsis
EKG- Treatment ONCE
12/06/24 23:19
Diphenhydramine [Benadryl] 12.5 mg IV NOW STA
Hydrocortisone Sod Succinate [Solu-Cortef] 100 mg IV NOW STA
Trimethobenzamide [Tigan] 200 mg IM NOW STA
diazePAM [Valium Injection] 2 mg IV NOW STA
12/06/24 23:20
CT Abd/pelvis W Iv Cont Urgent
Comment:
Reason For Exam: diffuse abdominal pain
Troponin I Urgent
12/06/24 23:21
Cardiac Monitoring- Treatment ONCE
12/06/24 23:35
Midazolam HCl [Versed] 2 mg IV NOW STA
12/07/24 00:39
Ondansetron Injectable [Zofran] 4 mg IV NOW STA
12/07/24 01:16
Midazolam HCl [Versed] 2 mg IV NOW STA
12/07/24 01:21
Lorazepam [Ativan] 2 mg IM NOW STA
12/07/24 01:45
Midazolam HCl [Versed] 2 mg IV NOW STA
12/07/24 04:48
Midazolam HCl [Versed] 2 mg IV NOW STA
12/07/24 05:22
Admit/Transfer Patient As Directed
Co-Sign Provider:
Level of Care: Observation services
Assign to:: Medical/Surgical
Physician / Group: Jeff
Diagnosis: gastroenteritis
Reason for Hospitalization: Intractable Nausea/Vomiting
PRN Pain Medication Management As Directed
May give lesser potent ordered pain med per pt: Yes
preference::
Protocol:: Medication orders for pain may be administered in a
manner that supports deferring to patient preference
when the pt is:
- Requesting an ordered lesser potent pain medication.
Least to most potent pain medications are defined
as: acetaminophen < NSAID < tramadol < opioids
(morphine, oxycodone, hydromorphone).
- Requesting a lesser dose of the same medication IF
ORDERED.
- Requesting a less intrusive route of administration
if both routes are prescribed by the provider (PO <
IV).
12/07/24 05:24
Code Status As Directed
Resuscitation Status: Full Code
Abnormal Lab Results
12/06/24 12/06/24
20:03 22:11
WBC 12.3 H 10^3/uL
(4.8-10.8)
MCH 33.1 H pg
(27.0-31.0)
Plt Count 442 H 10^3/uL
(130-400)
Abs Immat Gran (auto) 0.1 H 10^3/uL
(0-0.05)
Absolute Neuts (auto) 7.7 H 10^3/uL
(1.4-6.5)
Absolute Monos (auto) 1.3 H 10^3/uL
(0.1-0.6)
Immature Gran % 0.8 H %
(0-0.5)
Monocytes % 10.4 H %
(1.7-9.3)
Calcium 11.0 H mg/dl
(8.4-10.2)
AST 151 H U/L
(14-36)
ALT 93 H U/L
(0-35)
Alkaline Phosphatase 149 H U/L
(38-126)
Albumin 5.1 H g/dl
(3.5-5.0)
Ur Occult Blood Reflex 2+ A
(Negative)
Urine RBC 7-10 A /HPF
(0-2)
Urine Bacteria (Reflex) Few A
(Negative)
12/06/24 20:03
12/06/24 20:03
Vital Signs
Initial and Last Documented VS:
Initial Vital Signs
Temp Pulse Resp BP Pulse Ox
98.1 F 117 14 177/102 97
12/06/24 19:52 12/06/24 19:52 12/06/24 19:52 12/06/24 19:52 12/06/24 19:52
Last Documented Vital Signs
Temp Pulse Resp BP Pulse Ox
98.2 F 101 18 158/100 97
12/06/24 21:55 12/07/24 05:15 12/07/24 05:15 12/07/24 05:10 12/07/24 05:15
<Katerin Contreras PA-C - Last Filed: 12/07/24 05:53>
MDM/Problems Addressed
Differential Diagnosis Includes:
ddx include gastroenteritis, appendicitis, adrenal crisis, panic disorder,
MDM/Problems Addressed:
54-year-old female with past medical history of anxiety, interstitial ascites, [place]'s disease, hypothyroidism, presents emergency department today with concerns of persistent nausea and vomiting. She has had a cholecystectomy in the past. She
started to have abdominal pain on her right side is concerned that possible appendicitis. She has extensive allergies to antiemetics and reports she gets itchiness and swelling with many of them and does not want to try Compazine or Reglan even
with Benadryl. She got Tigan, multiple doses of Zofran, and some benzodiazepines without relief. She is given IV fluids which she feels made her symptoms worse. She had diarrhea earlier. She was given a stress dose of her solucortef. She is
still unable to tolerate any oral intake. Will need to the hospital for intractable nausea and vomiting likely secondary to a gastroenteritis versus cyclic vomiting syndrome. ED attending made aware.
Chronic conditions affecting care:
Lars's disease, hyperthyroidism, anxiety, depression
<Katerin Contreras PA-C - Last Filed: 12/07/24 05:53>
*Pulse Oximetry
SaO2: 98
Oxygen Mode of Delivery: Room air
Patient hypoxic: no
*Critical Care Note
Total Time (30-74mins, 75-104mins- exclusive of procedures): Not Applicable
Data Reviewed
Review of Other/Old Records Reveals: Records (Reviewed discharge summary from 11/27/2024 patient seen for acute adrenal crisis)
Source: patient and records
ED Attending Note
<Katerin Contreras PA-C - Last Filed: 12/07/24 05:53>
-
Portions of this chart may have been created with voice recognition software.� Occasional wrong word or��sound alike� substitutions may have occurred due to the inherent limitations of voice recognition software.
<Venu Martinez DO - Last Filed: 12/07/24 04:21>
ED Attending Note
Patient seen and examined by attending physician: Yes
ED Attending Note:
54-year-old female history of intractable nausea vomiting presents with more of the same. Patient seen in triage room with the RAQUEL, I have reviewed and agree with her history and treatment plan. On independent physical exam patient is in mild to
moderate acute distress. Heart regular rate rhythm. Patient still complaining of nausea despite medics given her antiemetics. Patient admitted to the hospital service for further nausea control.
Note:
CHIEF COMPLAINT(S)
Frequent vomiting
HISTORY OF PRESENT ILLNESS
The patient is a 54-year-old female with a history of episodes of vomiting. She mentioned having been admitted to the hospital several times for similar symptoms, with the most recent visit being less than two weeks prior. The current episode
involved multiple episodes of vomiting, for which she was administered anti-emetics including Zofran (ondansetron) and Versed (midazolam). Despite these interventions, the vomiting persisted. Previously, the patient reported that a 'critical
cocktail' of medications including diphenhydramine and promethazine was beneficial in managing her symptoms. The patient expressed concern about being admitted to a shared room due to the frequency of vomiting and the potential risk to others.
ADDITIONAL HISTORY OBTAINED FROM SOURCES OTHER THAN THE PATIENT
No specific sources or information outside of the patient is detailed in the conversation.
MEDICATIONS
The patient received ondansetron and midazolam during this visit, and reported the use of diphenhydramine and promethazine in past episodes with success.
REVIEW OF SYSTEMS
- Gastrointestinal: Frequent episodes of vomiting.
PLAN
The patient will be admitted for observation and further management of symptoms. Efforts will be made to arrange a single room to alleviate her anxiety regarding her symptoms affecting others.
DIFFERENTIAL DIAGNOSIS
The differential diagnosis includes, in no particular order and is not limited to:
- Gastroenteritis
- Cyclic vomiting syndrome
- Medication side effects
- Metabolic disorders
- Gastroesophageal reflux disease (GERD)
- Peptic ulcer disease
- Migraine-associated vomiting
- Vestibular disorders
- Anxiety or stress-induced vomiting
- Pancreatitis
Discharge Plan
Departure
Patient Disposition: Admit
Date of Disposition: 12/07/24
Time of Disposition: 03:49
Admit to: Med/Surg
Presentation/result/management discussed w/ accepting MD/DO: Hospitalist
Patient with high blood pressure during this ER visit?: Yes
Condition: Good
Discharge Problem:
Intractable nausea and vomiting, Gastroenteritis
Interventions
Interventions:
*Risk Screen - Suicide Last Done: 12/06/24 19:52
*General Assessment Last Done: 12/06/24 19:52
*Neglect/Abuse Screening Last Done: 12/06/24 19:52
*ED COVID-19 Vaccine History Last Done: 12/06/24 19:52
*ED Influenza Vaccine History Last Done: 12/06/24 19:52
BD-Jdbehw-Ddwxpuizsy Assessment Last Done: 12/06/24 21:38
[2024-12-06] MEDS: BENADRYL 12.5 MG IV (23:40)
[2024-12-06] MEDS: VERSED 2 MG IV (23:40)
[2024-12-06] MEDS: SOLU-CORTEF 100 MG IV (23:40)
[2024-12-06] MEDS: TIGAN 200 MG IM (23:44)
[2024-12-06 23:46] VITALS: BP 157/88
[2024-12-07] VITALS (12 sets, daily range): BP systolic 96–188; BP diastolic 66–107; BMI 30.2
[2024-12-07] MEDS: ZOFRAN 4 MG IV ×2 (00:50→10:17)
[2024-12-07 00:56] LABS: Troponin I < 0.012 ng/ml
[2024-12-07] MEDS: VERSED 2 MG IV ×2 (01:51→04:57)
--- NOTE | 2024-12-07 05:11 | HPS.HSE ---
Family Physician
-
Family Physician: DAVID Bhardwaj
Chief Complaint
-
Nausea and vomiting
History of Present Illness
This is a 54-year-old female with past medical history significant for systemic lupus, rheumatoid arthritis, adrenal insufficiency, asthma, anxiety, depression, GERD, IgG deficiency now presenting to the Emergency Department with nausea vomiting
She stated that symptoms began around 5 AM with nausea and then vomiting. Prior to the onset of symptoms she states she had multiple rounds of diarrhea and then started vomiting which continued despite use of Zofran. She reports that she has been
unable to take her medications throughout the day. She did start taking Imodium for the diarrhea which slowed that down. Later in the evening she developed abdominal pain.
She was recently hospitalized with shortness of breath and chest pain. She had a cardiac workup with negative troponins, normal echo and a negative stress test. At time of discharge she was chest pain-free. She was discharged on her usual
medications.
While in the emergency department she was unable to tolerate/refused antiemetics including Reglan Haldol and Compazine. She was given multiple doses of Zofran Tigan and Versed and still unable to tolerate oral intake due to dry heaving.
The emergency department she was afebrile, blood pressure was 144/92 with a pulse rate of 98 and she was satting 96% on room air. She had a white count of 12.3 otherwise CBC was unremarkable. UA was negative. Electrolytes BUN/creatinine were all
normal. She had small elevation of her AST to 115 and ALT to 90. Alk phos was 141. Total bilirubin was normal. Lipase was normal. CT of the abdomen and pelvis shows no acute findings.
Medical History
Past Medical History
Past Medical History: Reports Other
Additional Past Medical History:
Anxiety
Rheumatoid arthritis
Asthma
Depression
Systemic lupus
Pulmonary nodules
Fibromyalgia
Osteoporosis
IBS
Adrenal insufficiency
IgG deficiency
GERD
Posttraumatic stress disorder
chantell disease
Past Surgical History: Reports Other
Additional Past Surgical History:
Tonsillectomy and adenoidectomy
[place] teeth extraction
Social History
Tobacco: Non-smoker
Alcohol: None
Drug: None
Living: With Family
Family History
Family History: Not pertinent
Allergies / Home Medications
Allergies reflects when Allergies were last updated in [facility].
Home Medications with original date entered in [facility]
Allergy/Medication List:
Allergies
Allergy/AdvReac Type Severity Reaction Status Date / Time
ciprofloxacin (From Cipro) Allergy Rash Verified 10/25/24 14:31
haloperidol (From Haldol) Allergy Unknown Verified 10/25/24 14:31
hydrocodone bitartrate (From Allergy Itching Verified 10/25/24 14:31
Lorcet 10/650)
metoclopramide (From Reglan) Allergy Swelling Verified 10/25/24 14:31
prednisone (Prednisone) Allergy Itching Verified 10/25/24 14:31
prochlorperazine (From Allergy Unknown Verified 10/25/24 14:31
Compazine)
propoxyphene napsylate (From Allergy Itching Verified 10/25/24 14:31
Darvocet-N 100)
red dye Allergy Itching Verified 10/25/24 14:31
Serotonin 5HT-3 Antagonists Allergy Vomiting Verified 10/25/24 14:31
sulfamethoxazole (From Allergy Rash Verified 10/25/24 14:31
Bactrim)
sulfanilamide Allergy Rash Verified 10/25/24 14:31
Tricyclic Antidepressants Allergy Vomiting Verified 10/25/24 14:31
and Tricy
trimethoprim (From Bactrim) Allergy Rash Verified 10/25/24 14:31
wheat Allergy Vomiting Verified 10/25/24 14:31
nitrofurantoin (From AdvReac Vomitting Verified 10/25/24 14:31
Macrobid)
promethazine (From Phenergan) AdvReac Dizziness Verified 10/25/24 14:31
Home Medications
Bifidobacterium infantis 4 mg capsule (Align (B.infantis)) 4 mg PO DAILY Probiotic supplement 09/28/17
benzonatate 100 mg capsule 200 mg PO Q8HPRN PRN cough 09/28/17
cranberry 500 mg capsule 930 mg PO DAILY Supplement 09/28/17
hydrocortisone 10 mg tablet 10 mg PO DAILY@1300 adrenal insufficiency 09/28/17
hydrocortisone 10 mg tablet 30 mg PO DAILY adrenal insufficiency 09/28/17
montelukast 10 mg tablet 10 mg PO QPM Allergy 09/28/17
riboflavin (vitamin B2) 100 mg tablet (Vitamin B-2) 400 mg PO DAILY Supplement 11/30/17
calcium carbonate (Antacid (calcium carbonate)) 2 tab PO Q4HPRN PRN heartburn 04/24/21
hydroxychloroquine 200 mg tablet 400 mg PO NOON Lupus/rheumatoid arthritis 04/24/21
acetaminophen 500 mg tablet (Tylenol Extra Strength) 1,000 mg (2 x 500 mg) PO Q8HPRN PRN tension headache ##0 04/26/21
ondansetron 4 mg disintegrating tablet 4 mg PO TIDPRN PRN nausea/vomiting #20 tabs 04/05/22
ascorbic acid (vitamin C) 500 mg tablet (Vitamin C) 500 mg PO BID Supplement 05/15/23
cholecalciferol (vitamin D3) 25 mcg (1,000 unit) tablet (Vitamin D3) 175 mcg PO QPM Supplement 05/15/23
duloxetine 60 mg capsule,delayed release (Cymbalta) 60 mg PO BID Fibromyalgia 05/15/23
ibuprofen 800 mg tablet 800 mg PO TID Pain 05/15/23
loperamide 2 mg tablet 2 mg PO Q6H PRN diarrhea 05/15/23
lorazepam 2 mg tablet 2 mg PO QID 05/15/23
methocarbamol 500 mg tablet 1,500 mg PO Q8H Lupus/RA/Fibromyalgia 05/15/23
quetiapine 200 mg tablet (Seroquel) 400 mg PO HS Mental Health/Anxiety 05/15/23
albuterol sulfate 90 mcg/actuation aerosol inhaler (Ventolin HFA) 2 puff inhalation Q4H PRN sob/wheezing 10/25/24
fluticasone propionate 115 mcg-salmeterol 21 mcg/actuation HFA inhaler (Advair HFA) 2 puff inhalation BID 10/25/24
tiotropium bromide 1.25 mcg/actuation mist for inhalation (Spiriva Respimat) 2 puff inhalation DAILY 10/25/24
Review of Systems
-
Constitutional: Reports No Symptoms
EENT: Reports No Symptoms
Respiratory: Reports No Symptoms
Cardiac: Reports No Symptoms
Abdomen/GI: Reports Abdominal Pain, Nausea, Vomiting and Diarrhea
: Reports No Symptoms
Musculoskeletal: Reports No Symptoms
Skin: Reports No Symptoms
Neurological: Reports No Symptoms
Endocrine: Reports No Symptoms
Hematologic/Lymphatic: Reports No Symptoms
Psych: Reports Anxiety
Physical Exam
Vital Signs
Vital Signs
Temp Pulse Resp BP Pulse Ox
98.2 F 98 19 158/100 96
12/06/24 21:55 12/07/24 04:45 12/07/24 04:45 12/07/24 05:10 12/07/24 04:00
Physical Exam
General: Well Developed, Well Nourished and No Apparent Distress
HEENT: NormoCephalic, Moist mucous membranes and Atraumatic
Respiratory: Clear
Cardiac: S1/S2 and Regular Rhythm; No Murmur or Rub
GI: Soft, Non Tender, Non Distended and Normal Bowel Sounds; No Organomegaly
Rectal: Deferred by Provider
Musculoskeletal: No Clubbing, No Cyanosis and No Edema
Skin: No Rash
Neuro: AO x 3 and Nonfocal/grossly intact
Psych: Calm
Laboratory Results
-
12/06/24 20:03
12/06/24 20:03
Laboratory Results
Total Bilirubin 0.8 mg/dl (0.2-1.3) 12/06/24 20:03
AST 151 U/L (14-36) H 12/06/24 20:03
ALT 93 U/L (0-35) H 12/06/24 20:03
Alkaline Phosphatase 149 U/L (38-126) H 12/06/24 20:03
Troponin I < 0.012 ng/ml 12/07/24 00:22
Lipase 112 U/L (23-300) 12/06/24 20:03
Data Reviewed
-
CT Scan: Report Reviewed by me
Lab Data: Labs Reviewed by me
Old Records: Reviewed
Impression/Plan
-
IMPRESSION:
54-year-old with multiple medical comorbidities including systemic lupus, rheumatoid arthritis, adrenal insufficiency, asthma/chronic allergic sinusitis with sinus congestion presenting to the emergency department diarrhea and then intractable
nausea and vomiting. She is afebrile. No known sick contacts but had recent hospitalization. She is hemodynamically stable, mild leukocytosis and electrolytes are normal. UA is unremarkable. There is mild transaminases with AST of 115 and ALT
of 93 and alk phos of 141. Total bilirubin and lipase were normal. CT of the abdomen pelvis unremarkable. Suspect acute gastroenteritis. Continues to have intractable nausea vomiting in the ED
PLAN:
Gastritis/gastroenteritis�diarrhea then nausea vomiting likely gastroenteritis. Recent hospitalization but no fever chills no significant leukocytosis or abdominal discomfort and CT scan is negative. Treatment complicated by numerous allergies,
interactions with development of adrenal crisis. Patient had a concern that she will be in crisis due to missing medications.
-admit to MedSurg observation
-N.p.o. except meds and ice chips
- ppi iv daily, famotidine iv hs
- Zofran prn, diazepam prn
- tigan to be ordered if needed.
- IV fluids with LR for now
- No current diarrhea for stool cultures
Transaminases elevations - Denies etoh, check level. Normal CT a/p. No cholestatic pattern
- trend for now
Adrenal insufficiency -patient appears stable she is status post 100 mg hydrocortisone
-continue with stress dose steroids at 50 iv q 6 for now
-Monitor labs and vital signs
- IV fluids as above
Asthma - Stable
- continue inhalers and montelukast (if tolerated)
Connective tissue disease
-Continue hydroxychloroquine
DVT prophy�Lovenox subcu
CODE STATUS�full code
[2024-12-07] MEDS: VALIUM INJECTION 5 MG IV (06:05)
[2024-12-07] MEDS: SOLU-CORTEF 50 MG IV ×4 (07:06→23:35)
[2024-12-07] MEDS: ADVAIR HFA 115/21 MCG INHALER INH (08:53)
[2024-12-07] MEDS: SPIRIVA RESPIMAT 2.5 MCG INH (08:53)
[2024-12-07] MEDS: LR 1000 IV ×2 (09:22→23:42)
[2024-12-07] MEDS: METHOCARBAMOL PO (09:23)
[2024-12-07] MEDS: VALIUM INJECTION 2 MG IV (10:28)
--- NOTE | 2024-12-07 11:15 | W.PN.HOSP.TC ---
Today's Communication/Plan
-
resume [employer] Benzodiazepine regimen
IVF
clears
zofran PRN
Assessment / Plan
Assessment / Plan
54-year-old with multiple medical comorbidities including systemic lupus, rheumatoid arthritis, adrenal insufficiency, asthma/chronic allergic sinusitis with sinus congestion presenting to the emergency department diarrhea and then intractable
nausea and vomiting. She is afebrile. No known sick contacts but had recent hospitalization. She is hemodynamically stable, mild leukocytosis and electrolytes are normal. UA is unremarkable. There is mild transaminases with AST of 115 and ALT
of 93 and alk phos of 141. Total bilirubin and lipase were normal. CT of the abdomen pelvis unremarkable. Suspect acute gastroenteritis. Continues to have intractable nausea vomiting in the ED
PLAN:
Gastritis/gastroenteritis�diarrhea then nausea vomiting likely gastroenteritis. Recent hospitalization but no fever chills no significant leukocytosis or abdominal discomfort and CT scan is negative. Treatment complicated by numerous allergies,
interactions with development of adrenal crisis.
-admit to MedSurg observation
- allow clears, patient can order gingerale,apple juice
- ppi iv daily, famotidine iv hs
- Zofran prn, diazepam prn
- tigan to be ordered if needed.
- IV fluids with LR for now
- No current diarrhea for stool cultures
Transaminases elevations - Denies etoh, check level. Normal CT a/p. No cholestatic pattern
- trend for now
Severe Anxiety
-patient's anxiety making symptoms worse
-She takes Ativan 2mg PO QID - resume (will give 1mg PO x 1 now as Valium 7mg = 1.2mg ativan)
-continue valium PRN given degree of nausea/anxiety
-continue qhs Seroquel
Neuropathy
-resume Gabapentin
Adrenal insufficiency -patient appears stable she is status post 100 mg hydrocortisone
-continue with stress dose steroids at 50 iv q 6 for now
-Monitor labs and vital signs
- IV fluids as above
Asthma - Stable
- continue inhalers and montelukast (if tolerated)
Connective tissue disease
SLE
-Continue hydroxychloroquine
DVT prophy�Lovenox subcu
CODE STATUS�full code
51 minutes spent on patient care
Anticipated Discharge: 24 - 48 hours
Subjective/Interval History
-
Date of Service: December 07, 2024
patient continues to feel nauseated, maybe slightly improved
she had diarrhea earlier
she is very anxious
Objective Data
-
Vital Signs:
Vital Signs
Temp Pulse Resp BP Pulse Ox
98.1 F 104 20 160/104 98
12/07/24 08:23 12/07/24 08:23 12/07/24 08:23 12/07/24 08:23 12/07/24 08:23
Review of Systems
-
History Source: Patient
All other systems: Reviewed and negative
Physical Exam
-
General: No Apparent Distress
HEENT: PERRLA
Respiratory: Clear to Auscultation; Negative Wheezes
Cardiac: Regular Rhythm and S1/S2
GI: Other (mild midepigastric tenderness, no rebound or guarding )
Musculoskeletal: No Edema
Skin: Warm and Dry; Negative Rash
Neuro: AO x 3
Psych: Calm
Data Reviewed
-
Diagnostic Radiology: Report Reviewed by me
Labs: Labs Reviewed by me
[2024-12-07] MEDS: ATIVAN 1 MG PO (11:47)
[2024-12-07] MEDS: CYMBALTA DELAYED RELEASE PO (12:05)
[2024-12-07] MEDS: NEURONTIN 900 MG PO ×3 (13:25→21:17)
[2024-12-07] MEDS: CATAPRES 0.1 MG PO (14:23)
[2024-12-07] MEDS: PLAQUENIL 400 MG PO (14:25)
--- NOTE | 2024-12-07 14:25 | PTCARENOTE ---
patient arrived to unit from ED around 0830 this shift, appearing unwell and anxious. She was moved from stretcher to bed via slide and x3 staff. VSS. Patient reports N/V/D. PRN Zofran and Valium given. Plan of care ongoing.
--- NOTE | 2024-12-07 16:28 | PTCARENOTE ---
Patient reporting less nausea and vomiting, appearing more relaxed. She is taking a nap currently. Clonidine given and effective for HTN. Plan of care ongoing
[2024-12-07] MEDS: ATIVAN 2 MG PO ×2 (16:50→21:17)
[2024-12-07] MEDS: ATIVAN PO (16:56)
[2024-12-07] MEDS: METHOCARBAMOL 1500 MG PO (18:19)
[2024-12-07] MEDS: SINGULAIR 10 MG PO (18:19)
[2024-12-07] MEDS: ADVAIR HFA 115/21 MCG INHALER 2 PUFF INH (19:52)
[2024-12-07] MEDS: SEROQUEL 400 MG PO (21:18)
[2024-12-08 01:15] VITALS: BP 119/73
[2024-12-08] MEDS: METHOCARBAMOL PO (02:21)
[2024-12-08 06:00] VITALS: BMI 30.7
[2024-12-08] MEDS: SOLU-CORTEF 50 MG IV (06:09)
[2024-12-08 07:26] VITALS: BP 127/73
[2024-12-08] MEDS: ADVAIR HFA 115/21 MCG INHALER 2 PUFF INH ×2 (07:57→19:50)
[2024-12-08] MEDS: SPIRIVA RESPIMAT 2.5 MCG 2 PUFF INH (07:57)
[2024-12-08] MEDS: ATIVAN 2 MG PO ×4 (08:16→21:35)
[2024-12-08] MEDS: CYMBALTA DELAYED RELEASE 30 MG PO ×2 (08:16→12:19)
[2024-12-08] MEDS: NEURONTIN 900 MG PO ×3 (08:16→21:35)
[2024-12-08 09:07] LABS: Hematocrit 35.5 % (37.0-47.0); Hemoglobin 11.9 g/dL (12.0-16.0); Mean Corp Hgb Conc. 33.5 g/dL (33.0-37.0); Mean Corpuscular Volume 100.3 fL (81.0-99.0); Platelet Count 342 10^3/uL (130-400); Red Cell Dist. Width 14.4 % (11.5-14.5)
[2024-12-08] MEDS: METHOCARBAMOL 1500 MG PO ×2 (10:18→18:04)
--- NOTE | 2024-12-08 10:36 | W.PN.HOSP.TC ---
Today's Communication/Plan
-
DC home if tolerates regular diet
Assessment / Plan
Assessment / Plan
54-year-old with multiple medical comorbidities including systemic lupus, rheumatoid arthritis, adrenal insufficiency, asthma/chronic allergic sinusitis with sinus congestion presenting to the emergency department diarrhea and then intractable
nausea and vomiting admitted for gastroenteritis
PLAN:
Gastritis/gastroenteritis�diarrhea then nausea vomiting likely gastroenteritis. Recent hospitalization but no fever chills no significant leukocytosis or abdominal discomfort and CT scan is negative. Treatment complicated by numerous allergies,
interactions with development of adrenal crisis.
-admit to MedSurg observation
- clinically improved
- advance diet, if tolerates OK for DC
- stop fluids
Transaminases elevations - Denies etoh, check level. Normal CT a/p. No cholestatic pattern
- F/U hep serologies
- repeat as outpatient
Severe Anxiety
-She takes Ativan 2mg PO QID - resumed
-continue valium PRN given degree of nausea/anxiety
-continue qhs Seroquel
Neuropathy
-resume Gabapentin
Adrenal insufficiency -patient appears stable she is status post 100 mg hydrocortisone
-wean stress dose steroids, BP stable
-Monitor labs and vital signs
- IV fluids as above
Asthma - Stable
- continue inhalers and montelukast (if tolerated)
Connective tissue disease
SLE
-Continue hydroxychloroquine
DVT prophy�Lovenox subcu
CODE STATUS�full code
51 minutes spent on patient care
Anticipated Discharge: Within 24 hours
Subjective/Interval History
-
Date of Service: December 08, 2024
feeling better
wants to try regular food and possibly go home later
Objective Data
-
Labs:
Laboratory Results
12/08/24
08:53
WBC 14.2 H
Hgb 11.9 L
Hct 35.5 L
Plt Count 342 D
Sodium Pending
Potassium Pending
Chloride Pending
Carbon Dioxide Pending
BUN Pending
Creatinine Pending
Glucose Pending
Calcium Pending
Total Bilirubin Pending
AST Pending
ALT Pending
Alkaline Phosphatase Pending
Vital Signs:
Vital Signs
Temp Pulse Resp BP Pulse Ox
98.0 F 89 16 127/73 94
12/08/24 07:26 12/08/24 08:01 12/08/24 08:01 12/08/24 07:26 12/08/24 08:01
I&O
12/07/24 12/08/24 12/09/24
06:59 06:59 06:59
Intake Total 1700 / 1700
Balance 1700 / 1700
Review of Systems
-
History Source: Patient
All other systems: Reviewed and negative
Physical Exam
-
General: No Apparent Distress
HEENT: PERRLA
Respiratory: Clear to Auscultation; Negative Wheezes
Cardiac: Regular Rhythm and S1/S2
GI: Soft, Nontender and Nondistended
Musculoskeletal: No Edema
Skin: Warm and Dry; Negative Rash
Neuro: AO x 3
Psych: Calm
Data Reviewed
-
Diagnostic Radiology: Report Reviewed by me
Labs: Labs Reviewed by me
[2024-12-08 10:38] LABS: ALT (SGPT) 78 U/L (0-35); AST (SGOT) 199 U/L (14-36); Albumin 4.3 g/dl (3.5-5.0); Alkaline Phosphatase 99 U/L (38-126); Calcium 9.4 mg/dl (8.4-10.2); Carbon Dioxide 29 mmol/L (22-30); Chloride 105 mmol/L (98-107); Estimated Creatinine Clearance 88 ml/min; Glucose 119 mg/dl (70-99); Magnesium 2.0 mg/dl (1.6-2.3); Potassium 3.9 mmol/L (3.5-5.1); Sodium 139 mmol/L (135-145); Total Protein 6.5 g/dl (6.3-8.2); eGFR > 60.00
[2024-12-08 10:47] LABS: Blood Urea Nitrogen 20 mg/dl (7-17)
--- NOTE | 2024-12-08 12:13 | CM ---
Addendum entered by Hanny Wells 12/08/24 12:19:
OBS status - observation form explained & signed. In chart
Original Note:
patient seen at bedside
IA completed
CM consult completed-VN
options reviewed prefer [facility]
Patient lives in a 55[place] home in [facility] with her mother & daughter, 1 CARLOS
plof: Independent, uses a cane outside
DME: Cane, walker, pulse oximetry
Denies VN/REHAB in past
PCP:[facility]azo
[facility] [place]
PLAN: Home with [facility]
Mom to transport
[2024-12-08] MEDS: PLAQUENIL 400 MG PO (12:19)
--- NOTE | 2024-12-08 13:10 | W.DCSUMMARY ---
Discharge Summary
Discharge Data
Date of Admission: 12/07/24
Date of Discharge: 12/09/24
-
Pending Results: No
Hospital Course
Discharging Physician : Dr. Faiza Granados
Disposition : Home
Primary care physician : Dr. Oksana Lazo
Principal Discharge diagnosis : Acute Gastroenteritis
Hospital Course :
Ms. Karuna Shetty is a 54 yo woman with hx SLE, RA, adrenal insufficiency, anxiety and benzodiazepine dependence, asthma presents to the ER with intractable nausea and vomiting. Triage vitals stable. Labs with mild leukocytosis and normal
electrolytes. CT A/P unremarkable. She was admitted for treatment of acute gastroenteritis. Patient was given IVF, clears and symptomatic control of nausea. Symptoms improved over the next 24 hours. Diet advanced on hospital day 2. She is now
tolerating regular diet and feels ready for discharge. No changes made to home medications.
Of note, mass in right midpole kidney seen on CT, outpatient MRI recommended. Patient aware of results.
Time spent on discharge was 31 minutes
Important imaging findings :
Abdomen/Pelvis CT
IMPRESSION:
1. In the midpole of the right kidney there is a small low-attenuation mass not seen previously. This can be further assessed with MRI of the kidneys, or CT of the abdomen with and without contrast
2. There is a nonobstructing calculus on the left
There is an 8 mm low-attenuation round focus in the lower pole of the right kidney [38/91]. Hounsfield units cannot confirm a cyst. This is not seen previously. There is a 5 mm nonobstructing calculus in the midpole on the left
Procedure findings :
Discharge Plan
-
Patient Disposition: Home (Routine Discharge)
Discharge Diagnosis/Procedures: Acute Gastroenteritis
Diet: Low Residue
Additional Diets: low residue diet over next several days
Activity: As tolerated
Driving Restrictions: As prior to admission
Bathing Restrictions: None
Others Tests: MRI of the kidneys, or CT of the abdomen with and without contrast to be ordered by PCP
Referrals:
Oksana Lazo CRNP [Family Provider, [facility]] - in less than 1 week
Prescriptions:
Continued
benzonatate 100 MG capsule
200 mg PO Q8HPRN PRN (Reason: cough)
montelukast 10 MG tablet
10 mg PO QPM
hydrocortisone 10 MG tablet
10 mg PO DAILY@1300
Patient Comments:
06/19/2023: Pt states she takes the double the dose when she is sick
hydrocortisone 10 MG tablet
30 mg PO DAILY
Patient Comments:
06/19/2023: Pt states she takes the double the dose when she is sick
cranberry 500 MG capsule
930 mg PO DAILY
Align (B.infantis) 4 MG capsule
4 mg PO DAILY
riboflavin (vitamin B2) [Vitamin B-2] 100 MG tablet
400 mg PO DAILY
calcium carbonate [Antacid (calcium carbonate)] 1 TABLET tablet,chewable
2 tab PO Q4HPRN PRN (Reason: heartburn)
hydroxychloroquine 200 MG tablet
400 mg PO NOON
acetaminophen [Tylenol Extra Strength] 500 MG tablet
1,000 mg PO Q8HPRN PRN (Reason: tension headache) Qty: 0 0RF
ondansetron 4 mg tablet,disintegrating
4 mg PO TIDPRN PRN (Reason: nausea/vomiting) Qty: 20 0RF
lorazepam 2 MG tablet
2 mg PO QID
Patient Comments:
06/19/2023: last filled 06/10/23, 120 tabs for 30 days from [facility]
methocarbamol 500 mg Tablet
1,500 mg PO Q8H
quetiapine [Seroquel] 200 mg Tablet
400 mg PO HS
loperamide 2 mg Tablet
2 mg PO Q6H PRN (Reason: diarrhea)
ascorbic acid (vitamin C) [Vitamin C] 500 mg Tablet
500 mg PO BID
duloxetine [Cymbalta] 60 mg Capsule,Delayed Release(Dr/Ec)
30 mg PO BID
Rx Instructions:
BID with breakfast and lunch
cholecalciferol (vitamin D3) [Vitamin D3] 25 mcg (1,000 unit) Tablet
175 mcg PO QPM
albuterol sulfate [Ventolin HFA] 90 mcg/actuation Hfa Aerosol Inhaler
2 puff INHALATION Q4H PRN (Reason: sob/wheezing)
fluticasone propion-salmeterol [Advair HFA] 115-21 mcg/actuation HFA aerosol inhaler
2 puff INHALATION BID
Spiriva Respimat 1.25 mcg/actuation mist
2 puff INHALATION DAILY
gabapentin 900 mg Tablet Extended Release 24 Hr
900 mg PO 3XD
guaifenesin 600 mg Tablet Extended Release 12hr
1,200 mg PO Q12 Qty: 10 0RF
pantoprazole [Protonix] 40 mg tablet,delayed release (DR/EC)
40 mg PO DAILY Qty: 30 0RF
Discharge Orders:
Discharge Patient (As Directed); Ordered 12/09/24
Ordered By: Faiza Granados
Discharge Date and Time
Print Language: FILIPINO
[2024-12-08] MEDS: LR IV (13:15)
[2024-12-08] MEDS: SOLU-CORTEF 25 MG IV ×2 (13:30→21:35)
[2024-12-08] MEDS: TYLENOL 1000 MG PO (13:37)
--- NOTE | 2024-12-08 13:50 | VNURNOTE ---
Chart reviewed. PM-[facility] liaison met with patient at bedside. Explained services: short term, intermittent, skilled, homebound criteria reviewed. No new meds noted on DC instructions. Patient states she occasionally goes out of the house. Patient
walks her dog daily. She stated she has tried PT in the past and was told by Rheum to avoid P.T. She follows closely with PCP Oksana Lazo. No senior care needs identified. Patient aware to follow with PCP and verbalized understanding that
PCP can order VN if needs change after DC.
No skilled VN needs identified, no referral placed. CM updated.
[2024-12-08 14:56] VITALS: BP 116/67
[2024-12-08] MEDS: SINGULAIR 10 MG PO (18:04)
[2024-12-08 20:10] LABS: Hepatitis B Surface Antigen Negative (Negative)
[2024-12-08 20:28] LABS: Hepatitis C Antibody Negative (Negative)
[2024-12-08] MEDS: SEROQUEL 400 MG PO (21:35)
[2024-12-08 23:00] VITALS: BP 105/62
[2024-12-09] MEDS: METHOCARBAMOL 1500 MG PO ×2 (03:11→10:49)
[2024-12-09 06:00] VITALS: BMI 30.8
[2024-12-09 07:00] VITALS: BP 133/71
[2024-12-09] MEDS: NEURONTIN 900 MG PO (08:08)
[2024-12-09] MEDS: CORTEF 30 MG PO (08:08)
[2024-12-09] MEDS: CYMBALTA DELAYED RELEASE 30 MG PO (08:08)
[2024-12-09] MEDS: ATIVAN 2 MG PO (08:09)
[2024-12-09] MEDS: ADVAIR HFA 115/21 MCG INHALER 2 PUFF INH (08:22)
[2024-12-09] MEDS: SPIRIVA RESPIMAT 2.5 MCG 2 PUFF INH (08:22)
--- NOTE | 2024-12-09 10:20 | W.PN.HOSP.TC ---
Today's Communication/Plan
-
Ok for DC
Assessment / Plan
Assessment / Plan
54-year-old with multiple medical comorbidities including systemic lupus, rheumatoid arthritis, adrenal insufficiency, asthma/chronic allergic sinusitis with sinus congestion presenting to the emergency department diarrhea and then intractable
nausea and vomiting admitted for gastroenteritis
PLAN:
Gastritis/gastroenteritis�diarrhea then nausea vomiting likely gastroenteritis. Recent hospitalization but no fever chills no significant leukocytosis or abdominal discomfort and CT scan is negative. Treatment complicated by numerous allergies,
interactions with development of adrenal crisis.
-admit to MedSurg observation
- clinically improved
- tolerating regular diet
- OK for DC
Transaminases elevations - Denies etoh, check level. Normal CT a/p. No cholestatic pattern
- F/U hep serologies
- repeat as outpatient
Severe Anxiety
-She takes Ativan 2mg PO QID - resumed
-continue valium PRN given degree of nausea/anxiety
-continue qhs Seroquel
Neuropathy
-resume Gabapentin
Adrenal insufficiency -patient appears stable she is status post 100 mg hydrocortisone
-wean stress dose steroids, BP stable
-Monitor labs and vital signs
- IV fluids as above
Asthma - Stable
- continue inhalers and montelukast (if tolerated)
Connective tissue disease
SLE
-Continue hydroxychloroquine
DVT prophy�Lovenox subcu
CODE STATUS�full code
51 minutes spent on patient care
Anticipated Discharge: Today
Subjective/Interval History
-
Date of Service: December 09, 2024
feeling well
ate breakfast
feels tired
ready to go home
Objective Data
-
Vital Signs:
Vital Signs
Temp Pulse Resp BP Pulse Ox
98.0 F 84 16 133/71 95
12/09/24 07:00 12/09/24 08:26 12/09/24 08:26 12/09/24 07:00 12/09/24 09:46
I&O
12/08/24 12/09/24 12/10/24
06:59 06:59 06:59
Intake Total 1700 / 1700 480 / 480
Balance 1700 / 1700 480 / 480
Review of Systems
-
History Source: Patient
All other systems: Reviewed and negative
Physical Exam
-
General: No Apparent Distress
HEENT: PERRLA
Respiratory: Clear to Auscultation; Negative Wheezes
Cardiac: Regular Rhythm and S1/S2
GI: Soft, Nontender and Nondistended
Musculoskeletal: No Edema
Skin: Warm and Dry; Negative Rash
Neuro: AO x 3
Psych: Calm
Data Reviewed
-
Diagnostic Radiology: Report Reviewed by me
Labs: Labs Reviewed by me
--- NOTE | 2024-12-09 10:28 | W.DS.TRANS ---
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
-
Discharge Instructions:
Discharge Diagnosis/Procedures Acute Gastroenteritis
Diet Low Residue
Additional Diets low residue diet over next several days
Activity As tolerated
Driving Restrictions As prior to admission
Bathing Restrictions None
Others Tests MRI of the kidneys, or CT of the abdomen with
and without contrast to be ordered by PCP
Instructions:
Stand-Alone Forms:
Changes to Home Medications: No
Discharge Medications:
DC Medications w/original date entered in [employer]
Bifidobacterium infantis 4 mg capsule (Align (B.infantis)) 4 mg PO DAILY Probiotic supplement 09/28/17
benzonatate 100 mg capsule 200 mg PO Q8HPRN PRN cough 09/28/17
cranberry 500 mg capsule 930 mg PO DAILY Supplement 09/28/17
hydrocortisone 10 mg tablet 10 mg PO DAILY@1300 adrenal insufficiency 09/28/17
hydrocortisone 10 mg tablet 30 mg PO DAILY adrenal insufficiency 09/28/17
montelukast 10 mg tablet 10 mg PO QPM Allergy 09/28/17
riboflavin (vitamin B2) 100 mg tablet (Vitamin B-2) 400 mg PO DAILY Supplement 11/30/17
calcium carbonate (Antacid (calcium carbonate)) 2 tab PO Q4HPRN PRN heartburn 04/24/21
hydroxychloroquine 200 mg tablet 400 mg PO NOON Lupus/rheumatoid arthritis 04/24/21
acetaminophen 500 mg tablet (Tylenol Extra Strength) 1,000 mg (2 x 500 mg) PO Q8HPRN PRN tension headache ##0 04/26/21
ondansetron 4 mg disintegrating tablet 4 mg PO TIDPRN PRN nausea/vomiting #20 tabs 04/05/22
ascorbic acid (vitamin C) 500 mg tablet (Vitamin C) 500 mg PO BID Supplement 05/15/23
cholecalciferol (vitamin D3) 25 mcg (1,000 unit) tablet (Vitamin D3) 175 mcg PO QPM Supplement 05/15/23
duloxetine 60 mg capsule,delayed release (Cymbalta) 30 mg PO BID Fibromyalgia 05/15/23
loperamide 2 mg tablet 2 mg PO Q6H PRN diarrhea 05/15/23
lorazepam 2 mg tablet 2 mg PO QID Mental Health/Anxiety 05/15/23
methocarbamol 500 mg tablet 1,500 mg PO Q8H Lupus/RA/Fibromyalgia 05/15/23
quetiapine 200 mg tablet (Seroquel) 400 mg PO HS Mental Health/Anxiety 05/15/23
albuterol sulfate 90 mcg/actuation aerosol inhaler (Ventolin HFA) 2 puff inhalation Q4H PRN sob/wheezing 10/25/24
fluticasone propionate 115 mcg-salmeterol 21 mcg/actuation HFA inhaler (Advair HFA) 2 puff inhalation BID Lung/Breathing Issues 10/25/24
tiotropium bromide 1.25 mcg/actuation mist for inhalation (Spiriva Respimat) 2 puff inhalation DAILY Lung/Breathing Issues 10/25/24
gabapentin 900 mg tablet,extended release 24 hr 900 mg PO 3XD Neurological Condition 10/26/24
guaifenesin 600 mg tablet, extended release 12 hr 1,200 mg (2 x 600 mg) PO Q12 #10 tabs 10/27/24
pantoprazole 40 mg tablet,delayed release (Protonix) 40 mg PO DAILY #30 tabs 11/25/24
Home Medication Changes
Pending Results: No
[2024-12-09] MEDS: TYLENOL 1000 MG PO (10:49)
--- NOTE | 2024-12-09 11:36 | CM ---
Patient seen at bedside
discharge today
[facility] went to see patient yesterday-No [facility] needs identified
IMM n/a
PLAN: Home, no needs
daughter to transport
== END 2024-12-09 13:05 | disposition home or self-care (01) ==
LOC: 3 WEST ACU 05:36
PROVIDERS: Emergency Medicine; Physician Assistant; ADMITTING PHYSICIAN Internal Medicine; ATTENDING PHYSICIAN Student in an Organized Health Care Education/Training Program; EMERGENCY PHYSICIAN Student in an Organized Health Care Education/Training Program; FAMILY PHYSICIAN Nurse Practitioner Family
DX: K52.9 Noninfective gastroenteritis and colitis, unspecified (principal); R11.2 Nausea with vomiting, unspecified; R10.9 Unspecified abdominal pain; E27.1 Primary adrenocortical insufficiency; E03.9 Hypothyroidism, unspecified; M79.7 Fibromyalgia; F41.9 Anxiety disorder, unspecified; F32.A Depression, unspecified; K44.9 Diaphragmatic hernia without obstruction or gangrene; K29.70 Gastritis, unspecified, without bleeding; M32.9 Systemic lupus erythematosus, unspecified; F43.10 Post-traumatic stress disorder, unspecified; M54.2 Cervicalgia; M54.9 Dorsalgia, unspecified; M06.9 Rheumatoid arthritis, unspecified; J45.909 Unspecified asthma, uncomplicated; R91.1 Solitary pulmonary nodule; G62.9 Polyneuropathy, unspecified; I49.8 Other specified cardiac arrhythmias; K42.9 Umbilical hernia without obstruction or gangrene; N20.0 Calculus of kidney; M81.0 Age-related osteoporosis without current pathological fracture; K90.0 Celiac disease; F42.9 Obsessive-compulsive disorder, unspecified; F13.20 Sedative, hypnotic or anxiolytic dependence, uncomplicated; K21.9 Gastro-esophageal reflux disease without esophagitis; Z90.49 Acquired absence of other specified parts of digestive tract; Z88.1 Allergy status to other antibiotic agents; Z88.5 Allergy status to narcotic agent; Z88.2 Allergy status to sulfonamides; Z88.8 Allergy status to other drugs, medicaments and biological substances; Z79.51 Long term (current) use of inhaled steroids; Z79.1 Long term (current) use of non-steroidal anti-inflammatories (NSAID); Z79.899 Other long term (current) drug therapy; Z90.89 Acquired absence of other organs
CPT/HCPCS: 74177; 80053; 81003; 81015; 82248; 83690; 83735; 84484; 85025; 85027; 86803; 87340; 93005; 94640; 96361; 96372; 96374; 96375; 96376; 99285; G0378; Q9967

== ENCOUNTER 2025-01-09 23:13 | Emergency (ER) | payer OTHER, SELFPAY ==
[2025-01-09 23:18] VITALS: BP 148/88; BMI 72.3
[2025-01-09 23:21] VITALS: BP 148/88
[2025-01-10] VITALS: BP 163/82
[2025-01-10 00:31] LABS: Hematocrit 33.7 % (37.0-47.0); Hemoglobin 10.7 g/dL (12.0-16.0); Mean Corp Hgb Conc. 31.8 g/dL (33.0-37.0); Mean Corpuscular Volume 100.0 fL (81.0-99.0); Nucleated Red Blood Cells % 0 %; Platelet Count 441 10^3/uL (130-400); Red Cell Dist. Width 13.2 % (11.5-14.5)
[2025-01-10 00:44] LABS: Blood Urea Nitrogen 15 mg/dl (7-17); Calcium 9.4 mg/dl (8.4-10.2); Carbon Dioxide 34 mmol/L (22-30); Chloride 101 mmol/L (98-107); Estimated Creatinine Clearance > 125 ml/min; Glucose 101 mg/dl (70-99); Potassium 3.8 mmol/L (3.5-5.1); Sodium 141 mmol/L (135-145); eGFR > 60.00
--- NOTE | 2025-01-10 00:49 | ED.GENMED ---
History of Present Illness
General
Chief Complaint: Breathing Problem
Source: patient
Exam Limitations: none
Time Seen by Provider: 01/10/25 00:08
Nursing documentation reviewed up to this point in time: agreed with
History of Present Illness
History of Present Illness:
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
and lightheaded during the episode. Since then, she has experienced intermittent shortness of breath and fleeting chest pain, especially upon closing her eyes, accompanied by significant bilateral back pain which she attributes to her adrenals and
is requesting her ER solucortef dose. The patient described occasional wheezing and mild chest discomfort, which she attributes to breathing deeply. She reported a near syncopal event earlier when her daughter assisted her to bed; she described her
legs 'giving out' suddenly. The patient denied chest pain, palpitations, or fever. She has a history of asthma and described typical management with bronchodilators. She is currently under evaluation for chronic obstructive pulmonary disease (COPD)
by her cream dumper, Dr. Bagley, and started on tiotropium. She denies fever. Patient reports that she feels anxious and that she takes ativan 4 times daily and is requesting her scheduled ativan dose.
Past History
Past History
ED Past Medical History: Asthma, Fibromyalgia, Psychiatric (Anxiety, OCD, PTSD, Panic disorder) and Other (Adrenal insufficiency, migraine , Back and neck pains, Celiac disease, Cystitis, Lupus)
ED Past Surgical History: , Gynecological (D&C with ablation, ) and Tonsilectomy
Social History
Tobacco: Non-smoker
Alcohol: None
Drug: None
Personal:
Living: with family
Employment: Disabled
Family History
Family History: Other (Noncontributory)
Review of Systems
Review of Systems
All Other Systems: ROS reviewed and negative except as documented in HPI and ROS
Phy Exam
Physical Exam
Physical Exam:
General: Alert, no acute distress.
Skin: Warm, dry.
Head: Normocephalic, atraumatic.
Neck: Supple, trachea midline.
Eye Ears, nose, mouth, and throat: Oral mucosa moist.
Cardiovascular: Tachycardia noted otherwise regular rhythm, no edema
Respiratory: No rales, wheezes, or rhonchi on my exam. Respirations are non-labored on examination, though wheezing mentioned by the patient.
Gastrointestinal: Abdomen nondistended.
Back: Normal range of motion, normal alignment, though reporting pain.
Musculoskeletal: Normal range of motion, normal strength.
Neurological: Alert and oriented to person, place, time, and situation, No focal neurological deficit observed.
Psychiatric: Cooperative, appropriate mood & affect.
Scores
Heart Failure Risk
Heart Failure Risk Score: Not Applicable
Course
Orders/Labs/Results
Orders:
Orders
01/10/25 00:10
Basic Metabolic Panel Urgent
Complete Blood Count/With Diff Urgent
01/10/25 00:37
CT Chest PE Study Urgent
Comment:
Reason For Exam: tachycardia, sob, chest pain
Hydrocortisone Sod Succinate [Solu-Cortef] 100 mg IV NOW STA
Ipratropium/Albuterol Sulfate [Duoneb] 3 ml INH R NOW STA
Lorazepam [Ativan] 2 mg PO NOW STA
01/10/25 00:38
Electrocardiogram (*1) Urgent
Reason for Study: Shortness of Breath
EKG- Treatment ONCE
01/10/25 00:53
COVID-19 Antigen Urgent
Source: Nasal Swab
Troponin I Urgent
01/10/25 00:54
Influenza A+B Rapid Molecular Urgent
CHELY Source: Nasal Swab
Specimen Description:
01/10/25 03:40
Electrocardiogram (*1) Urgent
Reason for Study: Shortness of Breath
01/10/25 04:06
Troponin I Urgent
Abnormal Lab Results
01/10/25
00:10
WBC 12.2 H 10^3/uL
(4.8-10.8)
RBC 3.37 L 10^6/uL
(4.20-5.40)
Hgb 10.7 L g/dL
(12.0-16.0)
Hct 33.7 L %
(37.0-47.0)
MCV 100.0 H fL
(81.0-99.0)
MCH 31.8 H pg
(27.0-31.0)
MCHC 31.8 L g/dL
(33.0-37.0)
Plt Count 441 H 10^3/uL
(130-400)
Abs Immat Gran (auto) 0.3 H 10^3/uL
(0-0.05)
Absolute Neuts (auto) 8.1 H 10^3/uL
(1.4-6.5)
Absolute Monos (auto) 1.1 H 10^3/uL
(0.1-0.6)
Immature Gran % 2.2 H %
(0-0.5)
Lymphocytes % 20.3 L %
(20.5-51.1)
Carbon Dioxide 34 H mmol/L
(22-30)
Glucose 101 H mg/dl
(70-99)
01/10/25 00:10
01/10/25 00:10
Vital Signs
Initial and Last Documented VS:
Initial Vital Signs
Temp Pulse Resp BP Pulse Ox
97.8 F 97 14 148/88 97
01/09/25 23:18 01/09/25 23:18 01/09/25 23:18 01/09/25 23:18 01/09/25 23:18
Last Documented Vital Signs
Temp Pulse Resp BP Pulse Ox
97.8 F 110 19 176/89 93
01/09/25 23:18 01/10/25 05:00 01/10/25 05:00 01/10/25 05:00 01/10/25 05:00
MDM/Problems Addressed
Differential Diagnosis Includes:
1. Pulmonary embolism
2. COPD exacerbation
3. Asthma exacerbation
4. Pneumonia
5. Congestive heart failure
6. Cardiac arrhythmia
7. Anxiety-induced hyperventilation
8. Dehydration with orthostatic hypotension
9. Anemia
10. Myocardial infarction
MDM/Problems Addressed:
1. Administer nebulized breathing treatments.
2. Stress dose solucortef
3. Order an electrocardiogram (EKG) to assess for cardiac causes of symptoms, troponin.
4. PE study considering no wheezing on exam + tachycardia

PE study negative
Small pericardial effusion unchanged from prior
Troponin undetectable ecg non-ischemic x2
Blood work at baseline
Symptomatic improvement with duoneb
Suspect asthma exacerbation following exertion today vs anxiety induced hyperventilation.
Patient to follow up with Dr. Bagley
Chronic conditions affecting care:
fibro, asthma, addisons, anxiety
Acute Exacerbation and/or Progression of Chronic Illness:
asthma
*Pulse Oximetry
SaO2: 98
Oxygen Mode of Delivery: Room air
Patient hypoxic: no
*Critical Care Note
Total Time (30-74mins, 75-104mins- exclusive of procedures): Not Applicable
Update Note
Update Note:
Update, patient feeling much better, requesting to be observed for a bit longer to continue to monitor her symptoms and her pulse oxygen
She is chest pain and back pain free
ED Attending Note
-
Portions of this chart may have been created with voice recognition software.� Occasional wrong word or��sound alike� substitutions may have occurred due to the inherent limitations of voice recognition software.
Discharge Plan
Departure
Patient Disposition: Home (Routine Discharge)
Date of Disposition: 01/10/25
Time of Disposition: 05:02
Patient with high blood pressure during this ER visit?: Yes
Condition: Good
Discharge Problem:
Asthma exacerbation, Shortness of breath
Instructions: Asthma, Adult (DC), BLOOD PRESSURE
Prescriptions:
No Action
benzonatate 100 MG capsule
200 mg PO Q8HPRN PRN (Reason: cough)
montelukast 10 MG tablet
10 mg PO QPM
hydrocortisone 10 MG tablet
10 mg PO DAILY@1300
Patient Comments:
06/19/2023: Pt states she takes the double the dose when she is sick
hydrocortisone 10 MG tablet
30 mg PO DAILY
Patient Comments:
06/19/2023: Pt states she takes the double the dose when she is sick
cranberry 500 MG capsule
930 mg PO DAILY
Align (B.infantis) 4 MG capsule
4 mg PO DAILY
riboflavin (vitamin B2) [Vitamin B-2] 100 MG tablet
400 mg PO DAILY
calcium carbonate [Antacid (calcium carbonate)] 1 TABLET tablet,chewable
2 tab PO Q4HPRN PRN (Reason: heartburn)
hydroxychloroquine 200 MG tablet
400 mg PO NOON
acetaminophen [Tylenol Extra Strength] 500 MG tablet
1,000 mg PO Q8HPRN PRN (Reason: tension headache) Qty: 0 0RF
ondansetron 4 mg tablet,disintegrating
4 mg PO TIDPRN PRN (Reason: nausea/vomiting) Qty: 20 0RF
lorazepam 2 MG tablet
2 mg PO QID
Patient Comments:
06/19/2023: last filled 06/10/23, 120 tabs for 30 days from [facility]
methocarbamol 500 mg Tablet
1,500 mg PO Q8H
quetiapine [Seroquel] 200 mg Tablet
400 mg PO HS
loperamide 2 mg Tablet
2 mg PO Q6H PRN (Reason: diarrhea)
ascorbic acid (vitamin C) [Vitamin C] 500 mg Tablet
500 mg PO BID
duloxetine [Cymbalta] 60 mg Capsule,Delayed Release(Dr/Ec)
30 mg PO BID
Rx Instructions:
BID with breakfast and lunch
cholecalciferol (vitamin D3) [Vitamin D3] 25 mcg (1,000 unit) Tablet
175 mcg PO QPM
albuterol sulfate [Ventolin HFA] 90 mcg/actuation Hfa Aerosol Inhaler
2 puff INHALATION Q4H PRN (Reason: sob/wheezing)
fluticasone propion-salmeterol [Advair HFA] 115-21 mcg/actuation HFA aerosol inhaler
2 puff INHALATION BID
Spiriva Respimat 1.25 mcg/actuation mist
2 puff INHALATION DAILY
gabapentin 900 mg Tablet Extended Release 24 Hr
900 mg PO 3XD
guaifenesin 600 mg Tablet Extended Release 12hr
1,200 mg PO Q12 Qty: 10 0RF
pantoprazole [Protonix] 40 mg tablet,delayed release (DR/EC)
40 mg PO DAILY Qty: 30 0RF
Referrals:
Biju Bagley MD [Active, Pulmonary Medicine] - Call in 1-3 days for appt
Oksana Lazo CRNP [Family Provider, Family Practice]
Activity Restrictions/Additional Instructions:
Please follow-up with your scheduled appointment with Dr. Bagley.
Please continue taking your iron tablets. Please continue to use your inhaler as needed.
PLEASE RETURN HERE SHOULD YOU DEVELOP ACUTE WORSENING OF YOUR SYMPTOMS, CHEST PAIN, ABDOMINAL PAIN, FEVERS OR CHILLS, SWELLING IN YOUR LEGS, ANY OTHER SIGNS OR SYMPTOMS WORRISOME TO YOU.
Interventions
Interventions:
*Risk Screen - Suicide Last Done: 01/09/25 23:18
*General Assessment Last Done: 01/09/25 23:18
*Neglect/Abuse Screening Last Done: 01/09/25 23:18
*ED- Fall Risk Assessment Last Done: 01/09/25 23:18
*ED COVID-19 Vaccine History Last Done: 01/09/25 23:18
*ED Influenza Vaccine History Last Done: 01/09/25 23:18
*Nursing Disposition Last Done: 01/10/25 05:14
ED- Cardiac Assessment Last Done: 01/10/25 02:34
ED- Pulmonary Assessment Last Done: 01/10/25 02:34
Discharge Date and Time
Discharge Date/Time: 01/10/25 05:58
Print Language: TELUGU
[2025-01-10] MEDS: SOLU-CORTEF 100 MG IV (00:53)
[2025-01-10] MEDS: DUONEB 3 ML INH (00:53)
[2025-01-10] MEDS: ATIVAN 2 MG PO (00:53)
[2025-01-10 01:00] VITALS: BP 171/88
[2025-01-10 01:23] LABS: COVID-19 Antigen Negative (Negative)
[2025-01-10 01:39] LABS: Troponin I < 0.012 ng/ml
[2025-01-10 02:38] VITALS: BP 175/97
[2025-01-10 03:00] VITALS: BP 172/99
[2025-01-10 04:00] VITALS: BP 170/91
[2025-01-10 04:50] LABS: Troponin I < 0.012 ng/ml
[2025-01-10 05:00] VITALS: BP 176/89
== END 2025-01-10 05:58 | disposition home or self-care (01) ==
LOC: EMR 23:13
PROVIDERS: Physician Assistant; EMERGENCY PHYSICIAN Emergency Medicine; FAMILY PHYSICIAN Nurse Practitioner Family
DX: J45.901 Unspecified asthma with (acute) exacerbation (principal); R06.02 Shortness of breath; M79.7 Fibromyalgia; F41.9 Anxiety disorder, unspecified; E27.1 Primary adrenocortical insufficiency; F42.9 Obsessive-compulsive disorder, unspecified; K90.0 Celiac disease; Z79.899 Other long term (current) drug therapy; Z90.49 Acquired absence of other specified parts of digestive tract; Z98.891 History of uterine scar from previous surgery
CPT/HCPCS: 99284; 94640; 96374; 71275; 80048; 84484; 85025; 87502; 87811; 93005; Q9967

== ENCOUNTER 2025-02-09 05:13 | Inpatient (IN) | payer OTHER, SELFPAY ==
[2025-02-08 20:01] VITALS: BMI 32.2
[2025-02-08 20:02] VITALS: BP 167/98
[2025-02-08 20:28] LABS: Hematocrit 38.2 % (37.0-47.0); Hemoglobin 12.7 g/dL (12.0-16.0); Mean Corp Hgb Conc. 33.2 g/dL (33.0-37.0); Mean Corpuscular Volume 93.6 fL (81.0-99.0); Nucleated Red Blood Cells % 0 %; Platelet Count 467 10^3/uL (130-400); Red Cell Dist. Width 13.3 % (11.5-14.5)
[2025-02-08 20:48] LABS: ALT (SGPT) 16 U/L (0-35); AST (SGOT) 21 U/L (14-36); Albumin 4.4 g/dl (3.5-5.0); Alkaline Phosphatase 65 U/L (38-126); Blood Urea Nitrogen 12 mg/dl (7-17); Calcium 10.7 mg/dl (8.4-10.2); Carbon Dioxide 29 mmol/L (22-30); Chloride 103 mmol/L (98-107); Estimated Creatinine Clearance 103 ml/min; Glucose 96 mg/dl (70-99); Lipase 57 U/L (23-300); Potassium 4.1 mmol/L (3.5-5.1); Sodium 136 mmol/L (135-145); Total Protein 7.0 g/dl (6.3-8.2); eGFR > 60.00
[2025-02-08 21:00] VITALS: BP 179/96
[2025-02-08 21:38] LABS: Urine Character Clear (Clear)
[2025-02-08 21:47] LABS: Urine Red Blood Cell 0-2 /HPF (0-2); Urine White Cell 0-2 /HPF (0-5)
[2025-02-08 23:09] VITALS: BP 187/105
[2025-02-08] MEDS: TIGAN 200 MG IM (23:10)
[2025-02-09] VITALS (9 sets, daily range): BP systolic 117–196; BP diastolic 67–110; BMI 30.6
[2025-02-09] MEDS: ATIVAN 2 MG IV (00:24)
[2025-02-09] MEDS: SOLU-CORTEF 100 MG IV (00:24)
[2025-02-09] MEDS: ZOFRAN 4 MG IV ×3 (00:24→08:30)
[2025-02-09] MEDS: NSS 1000 IV (00:24)
--- NOTE | 2025-02-09 02:06 | ED.GENMED ---
History of Present Illness
General
Chief Complaint: Abdominal Pain
Source: patient and previous hospital records (Previous hospitalization for similar event early December of this year)
Exam Limitations: none
Time Seen by Provider: 02/08/25 23:59
Nursing documentation reviewed up to this point in time: agreed with
History of Present Illness
History of Present Illness:
HISTORY OF PRESENT ILLNESS
The patient is a 54-year-old female with a past medical history of lupus, rheumatoid arthritis, adrenal insufficiency, anxiety, and benzodiazepine dependence, for which she is maintained on lorazepam 2 mg four times daily. She was previously
hospitalized in early December for acute gastroenteritis. The patient presents today with symptoms of nausea, vomiting, and diarrhea that began this morning. She expresses concern about being unable to take her medications, including her daily
hydrocortisone and lorazepam, due to these symptoms.
The patient reports experiencing severe abdominal pain that is crampy in nature, with an initial stabbing pain on the right side that has since subsided. Her back pain is described as typical when she does not take her medications. The patient
denies any recent antibiotics or travel history. She reports experiencing dizziness and hot flashes yesterday without fever and became symptomatic this morning.
Past History
Past History
ED Past Medical History: Asthma, Fibromyalgia, Psychiatric (Anxiety, OCD, PTSD, Panic disorder) and Other (Adrenal insufficiency, migraine , Back and neck pains, Celiac disease, Cystitis, Lupus)
ED Past Surgical History: , Gynecological (D&C with ablation, ) and Tonsilectomy
Social History
Tobacco: Non-smoker
Alcohol: None
Drug: None
Personal:
Living: with family
Employment: Disabled
Family History
Family History: Other (Noncontributory)
Phy Exam
Physical Exam
Physical Exam:
GENERAL: 54-year-old woman appears her stated age, sitting upright on stretcher, holding emesis basin, intermittently retching. Moderately anxious, hyperventilating, tremulous. Mother is accompanying.
EYE: anicteric
NECK: Supple, nontender, no meningismus, no significant adenopathy.
ENT: posterior pharynx is clear, oral mucosa is mildly dry. TM clear b/l, nares patent.
CARDIAC: Regular rhythm. Mildly tachycardic, no murmur.
LUNGS: Clear breath sounds bilaterally, mild tachypnea, lungs are clear to auscultation.
ABDOMEN: Soft, nondistended, mild to moderate generalized tenderness to palpation, no r/g, no cvat. normoactive BS.
NEUROLOGICAL: Alert and oriented x3, no focal neuro deficits.
SKIN: Warm and dry, normal color, skin intact. No rash.
MUSCULOSKELETAL: No C/C/E. peripheral pulses are full and equal b/l. No palpable tenderness.
PSYCH: Moderately anxious, tremulous.
Sepsis
Sepsis Screening
Sepsis Assessment: Sepsis Ruled Out
Sepsis Screen
Sepsis Screen: Sepsis Ruled Out
Date: 02/09/25
Time: 02:31
Course
Orders/Labs/Results
Orders:
Orders
02/08/25 20:11
IV Insert/Care/Rem.- Treatment PRN
02/08/25 20:21
Complete Blood Count/With Diff Urgent
Comprehensive Metabolic Panel Urgent
Lipase Urgent
02/08/25 21:20
Urinalysis Reflex To Culture Urgent
Date Specimen was Collected: 02/08/25
Time Specimen was Collected: 20:12
Urine Microscopic Reflex Cult Urgent
02/08/25 22:43
EKG [Electrocardiogram (*1)] Urgent
Reason for Study: Abdominal Pain
EKG- Treatment ONCE
02/08/25 22:56
Trimethobenzamide [Tigan] 200 mg IM NOW STA
02/09/25 00:15
0.9% Sodium Chloride 1000 ml [Nss] 1,000 ml IV BOLUS
Hydrocortisone Sod Succinate [Solu-Cortef] 100 mg IV NOW STA
Lorazepam [Ativan] 2 mg IV NOW STA
Ondansetron Injectable [Zofran] 4 mg IV NOW STA
02/09/25 00:17
CT Abd/pelvis W Iv Cont Urgent
Comment:
Reason For Exam: GEN abd pain, N/V/D
02/09/25 02:22
Stool Culture Urgent
[facility]LY Source: Feces/Stool
Specimen Description:
Abnormal Lab Results
02/08/25 02/08/25
20:21 21:20
WBC 13.9 H 10^3/uL
(4.8-10.8)
RBC 4.08 L 10^6/uL
(4.20-5.40)
MCH 31.1 H pg
(27.0-31.0)
Plt Count 467 H 10^3/uL
(130-400)
Abs Immat Gran (auto) 0.2 H 10^3/uL
(0-0.05)
Absolute Neuts (auto) 9.0 H 10^3/uL
(1.4-6.5)
Absolute Monos (auto) 1.4 H 10^3/uL
(0.1-0.6)
Immature Gran % 1.6 H %
(0-0.5)
Lymphocytes % 19.9 L %
(20.5-51.1)
Monocytes % 9.9 H %
(1.7-9.3)
Calcium 10.7 H mg/dl
(8.4-10.2)
Ur Occult Blood Reflex 1+ A
(Negative)
Urine Bacteria (Reflex) Few A
(Negative)
Urine Albumin (Reflex) 1+ A
(Neg - Trace)
02/08/25 20:21
02/08/25 20:21
Vital Signs
Initial and Last Documented VS:
Initial Vital Signs
Temp Pulse Resp BP Pulse Ox
97.7 F 111 22 167/98 97
02/08/25 20:02 02/08/25 20:02 02/08/25 20:02 02/08/25 20:02 02/08/25 20:02
Last Documented Vital Signs
Temp Pulse Resp BP Pulse Ox
97.7 F 110 16 187/105 96
02/08/25 20:02 02/09/25 01:30 02/09/25 01:30 02/08/25 23:09 02/09/25 02:14
MDM/Problems Addressed
Differential Diagnosis Includes:
DIFFERENTIAL DIAGNOSIS
The Differential Diagnosis includes, in no particular order and is not limited to:
1. Gastroenteritis
2. Medication withdrawal syndrome
3. Adrenal crisis
4. Lupus flare
5. Rheumatoid arthritis flare
6. Viral gastroenteritis
7. Irritable bowel syndrome
8. Anxiety-induced gastrointestinal symptoms
9. Benzodiazepine withdrawal
10. Dehydration due to fluid loss
MDM/Problems Addressed:
Acute nausea, vomiting, diarrhea, abdominal pain.
Reports inability to take oral medications.
Concern for adrenal crisis with inability to maintain oral hydrocortisone.
Concern for exacerbation of chronic anxiety, unable to take oral lorazepam.
Concern for exacerbation of fibromyalgia, chronic pain, unable to take her gabapentin, methocarbamol.
Concern for exacerbation of celiac disease, gastroenteritis either viral versus foodborne, colitis, bowel obstruction, electrolyte abnormality, sepsis.
Patient has been given an IM dose of Tigan. Thus far no improvement in nausea.
Records reviewed. Multiple medication intolerances but has tolerated Zofran in the past.
Will initiate IV fluids, give an IV dose of Zofran as well as IV dose of hydrocortisone and IV lorazepam.
Thus far labs are unremarkable, mildly elevated white blood cell count, similar to previous. Chemistries are unremarkable.
Will check CT abdomen pelvis.
Patient has passed 1 loose stool. Will check stool cultures.
Chronic conditions affecting care:
Adrenal insufficiency, lupus, anxiety disorder, benzodiazepine dependence, immunodeficiency
Chronic conditions affecting care: Immunosuppressed and Psychiatric illness
*Radiology
Radiology exam reviewed: radiology read reviewed (CT abdomen pelvis is unremarkable. No bowel or renal obstruction. Mild diverticulosis. No evidence of diverticulitis.)
*Pulse Oximetry
SaO2: 96
Oxygen Mode of Delivery: Room air
Patient hypoxic: no
*EKG
Interpreted by ED Provider?: Yes
Interpretation: abnormal
Comparison EKG: no changes (Unchanged from previous January 10, 2025)
Heart Rate: 106
Rate: tachycardiac
Rhythm: sinus
[place]: normal axis
Interval: normal interval
QRS Pattern: normal QRS
Ischemia: no ischemia
*[employer]ional [employer] Interpretation
Rate: tachycardiac
Interpretation: abnormal
Rhythm: sinus
*Critical Care Note
Total Time (30-74mins, 75-104mins- exclusive of procedures): Not Applicable
Update Note
Update Note:
02:30
Patient feeling markedly improved after IV Zofran, Ativan, Solu-Cortef and IV fluids but now nausea is returning.
Unable to tolerate oral fluids.
CT abdomen pelvis is essentially unremarkable.
Due to continued symptoms, inability to tolerate oral fluids patient will require acute hospitalization, continue IV fluids, IV antiemetics, hydrocortisone, lorazepam.
Will admit to hospitalist service.
ED Attending Note
-
Portions of this chart may have been created with voice recognition software.� Occasional wrong word or��sound alike� substitutions may have occurred due to the inherent limitations of voice recognition software.
Discharge Plan
Departure
Patient Disposition: Admit
Date of Disposition: 02/09/25
Time of Disposition: 02:30
Admit to: Med/Surg
Admit to doctor: Osmani
Presentation/result/management discussed w/ accepting MD/DO: Hospitalist
Condition: Fair
Discharge Problem:
Intractable nausea, vomiting, diarrhea, Adrenal insufficiency, Chronic prescription benzodiazepine use
Prescriptions:
No Action
benzonatate 100 MG capsule
200 mg PO Q8HPRN PRN (Reason: cough)
montelukast 10 MG tablet
10 mg PO QPM
hydrocortisone 10 MG tablet
10 mg PO DAILY@1300
Patient Comments:
06/19/2023: Pt states she takes the double the dose when she is sick
hydrocortisone 10 MG tablet
30 mg PO DAILY
Patient Comments:
06/19/2023: Pt states she takes the double the dose when she is sick
cranberry 500 MG capsule
930 mg PO DAILY
Align (B.infantis) 4 MG capsule
4 mg PO DAILY
riboflavin (vitamin B2) [Vitamin B-2] 100 MG tablet
400 mg PO DAILY
calcium carbonate [Antacid (calcium carbonate)] 1 TABLET tablet,chewable
2 tab PO Q4HPRN PRN (Reason: heartburn)
hydroxychloroquine 200 MG tablet
400 mg PO NOON
acetaminophen [Tylenol Extra Strength] 500 MG tablet
1,000 mg PO Q8HPRN PRN (Reason: tension headache) Qty: 0 0RF
ondansetron 4 mg tablet,disintegrating
4 mg PO TIDPRN PRN (Reason: nausea/vomiting) Qty: 20 0RF
lorazepam 2 MG tablet
2 mg PO QID
Patient Comments:
06/19/2023: last filled 06/10/23, 120 tabs for 30 days from [place]
methocarbamol 500 mg Tablet
1,500 mg PO Q8H
quetiapine [Seroquel] 200 mg Tablet
400 mg PO HS
loperamide 2 mg Tablet
2 mg PO Q6H PRN (Reason: diarrhea)
ascorbic acid (vitamin C) [Vitamin C] 500 mg Tablet
500 mg PO BID
duloxetine [Cymbalta] 60 mg Capsule,Delayed Release(Dr/Ec)
30 mg PO BID
Rx Instructions:
BID with breakfast and lunch
cholecalciferol (vitamin D3) [Vitamin D3] 25 mcg (1,000 unit) Tablet
175 mcg PO QPM
albuterol sulfate [Ventolin HFA] 90 mcg/actuation Hfa Aerosol Inhaler
2 puff INHALATION Q4H PRN (Reason: sob/wheezing)
fluticasone propion-salmeterol [Advair HFA] 115-21 mcg/actuation HFA aerosol inhaler
2 puff INHALATION BID
Spiriva Respimat 1.25 mcg/actuation mist
2 puff INHALATION DAILY
gabapentin 900 mg Tablet Extended Release 24 Hr
900 mg PO 3XD
guaifenesin 600 mg Tablet Extended Release 12hr
1,200 mg PO Q12 Qty: 10 0RF
pantoprazole [Protonix] 40 mg tablet,delayed release (DR/EC)
40 mg PO DAILY Qty: 30 0RF
Referrals:
Oksana Lazo CRNP [Family Provider, Family Practice]
Interventions
Interventions:
*Risk Screen - Suicide Last Done: 02/08/25 20:05
*General Assessment Last Done: 02/08/25 20:05
*Neglect/Abuse Screening Last Done: 02/08/25 20:05
*ED COVID-19 Vaccine History Last Done: 02/08/25 20:05
*ED Influenza Vaccine History Last Done: 02/08/25 20:05
[facility] Fall Risk Assessment Tool Last Done: 02/08/25 20:26
[id number] Assessment Last Done: 02/08/25 20:27
Discharge Date and Time
Print Language: [id number]
--- NOTE | 2025-02-09 04:15 | HPS.HSE ---
Family Physician
-
Family Physician: DAVID Bhardwaj
Chief Complaint
-
N/V
History of Present Illness
Patient is a 54y F with PMH significant for adrenal insufficiency, RA / SLE and asthma who presents to ED complaining of N/V/D and abdominal discomfort. Patient states that her symptoms started this AM with diarrhea. She developed nausea in the
afternoon with multiple episodes of emesis since that time. She remains very nauseated despite multiple medications in the ED. Patient states that her daughter has had similar GI symptoms recently.
Patient had similar presentation in December attributed to gastroenteritis.
Medical History
Past Medical History
Past Medical History: Reports Other
Additional Past Medical History:
Anxiety
Rheumatoid arthritis
Asthma
Depression
Systemic lupus
Pulmonary nodules
Fibromyalgia
Osteoporosis
IBS
Adrenal insufficiency
IgG deficiency
GERD
Posttraumatic stress disorder
Past Surgical History: Reports Other
Additional Past Surgical History:
Tonsillectomy and adenoidectomy
[place] teeth extraction
Social History
Tobacco: Non-smoker
Alcohol: None
Drug: None
Living: With Family
Family History
Family History: Not pertinent
Allergies / Home Medications
Allergies reflects when Allergies were last updated in [facility].
Home Medications with original date entered in [facility]
Allergy/Medication List:
Allergies
Allergy/AdvReac Type Severity Reaction Status Date / Time
ciprofloxacin (From Cipro) Allergy Rash Verified 01/09/25 23:29
haloperidol (From Haldol) Allergy Unknown Verified 01/09/25 23:29
hydrocodone bitartrate (From Allergy Itching Verified 01/09/25 23:29
Lorcet 10)
metoclopramide (From Reglan) Allergy Swelling Verified 01/09/25 23:29
nitrofurantoin (From Allergy Vomitting Verified 01/09/25 23:29
Macrobid)
prednisone (Prednisone) Allergy Itching Verified 01/09/25 23:29
prochlorperazine (From Allergy Unknown Verified 01/09/25 23:29
Compazine)
promethazine (From Phenergan) Allergy Dizziness Verified 01/09/25 23:29
propoxyphene napsylate (From Allergy Itching Verified 01/09/25 23:29
Darvocet-N 100)
red dye Allergy Itching Verified 01/09/25 23:29
Serotonin 5HT-3 Antagonists Allergy Vomiting Verified 01/09/25 23:29
sulfamethoxazole (From Allergy Rash Verified 01/09/25 23:29
Bactrim)
sulfanilamide Allergy Rash Verified 01/09/25 23:29
Tricyclic Antidepressants Allergy Vomiting Verified 01/09/25 23:29
and Tricy
trimethoprim (From Bactrim) Allergy Rash Verified 01/09/25 23:29
wheat Allergy Vomiting Verified 01/09/25 23:29
Home Medications
Bifidobacterium infantis 4 mg capsule (Align (B.infantis)) 4 mg PO DAILY Probiotic supplement 09/28/17
benzonatate 100 mg capsule 200 mg PO Q8HPRN PRN cough 09/28/17
cranberry 500 mg capsule 930 mg PO DAILY Supplement 09/28/17
hydrocortisone 10 mg tablet 10 mg PO DAILY@1300 adrenal insufficiency 09/28/17
hydrocortisone 10 mg tablet 30 mg PO DAILY adrenal insufficiency 09/28/17
montelukast 10 mg tablet 10 mg PO QPM Allergy 09/28/17
riboflavin (vitamin B2) 100 mg tablet (Vitamin B-2) 400 mg PO DAILY Supplement 11/30/17
calcium carbonate (Antacid (calcium carbonate)) 2 tab PO Q4HPRN PRN heartburn 04/24/21
hydroxychloroquine 200 mg tablet 400 mg PO NOON Lupus/rheumatoid arthritis 04/24/21
acetaminophen 500 mg tablet (Tylenol Extra Strength) 1,000 mg (2 x 500 mg) PO Q8HPRN PRN tension headache ##0 04/26/21
ondansetron 4 mg disintegrating tablet 4 mg PO TIDPRN PRN nausea/vomiting #20 tabs 04/05/22
ascorbic acid (vitamin C) 500 mg tablet (Vitamin C) 500 mg PO BID Supplement 05/15/23
cholecalciferol (vitamin D3) 25 mcg (1,000 unit) tablet (Vitamin D3) 175 mcg PO QPM Supplement 05/15/23
duloxetine 60 mg capsule,delayed release (Cymbalta) 30 mg PO BID Fibromyalgia 05/15/23
loperamide 2 mg tablet 2 mg PO Q6H PRN diarrhea 05/15/23
lorazepam 2 mg tablet 2 mg PO QID Mental Health/Anxiety 05/15/23
methocarbamol 500 mg tablet 1,500 mg PO Q8H Lupus/RA/Fibromyalgia 05/15/23
quetiapine 200 mg tablet (Seroquel) 400 mg PO HS Mental Health/Anxiety 05/15/23
albuterol sulfate 90 mcg/actuation aerosol inhaler (Ventolin HFA) 2 puff inhalation Q4H PRN sob/wheezing 10/25/24
fluticasone propionate 115 mcg-salmeterol 21 mcg/actuation HFA inhaler (Advair HFA) 2 puff inhalation BID Lung/Breathing Issues 10/25/24
tiotropium bromide 1.25 mcg/actuation mist for inhalation (Spiriva Respimat) 2 puff inhalation DAILY Lung/Breathing Issues 10/25/24
gabapentin 900 mg tablet,extended release 24 hr 900 mg PO 3XD Neurological Condition 10/26/24
guaifenesin 600 mg tablet, extended release 12 hr 1,200 mg (2 x 600 mg) PO Q12 #10 tabs 10/27/24
pantoprazole 40 mg tablet,delayed release (Protonix) 40 mg PO DAILY #30 tabs 11/25/24
Review of Systems
-
History Source: Patient
A 12 point ROS was completed and negative except as noted: Yes
Constitutional: Reports Fatigue; Denies Fever or Chills
Respiratory: Denies Cough or Trouble Breathing
Cardiac: Denies Chest Pain or Palpitations
Abdomen/GI: Reports Abdominal Pain, Nausea, Vomiting and Diarrhea; Denies Bloody Stools or Black Stools
: Denies Dysuria or Frequency
Musculoskeletal: Denies Joint Pain or Edema
Neurological: Denies Dizzy or Headache
Psych: Denies Depression or Anxiety
Physical Exam
Vital Signs
Vital Signs
Temp Pulse Resp BP Pulse Ox
97.7 F 110 16 187/105 96
02/08/25 20:02 02/09/25 01:30 02/09/25 01:30 02/08/25 23:09 02/09/25 02:14
Physical Exam
General: Other (54y F in moderate distress due to persistent nausea / abdominal discomfort.)
HEENT: Other (Dry MM. Rounded facies. Thick neck.)
Respiratory: Clear; No Wheezes, Rales or Rhonchi
Cardiac: S1/S2 and Tachycardia; No Murmur
GI: Other (Abdomen is soft. Mildly / diffusely tender. Pos BS.)
Musculoskeletal: No Clubbing, No Cyanosis and No Edema
Neuro: AO x 3
Laboratory Results
-
02/08/25 20:21
02/08/25 20:21
Laboratory Results
Total Bilirubin 0.5 mg/dl (0.2-1.3) 02/08/25 20:21
AST 21 U/L (14-36) 02/08/25 20:21
ALT 16 U/L (0-35) 02/08/25 20:21
Alkaline Phosphatase 65 U/L (38-126) 02/08/25 20:21
Lipase 57 U/L (23-300) 02/08/25 20:21
Impression/Plan
-
A/P: Patient is a 54y F with PMH significant for adrenal insufficiency, RA / SLE and asthma who presents to ED complaining of N/V/D x 1 day.
Intractable N/V/D
Gastroenteritis
- Admit for further evaluation and treatment.
- CT A/P in the ED was unremarkable.
- Continue supportive care with IVFs, antiemetics, anxiolytics, etc.
- Clear liquids and advance as tolerated.
- Follow for clinical improvement.
Adrenal Insufficiency
- Initial hydrocortisone dose given in the ED. Continue stress dosing given acute illness.
- Follow for clinical improvement and wean back to usual PO dose when appropriate.
Anxiety / Depression / PTSD
- Increased anxiety secondary to acute illness.
- Continue usual home medications as tolerated.
- IV Valium PRN increased anxiety.
RA / SLE
- Continue usual home medications.
Asthma
- No wheezing at present.
- Continue usual inhaled medications. Albuterol PRN.
DVT Prophylaxis: Lovenox
Code Status: Full
[2025-02-09] MEDS: VALIUM INJECTION 5 MG IV (04:30)
[2025-02-09] MEDS: SOLU-CORTEF 50 MG IV ×4 (06:51→23:07)
[2025-02-09] MEDS: LR 1000 IV ×3 (06:52→23:09)
[2025-02-09 07:09] LABS: Hematocrit 36.2 % (37.0-47.0); Hemoglobin 12.3 g/dL (12.0-16.0); Mean Corp Hgb Conc. 34.0 g/dL (33.0-37.0); Mean Corpuscular Volume 91.6 fL (81.0-99.0); Platelet Count 442 10^3/uL (130-400); Red Cell Dist. Width 13.3 % (11.5-14.5)
[2025-02-09 07:36] LABS: ALT (SGPT) 16 U/L (0-35); AST (SGOT) 26 U/L (14-36); Albumin 4.4 g/dl (3.5-5.0); Alkaline Phosphatase 60 U/L (38-126); Blood Urea Nitrogen 14 mg/dl (7-17); Calcium 9.8 mg/dl (8.4-10.2); Carbon Dioxide 25 mmol/L (22-30); Chloride 103 mmol/L (98-107); Estimated Creatinine Clearance 88 ml/min; Glucose 108 mg/dl (70-99); Magnesium 1.8 mg/dl (1.6-2.3); Potassium 4.2 mmol/L (3.5-5.1); Sodium 137 mmol/L (135-145); Total Protein 6.6 g/dl (6.3-8.2); eGFR > 60.00
[2025-02-09] MEDS: ADVAIR HFA 115/21 MCG INHALER INH (07:51)
[2025-02-09] MEDS: NSS (PRESERVATIVE FREE) 10 ML IV ×2 (08:44→20:34)
[2025-02-09] MEDS: PROTONIX IV 40 MG IV ×2 (08:44→20:35)
[2025-02-09] MEDS: ATIVAN PO (09:30)
[2025-02-09] MEDS: NEURONTIN PO (09:30)
[2025-02-09] MEDS: VALIUM INJECTION 2 MG IV (09:30)
[2025-02-09] MEDS: CYMBALTA DELAYED RELEASE PO (09:30)
--- NOTE | 2025-02-09 09:37 | PTCARENOTE ---
pt very anxious within the room and [place] suffers [place] p[place] because of it. pt states she sits high 110s-120s for her HR at baseline. pt with continuous nausea despite IV prns given. pt unable to
tolerate oral med intake. HR sitting in 130s-140s on the monitor for this RN. aware. See MAR
[2025-02-09] MEDS: TIGAN 200 MG IM (12:00)
[2025-02-09] MEDS: NEURONTIN 900 MG PO ×3 (12:13→22:24)
[2025-02-09] MEDS: PLAQUENIL PO (12:13)
[2025-02-09] MEDS: PLAQUENIL 400 MG PO (12:14)
--- NOTE | 2025-02-09 12:27 | W.PN.UPDATE ---
Update Note
Progress Note Update
IV fluids antiemetics with Zofran TGN and Valium
EKG checked QTc in the 400s
Consult GI
Follow-up on stool studies
Continue steroids - stress dose
[2025-02-09] MEDS: ATIVAN 2 MG PO ×3 (13:44→22:24)
[2025-02-09] MEDS: TYLENOL 1000 MG PO (13:44)
--- NOTE | 2025-02-09 15:18 | CM ---
patient seen at bedside
IA completed
Patient lives in a 54[place] home in [facility] with her mother & daughter, 1 CARL[address]
plof: Independent, uses a cane or walker outside.
She walks her dog daily.
DME: Cane, walker, pulse oximetry
Denies VN/REHAB in past
PCP:Oksana Lazo
Pharmacy: [facility], [place]
PLAN: Home no needs.
Mom to transport
[2025-02-09] MEDS: METHOCARBAMOL 1500 MG PO (17:43)
[2025-02-09] MEDS: ADVAIR HFA 115/21 MCG INHALER 2 PUFF INH (19:35)
[2025-02-09] MEDS: CYMBALTA DELAYED RELEASE 30 MG PO (20:34)
[2025-02-09] MEDS: SEROQUEL 400 MG PO (22:24)
[2025-02-10 03:12] VITALS: BP 134/79
[2025-02-10] MEDS: SOLU-CORTEF 50 MG IV ×2 (05:46→21:21)
[2025-02-10 06:00] VITALS: BMI 30.9
[2025-02-10 06:45] LABS: Hematocrit 33.9 % (37.0-47.0); Hemoglobin 11.1 g/dL (12.0-16.0); Mean Corp Hgb Conc. 32.7 g/dL (33.0-37.0); Mean Corpuscular Volume 95.5 fL (81.0-99.0); Platelet Count 405 10^3/uL (130-400); Red Cell Dist. Width 13.5 % (11.5-14.5)
[2025-02-10 07:00] VITALS: BP 148/89
[2025-02-10 07:06] LABS: Blood Urea Nitrogen 14 mg/dl (7-17); Calcium 9.0 mg/dl (8.4-10.2); Carbon Dioxide 32 mmol/L (22-30); Chloride 102 mmol/L (98-107); Estimated Creatinine Clearance 88 ml/min; Glucose 109 mg/dl (70-99); Potassium 3.9 mmol/L (3.5-5.1); Sodium 138 mmol/L (135-145); eGFR > 60.00
[2025-02-10] MEDS: ADVAIR HFA 115/21 MCG INHALER 2 PUFF INH ×2 (07:23→19:50)
[2025-02-10] MEDS: CYMBALTA DELAYED RELEASE 30 MG PO ×2 (07:36→21:25)
[2025-02-10] MEDS: NEURONTIN 900 MG PO ×3 (07:36→21:25)
[2025-02-10] MEDS: PROTONIX IV 40 MG IV ×2 (07:37→21:23)
[2025-02-10] MEDS: NSS (PRESERVATIVE FREE) 10 ML IV ×2 (07:37→21:22)
[2025-02-10] MEDS: LR 1000 IV ×3 (07:37→23:34)
[2025-02-10] MEDS: ATIVAN 2 MG PO ×4 (07:37→21:47)
[2025-02-10] MEDS: LR IV ×2 (07:51→23:33)
[2025-02-10 11:00] VITALS: BP 150/93
[2025-02-10] MEDS: PLAQUENIL 400 MG PO (12:30)
--- NOTE | 2025-02-10 14:03 | CM ---
Addendum entered by Emelyn Mas 02/10/25 16:16:
IMM completed.
Original Note:
Patient seen bedside.
Patient denies home care needs.
Patient has transportation home.
IMM completed.
Plan: home no needs.
[2025-02-10 15:55] VITALS: BP 136/82
--- NOTE | 2025-02-10 16:46 | W.PN.HOSP.TC ---
Today's Communication/Plan
-
Assessment / Plan
Assessment / Plan
NAD
Scleral Anicteric
MMM
No JVD
CTABL
RRR, S1/S2
Soft, NT, ND, BS+
Warm, Dry
AAOx3
Calm
Gastroenteritis
IV fluids
Advance diet as tolerated
Adrenal insufficiency
Transition/taper stress dose steroids. Currently 50 every 6 now we will do 50 every 12 and tomorrow can transition to oral hydrocortisone
Rheumatoid arthritis/SLE
Continue home medications
Likely discharge home tomorrow
Anticipated Discharge: Within 24 hours
Subjective/Interval History
-
Date of Service: February 10, 2025
Seen and examined. No new complaints. No acute overnight events.
Feels significantly better. Tolerating clears. Would like to advance diet.
Objective Data
-
Labs:
Laboratory Results
02/10/25
05:48
WBC 14.0 H
Hgb 11.1 L
Hct 33.9 L
Plt Count 405 H
Sodium 138
Potassium 3.9
Chloride 102
Carbon Dioxide 32 H
BUN 14
Creatinine 0.8
Glucose 109 H
Calcium 9.0
Vital Signs:
Vital Signs
Temp Pulse Resp BP Pulse Ox
99.2 F 121 16 136/82 97
02/10/25 15:55 02/10/25 15:55 02/10/25 15:55 02/10/25 15:55 02/10/25 15:55
I&O
02/09/25 02/10/25 02/11/25
06:59 06:59 06:59
Intake Total 1859
Balance 1859
[2025-02-10 19:19] VITALS: BP 155/81
[2025-02-10] MEDS: SEROQUEL 400 MG PO (21:25)
[2025-02-10] MEDS: METHOCARBAMOL 1500 MG PO (21:47)
[2025-02-10] MEDS: TYLENOL 1000 MG PO (21:47)
[2025-02-10 23:24] VITALS: BP 121/73
[2025-02-11 03:21] VITALS: BP 128/78
[2025-02-11 07:20] VITALS: BP 150/82
[2025-02-11] MEDS: ADVAIR HFA 115/21 MCG INHALER 2 PUFF INH (07:28)
[2025-02-11 08:17] LABS: Hematocrit 34.4 % (37.0-47.0); Hemoglobin 11.2 g/dL (12.0-16.0); Mean Corp Hgb Conc. 32.6 g/dL (33.0-37.0); Mean Corpuscular Volume 96.9 fL (81.0-99.0); Platelet Count 404 10^3/uL (130-400); Red Cell Dist. Width 13.5 % (11.5-14.5)
[2025-02-11 08:46] LABS: Blood Urea Nitrogen 10 mg/dl (7-17); Calcium 9.1 mg/dl (8.4-10.2); Carbon Dioxide 33 mmol/L (22-30); Chloride 103 mmol/L (98-107); Estimated Creatinine Clearance 101 ml/min; Glucose 102 mg/dl (70-99); Potassium 3.5 mmol/L (3.5-5.1); Sodium 140 mmol/L (135-145); eGFR > 60.00
[2025-02-11] MEDS: NEURONTIN 900 MG PO (10:13)
[2025-02-11] MEDS: PROTONIX IV 40 MG IV (10:14)
[2025-02-11] MEDS: ATIVAN 2 MG PO ×2 (10:14→15:28)
[2025-02-11] MEDS: SOLU-CORTEF 50 MG IV (10:14)
[2025-02-11] MEDS: CYMBALTA DELAYED RELEASE 30 MG PO (10:14)
[2025-02-11] MEDS: NSS (PRESERVATIVE FREE) 10 ML IV (10:15)
[2025-02-11] MEDS: FLUSH (NSS) 2 FLUSH IV (10:16)
[2025-02-11 11:41] VITALS: BP 158/98
[2025-02-11] MEDS: PLAQUENIL 400 MG PO (12:18)
[2025-02-11] MEDS: LR IV (12:20)
--- NOTE | 2025-02-11 12:59 | W.DCSUMMARY ---
Discharge Summary
Discharge Data
Date of Admission: 02/09/25
Date of Discharge: 02/11/25
-
Pending Results: No
Hospital Course
54y F with PMH significant for adrenal insufficiency, RA / SLE and asthma
Presented with nausea vomiting diarrhea and abdominal discomfort. Diagnosed with gastroenteritis. Started on IV fluids. Hydrocortisone oral was transition to stress dose steroids. Symptomatology resolved and was able to tolerate diet. Started
on oral hydrocortisone home dose to return.
CTAP
IMPRESSION:
1. Bilateral nephrolithiasis without hydronephrosis.
2. No evidence of intestinal obstruction, bowel inflammatory process, or abscess formation.
Seen and examined the day of discharge which was 02/11/2025. No new complaints. No acute overnight events.
Feeling significantly better.
Tolerating a diet
No further nausea or vomiting
Normal stools
NAD
Scleral Anicteric
MMM
No JVD
CTABL
RRR, S1/S2
Soft, NT, ND, BS+
Warm, Dry
AAOx3
Calm
More than 30 minutes spent in discharge including
Final examination of the patient
Summarizing hospital stay
Instructions for continuing care to all relevant caregivers
Preparation of discharge records, prescriptions, and referral forms
Total time spent (in minutes): 33mins
Discharge Plan
-
Patient Disposition: Home (Routine Discharge)
Discharge Diagnosis/Procedures: Gastroenteritis
Adrenal insuff
Condition: Good
Diet: As tolerated
Activity: As tolerated
Activity Restrictions/Additional Instructions:
Presented with nausea vomiting diarrhea and abdominal discomfort. Diagnosed with gastroenteritis. Started on IV fluids. Hydrocortisone oral was transition to stress dose steroids. Symptomatology resolved and was able to tolerate diet. Started
on oral hydrocortisone home dose to return.
CTAP
IMPRESSION:
1. Bilateral nephrolithiasis without hydronephrosis.
2. No evidence of intestinal obstruction, bowel inflammatory process, or abscess formation.
Referrals:
Oksana Lazo CRNP [Family Provider, [facility]]
Prescriptions:
Continued
benzonatate 100 MG capsule
200 mg PO Q8HPRN PRN (Reason: cough)
montelukast 10 MG tablet
10 mg PO QPM
hydrocortisone 10 MG tablet
10 mg PO DAILY@1300
Patient Comments:
06/19/2023: Pt states she takes the double the dose when she is sick
hydrocortisone 10 MG tablet
30 mg PO DAILY
Patient Comments:
06/19/2023: Pt states she takes the double the dose when she is sick
cranberry 500 MG capsule
930 mg PO DAILY
Align (B.infantis) 4 MG capsule
4 mg PO DAILY
riboflavin (vitamin B2) [Vitamin B-2] 100 MG tablet
400 mg PO DAILY
calcium carbonate [Antacid (calcium carbonate)] 1 TABLET tablet,chewable
2 tab PO Q4HPRN PRN (Reason: heartburn)
hydroxychloroquine 200 MG tablet
400 mg PO NOON
acetaminophen [Tylenol Extra Strength] 500 MG tablet
1,000 mg PO Q8HPRN PRN (Reason: tension headache) Qty: 0 0RF
ondansetron 4 mg tablet,disintegrating
4 mg PO TIDPRN PRN (Reason: nausea/vomiting) Qty: 20 0RF
lorazepam 2 MG tablet
2 mg PO QID
Patient Comments:
06/19/2023: last filled 06/10/23, 120 tabs for 30 days from [facility]
methocarbamol 500 mg Tablet
1,500 mg PO Q8H PRN (Reason: Lupus/RA/Fibromyalgia)
quetiapine [Seroquel] 200 mg Tablet
400 mg PO HS
loperamide 2 mg Tablet
2 mg PO Q6H PRN (Reason: diarrhea)
ascorbic acid (vitamin C) [Vitamin C] 500 mg Tablet
500 mg PO BID
duloxetine [Cymbalta] 60 mg Capsule,Delayed Release(Dr/Ec)
30 mg PO BID
Rx Instructions:
BID with breakfast and lunch
cholecalciferol (vitamin D3) [Vitamin D3] 25 mcg (1,000 unit) Tablet
175 mcg PO QPM
albuterol sulfate [Ventolin HFA] 90 mcg/actuation Hfa Aerosol Inhaler
2 puff INHALATION Q4H PRN (Reason: sob/wheezing)
fluticasone propion-salmeterol [Advair HFA] 115-21 mcg/actuation HFA aerosol inhaler
2 puff INHALATION BID
Spiriva Respimat 1.25 mcg/actuation mist
2 puff INHALATION DAILY
guaifenesin 600 mg Tablet Extended Release 12hr
1,200 mg PO Q12 Qty: 10 0RF
pantoprazole [Protonix] 40 mg tablet,delayed release (DR/EC)
40 mg PO DAILY Qty: 30 0RF
gabapentin 300 mg Capsule
900 mg PO TID
Discharge Orders:
Discharge Patient (As Directed); Ordered 02/11/25
Ordered By: Sam Little
Discharge Date and Time
Print Language: LEBANESE
[2025-02-11 15:29] VITALS: BP 177/105
== END 2025-02-11 15:44 | disposition home or self-care (01) | DRG 392 ==
LOC: 2 NORTH 05:13
PROVIDERS: Emergency Medicine; ADMITTING PHYSICIAN Hospitalist; ATTENDING PHYSICIAN Hospitalist; EMERGENCY PHYSICIAN Emergency Medicine; FAMILY PHYSICIAN Nurse Practitioner Family
DX: K52.9 Noninfective gastroenteritis and colitis, unspecified (principal); E27.40 Unspecified adrenocortical insufficiency; D80.3 Selective deficiency of immunoglobulin G [IgG] subclasses; F13.20 Sedative, hypnotic or anxiolytic dependence, uncomplicated; N20.0 Calculus of kidney; M06.9 Rheumatoid arthritis, unspecified; M32.9 Systemic lupus erythematosus, unspecified; J45.909 Unspecified asthma, uncomplicated; F32.A Depression, unspecified; M79.7 Fibromyalgia; M81.0 Age-related osteoporosis without current pathological fracture; K21.9 Gastro-esophageal reflux disease without esophagitis; F43.10 Post-traumatic stress disorder, unspecified; F41.0 Panic disorder [episodic paroxysmal anxiety]; F42.9 Obsessive-compulsive disorder, unspecified; K90.0 Celiac disease; Z79.899 Other long term (current) drug therapy
CPT/HCPCS: 74177; 80048; 80053; 80076; 81003; 81015; 83690; 83735; 84100; 84439; 84443; 85025; 85027; 87045; 87046; 87427; 93005; 94640; Q9967

== ENCOUNTER → 2025-02-21 08:16 | Outpatient (REF) | payer OTHER, SELFPAY ==
[2025-02-21 09:00] LABS: Hematocrit 34.9 % (37.0-47.0); Hemoglobin 11.1 g/dL (12.0-16.0); Mean Corp Hgb Conc. 31.8 g/dL (33.0-37.0); Mean Corpuscular Volume 94.1 fL (81.0-99.0); Nucleated Red Blood Cells % 0 %; Platelet Count 426 10^3/uL (130-400); Red Cell Dist. Width 13.9 % (11.5-14.5)
[2025-02-21 09:30] LABS: ALT (SGPT) 20 U/L (0-35); AST (SGOT) 20 U/L (14-36); Albumin 4.2 g/dl (3.5-5.0); Alkaline Phosphatase 54 U/L (38-126); Blood Urea Nitrogen 15 mg/dl (7-17); Calcium 10.3 mg/dl (8.4-10.2); Carbon Dioxide 30 mmol/L (22-30); Chloride 98 mmol/L (98-107); Glucose 88 mg/dl (70-99); Potassium 4.2 mmol/L (3.5-5.1); Sodium 134 mmol/L (135-145); Total Protein 6.6 g/dl (6.3-8.2); eGFR > 60.00
[2025-02-21 09:45] LABS: Free T3 4.10 pg/ml (2.77-5.27)
[2025-02-21 09:59] LABS: TSH 0.17 uIU/ml (0.47-4.68)
[2025-02-21 10:18] LABS: Vitamin B12 672 pg/ml (239-931)
[2025-02-23 00:36] LABS: Thyroid Stim. Immunoglobulin <0.10 IU/L (<=0.54)
== END ==
LOC: REG 08:16
PROVIDERS: ATTENDING PHYSICIAN Physician Assistant; FAMILY PHYSICIAN Nurse Practitioner Family; REFERRING PHYSICIAN Internal Medicine Endocrinology, Diabetes & Metabolism
DX: E27.40 Unspecified adrenocortical insufficiency (principal); E04.2 Nontoxic multinodular goiter; M79.7 Fibromyalgia; Z51.81 Encounter for therapeutic drug level monitoring
CPT/HCPCS: 36415; 80053; 82607; 83520; 84439; 84443; 84445; 84481; 85025